=== PATIENT | male | born 1970 | race Caucasian/White ===

== ENCOUNTER 2017-05-08 14:00 | Outpatient (RCR) ==
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
== END 2017-05-09 ==
PROVIDERS: ATTEND Orthopaedic Surgery
DX: M79.622 Pain in left upper arm (principal); M79.642 Pain in left hand

== ENCOUNTER 2017-06-05 14:00 | Outpatient (RCR) ==
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
--- NOTE | 2017-06-03 16:37 | RS.OPPTDN ---
Subjective Date of Note: 06/03/17 Visit #: 2 Date of Evaluation: 06/01/17 Payer Source: Workman's Comp Treatment Diagnosis: Left knee pain, pelvic pain, back pain Current Subjective/complaints:: Patient reports pain at the right S-I that radiates into the right thigh. Reports feeling better following treatment. *Precautions: Wearing brace one more day Pain Assessment - Pain Description Pain Location: lowback, right S-I, and thigh Current Pain Intensity: mod - Treatment Modality: US with ES (Comb.) Parameters/Method Applied: [id number] at 1.5w/cm2 and 11p.v. to the right S-I region. Patient Position: Left Sidelying - Heat/Cryotherapy Treatment: Hot Pack ([id number] to the lowback and hips prior to USCOM and EX. Patient in supine. ) Interventions - Exercise/Activities/Manual Therapy Exercises/Activities: [id number] Gentle assisted stretchng of the bilateral hamstrings, SKTC, and piriformis. Isometric hip add. Quad sets left knee. Patient education on dx, body mechanics, and safety with daily activities. Patient givenb copies of new exercises. Total minutes of Exercise: 15mins Manual Therapy: NA HOME EXERCISE PROGRAM: Isometric hip add and quad sets - Charges Timed Code Treatment Minutes: 25mins Total Treatment Time: 45mins Procedures billed for this date of service:: HP, USCOM, EX Assessment: Patient able to tolerate basic exercise with assist. Will need to progress lumbar and pelvic strengthening before advancing left LE exercise. Patient Education: Education of diagnosis, Body/Joint mechanics, Home Exercise Program, Home Safety Patient demonstrates compliance with HEP?: Yes Short Term Goals Goal #1: Pt independent and compliant with HEP. Goal to be met by: 06/12/17 Progress towards Goal:: Progressing Goal #2: SLR bilaterally to 45-50 degrees in supine. Goal to be met by: 06/16/17 Goal #3: Trunk strength improved to 4/5. Goal to be met by: 06/16/17 Goal #4: Right low back/buttock pain decreased to minimal. Goal to be met by: 06/16/17 [facility] Goals Goal #1: Pt knows HEP and to continue ex's to maintain functional level at D/C. Goal to be met by: 07/12/17 Goal #2: Score on LE functional scale improved to 50/80. Goal to be met by: 07/12/17 Goal #3: Pt to tolerate prolonged sitting/riding in car without right LB or LE pain. Goal to be met by: 07/12/17 Goal #4: Lumbar AROM WFL's to perform all selfcare and ADL's w/o pain or difficulty. Goal to be met by: 07/12/17 Plan PLAN OF CARE EXPIRES ON:: 07/12/17 ORDER # VISITS AND/OR THROUGH DATE: 07/12/17 PLAN: Continue modalities and progress exercise to reduce pain and increase functional activity level.
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
--- NOTE | 2017-06-05 16:30 | RS.OPPTDN ---
Subjective Date of Note: 06/05/17 Visit #: 3 Date of Evaluation: 06/01/17 Payer Source: Workman's Comp Treatment Diagnosis: Left knee pain, pelvic pain, back pain Current Subjective/complaints:: Patient states he got a little bit of relief from the last treatment. States most of the pain is into the right buttock. States he aches more on days he has therapy. States stretching to the right HS feels like it is going to tear. *Precautions: . Pain Assessment - Pain Description Pain Location: right low back, right buttock, and right thigh Current Pain Intensity: not quaitified, moderate - Treatment Modality: US with ES (Comb.) Parameters/Method Applied: 10 mins @ 1.5 w/cm2 continuous at 12 peak volts. to right low back and superior gluteal musculature. Patient Position: Left Sidelying - Heat/Cryotherapy Treatment: Hot Pack (X 15 mins to low back in supine prior to US and EX) Interventions - Exercise/Activities/Manual Therapy Exercises/Activities: x14 mins Gentle assisted stretchng of the bilateral hamstrings, SKTC, and piriformis. Manual Therapy: NA HOME EXERCISE PROGRAM: Isometric hip add and quad sets - Charges Timed Code Treatment Minutes: 14 mins Total Treatment Time: 39 mins Procedures billed for this date of service:: HP, UScom, Ex Assessment: Patient reports some releif following treatment with US comb. States his pain continues to be mostly into right buttock and down to the knee. He is working on exercises at home. Patient demonstrates compliance with HEP?: Yes Short Term Goals Goal #1: Pt independent and compliant with HEP. Goal to be met by: 06/12/17 Progress towards Goal:: Progressing Goal #2: SLR bilaterally to 45-50 degrees in supine. Goal to be met by: 06/16/17 Goal #3: Trunk strength improved to 4/5. Goal to be met by: 06/16/17 Goal #4: Right low back/buttock pain decreased to minimal. Goal to be met by: 06/16/17 Squeezer Operator Goals Goal #1: Pt knows HEP and to continue ex's to maintain functional level at D/C. Goal to be met by: 07/12/17 Goal #2: Score on LE functional scale improved to 50/80. Goal to be met by: 07/12/17 Goal #3: Pt to tolerate prolonged sitting/riding in car without right LB or LE pain. Goal to be met by: 07/12/17 Goal #4: Lumbar AROM WFL's to perform all selfcare and ADL's w/o pain or difficulty. Goal to be met by: 07/12/17 Plan PLAN OF CARE EXPIRES ON:: 07/12/17 ORDER # VISITS AND/OR THROUGH DATE: 07/12/17 PLAN: Continue to progress stretching and strengthening as tolerated.
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
== END 2017-06-08 23:59 ==
PROVIDERS: ATTEND Orthopaedic Surgery
DX: M54.5 Low back pain (principal); M25.562 Pain in left knee; M79.622 Pain in left upper arm; R10.2 Pelvic and perineal pain

== ENCOUNTER 2017-07-08 13:00 | Outpatient (RCR) ==
--- NOTE | 2017-06-09 16:02 | RS.OPPTDN ---
Subjective Date of Note: 06/09/17 Visit #: 4 Date of Evaluation: 06/01/17 Payer Source: Workman's Comp Treatment Diagnosis: Left knee pain, pelvic pain, back pain Current Subjective/complaints:: Patient reports continued difficulty getting up from low chair or bed in the morning due to pain around the right S-I joint and across lowback. States that he has noticed this pain is better since starting treatment. He reports being able to ride short distances in vehicle without aggravating pain. *Precautions: Wearing brace one more day Pain Assessment - Pain Description Pain Location: lowback and across S-I joint area Current Pain Intensity: moderate with movement - Treatment Modality: US with ES (Comb.) Parameters/Method Applied: [id number] with US at 1.5w/cm2 and Estim 13-15p.v. to the right lower lumbar paraspinals and bilateral S-I joints with focus on the right side. Patient Position: Left Sidelying Interventions - Exercise/Activities/Manual Therapy Exercises/Activities: Gentle assisted stretchng of the bilateral hamstrings, SKTC, and piriformis. Began gentle figure 4 hip stretch on right. Isometric hip flexion, 4s/5reps each side. Began assisted bridging. Reviewed quad sets on left and discussed progression of strengthening when tolerable, as we are trying to avoid aggravating back pain. Total minutes of Exercise: 27mins Manual Therapy: NA HOME EXERCISE PROGRAM: Isometric hip add and quad sets, Isometric hip flexion, modified bridging - Charges Timed Code Treatment Minutes: 39mins Total Treatment Time: 40mins Procedures billed for this date of service:: USCOM, EX2 Assessment: Patient reporting progress with reduction in intensity of lumbar and pelvic pain. He will benefit from continued modalities and exercise as tolerated. Patient Education: Home Exercise Program Patient demonstrates compliance with HEP?: Yes Short Term Goals Goal #1: Pt independent and compliant with HEP. Goal to be met by: 06/12/17 Progress towards Goal:: Progressing Goal #2: SLR bilaterally to 45-50 degrees in supine. Goal to be met by: 06/16/17 Goal #3: Trunk strength improved to 4/5. Goal to be met by: 06/16/17 Goal #4: Right low back/buttock pain decreased to minimal. Goal to be met by: 06/16/17 Mission Commander Goals Goal #1: Pt knows HEP and to continue ex's to maintain functional level at D/C. Goal to be met by: 07/12/17 Goal #2: Score on LE functional scale improved to 50/80. Goal to be met by: 07/12/17 Goal #3: Pt to tolerate prolonged sitting/riding in car without right LB or LE pain. Goal to be met by: 07/12/17 Progress towards goal: Progressing Goal #4: Lumbar AROM WFL's to perform all selfcare and ADL's w/o pain or difficulty. Goal to be met by: 07/12/17 Plan PLAN OF CARE EXPIRES ON:: 07/12/17 ORDER # VISITS AND/OR THROUGH DATE: 07/12/17 PLAN: Continue modalities and progress exercise to increase patients functional activity level.
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
--- NOTE | 2017-06-11 11:48 | RS.OPPTDN ---
Subjective Date of Note: 06/10/17 Visit #: 5 Date of Evaluation: 06/01/17 Payer Source: Workman's Comp Treatment Diagnosis: Left knee pain, pelvic pain, back pain Current Subjective/complaints:: Patient reports he is having a bad day. States he feel good following therapy yesterday but is stiff today and having mod discomfort across S-I region, and having trouble getting up and down from bed/ chair. *Precautions: Wearing brace one more day Pain Assessment - Pain Description Pain Location: Right S-I joint, right thigh Current Pain Intensity: moderate+ Other Comments regarding Pain:: Patient also with pain in the left shoulder and mid back. - Treatment Modality: US with ES (Comb.) Parameters/Method Applied: [id number] US at 1.5w/cm2 and Estim 13-15p.v. to the right S-I joint and lower paraspinals. Patient Position: Left Sidelying Interventions - Exercise/Activities/Manual Therapy Exercises/Activities: Gentle assisted stretchng of the bilateral hamstrings, SKTC, and piriformis. Isometric hip flexion, 4s/5reps each side. Bridging. Sidelying clams. Quad sets on left and started SLR. Ended with additional stretching of hamstrings and piriformis, bilaterally. Total minutes of Exercise: 28mins Manual Therapy: NA HOME EXERCISE PROGRAM: Isometric hip add and quad sets, Isometric hip flexion, modified bridging - Charges Timed Code Treatment Minutes: 40mins Total Treatment Time: 40mins Procedures billed for this date of service:: USCOM, EX2 Assessment: Patient able to progress with exercise today. He is having more difficulty with pain which has limited his functional mobility. Patient Education: Body/Joint mechanics, Home Exercise Program, Home Safety, Activity Modification Patient demonstrates compliance with HEP?: Yes Short Term Goals Goal #1: Pt independent and compliant with HEP. Goal to be met by: 06/12/17 Progress towards Goal:: Progressing Goal #2: SLR bilaterally to 45-50 degrees in supine. Goal to be met by: 06/16/17 Goal #3: Trunk strength improved to 4/5. Goal to be met by: 06/16/17 Goal #4: Right low back/buttock pain decreased to minimal. Goal to be met by: 06/16/17 [employer] Goals Goal #1: Pt knows HEP and to continue ex's to maintain functional level at D/C. Goal to be met by: 07/12/17 Goal #2: Score on LE functional scale improved to 50/80. Goal to be met by: 07/12/17 Goal #3: Pt to tolerate prolonged sitting/riding in car without right LB or LE pain. Goal to be met by: 07/12/17 Progress towards goal: Progressing Goal #4: Lumbar AROM WFL's to perform all selfcare and ADL's w/o pain or difficulty. Goal to be met by: 07/12/17 Plan PLAN OF CARE EXPIRES ON:: 07/12/17 ORDER # VISITS AND/OR THROUGH DATE: 07/12/17 PLAN: Continue with modalities and gentle progression of exercise to reduce pain and increase patients functional activity level.
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
--- NOTE | 2017-06-12 16:21 | RS.OPPTDN ---
Subjective Date of Note: 06/12/17 Visit #: 6 Date of Evaluation: 06/01/17 Payer Source: Workman's Comp Treatment Diagnosis: Left knee pain, pelvic pain, back pain Current Subjective/complaints:: Patient reports treatment is helping reduce pain in the right S-I, but it returns within several hours. States his pain is not as intense. Patient asks to hold exercise as he was previously with Occupational therapy and is tired. *Precautions: Wearing brace one more day Pain Assessment - Pain Description Pain Location: Right S-I joint and lower lumbar paraspinals Current Pain Intensity: moderate+ - Treatment Modality: US with ES (Comb.) Parameters/Method Applied: [id number] US at 1.5w/cm2 and Estim to 9 p.v. to the right lower lumbar paraspinals and focus on right S-I joint Patient Position: Left Sidelying Interventions - Exercise/Activities/Manual Therapy Exercises/Activities: Discussed stretching. No new additions to HEP. Manual Therapy: NA HOME EXERCISE PROGRAM: Isometric hip add and quad sets, Isometric hip flexion, modified bridging - Charges Timed Code Treatment Minutes: 12mins Total Treatment Time: 15mins Procedures billed for this date of service:: USCOM Assessment: Patient reports some improvement in pain but continues to be limited with general mobility. Will resume exercise next week. Short Term Goals Goal #1: Pt independent and compliant with HEP. Goal to be met by: 06/12/17 Progress towards Goal:: Progressing Goal #2: SLR bilaterally to 45-50 degrees in supine. Goal to be met by: 06/16/17 Goal #3: Trunk strength improved to 4/5. Goal to be met by: 06/16/17 Goal #4: Right low back/buttock pain decreased to minimal. Goal to be met by: 06/16/17 Residential Goals Goal #1: Pt knows HEP and to continue ex's to maintain functional level at D/C. Goal to be met by: 07/12/17 Goal #2: Score on LE functional scale improved to 50/80. Goal to be met by: 07/12/17 Goal #3: Pt to tolerate prolonged sitting/riding in car without right LB or LE pain. Goal to be met by: 07/12/17 Progress towards goal: Progressing Goal #4: Lumbar AROM WFL's to perform all selfcare and ADL's w/o pain or difficulty. Goal to be met by: 07/12/17 Plan PLAN OF CARE EXPIRES ON:: 07/12/17 ORDER # VISITS AND/OR THROUGH DATE: 07/12/17 PLAN: Continue modalities and progress exercise as tolerated.
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
--- NOTE | 2017-06-15 15:25 | RS.OPPTDN ---
Subjective Date of Note: 06/15/17 Visit #: 7 Date of Evaluation: 06/01/17 Payer Source: Workman's Comp Treatment Diagnosis: Left knee pain, pelvic pain, back pain Current Subjective/complaints:: Patient reports back and right S-I joint pain is a little better. *Precautions: Wearing brace one more day Pain Assessment - Pain Description Pain Location: Right S-I joint and lowback Current Pain Intensity: moderate+ - Treatment Modality: US with ES (Comb.) Parameters/Method Applied: [id number] US at 1.5w/cm2 and Estim at 9-11p.v. to the right S-I joint and across the lowback. Patient Position: Left Sidelying Interventions - Exercise/Activities/Manual Therapy Exercises/Activities: Asssited stretching of the bilateral hamstrings, piriformis, SKTC, and trunk rotation. Isometric hip flexion, 4s/5reps each. Left SLR and SLR/VMO. Total minutes of Exercise: 20mins Manual Therapy: NA HOME EXERCISE PROGRAM: Isometric hip add and quad sets, Isometric hip flexion, modified bridging - Charges Timed Code Treatment Minutes: 32mins Total Treatment Time: 35mins Procedures billed for this date of service:: USCOM, EX Assessment: Patient reporting some improvement in back and S-I pain and able to progress with exercise today. Patient Education: Body/Joint mechanics, Home Exercise Program Patient demonstrates compliance with HEP?: Yes Short Term Goals Goal #1: Pt independent and compliant with HEP. Goal to be met by: 06/12/17 Progress towards Goal:: Partially Met Goal #2: SLR bilaterally to 45-50 degrees in supine. Goal to be met by: 06/16/17 Progress towards Goal:: Progressing Goal #3: Trunk strength improved to 4/5. Goal to be met by: 06/16/17 Goal #4: Right low back/buttock pain decreased to minimal. Goal to be met by: 06/16/17 Progress towards Goal:: Progressing Alf Goals Goal #1: Pt knows HEP and to continue ex's to maintain functional level at D/C. Goal to be met by: 07/12/17 Goal #2: Score on LE functional scale improved to 50/80. Goal to be met by: 07/12/17 Goal #3: Pt to tolerate prolonged sitting/riding in car without right LB or LE pain. Goal to be met by: 07/12/17 Progress towards goal: Progressing Goal #4: Lumbar AROM WFL's to perform all selfcare and ADL's w/o pain or difficulty. Goal to be met by: 07/12/17 Plan PLAN OF CARE EXPIRES ON:: 07/12/17 ORDER # VISITS AND/OR THROUGH DATE: 07/12/17 PLAN: Continue modalities and progress exercise to reduce back, sacral, and left knee pain with functional activities.
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
--- NOTE | 2017-06-17 15:48 | RS.OPPTDN ---
Subjective Date of Note: 06/17/17 Visit #: 8 Date of Evaluation: 06/01/17 Payer Source: Workman's Comp Treatment Diagnosis: Left knee pain, pelvic pain, back pain Current Subjective/complaints:: Patient reports treatment seems to help, but pain returns by the next day. States he has difficulty turning in bed due to sharp pain at the right S-I. *Precautions: Wearing brace one more day Pain Assessment - Pain Description Pain Location: Right S-I and bilateral lumbar paraspinals Current Pain Intensity: 6/10 - Treatment Modality: US with ES (Comb.) Parameters/Method Applied: [id number] US at 1.5w/cm2 and Estim to 12-14p.v. to the bilateral lower lumbar paraspinals and right S-I joint prior to EX. Patient Position: Left Sidelying Interventions - Exercise/Activities/Manual Therapy Exercises/Activities: In left side-lying clams and isometric right hip ER/ abduction. In supine, asssited stretching of the bilateral hamstrings, piriformis, SKTC, and trunk rotation. Progressed MET with isometric hip extension on the right, multiple sets of 5reps. Isometric hip flexion, 3s/5reps each. Combination isometric hip flexion on left and hip extension on right for MET. Isometric hip adduction with pillow. Ended with additional stretching and isometric hip ext on right. Total minutes of Exercise: 24mins Manual Therapy: NA HOME EXERCISE PROGRAM: Isometric hip add and quad sets, Isometric hip flexion, modified bridging. Isometric hip ext in right with assist from spouse. - Objective Findings Observations,measurements,etc.: Initially patient demos a leg length discrepancy with right longer than left by approx 1 inch. Following MET this is reduced to 1/4" or less. - Charges Timed Code Treatment Minutes: 38mins Total Treatment Time: 40mins Procedures billed for this date of service:: USCOM, EX2 Assessment: Patient with significant leg length discrepancy, but partially resolves with MET. Patient motivated to progress and actively questions patient education and how his can help with HEP. Patient Education: Education of diagnosis, Home Exercise Program, Activity Modification Patient demonstrates compliance with HEP?: Yes Short Term Goals Goal #1: Pt independent and compliant with HEP. Goal to be met by: 06/12/17 Progress towards Goal:: Partially Met Goal #2: SLR bilaterally to 45-50 degrees in supine. Goal to be met by: 06/16/17 Progress towards Goal:: Progressing Goal #3: Trunk strength improved to 4/5. Goal to be met by: 06/16/17 Goal #4: Right low back/buttock pain decreased to minimal. Goal to be met by: 06/16/17 Progress towards Goal:: Progressing Airport Representative Goals Goal #1: Pt knows HEP and to continue ex's to maintain functional level at D/C. Goal to be met by: 07/12/17 Goal #2: Score on LE functional scale improved to 50/80. Goal to be met by: 07/12/17 Goal #3: Pt to tolerate prolonged sitting/riding in car without right LB or LE pain. Goal to be met by: 07/12/17 Progress towards goal: Progressing Goal #4: Lumbar AROM WFL's to perform all selfcare and ADL's w/o pain or difficulty. Goal to be met by: 07/12/17 Plan PLAN OF CARE EXPIRES ON:: 07/12/17 ORDER # VISITS AND/OR THROUGH DATE: 07/12/17 PLAN: Continue modalities, progressive exercise, and MET to reduce pain and working to increase patients functional activitiy level.
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
--- NOTE | 2017-06-19 13:19 | RS.OTCXNS ---
OT Case Note Date of Scheduled Appointment: 06/19/17 Type: Cancel (Pt called to cx stating on way to hospital he was not feeling well. Re-scheduled for 3days next wk.)
--- NOTE | 2017-06-19 15:30 | RS.CXNS ---
Date of scheduled appointment: 06/19/17 Type: Cancel (Patient called to cancel appointment. States he was on his way to therapy but when back home due to feeling sick.)
--- NOTE | 2017-06-22 16:13 | RS.OPPTDN ---
Subjective Date of Note: 06/22/17 Visit #: 9 Date of Evaluation: 06/01/17 Payer Source: Workman's Comp Treatment Diagnosis: Left knee pain, pelvic pain, back pain Current Subjective/complaints:: Patient reports mild improvement with modalities and gentle exercise. He reports he continues to have significant discomfort at the lowback and down right thigh that limits his mobility. *Precautions: Wearing brace one more day Pain Assessment - Pain Description Pain Location: Lower lumbar paraspinals, right S-I, right posterior-lateral right upper leg. Pain Description: Radiating, Aching - Treatment Modality: US with ES (Comb.) Parameters/Method Applied: [id number] with US at 1.5w/cm2 and Estim at 10p.v. to the bilateral lower lumbar paraspinals and right S-I joint. Patient Position: Left Sidelying Interventions - Exercise/Activities/Manual Therapy Exercises/Activities: Assisted gentle stretching of the bilateral HS, piriformis , SKTC, and limited figure 4. Attempted trunk rotation, but stopped due to pain. Progressed MET with isometric hip extension on the right, multiple sets of 5reps. Isometric hip adduction with pillow. Ended with additional stretching. Total minutes of Exercise: 20mins Manual Therapy: NA HOME EXERCISE PROGRAM: Isometric hip add and quad sets, Isometric hip flexion, modified bridging. Isometric hip ext in right with assist from spouse. - Charges Timed Code Treatment Minutes: 32mins Total Treatment Time: 35mins Procedures billed for this date of service:: USCOM, EX Assessment: Patient does not appear to be making steady progress. He is reporting pain that limits his mobility with functional activity level. Patient demonstrates compliance with HEP?: Yes Short Term Goals Goal #1: Pt independent and compliant with HEP. Goal to be met by: 06/12/17 Progress towards Goal:: Met Goal #2: SLR bilaterally to 45-50 degrees in supine. Goal to be met by: 06/16/17 Progress towards Goal:: Partially Met Goal #3: Trunk strength improved to 4/5. Goal to be met by: 06/16/17 Progress towards Goal:: Not Met Comments:: Continues to be limited due to pain. Goal #4: Right low back/buttock pain decreased to minimal. Goal to be met by: 06/16/17 Progress towards Goal:: Progressing Performance Tester Goals Goal #1: Pt knows HEP and to continue ex's to maintain functional level at D/C. Goal to be met by: 07/12/17 Goal #2: Score on LE functional scale improved to 50/80. Goal to be met by: 07/12/17 Goal #3: Pt to tolerate prolonged sitting/riding in car without right LB or LE pain. Goal to be met by: 07/12/17 Progress towards goal: Progressing Goal #4: Lumbar AROM WFL's to perform all selfcare and ADL's w/o pain or difficulty. Goal to be met by: 07/12/17 Plan PLAN OF CARE EXPIRES ON:: 07/12/17 ORDER # VISITS AND/OR THROUGH DATE: 07/12/17 PLAN: Patient to see physician this week and anticipates having more diagnostic testing. Hold treatment for further physician assessment.
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
--- NOTE | 2017-06-24 16:22 | RS.OPPTDN ---
Subjective Date of Note: 06/24/17 Visit #: 10 Date of Evaluation: 06/01/17 Payer Source: Workman's Comp Treatment Diagnosis: Left knee pain, pelvic pain, back pain Current Subjective/complaints:: Patient reports seeing physician and has been advised to continue therapy at this time. Patient reports some decreased pain following treatment and exercise today. *Precautions: Wearing brace one more day Pain Assessment - Pain Description Pain Location: base of lumbar spine and right S-I joint region Current Pain Intensity: modwith movement - Treatment Modality: US with ES (Comb.) Parameters/Method Applied: [id number] US at 1.5w/cm2 and Estim 7-9 p.v. to the right lowback and S-I joint. Patient Position: Left Sidelying Interventions - Exercise/Activities/Manual Therapy Exercises/Activities: Assisted gentle stretching of the bilateral HS, piriformis , SKTC, and limited figure 4. Progressed MET with isometric hip extension on the right, multiple sets of 5reps. Isometric hip adduction with pillow. Isoemtric trunk rotation. Red theraband for resistive hip abd in hook-lying. Ended with additional stretching. Total minutes of Exercise: 14mins Manual Therapy: Trigger point release along the right lumbar paraspinals and right S-I and upper glut. Patient in left side-lying. Total minutes of Manual Therapy: 12mins HOME EXERCISE PROGRAM: Isometric hip add and quad sets, Isometric hip flexion, modified bridging. Isometric hip ext in right with assist from spouse. - Charges Timed Code Treatment Minutes: 38mins Total Treatment Time: 40mins Procedures billed for this date of service:: COM, MT, EX Assessment: Patient progressing with MET and trunk stability exercise today. Patient Education: Home Exercise Program Patient demonstrates compliance with HEP?: Yes Short Term Goals Goal #1: Pt independent and compliant with HEP. Goal to be met by: 06/12/17 Progress towards Goal:: Met Goal #2: SLR bilaterally to 45-50 degrees in supine. Goal to be met by: 06/16/17 Progress towards Goal:: Partially Met Goal #3: Trunk strength improved to 4/5. Goal to be met by: 06/16/17 Progress towards Goal:: Progressing Goal #4: Right low back/buttock pain decreased to minimal. Goal to be met by: 06/16/17 Progress towards Goal:: Progressing [facility] Goals Goal #1: Pt knows HEP and to continue ex's to maintain functional level at D/C. Goal to be met by: 07/12/17 Goal #2: Score on LE functional scale improved to 50/80. Goal to be met by: 07/12/17 Goal #3: Pt to tolerate prolonged sitting/riding in car without right LB or LE pain. Goal to be met by: 07/12/17 Progress towards goal: Progressing Goal #4: Lumbar AROM WFL's to perform all selfcare and ADL's w/o pain or difficulty. Goal to be met by: 07/12/17 Plan PLAN OF CARE EXPIRES ON:: 07/12/17 ORDER # VISITS AND/OR THROUGH DATE: 07/12/17 PLAN: Continue modalites, manual therapy, and progressive exercise to reduce pain and improve patients mobility with functional activities.
--- NOTE | 2017-06-26 16:12 | RS.OPPTDN ---
Subjective Date of Note: 06/26/17 Visit #: 11 Date of Evaluation: 06/01/17 Payer Source: Workman's Comp Treatment Diagnosis: Left knee pain, pelvic pain, back pain Current Subjective/complaints:: Patient reports he is walking better. States he is able to get in and out of car and up from chair better as well. States left knee pain mainly bothers him is we walks longer distances. *Precautions: Wearing brace one more day Pain Assessment - Pain Description Pain Location: Lowback and right S-I joint Current Pain Intensity: mod Worst Pain Intensity: 8/10 Other Comments regarding Pain:: Reports his pain is 8/10 with some movements, such as lifting hips in bed or trying to get up from a chair. - Treatment Modality: US with ES (Comb.) Parameters/Method Applied: [id number] US at 1.5w/cm2 with Estim 9-10 p.v. to the bilateral lower lumbar paraspinals and right S-I joint. Patient Position: Left Sidelying Interventions - Exercise/Activities/Manual Therapy Exercises/Activities: Assisted gentle stretching of the bilateral HS, piriformis , and SKTC. MET with isometric hip extension on the right, multiple sets of 5reps. Isometric hip adduction with pillow. Isometric trunk rotation. Green theraband for resistive hip abd in hook-lying. Resistive trunk rotation with green theraband. Green theraband for ham curl, 2s/10reps each. Left SAQ 2# 2s/ 10reps. Ended with additional stretching. Total minutes of Exercise: 17mins Manual Therapy: Trigger point release along the right lumbar paraspinals and right S-I and upper glut. Patient in left side-lying. HOME EXERCISE PROGRAM: Isometric hip add and quad sets, Isometric hip flexion, modified bridging. Isometric hip ext in right with assist from spouse. - Charges Timed Code Treatment Minutes: 29mins Total Treatment Time: 32mins Procedures billed for this date of service:: USCOM, EX Assessment: Patient has progressed with strengthening exercise today. His gait has improvement but continues to be limited with daily activities due to pain. Patient Education: Home Exercise Program Patient demonstrates compliance with HEP?: Yes Short Term Goals Goal #1: Pt independent and compliant with HEP. Goal to be met by: 06/12/17 Progress towards Goal:: Met Goal #2: SLR bilaterally to 45-50 degrees in supine. Goal to be met by: 06/16/17 Progress towards Goal:: Partially Met Goal #3: Trunk strength improved to 4/5. Goal to be met by: 06/16/17 Progress towards Goal:: Progressing Goal #4: Right low back/buttock pain decreased to minimal. 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 Goal to be met by: 07/12/17 Goal #2: Score on LE functional scale improved to 50/80. Goal to be met by: 07/12/17 Progress towards goal: Progressing Goal #3: Pt to tolerate prolonged sitting/riding in car without right LB or LE pain. Goal to be met by: 07/12/17 Progress towards goal: Progressing Goal #4: Lumbar AROM WFL's to perform all selfcare and ADL's w/o pain or difficulty. Goal to be met by: 07/12/17 Plan PLAN OF CARE EXPIRES ON:: 07/12/17 ORDER # VISITS AND/OR THROUGH DATE: 07/12/17 PLAN: Progress exercise to reduce pain and increase functional activity level.
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
--- NOTE | 2017-06-30 15:34 | RS.OPPTDN ---
Subjective Date of Note: 06/30/17 Visit #: 12 Date of Evaluation: 06/01/17 Payer Source: Workman's Comp Treatment Diagnosis: Left knee pain, pelvic pain, back pain Current Subjective/complaints:: Patient reports he is hurting more today. States he tried to play a game of pool last night, but the forward bending seems to have aggravated his pain level. Patient reports any increased activity seems to make him hurt all over. *Precautions: Wearing brace one more day Pain Assessment - Pain Description Pain Location: Lowback and right S-I/upper glut region. Current Pain Intensity: 09/18 - Treatment Modality: US with ES (Comb.) Parameters/Method Applied: [id number] US 1.5w/cm2 and Estim 14 p.v. to the bilateral lower lumbar paraspinals prior to EX. Patient Position: Left Sidelying Interventions - Exercise/Activities/Manual Therapy Exercises/Activities: Assisted gentle stretching of the bilateral HS, piriformis , and SKTC. Isometric hip adduction with pillow. Isometric trunk rotation. SLR. Isometric hip flexion. Witheld theraband exercises today. Ended with additional stretching. Total minutes of Exercise: 13mins Manual Therapy: NA HOME EXERCISE PROGRAM: Isometric hip add and quad sets, Isometric hip flexion, modified bridging. Isometric hip ext in right with assist from spouse. - Charges Timed Code Treatment Minutes: 25mins Total Treatment Time: 27mins Procedures billed for this date of service:: USCOM, EX Assessment: Patient having an exacerbation of pain today. Short Term Goals Goal #1: Pt independent and compliant with HEP. Goal to be met by: 06/12/17 Progress towards Goal:: Met Goal #2: SLR bilaterally to 45-50 degrees in supine. Goal to be met by: 06/16/17 Progress towards Goal:: Partially Met Goal #3: Trunk strength improved to 4/5. Goal to be met by: 06/16/17 Progress towards Goal:: Progressing Goal #4: Right low back/buttock pain decreased to minimal. Goal to be met by: 06/16/17 Progress towards Goal:: Progressing [facility] Goals Goal #1: Pt knows HEP and to continue ex's to maintain functional level at D/C. Goal to be met by: 07/12/17 Goal #2: Score on LE functional scale improved to 50/80. Goal to be met by: 07/12/17 Progress towards goal: Progressing Goal #3: Pt to tolerate prolonged sitting/riding in car without right LB or LE pain. Goal to be met by: 07/12/17 Progress towards goal: Progressing Goal #4: Lumbar AROM WFL's to perform all selfcare and ADL's w/o pain or difficulty. Goal to be met by: 07/12/17 Plan PLAN OF CARE EXPIRES ON:: 07/12/17 ORDER # VISITS AND/OR THROUGH DATE: 07/12/17 PLAN: Continue modalities and resume progression of exercises.
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
--- NOTE | 2017-07-02 15:46 | RS.OPPTDN ---
Subjective Date of Note: 07/02/17 Visit #: 13 Date of Evaluation: 06/01/17 Payer Source: Workman's Comp Treatment Diagnosis: Left knee pain, pelvic pain, back pain Current Subjective/complaints:: Patient says he is improving, but slower than he would like. He reports turning in bed is still one of the most difficult activities currently. He says he is using TENS at home and working on HEP, which seems to be a little easier to do. *Precautions: Wearing brace one more day Pain Assessment - Pain Description Pain Location: lumbar paraspinals and into the R pelvis - Treatment Modality: US with ES (Comb.) Parameters/Method Applied: continuous @ 1.5 w/cm2 and 13 pk volts x 10 mins to the R lumbar paraspinals and into the illiac crest region/sacrum Patient Position: Left Sidelying Interventions - Exercise/Activities/Manual Therapy Exercises/Activities: Assisted gentle stretching of the bilateral HS, piriformis , added figure 4, and SKTC. Isometric hip adduction with pillow 2x10. Isometric trunk rotation x 10. SLR, QS x 10. Isometric hip flexion x 10. Total minutes of Exercise: 21 Manual Therapy: NA HOME EXERCISE PROGRAM: Isometric hip add and quad sets, Isometric hip flexion, modified bridging. Isometric hip ext in right with assist from spouse. - Charges Timed Code Treatment Minutes: 31 Total Treatment Time: 31 Procedures billed for this date of service:: ex, u/s with estim combo Assessment: Patient is improving slowly with back pain reduction and flexibility. He has difficulty with bed mobility, but is able to do it slowly ( supine to sidelying), which does reduce his pain and is more tolerable now than recent weeks. Patient should benefit from further progression of modaltities and therex. Patient Education: Home Exercise Program, Education of Plan of Care Patient demonstrates compliance with HEP?: Yes Short Term Goals Goal #1: Pt independent and compliant with HEP. Goal to be met by: 06/12/17 Progress towards Goal:: Met Goal #2: SLR bilaterally to 45-50 degrees in supine. Goal to be met by: 06/16/17 Progress towards Goal:: Partially Met Goal #3: Trunk strength improved to 4/5. Goal to be met by: 06/16/17 Progress towards Goal:: Progressing Goal #4: Right low back/buttock pain decreased to minimal. Goal to be met by: 06/16/17 Progress towards Goal:: Progressing [employer]ary Goals Goal #1: Pt knows HEP and to continue ex's to maintain functional level at D/C. Goal to be met by: 07/12/17 Goal #2: Score on LE functional scale improved to 50/80. Goal to be met by: 07/12/17 Progress towards goal: Progressing Goal #3: Pt to tolerate prolonged sitting/riding in car without right LB or LE pain. Goal to be met by: 07/12/17 Progress towards goal: Progressing Goal #4: Lumbar AROM WFL's to perform all selfcare and ADL's w/o pain or difficulty. Goal to be met by: 07/12/17 Plan PLAN OF CARE EXPIRES ON:: 07/12/17 ORDER # VISITS AND/OR THROUGH DATE: 07/12/17 PLAN: Patient should continue x 6 more visit per pt's reports of MD request to lead up to his follow up appt.
--- NOTE | 2017-07-07 15:52 | RS.OPPTDN ---
Subjective Date of Note: 07/07/17 Visit #: 14 Date of Evaluation: 06/01/17 Payer Source: Workman's Comp Treatment Diagnosis: Left knee pain, pelvic pain, back pain Current Subjective/complaints:: Patient reports he and his are seeing slow , but steady improvement in his mobility. *Precautions: Wearing brace one more day Pain Assessment - Pain Description Pain Location: Lowback, right S-I - Treatment Modality: US with ES (Comb.) Parameters/Method Applied: [id number] US at 1.5w/cm2 and Estim at 9p.v. to the right lowback and right S-I joint region. Patient Position: Left Sidelying Interventions - Exercise/Activities/Manual Therapy Exercises/Activities: Assisted gentle stretching of the bilateral HS, piriformis , added figure 4, and SKTC. Isometric hip adduction with pillow. Left SLR, QS x 10reps each. Began left SLR/VMO 2s/5reps each. Isometric hip flexion 3s/5reps. Total minutes of Exercise: 17mins Manual Therapy: NA HOME EXERCISE PROGRAM: Isometric hip add and quad sets, Isometric hip flexion, modified bridging. Isometric hip ext in right with assist from spouse. - Charges Timed Code Treatment Minutes: 29mins Total Treatment Time: 29mins Procedures billed for this date of service:: USCOM, EX Assessment: Patient reporting progress in his mobility at home. Demos improved gait pattern. Patient Education: Body/Joint mechanics, Home Exercise Program Patient demonstrates compliance with HEP?: Yes Short Term Goals Goal #1: Pt independent and compliant with HEP. Goal to be met by: 06/12/17 Progress towards Goal:: Met Goal #2: SLR bilaterally to 45-50 degrees in supine. Goal to be met by: 06/16/17 Progress towards Goal:: Partially Met Goal #3: Trunk strength improved to 4/5. Goal to be met by: 06/16/17 Progress towards Goal:: Progressing Goal #4: Right low back/buttock pain decreased to minimal. Goal to be met by: 06/16/17 Progress towards Goal:: Progressing Fdc Goals Goal #1: Pt knows HEP and to continue ex's to maintain functional level at D/C. Goal to be met by: 07/12/17 Goal #2: Score on LE functional scale improved to 50/80. Goal to be met by: 07/12/17 Progress towards goal: Progressing Goal #3: Pt to tolerate prolonged sitting/riding in car without right LB or LE pain. Goal to be met by: 07/12/17 Progress towards goal: Progressing Goal #4: Lumbar AROM WFL's to perform all selfcare and ADL's w/o pain or difficulty. Goal to be met by: 07/12/17 Plan PLAN OF CARE EXPIRES ON:: 07/12/17 ORDER # VISITS AND/OR THROUGH DATE: 07/12/17 PLAN: Progress exercise to increase patients functional activity level.
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
--- NOTE | 2017-07-08 15:49 | RS.OPPTDN ---
Subjective Date of Note: 07/08/17 Visit #: 15 Date of Evaluation: 06/01/17 Payer Source: Workman's Comp Treatment Diagnosis: Left knee pain, pelvic pain, back pain Current Subjective/complaints:: Patient reports he is moving better today. States left knee pain is not bothering him if he walks short distances. Pain does increase with knee to chest stretch with full flexion. *Precautions: Wearing brace one more day - Treatment Modality: US with ES (Comb.) Parameters/Method Applied: [id number] US at 1.5w/cm2 and Estim to 7-9p.v. to the bilateral lower lumbar paraspinals and right S-I joint prirot o EX. Patient Position: Left Sidelying Interventions - Exercise/Activities/Manual Therapy Exercises/Activities: Assisted gentle stretching of the bilateral HS, piriformis , added figure 4, and SKTC. Isometric hip adduction with pillow. Left SLR, QS x 10reps each. Left SLR/VMO 2s/5reps. Isometric hip flexion 4s/5reps. Right hip isometric hip extension. Total minutes of Exercise: 15mins Manual Therapy: NA HOME EXERCISE PROGRAM: Isometric hip add and quad sets, Isometric hip flexion, modified bridging. Isometric hip ext in right with assist from spouse. - Objective Findings Observations,measurements,etc.: Patient demos independent with SLR and SLR/VMO on the left. - Charges Timed Code Treatment Minutes: 27mins Total Treatment Time: 32mins Procedures billed for this date of service:: USCOM, EX Assessment: Patient slowly making improvement with mobility and reduction in left knee pain. Orders received to continue therapy 3 times per week for 4 weeks. Patient Education: Education of Plan of Care Patient demonstrates compliance with HEP?: Yes Short Term Goals Goal #1: Pt independent and compliant with HEP. Goal to be met by: 06/12/17 Progress towards Goal:: Met Goal #2: SLR bilaterally to 45-50 degrees in supine. Goal to be met by: 06/16/17 Progress towards Goal:: Partially Met Goal #3: Trunk strength improved to 4/5. Goal to be met by: 06/16/17 Progress towards Goal:: Partially Met Goal #4: Right low back/buttock pain decreased to minimal. Goal to be met by: 06/16/17 Progress towards Goal:: Progressing Jail Goals Goal #1: Pt knows HEP and to continue ex's to maintain functional level at D/C. Goal to be met by: 08/05/17 Progress towards goal: Progressing Goal #2: Score on LE functional scale improved to 50/80. Goal to be met by: 08/05/17 Progress towards goal: Progressing Goal #3: Pt to tolerate prolonged sitting/riding in car without right LB or LE pain. Goal to be met by: 08/05/17 Progress towards goal: Progressing Goal #4: Lumbar AROM WFL's to perform all selfcare and ADL's w/o pain or difficulty. Goal to be met by: 08/05/17 Progress towards goal: Progressing Plan PLAN OF CARE EXPIRES ON:: 08/05/17 ORDER # VISITS AND/OR THROUGH DATE: 08/05/17 PLAN: Progress with exercise to reduce back and left knee pain, and increase functional activity level. LTG's dates extended to accommodate continuation orders.
--- NOTE | 2017-07-10 11:18 | RS.OTDNOTE ---
Subjective Date of Note: 07/08/17 Visit #: 27 Date of Evaluation: 05/04/17 Payer Source: Workman's Comp Treatment Diagnosis: Pain of left upper arm M79.622, M79.642 pain in Left hand digits *Precautions: Wearing brace one more day Current Complaints/Gains: States at rest 0 c/o pain. States he has reduced from 16 pain pills to 3 or less a day. Pain Assessment - Pain Description Pain Description: Tightness, Dull, Aching Pain Location: Ribs 5/10. Pain continues in left UE ulnar aspect of arm that runs to digits in the PIP to the DIP joints. Pt reports "tightness and pulling " in his left UE Pain Description: acute, aches, sharp Modalities - Treatment Modality: Ultrasound Parameters/Method Applied: .04wcm/2 x10 mins pecks/anterior shoulder Patient Position: Sitting Interventions - Exercise/Activities Exercise/Activities/Manual Therapy: MT/postural trng performed in sitting and supine postions including cervical/scaline stretches. Pt ed and performed PNF ex in supine positon 10/1 x D1D2 flexion/extension and add/abduction planes. Isometric ex/hold-release performed 10/2 x shoulder flexion/extension and IR/ ER. 1# renetta bar and yellow t-band ex's this date. HEP ed continues. Pt also in prone position for abduction/flexion and row ex's(2#) 10/2 of shoulder. HOME EXERCISE PROGRAM: AROM shoulder protraction/retraction in supine. Lying on right side trying to move the shoulder in the clock formation. scapular pinches holding shoulder blades together for 5 seconds. - Objective Findings Objective Findings:: Winging of left scapula, tender points in serratus, posterior inferior muscle, subscapularis, intercostal tender points. Pt edema has really decreased. Pt is anteriorly rotated in Left shoulder. Core Muscles of left side have atrophied due to surgery. Pt tolerating scapular pinches better today. Pt leans head to the left with LUE shoulder flexion AROM. Pt has pain in the ulnar nerve aspect of the left forearm and in the tricep of the LUE. - Charges Timed Code Treatment Minutes: 54 Total Treatment Time: 58 Procedures billed for this date of service:: US MT EX NMR Assessment Patient Education: Education of diagnosis, Body/Joint mechanics, Home Exercise Program, Home Safety, Activity Modification, Education of Plan of Care Patient demonstrates compliance with HEP?: Yes Short Term Goals Goal #1: Pt LUE pain to decrease to 2/10. Goal to be met by: 07/20/17 Progress towards goal: Progressing Goal #2: Pt to increase LUE mass senior etl developer to 80#. Goal to be met by: 07/20/17 Progress towards goal: Progressing Goal #3: Pt to increase AROM of shoulder abduction to 90 degrees. Goal to be met by: 07/20/17 Progress towards goal: Progressing Goal #4: Pt to be independent with Home exercise program. Goal to be met by: 06/01/17 Progress towards goal: [facility] Goals Goal #1: Pt to decrease pain to 0/10 Goal to be met by: 08/06/17 Progress towards goal: Progressing Goal #2: Pt to increase LUE mass senior etl developer to 100#. Goal to be met by: 08/06/17 Progress towards goal: Progressing Goal #3: Pt to increase AROM of LUE to be WFL. Goal to be met by: 08/06/17 Progress towards goal: Progressing Goal #4: Pt to increase strength of LUE to 4+/5. Goal to be met by: 07/01/17 Progress towards goal: Progressing Plan PLAN OF CARE EXPIRES ON:: 08/06/17 ORDER # VISITS AND/OR THROUGH DATE: 12 PLAN: Continue current POC to max fx use, strength, and AROM with decreased c/o pain.
== END 2017-07-09 23:59 ==
PROVIDERS: ATTEND Orthopaedic Surgery
DX: M25.512 Pain in left shoulder (principal); M25.562 Pain in left knee; M54.5 Low back pain; M79.602 Pain in left arm

== ENCOUNTER 2017-08-07 09:00 | Outpatient (RCR) ==
--- NOTE | 2017-07-10 16:11 | RS.OPPTDN ---
Subjective Date of Note: 07/10/17 Visit #: 16 Date of Evaluation: 06/01/17 Payer Source: Workman's Comp Treatment Diagnosis: Left knee pain, pelvic pain, back pain Current Subjective/complaints:: Patient reports he is hurting more today. States he tried to work on a home project today and reports he was unable to kneel due to bilateral knee pain with left worse than right. *Precautions: Wearing brace one more day - Treatment Modality: US with ES (Comb.) Parameters/Method Applied: [id number] US at 1.5w/cm2 and Estim 7-10p.v. to the bialteral lumbar paraspinals and right S-I joint into upper glut. Patient Position: Left Sidelying Interventions - Exercise/Activities/Manual Therapy Exercises/Activities: Assisted gentle stretching of the bilateral HS, piriformis , added figure 4, and SKTC. Isometric hip adduction with pillow. Left SLR, QS, and SLR/VMO 2s/10reps. Isometric hip flexion 4s/5reps. Green theraband for resisted hip abd and add in hook-lying 2s/10reps each. Ended with additional HS and SKTC stretching. Right hip isometric hip extension. Total minutes of Exercise: 25mins Manual Therapy: NA HOME EXERCISE PROGRAM: Isometric hip add and quad sets, Isometric hip flexion, modified bridging. Isometric hip ext in right with assist from spouse. - Charges Timed Code Treatment Minutes: 39mins Total Treatment Time: 42mins Procedures billed for this date of service:: USCOM, EX2 Assessment: Patient having a flair up. He consistently tries to perform daily activities around his home and continues to have difficulty due to back, pelvic , and left knee pain. THe patient is consistent with attendance and motivated to progress. Patient Education: Home Exercise Program Patient demonstrates compliance with HEP?: Yes Short Term Goals Goal #1: Pt independent and compliant with HEP. Goal to be met by: 06/12/17 Progress towards Goal:: Met Goal #2: SLR bilaterally to 45-50 degrees in supine. Goal to be met by: 06/16/17 Progress towards Goal:: Partially Met Goal #3: Trunk strength improved to 4/5. Goal to be met by: 06/16/17 Progress towards Goal:: Partially Met Goal #4: Right low back/buttock pain decreased to minimal. Goal to be met by: 06/16/17 Progress towards Goal:: Regressing Residential Goals Goal #1: Pt knows HEP and to continue ex's to maintain functional level at D/C. Goal to be met by: 08/05/17 Progress towards goal: Progressing Goal #2: Score on LE functional scale improved to 50/80. Goal to be met by: 08/05/17 Progress towards goal: Progressing Goal #3: Pt to tolerate prolonged sitting/riding in car without right LB or LE pain. Goal to be met by: 08/05/17 Goal #4: Lumbar AROM WFL's to perform all selfcare and ADL's w/o pain or difficulty. Goal to be met by: 08/05/17 Progress towards goal: Regressing (Flair-up of pain limiting his ability with ADL's.) Plan PLAN OF CARE EXPIRES ON:: 08/05/17 ORDER # VISITS AND/OR THROUGH DATE: 08/05/17 PLAN: Continue gentle strengthening and pelvic alignment to attempt to reduce pain and increase patients functional activity level.
--- NOTE | 2017-07-13 16:33 | RS.OTDNOTE ---
Subjective Date of Note: 07/13/17 Visit #: 29 Date of Evaluation: 05/04/17 Payer Source: Workman's Comp Treatment Diagnosis: Pain of left upper arm M79.622, M79.642 pain in Left hand digits *Precautions: Wearing brace one more day Current Complaints/Gains: Pain in his arm, pain in PIP joints, Pain in his back. Shoulder bother's him. Pain Assessment - Pain Description Pain Location: Ribs 5/10. Pain continues in left UE ulnar aspect of arm that runs to digits in the PIP to the DIP joints. Pt reports "tightness and pulling " in his left UE Pain Description: acute, aches, sharp Current Pain Intensity: 3 Worst Pain Intensity: 9 Modalities - Treatment Modality: Ultrasound Parameters/Method Applied: .4 w/cm2 to teres minor, teres major to decrease pain for 8 minutes while patient was sitting in a chair. Treatment Area: LUE Posterior shoulder Patient Position: Sitting Interventions - Exercise/Activities Exercise/Activities/Manual Therapy: MT to Pectoralis muscle while in supine and teres major and teres minor muscles while in sitting. US to teres minor and major to decrease pain. 1# renetta bar with 4# bar to strengthen shoulder flexion, and chest pushouts. HEP ed continues. HOME EXERCISE PROGRAM: AROM shoulder protraction/retraction in supine. Lying on right side trying to move the shoulder in the clock formation. scapular pinches holding shoulder blades together for 5 seconds. - Objective Findings Objective Findings:: Winging of left scapula, tender points in serratus, posterior inferior muscle, subscapularis, intercostal tender points. Pt edema has really decreased. Pt is anteriorly rotated in Left shoulder. Core Muscles of left side have atrophied due to surgery. Pt tolerating scapular pinches better today. Pt leans head to the left with LUE shoulder flexion AROM. Pt has pain in the ulnar nerve aspect of the left forearm and in the tricep of the LUE. - Charges Timed Code Treatment Minutes: 55 Total Treatment Time: 58 Procedures billed for this date of service:: US, MT x2, EX Assessment Assessment: Pt reports he is improving slowly. Problems/Comments: Pain with LUE shoulder flexion. Pt cannot raise his arm up into full flexion. Patient demonstrates compliance with HEP?: Yes Short Term Goals Goal #1: Pt LUE pain to decrease to 2/10. Goal to be met by: 07/20/17 Progress towards goal: Progressing Goal #2: Pt to increase LUE mass plug cutter to 80#. Goal to be met by: 07/20/17 Goal #3: Pt to increase AROM of shoulder abduction to 90 degrees. Goal to be met by: 07/20/17 Goal #4: Pt to be independent with Home exercise program. Goal to be met by: 06/01/17 Progress towards goal: Met Weatherization Specialist Goals Goal #1: Pt to decrease pain to 0/10 Goal to be met by: 08/06/17 Progress towards goal: Progressing Goal #2: Pt to increase LUE mass plug cutter to 100#. Goal to be met by: 08/06/17 Progress towards goal: Progressing Goal #3: Pt to increase AROM of LUE to be WFL. Goal to be met by: 08/06/17 Progress towards goal: Progressing Goal #4: Pt to increase strength of LUE to 4+/5. Goal to be met by: 07/01/17 Progress towards goal: Progressing Plan PLAN OF CARE EXPIRES ON:: 08/06/17 ORDER # VISITS AND/OR THROUGH DATE: 12 PLAN: Pt to decrease pain in LUE shoulder to 0/10. Increase strength to increase AROM of LUE for ADLS.
--- NOTE | 2017-07-14 08:35 | RS.OTDNOTE ---
Subjective Date of Note: 07/10/17 Visit #: 28 Date of Evaluation: 05/04/17 Payer Source: Workman's Comp Treatment Diagnosis: Pain of left upper arm M79.622, M79.642 pain in Left hand digits *Precautions: Wearing brace one more day Current Complaints/Gains: States MT/shoulder retraction "feels good" Pain Assessment - Pain Description Pain Location: Ribs 5/10. Pain continues in left UE ulnar aspect of arm that runs to digits in the PIP to the DIP joints. Pt reports "tightness and pulling " in his left UE Pain Description: acute, aches, sharp Modalities - Treatment Modality: Ultrasound Parameters/Method Applied: .04w/cm2 x 10 mins Treatment Area: shoulder Patient Position: Sitting - Hot Pack/Cryotherapy Treatment: Cryotherapy Interventions - Exercise/Activities Exercise/Activities/Manual Therapy: MT/postural trng performed in sitting and supine postions including cervical/scaline stretches. Pt ed and performed PNF ex in supine positon 10/1 x D1D2 flexion/extension and add/abduction planes. Isometric ex/hold-release performed 10/2 x shoulder flexion/extension and IR/ ER. 1# renetta bar and yellow t-band ex's this date. HEP ed continues. Pt also in prone position for abduction/flexion and row ex's(2#) 10/2 of shoulder. HOME EXERCISE PROGRAM: AROM shoulder protraction/retraction in supine. Lying on right side trying to move the shoulder in the clock formation. scapular pinches holding shoulder blades together for 5 seconds. - Objective Findings Objective Findings:: Winging of left scapula, tender points in serratus, posterior inferior muscle, subscapularis, intercostal tender points. Pt edema has really decreased. Pt is anteriorly rotated in Left shoulder. Core Muscles of left side have atrophied due to surgery. Pt tolerating scapular pinches better today. Pt leans head to the left with LUE shoulder flexion AROM. Pt has pain in the ulnar nerve aspect of the left forearm and in the tricep of the LUE. - Charges Timed Code Treatment Minutes: 58 Total Treatment Time: 62 Procedures billed for this date of service:: US MT EX2 Assessment Patient Education: Education of diagnosis, Body/Joint mechanics, Home Exercise Program, Home Safety, Activity Modification, Education of Plan of Care Patient demonstrates compliance with HEP?: Yes Short Term Goals Goal #1: Pt LUE pain to decrease to 2/10. 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 Goal to be met by: 07/20/17 Progress towards goal: Progressing Goal #3: Pt to increase AROM of shoulder abduction to 90 degrees. Goal to be met by: 07/20/17 Progress towards goal: Progressing Comments: Met in supine positon Goal #4: Pt to be independent with Home exercise program. 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 Goal to be met by: 08/06/17 Progress towards goal: Progressing Goal #3: Pt to increase AROM of LUE to be WFL. Goal to be met by: 08/06/17 Progress towards goal: Progressing Goal #4: Pt to increase strength of LUE to 4+/5. Goal to be met by: 07/01/17 Progress towards goal: Progressing Plan PLAN OF CARE EXPIRES ON:: 08/06/18 ORDER # VISITS AND/OR THROUGH DATE: 37 PLAN: Cont per POC to max fx strength and ROM with decreased c/o pain
--- NOTE | 2017-07-15 15:06 | RS.OPPTDN ---
Subjective Date of Note: 07/13/17 Visit #: 17 Date of Evaluation: 06/01/17 Payer Source: Workman's Comp Treatment Diagnosis: Left knee pain, pelvic pain, back pain Current Subjective/complaints:: Patient reports pain across LB and hip with right S-I continuing to be the worst. Reports he is seeing slow but steady progress with his mobility with light activities around his home. *Precautions: Wearing brace one more day - Treatment Modality: US with ES (Comb.) Parameters/Method Applied: [id number] US at 1.5w/cm2 and Estim 9p.v. to the bilateral lumbar paraspinals and right S-I joint prior to EX. Patient Position: Left Sidelying Interventions - Exercise/Activities/Manual Therapy Exercises/Activities: Assisted gentle stretching of the bilateral HS, piriformis , added figure 4, and SKTC. Isometric hip adduction with pillow. Left SLR, QS, and SLR/VMO 2s/10reps. Isometric hip flexion 4s/5reps. Green theraband for resisted hip abd and add in hook-lying 2s/10reps each. Ended with additional HS and SKTC stretching. Right hip isometric hip extension and isometric hip add for MET. Total minutes of Exercise: 24mins Manual Therapy: NA HOME EXERCISE PROGRAM: Isometric hip add and quad sets, Isometric hip flexion, modified bridging. Isometric hip ext in right with assist from spouse. - Charges Timed Code Treatment Minutes: 38mins Total Treatment Time: 42mins Procedures billed for this date of service:: USCOM, EX2 Assessment: Patient able to progress exercise. Patient Education: Home Exercise Program, Home Safety, Activity Modification Patient demonstrates compliance with HEP?: Yes Short Term Goals Goal #1: Pt independent and compliant with HEP. Goal to be met by: 06/12/17 Progress towards Goal:: Met Goal #2: SLR bilaterally to 45-50 degrees in supine. Goal to be met by: 06/16/17 Progress towards Goal:: Partially Met Goal #3: Trunk strength improved to 4/5. Goal to be met by: 06/16/17 Progress towards Goal:: Partially Met Goal #4: Right low back/buttock pain decreased to minimal. Goal to be met by: 06/16/17 Progress towards Goal:: Regressing Custodial Goals Goal #1: Pt knows HEP and to continue ex's to maintain functional level at D/C. Goal to be met by: 08/05/17 Progress towards goal: Progressing Goal #2: Score on LE functional scale improved to 50/80. Goal to be met by: 08/05/17 Progress towards goal: Progressing Goal #3: Pt to tolerate prolonged sitting/riding in car without right LB or LE pain. Goal to be met by: 08/05/17 Goal #4: Lumbar AROM WFL's to perform all selfcare and ADL's w/o pain or difficulty. Goal to be met by: 08/05/17 Progress towards goal: Regressing (Flair-up of pain limiting his ability with ADL's.) Plan PLAN OF CARE EXPIRES ON:: 08/05/17 ORDER # VISITS AND/OR THROUGH DATE: 08/05/17 PLAN: Progress exercise to increase patients ability to perform daily functional activities.
--- NOTE | 2017-07-15 16:21 | RS.OPPTDN ---
Subjective Date of Note: 07/15/17 Visit #: 18 Date of Evaluation: 06/01/17 Payer Source: Workman's Comp Treatment Diagnosis: Left knee pain, pelvic pain, back pain Current Subjective/complaints:: Patient reports he feels he is making slow progress. *Precautions: Wearing brace one more day Pain Assessment - Pain Description Pain Location: right S-I joint and lower lumbar paraspinals Pain Description: Sharp, Aching Current Pain Intensity: 5-6/10 - Treatment Modality: US with ES (Comb.) Parameters/Method Applied: [id number] US at 1.5w/cm2 and Estim 8-9p.v. to the bialteral lower lumbar paraspinals and focus on right S-I joint. Patient Position: Left Sidelying Interventions - Exercise/Activities/Manual Therapy Exercises/Activities: Assisted gentle stretching of the bilateral HS, piriformis , added figure 4, and SKTC. Isometric hip adduction with pillow. Left SLR, QS, and SLR/VMO 2s/10reps. Isometric hip flexion 4s/5reps. Isometric hip abduction with manual resistance, 5s/5reps each. Ended with additional HS and SKTC stretching. Total minutes of Exercise: 24mins Manual Therapy: NA HOME EXERCISE PROGRAM: Isometric hip add and quad sets, Isometric hip flexion, modified bridging. Isometric hip ext in right with assist from spouse. - Charges Timed Code Treatment Minutes: 38mins Total Treatment Time: 41mins Procedures billed for this date of service:: USCOM, EX2 Assessment: Patient continues to report improvement in pain and general mobility , but continues to be very limited in his functional activity level. Patient Education: Body/Joint mechanics, Home Exercise Program Patient demonstrates compliance with HEP?: Yes Short Term Goals Goal #1: Pt independent and compliant with HEP. Goal to be met by: 06/12/17 Progress towards Goal:: Met Goal #2: SLR bilaterally to 45-50 degrees in supine. Goal to be met by: 06/16/17 Progress towards Goal:: Partially Met Goal #3: Trunk strength improved to 4/5. Goal to be met by: 06/16/17 Progress towards Goal:: Partially Met Goal #4: Right low back/buttock pain decreased to minimal. 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 Goal to be met by: 08/05/17 Progress towards goal: Progressing Goal #2: Score on LE functional scale improved to 50/80. Goal to be met by: 08/05/17 Progress towards goal: Progressing Goal #3: Pt to tolerate prolonged sitting/riding in car without right LB or LE pain. Goal to be met by: 08/05/17 Progress towards goal: Progressing Goal #4: Lumbar AROM WFL's to perform all selfcare and ADL's w/o pain or difficulty. Goal to be met by: 08/05/17 Progress towards goal: Regressing (Flair-up of pain limiting his ability with ADL's.) Plan PLAN OF CARE EXPIRES ON:: 08/05/17 ORDER # VISITS AND/OR THROUGH DATE: 08/05/17 PLAN: Continue progression of exercise as tolerated to increase patients functional activity level.
--- NOTE | 2017-07-17 08:39 | RS.OTDNOTE ---
Subjective Date of Note: 07/15/17 Visit #: 30 Date of Evaluation: 05/04/17 Payer Source: Workman's Comp Treatment Diagnosis: Pain of left upper arm M79.622, M79.642 pain in Left hand digits *Precautions: Wearing brace one more day Pain Assessment - Pain Description Pain Location: Ribs 5/10. Pain continues in left UE ulnar aspect of arm that runs to digits in the PIP to the DIP joints. Pt reports "tightness and pulling " in his left UE Pain Description: acute, aches, sharp Modalities - Treatment Modality: Ultrasound Parameters/Method Applied: .04w/cm2 x10 mins Patient Position: Supine Comments:: UE in prolonged stretch while in supine positon - Hot Pack/Cryotherapy Treatment: Cryotherapy Comments:: CP x 10 mins following therapy Interventions - Exercise/Activities Exercise/Activities/Manual Therapy: MT/postural trng performed in sitting and supine postions including cervical/scaline stretches. Pt ed and performed PNF ex in supine positon 10/1 x D1D2 flexion/extension and add/abduction planes. Isometric ex/hold-release performed 10/2 x shoulder flexion/extension and IR/ ER. 1# renetta bar and yellow t-band ex's this date. HEP ed continues. Pt also in prone position for abduction/flexion and row ex's(2#) 10/2 of shoulder. HOME EXERCISE PROGRAM: AROM shoulder protraction/retraction in supine. Lying on right side trying to move the shoulder in the clock formation. scapular pinches holding shoulder blades together for 5 seconds. - Objective Findings Objective Findings:: Winging of left scapula, tender points in serratus, posterior inferior muscle, subscapularis, intercostal tender points. Pt edema has really decreased. Pt is anteriorly rotated in Left shoulder. Core Muscles of left side have atrophied due to surgery. Pt tolerating scapular pinches better today. Pt leans head to the left with LUE shoulder flexion AROM. Pt has pain in the ulnar nerve aspect of the left forearm and in the tricep of the LUE. - Charges Timed Code Treatment Minutes: 55 Total Treatment Time: 69 Procedures billed for this date of service:: CP US EX MT Assessment Patient Education: Education of diagnosis, Body/Joint mechanics, Home Exercise Program, Home Safety, Activity Modification, Education of Plan of Care Patient demonstrates compliance with HEP?: Yes Short Term Goals Goal #1: Pt LUE pain to decrease to 2/10. Goal to be met by: 07/20/17 Progress towards goal: Progressing Goal #2: Pt to increase LUE mass bread racker to 80#. Goal to be met by: 07/20/17 Progress towards goal: Progressing Goal #3: Pt to increase AROM of shoulder abduction to 90 degrees. Goal to be met by: 07/20/17 Progress towards goal: Progressing Goal #4: Pt to be independent with Home exercise program. Goal to be met by: 06/01/17 Progress towards goal: Met [facility] Goals Goal #1: Pt to decrease pain to 0/10 Goal to be met by: 08/06/17 Progress towards goal: Progressing Goal #2: Pt to increase LUE mass bread racker to 100#. Goal to be met by: 08/06/17 Progress towards goal: Progressing Goal #3: Pt to increase AROM of LUE to be WFL. Goal to be met by: 08/06/17 Progress towards goal: Progressing Goal #4: Pt to increase strength of LUE to 4+/5. Goal to be met by: 07/01/17 Progress towards goal: Progressing Plan PLAN OF CARE EXPIRES ON:: 08/06/17 ORDER # VISITS AND/OR THROUGH DATE: 37 PLAN: Cont current POC to max fx strength and ROM with decreased c/o pain
--- NOTE | 2017-07-17 16:21 | RS.OTDNOTE ---
Subjective Date of Note: 07/17/17 Visit #: 31 Date of Evaluation: 05/04/17 Payer Source: Workman's Comp Treatment Diagnosis: Pain of left upper arm M79.622, M79.642 pain in Left hand digits *Precautions: Wearing brace one more day Current Complaints/Gains: Increased c/o pain. States he played pool last night but did ice afterwards. Pain Assessment - Pain Description Pain Description: Burning, Tightness, Sharp, Dull, Throbbing, Aching Pain Location: Ribs 5/10. Pain continues in left UE ulnar aspect of arm that runs to digits in the PIP to the DIP joints. Pt reports "tightness and pulling " in his left UE Pain Description: acute, aches, sharp Current Pain Intensity: 3 Worst Pain Intensity: 10 Modalities - Treatment Parameters/Method Applied: .04w/cm2x 10 mins Patient Position: Supine - Hot Pack/Cryotherapy Treatment: Cryotherapy (CP x 10 mins) Interventions - Exercise/Activities Exercise/Activities/Manual Therapy: MT/postural trng performed in sitting and supine postions including cervical/scaline stretches. Pt ed and performed PNF ex in supine positon 10/1 x D1D2 flexion/extension and add/abduction planes. Isometric ex/hold-release performed 10/2 x shoulder flexion/extension and IR/ ER. 1# renetta bar and yellow/red t-band ex's this date. HEP ed continues. Pt also in prone position for abduction/flexion and row ex's(2#) 10/2 of shoulder. HOME EXERCISE PROGRAM: AROM shoulder protraction/retraction in supine. Lying on right side trying to move the shoulder in the clock formation. scapular pinches holding shoulder blades together for 5 seconds. - Objective Findings Objective Findings:: Winging of left scapula, tender points in serratus, posterior inferior muscle, subscapularis, intercostal tender points. Pt edema has really decreased. Pt is anteriorly rotated in Left shoulder. Core Muscles of left side have atrophied due to surgery. Pt tolerating scapular pinches better today. Pt leans head to the left with LUE shoulder flexion AROM. Pt has pain in the ulnar nerve aspect of the left forearm and in the tricep of the LUE. - Charges Timed Code Treatment Minutes: 64 Total Treatment Time: 74 Procedures billed for this date of service:: US EX2 MT CP Assessment Patient Education: Education of diagnosis, Body/Joint mechanics, Home Exercise Program, Home Safety, Activity Modification, Education of Plan of Care Patient demonstrates compliance with HEP?: Yes Short Term Goals Goal #1: Pt LUE pain to decrease to 2/10. Goal to be met by: 07/20/17 Progress towards goal: Progressing Goal #2: Pt to increase LUE mass lpn private duty to 80#. Goal to be met by: 07/20/17 Progress towards goal: Progressing Goal #3: Pt to increase AROM of shoulder abduction to 90 degrees. Goal to be met by: 07/20/17 Progress towards goal: Progressing Goal #4: Pt to be independent with Home exercise program. Goal to be met by: 06/01/17 Progress towards goal: Met Shelter Goals Goal #1: Pt to decrease pain to 0/10 Goal to be met by: 08/06/17 Progress towards goal: Progressing Goal #2: Pt to increase LUE mass lpn private duty to 100#. Goal to be met by: 08/06/17 Progress towards goal: Progressing Goal #3: Pt to increase AROM of LUE to be WFL. Goal to be met by: 08/06/17 Progress towards goal: Progressing Goal #4: Pt to increase strength of LUE to 4+/5. Goal to be met by: 07/01/17 Progress towards goal: Progressing Plan PLAN OF CARE EXPIRES ON:: 08/06/17 ORDER # VISITS AND/OR THROUGH DATE: 37 PLAN: Cont per POC to max fx I, strength, and ROM with decreased c/o pain.
--- NOTE | 2017-07-17 16:39 | RS.OPPTDN ---
Subjective Date of Note: 07/17/17 Visit #: 19 Date of Evaluation: 06/01/17 Payer Source: Workman's Comp Treatment Diagnosis: Left knee pain, pelvic pain, back pain Current Subjective/complaints:: Patient reports he feels he was doing better this week. States he tried to play a game of pool but leanind over the table aggravated his back and S-I pain. *Precautions: Wearing brace one more day Pain Assessment - Pain Description Pain Location: Right S-I joint and bilateral lower lumbar paraspinals. Pain Description: Tightness, Aching Current Pain Intensity: moderate Other Comments regarding Pain:: Pain varies with activity. - Treatment Modality: US with ES (Comb.) Parameters/Method Applied: [id number] US at 1.5w/cm2 and Estim at 14-16p.v. to the bilateral lower lumbar paraspinals, with focus at the right S-I joint and upper gult. Patient Position: Left Sidelying Interventions - Exercise/Activities/Manual Therapy Exercises/Activities: Focus today on gentle assisted stretching of the bilateral HS, piriformis, added figure 4, and SKTC. Patient with marked tightness and increased pain with initial HS stretch, but resolves with long stretches. Total minutes of Exercise: 14mins Manual Therapy: NA HOME EXERCISE PROGRAM: Isometric hip add and quad sets, Isometric hip flexion, modified bridging. Isometric hip ext in right with assist from spouse. - Objective Findings Observations,measurements,etc.: Patient with increased tightness prior to assisted stretching. He also demos a marked limp with ambulation in department. - Charges Timed Code Treatment Minutes: 28mins Total Treatment Time: 32mins Procedures billed for this date of service:: USCOM, EX Assessment: Patient making very slow progress and having setbacks when he attempts to increase light daily activities. Patient Education: Home Exercise Program, Home Safety, Activity Modification Patient demonstrates compliance with HEP?: Yes Short Term Goals Goal #1: Pt independent and compliant with HEP. Goal to be met by: 06/12/17 Progress towards Goal:: Met Goal #2: SLR bilaterally to 45-50 degrees in supine. Goal to be met by: 06/16/17 Progress towards Goal:: Partially Met Goal #3: Trunk strength improved to 4/5. Goal to be met by: 06/16/17 Progress towards Goal:: Partially Met Goal #4: Right low back/buttock pain decreased to minimal. Goal to be met by: 06/16/17 Progress towards Goal:: Regressing Custodial Goals Goal #1: Pt knows HEP and to continue ex's to maintain functional level at D/C. Goal to be met by: 08/05/17 Progress towards goal: Progressing Goal #2: Score on LE functional scale improved to 50/80. Goal to be met by: 08/05/17 Progress towards goal: Progressing Goal #3: Pt to tolerate prolonged sitting/riding in car without right LB or LE pain. Goal to be met by: 08/05/17 Progress towards goal: Progressing Goal #4: Lumbar AROM WFL's to perform all selfcare and ADL's w/o pain or difficulty. Goal to be met by: 08/05/17 Progress towards goal: Regressing (Flair-up of pain limiting his ability with ADL's.) Plan PLAN OF CARE EXPIRES ON:: 08/05/17 ORDER # VISITS AND/OR THROUGH DATE: 08/05/17 PLAN: Continue to try to progress flexibility and strengthening to increase patients functional activity level.
--- NOTE | 2017-07-22 16:27 | RS.OPPTDN ---
Subjective Date of Note: 07/22/17 Visit #: 20 Date of Evaluation: 06/01/17 Payer Source: Workman's Comp Treatment Diagnosis: Left knee pain, pelvic pain, back pain Current Subjective/complaints:: Patient reports he was able tolerate a long car ride, with stops for breaks, to go to his step-daughters graduation this weekend. States he did have a "pop" in his right S-I with sharp pain when rolling over in bed. Following a short rest period he was able to move without increased pain, and now feels like he is much better. *Precautions: Wearing brace one more day Pain Assessment - Pain Description Pain Location: Right S-I joint and bilateral lumbar paraspinals Current Pain Intensity: mild - Treatment Modality: US with ES (Comb.) Parameters/Method Applied: [id number] US at 1.5w/cm2 and Estim 13-15p.v. to the bilateral lumbar paraspinals and focus on right S-I joint. Patient Position: Left Sidelying Interventions - Exercise/Activities/Manual Therapy Exercises/Activities: Assisted stretching of the bilateral HS, piriformis, figure 4, and SKTC. Isometric hip flexion, isometric hip add, and isometric trunk rotation. Total minutes of Exercise: 19mins Manual Therapy: NA HOME EXERCISE PROGRAM: Isometric hip add and quad sets, Isometric hip flexion, modified bridging. Isometric hip ext in right with assist from spouse. - Objective Findings Observations,measurements,etc.: Patient with marked tightness and increased pain with initial HS stretch, but resolves with long stretches. - Charges Timed Code Treatment Minutes: 31mins Total Treatment Time: 33mins Procedures billed for this date of service:: USCOM, EX Assessment: Patient with continued HS tightness that limits his ability to progress exercise. He is reporting slow but consistent increase in his functional mobility. He has been able to ride in a car several hours to a family event which he was unable to do recently. Patient is making slow but steady progress. Patient Education: Body/Joint mechanics, Home Exercise Program Comments: Discussed patient education of pelvic mechanics again today. Patient demonstrates compliance with HEP?: Yes Short Term Goals Goal #1: Pt independent and compliant with HEP. Goal to be met by: 06/12/17 Progress towards Goal:: Met Goal #2: SLR bilaterally to 45-50 degrees in supine. Goal to be met by: 06/16/17 Progress towards Goal:: Partially Met Goal #3: Trunk strength improved to 4/5. Goal to be met by: 06/16/17 Progress towards Goal:: Partially Met Goal #4: Right low back/buttock pain decreased to minimal. Goal to be met by: 06/16/17 Progress towards Goal:: Regressing Snf Goals Goal #1: Pt knows HEP and to continue ex's to maintain functional level at D/C. Goal to be met by: 08/05/17 Progress towards goal: Progressing Goal #2: Score on LE functional scale improved to 50/80. Goal to be met by: 08/05/17 Progress towards goal: Progressing Goal #3: Pt to tolerate prolonged sitting/riding in car without right LB or LE pain. Goal to be met by: 08/05/17 Progress towards goal: Progressing Goal #4: Lumbar AROM WFL's to perform all selfcare and ADL's w/o pain or difficulty. Goal to be met by: 08/05/17 Progress towards goal: Regressing (Flair-up of pain limiting his ability with ADL's.) Plan PLAN OF CARE EXPIRES ON:: 08/05/17 ORDER # VISITS AND/OR THROUGH DATE: 08/05/17 PLAN: Continue modalities and gentle exercise, progressing with functional activity level.
--- NOTE | 2017-07-23 09:09 | RS.OTDNOTE ---
Subjective Date of Note: 07/22/17 Visit #: 32 Date of Evaluation: 05/04/17 Payer Source: Workman's Comp Treatment Diagnosis: Pain of left upper arm M79.622, M79.642 pain in Left hand digits *Precautions: Wearing brace one more day Current Complaints/Gains: Pt states he had a pop in his back with sudden pain but that his back has felt better since. States UE improvement with playing pool and feels the stretch helps with his therapy but he is unable to bend down to table height during. Pain Assessment - Pain Description Pain Description: Burning, Tightness, Sharp, Dull, Throbbing, Aching Pain Location: Ribs 5/10. Pain continues in left UE ulnar aspect of arm that runs to digits in the PIP to the DIP joints. Pt reports "tightness and pulling " in his left UE Pain Description: acute, aches, sharp Modalities - Treatment Modality: Ultrasound Parameters/Method Applied: .04w/cm2 x 7 mins to traps and 7 mins to AC joint/ deltoids Patient Position: Sitting - Hot Pack/Cryotherapy Treatment: Cryotherapy Comments:: CP x 20 mins following therapy Interventions - Exercise/Activities Exercise/Activities/Manual Therapy: MT/postural trng performed in sitting and supine postions including cervical/scaline stretches. Pt ed and performed PNF ex in supine positon 10/1 x D1D2 flexion/extension and add/abduction planes. Isometric ex/hold-release performed 10/2 x shoulder flexion/extension and IR/ ER. 5# renetta bar and green/red t-band ex's this date. HEP ed continues. Pt also in prone position for abduction/flexion and row ex's(2#) 10/2 of shoulder and sitting for retraction 10/2. Pt also performed prolonged gentle strech on pool height adjustable table-top with distraction performed x 3 HOME EXERCISE PROGRAM: AROM shoulder protraction/retraction in supine. Lying on right side trying to move the shoulder in the clock formation. scapular pinches holding shoulder blades together for 5 seconds. - Objective Findings Objective Findings:: Winging of left scapula, tender points in serratus, posterior inferior muscle, subscapularis, intercostal tender points. Pt edema has really decreased. Pt is anteriorly rotated in Left shoulder. Core Muscles of left side have atrophied due to surgery. Pt tolerating scapular pinches better today. Pt leans head to the left with LUE shoulder flexion AROM. Pt has pain in the ulnar nerve aspect of the left forearm and in the tricep of the LUE. - Charges Timed Code Treatment Minutes: 62 Total Treatment Time: 80 Procedures billed for this date of service:: CP US EX NMR Assessment Patient Education: Education of diagnosis, Body/Joint mechanics, Home Exercise Program, Home Safety, Activity Modification, Education of Plan of Care Patient demonstrates compliance with HEP?: Yes Short Term Goals Goal #1: Pt LUE pain to decrease to 2/10. 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 Goal to be met by: 07/20/17 Progress towards goal: Progressing Goal #3: Pt to increase AROM of shoulder abduction to 90 degrees. Goal to be met by: 07/20/17 Progress towards goal: Partially Met Comments: met in supine Goal #4: Pt to be independent with Home exercise program. Goal to be met by: 06/01/17 Progress towards goal: Met [facility] Goals Goal #1: Pt to decrease pain to 0/10 Goal to be met by: 08/06/17 Progress towards goal: Progressing Goal #2: Pt to increase LUE mass hourly shift manager to 100#. Goal to be met by: 08/06/17 Progress towards goal: Progressing Goal #3: Pt to increase AROM of LUE to be WFL. Goal to be met by: 08/06/17 Progress towards goal: Progressing Goal #4: Pt to increase strength of LUE to 4+/5. Goal to be met by: 07/01/17 Progress towards goal: Progressing Plan PLAN OF CARE EXPIRES ON:: 08/06/17 ORDER # VISITS AND/OR THROUGH DATE: 37 PLAN: Cont per POC to mas fx use, ROM/strength.
--- NOTE | 2017-07-24 15:08 | RS.OPPTDN ---
Subjective Date of Note: 07/24/17 Visit #: 21 Date of Evaluation: 06/01/17 Payer Source: Workman's Comp Treatment Diagnosis: Left knee pain, pelvic pain, back pain Current Subjective/complaints:: Patient reports back and S-I joint pain is present, but is much better since he experienced the pop at the right S-I. He has pain he describes as like a "burning", which is reduced with long gentle stretching. Reports his left knee pain is whats causing a slight limp upon walking following treatment. States he is working on HEP. *Precautions: Wearing brace one more day Pain Assessment - Pain Description Pain Location: bilateral lower lumbar spine, S-I joints, and right upper glut Pain Description: Aching Current Pain Intensity: 3-4/10 - Treatment Modality: US with ES (Comb.) Parameters/Method Applied: [id number] US at 1.5w/cm2 and Estim 17-19p.v. to the bilateral lower lumbar paraspinals and to the right S-I and upper gluts, following exercise today. Patient Position: Left Sidelying Interventions - Exercise/Activities/Manual Therapy Exercises/Activities: Assisted stretching of the bilateral HS, piriformis, figure 4, SKTC, and ITB. Isometric hip flexion, isometric hip add, and isometric trunk rotation. Blue theraband for resistive hip abd in hook-lying. Bridging. Alt hip flexion. Total minutes of Exercise: 22mins Manual Therapy: NA HOME EXERCISE PROGRAM: Isometric hip add and quad sets, Isometric hip flexion, modified bridging. Isometric hip ext in right with assist from spouse. - Objective Findings Observations,measurements,etc.: Right LE continues to be longer than left by approx 1/4 to 1/2", only slightly resolved with MET. - Charges Timed Code Treatment Minutes: 34mins Total Treatment Time: 37mins Procedures billed for this date of service:: USCOM, EX Assessment: Patient demos improved gait pattern and is able to progress trunk stability exericse. Patient Education: Home Exercise Program, Activity Modification Patient demonstrates compliance with HEP?: Yes Short Term Goals Goal #1: Pt independent and compliant with HEP. Goal to be met by: 06/12/17 Progress towards Goal:: Met Goal #2: SLR bilaterally to 45-50 degrees in supine. Goal to be met by: 06/16/17 Progress towards Goal:: Partially Met Goal #3: Trunk strength improved to 4/5. Goal to be met by: 06/16/17 Progress towards Goal:: Partially Met Goal #4: Right low back/buttock pain decreased to minimal. 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 Goal to be met by: 08/05/17 Progress towards goal: Progressing Goal #2: Score on LE functional scale improved to 50/80. Goal to be met by: 08/05/17 Progress towards goal: Progressing Goal #3: Pt to tolerate prolonged sitting/riding in car without right LB or LE pain. Goal to be met by: 08/05/17 Progress towards goal: Progressing Goal #4: Lumbar AROM WFL's to perform all selfcare and ADL's w/o pain or difficulty. Goal to be met by: 08/05/17 Progress towards goal: Regressing (Flair-up of pain limiting his ability with ADL's.) Plan PLAN OF CARE EXPIRES ON:: 08/05/17 ORDER # VISITS AND/OR THROUGH DATE: 08/05/17 PLAN: Continue to progress trunk and left knee strengthening to improve patients functional gait, mobility, and daily activity level.
--- NOTE | 2017-07-27 09:14 | RS.OTDNOTE ---
Subjective Date of Note: 07/24/17 Visit #: 33 Date of Evaluation: 05/04/17 Payer Source: Workman's Comp Treatment Diagnosis: Pain of left upper arm M79.622, M79.642 pain in Left hand digits *Precautions: Wearing brace one more day Current Complaints/Gains: Continues stating pain but feels he is getting slowly better. Pain Assessment - Pain Description Pain Description: Burning, Tightness, Sharp, Dull, Throbbing, Aching Pain Location: Ribs 5/10. Pain continues in left UE ulnar aspect of arm that runs to digits in the PIP to the DIP joints. Pt reports "tightness and pulling " in his left UE Pain Description: acute, aches, sharp Modalities - Treatment Modality: Electrical Stim Unattended Parameters/Method Applied: Hi-volt estim to pt tolerance Treatment Area: shoulder Patient Position: Sitting - Hot Pack/Cryotherapy Treatment: Cryotherapy Comments:: CP x 15 mins Interventions - Exercise/Activities Exercise/Activities/Manual Therapy: MT/postural trng performed in sitting and supine postions including cervical/scaline stretches. Pt ed and performed PNF ex in supine positon 10/1 x D1D2 flexion/extension and add/abduction planes. Isometric ex/hold-release performed 10/2 x shoulder flexion/extension and IR/ ER. 5# renetta bar and green/red t-band ex's this date. HEP ed continues. Pt also in prone position for abduction/flexion and row ex's(2#) 10/2 of shoulder and sitting for retraction 10/2. Pt also performed prolonged gentle strech on pool height adjustable table-top with distraction performed x 3 HOME EXERCISE PROGRAM: AROM shoulder protraction/retraction in supine. Lying on right side trying to move the shoulder in the clock formation. scapular pinches holding shoulder blades together for 5 seconds. - Objective Findings Objective Findings:: Winging of left scapula, tender points in serratus, posterior inferior muscle, subscapularis, intercostal tender points. Pt edema has really decreased. Pt is anteriorly rotated in Left shoulder. Core Muscles of left side have atrophied due to surgery. Pt tolerating scapular pinches better today. Pt leans head to the left with LUE shoulder flexion AROM. Pt has pain in the ulnar nerve aspect of the left forearm and in the tricep of the LUE. - Charges Timed Code Treatment Minutes: 58 Total Treatment Time: 73 Procedures billed for this date of service:: CP ESIM NMR2 EX Assessment Patient Education: Education of diagnosis, Body/Joint mechanics, Home Exercise Program, Home Safety, Activity Modification, Education of Plan of Care Patient demonstrates compliance with HEP?: Yes Short Term Goals Goal #1: Pt LUE pain to decrease to 2/10. Goal to be met by: 07/20/17 Progress towards goal: Progressing Goal #2: Pt to increase LUE mass chief design drafter to 80#. Goal to be met by: 07/20/17 Progress towards goal: Met Comments: Met 07/24/17 Goal #3: Pt to increase AROM of shoulder abduction to 90 degrees. Goal to be met by: 07/20/17 Progress towards goal: Partially Met Comments: In supine positon Goal #4: Pt to be independent with Home exercise program. Goal to be met by: 06/01/17 Progress towards goal: Met [facility] Goals Goal #1: Pt to decrease pain to 0/10 Goal to be met by: 08/06/17 Progress towards goal: Progressing Goal #2: Pt to increase LUE mass chief design drafter to 100#. Goal to be met by: 08/06/17 Progress towards goal: Progressing Goal #3: Pt to increase AROM of LUE to be WFL. Goal to be met by: 08/06/17 Progress towards goal: Progressing Goal #4: Pt to increase strength of LUE to 4+/5. Goal to be met by: 07/01/17 Progress towards goal: Progressing Plan PLAN OF CARE EXPIRES ON:: 08/06/17 ORDER # VISITS AND/OR THROUGH DATE: 37 PLAN: Cont per POC
--- NOTE | 2017-07-27 16:34 | RS.OPPTDN ---
Subjective Date of Note: 07/27/17 Visit #: 22 Date of Evaluation: 06/01/17 Payer Source: Workman's Comp Treatment Diagnosis: Left knee pain, pelvic pain, back pain Current Subjective/complaints:: Patient reports he is doing more light activities at home, but has difficulty due to discomfort. The patient expresses difficulty with loss of ability to work and inability to perform daily activities and maintenance around his home. *Precautions: Wearing brace one more day Pain Assessment - Pain Description Pain Location: low lumbar paraspinals and right S-I joint Current Pain Intensity: 4-5/10 - Treatment Modality: US with ES (Comb.) Parameters/Method Applied: [id number] US at 1.5w/cm2 and Estim 19-20p.v. to the bilateral lower lumbar paraspinals and right S-I and upper glut. Patient Position: Left Sidelying Interventions - Exercise/Activities/Manual Therapy Exercises/Activities: Assisted stretching of the bilateral HS, piriformis, figure 4, SKTC, and ITB. Isometric hip flexion, isometric hip add, and isometric trunk rotation. Green theraband for resistive hip abd in hook-lying. Bridging. Alt hip flexion with 4#. SAQ 4# each LE. All 2s/10reps. Additional stretching. Total minutes of Exercise: 24mins Manual Therapy: NA HOME EXERCISE PROGRAM: Isometric hip add and quad sets, Isometric hip flexion, modified bridging. Isometric hip ext in right with assist from spouse. - Charges Timed Code Treatment Minutes: 38mins Total Treatment Time: 40mins Procedures billed for this date of service:: EX2, USCOM Assessment: Patient with improved tolerance to stretching and PRE's today. He is actively increasing his functional activity level as tolerable. Patient Education: Home Exercise Program, Home Safety, Activity Modification Comments: Patient encouraged to continue to attempt light to mod ADL's with caution and only to tolerance. Patient demonstrates compliance with HEP?: Yes Short Term Goals Goal #1: Pt independent and compliant with HEP. Goal to be met by: 06/12/17 Progress towards Goal:: Met Goal #2: SLR bilaterally to 45-50 degrees in supine. Goal to be met by: 06/16/17 Progress towards Goal:: Partially Met Goal #3: Trunk strength improved to 4/5. Goal to be met by: 06/16/17 Progress towards Goal:: Partially Met Goal #4: Right low back/buttock pain decreased to minimal. 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 Goal to be met by: 08/05/17 Progress towards goal: Progressing Goal #2: Score on LE functional scale improved to 50/80. Goal to be met by: 08/05/17 Progress towards goal: Progressing Goal #3: Pt to tolerate prolonged sitting/riding in car without right LB or LE pain. Goal to be met by: 08/05/17 Progress towards goal: Partially Met Goal #4: Lumbar AROM WFL's to perform all selfcare and ADL's w/o pain or difficulty. Goal to be met by: 08/05/17 Progress towards goal: Regressing (Flair-up of pain limiting his ability with ADL's.) Plan PLAN OF CARE EXPIRES ON:: 08/05/17 ORDER # VISITS AND/OR THROUGH DATE: 08/05/17 PLAN: Continue progression of LE and trunk strengthening to increase patients functional activity level.
--- NOTE | 2017-07-28 08:32 | RS.OTDNOTE ---
Subjective Date of Note: 07/27/17 Visit #: 4 Date of Evaluation: 05/04/17 Payer Source: Workman's Comp Treatment Diagnosis: Pain of left upper arm M79.622, M79.642 pain in Left hand digits *Precautions: Wearing brace one more day Current Complaints/Gains: Pt returns to MD tomorrow, ed to ask about scapula brace 2* pronounced winging. Pain Assessment - Pain Description Pain Description: Burning, Tightness, Sharp, Dull, Throbbing, Aching Pain Location: Ribs 5/10. Pain continues in left UE ulnar aspect of arm that runs to digits in the PIP to the DIP joints. Pt reports "tightness and pulling " in his left UE Pain Description: acute, aches, sharp Current Pain Intensity: 3 Worst Pain Intensity: 6 Modalities - Treatment Modality: Electrical Stim Unattended Parameters/Method Applied: [place] to pt tolerance Patient Position: Sitting - Hot Pack/Cryotherapy Treatment: Cryotherapy (CP during estim and following tx.) Interventions - Exercise/Activities Exercise/Activities/Manual Therapy: MT/postural trng performed in sitting and supine postions including cervical/scaline stretches. Pt ed and performed PNF ex in supine positon 10/1 x D1D2 flexion/extension and add/abduction planes. Isometric ex/hold-release performed 10/2 x shoulder flexion/extension and IR/ ER. 5# renetta bar and green/red t-band ex's this date. HEP ed continues. Pt also in prone position for abduction/flexion and row ex's(2#) 10/2 of shoulder and sitting for retraction 10/2. Pt also performed prolonged gentle strech on pool height adjustable table-top with distraction performed x 3. Door frame stretches also performed. HOME EXERCISE PROGRAM: AROM shoulder protraction/retraction in supine. Lying on right side trying to move the shoulder in the clock formation. scapular pinches holding shoulder blades together for 5 seconds. - Objective Findings Objective Findings:: Winging of left scapula, tender points in serratus, posterior inferior muscle, subscapularis, intercostal tender points. Pt edema has really decreased. Pt is anteriorly rotated in Left shoulder. Core Muscles of left side have atrophied due to surgery. Pt tolerating scapular pinches better today. Pt leans head to the left with LUE shoulder flexion AROM. Pt has pain in the ulnar nerve aspect of the left forearm and in the tricep of the LUE. - Charges Timed Code Treatment Minutes: 62 Total Treatment Time: 73 Procedures billed for this date of service:: CP ESTIM NMR EX2 Assessment Patient Education: Education of diagnosis, Body/Joint mechanics, Home Exercise Program, Home Safety, Activity Modification, Education of Plan of Care Patient demonstrates compliance with HEP?: Yes Short Term Goals Goal #1: Pt LUE pain to decrease to 2/10. Goal to be met by: 07/20/17 Progress towards goal: Progressing Goal #2: Pt to increase LUE mass cement car dumper to 80#. Goal to be met by: 07/20/17 Progress towards goal: Met Goal #3: Pt to increase AROM of shoulder abduction to 90 degrees. Goal to be met by: 07/20/17 Progress towards goal: Partially Met Comments: Supine following stretching Goal #4: Pt to be independent with Home exercise program. Goal to be met by: 06/01/17 Progress towards goal: Met Headend Technician Goals Goal #1: Pt to decrease pain to 0/10 Goal to be met by: 08/06/17 Progress towards goal: Progressing Goal #2: Pt to increase LUE mass cement car dumper to 100#. Goal to be met by: 08/06/17 Progress towards goal: Progressing Goal #3: Pt to increase AROM of LUE to be WFL. Goal to be met by: 08/06/17 Progress towards goal: Progressing Goal #4: Pt to increase strength of LUE to 4+/5. Goal to be met by: 07/01/17 Progress towards goal: Progressing Plan PLAN OF CARE EXPIRES ON:: 08/06/17 ORDER # VISITS AND/OR THROUGH DATE: 37 PLAN: Cont per POC to max fx use, strength, and ROM with decreased c/o pain.
--- NOTE | 2017-07-29 12:59 | RS.OTCXNS ---
OT Case Note Date of Scheduled Appointment: 07/29/17 Type: Cancel (Pt phoned into therapy this am and rescheduled for tomorrow .)
--- NOTE | 2017-07-30 15:15 | RS.OTDNOTE ---
Subjective Date of Note: 07/30/17 Visit #: 35 Date of Evaluation: 05/04/17 Payer Source: Workman's Comp Treatment Diagnosis: Pain of left upper arm M79.622, M79.642 pain in Left hand digits *Precautions: Wearing brace one more day Current Complaints/Gains: Pt returned to MD x 2 days ago with new orders to continue with current POC. Pt states his MD is ordering him a scapula brace for shoulder retraction. States he continues to play pool and feels the stretch while UE is in positon. Pain Assessment - Pain Description Pain Description: Burning, Tightness, Sharp, Dull, Throbbing, Aching Pain Location: Ribs 5/10. Pain continues in left UE ulnar aspect of arm that runs to digits in the PIP to the DIP joints. Pt reports "tightness and pulling " in his left UE Pain Description: acute, aches, sharp Modalities - Treatment Modality: US with ES (Comb.) Parameters/Method Applied: Estim pad to shoulder with US performed in scapula. Treatment Area: shoulder Patient Position: Prone - Hot Pack/Cryotherapy Treatment: Cryotherapy Interventions - Exercise/Activities Exercise/Activities/Manual Therapy: MT/postural trng performed in sitting and supine postions including cervical/scaline stretches. Pt ed and performed PNF ex in supine positon 10/1 x D1D2 flexion/extension and add/abduction planes. Isometric ex/hold-release performed 10/2 x shoulder flexion/extension and IR/ ER. 5# renetta bar and green/red t-band ex's this date. HEP ed continues. Pt also in prone position for abduction/flexion and row ex's(2#) 10/2 of shoulder and sitting for retraction 10/2. Pt also performed prolonged gentle strech on pool height adjustable table-top with distraction performed x 3. Door frame stretches and reaching for water sprinkler in ceiling also performed x 10. HOME EXERCISE PROGRAM: AROM shoulder protraction/retraction in supine. Lying on right side trying to move the shoulder in the clock formation. scapular pinches holding shoulder blades together for 5 seconds. - Objective Findings Objective Findings:: Winging of left scapula, tender points in serratus, posterior inferior muscle, subscapularis, intercostal tender points. Pt edema has really decreased. Pt is anteriorly rotated in Left shoulder. Core Muscles of left side have atrophied due to surgery. Pt tolerating scapular pinches better today. Pt leans head to the left with LUE shoulder flexion AROM. Pt has pain in the ulnar nerve aspect of the left forearm and in the tricep of the LUE. - Charges Timed Code Treatment Minutes: 49 Total Treatment Time: 51 Procedures billed for this date of service:: US/combo EX NMR Assessment Patient Education: Education of diagnosis, Body/Joint mechanics, Home Exercise Program, Home Safety, Activity Modification, Education of Plan of Care Patient demonstrates compliance with HEP?: Yes Short Term Goals Goal #1: Pt LUE pain to decrease to 2/10. Goal to be met by: 07/20/17 Progress towards goal: Progressing Goal #2: Pt to increase LUE mass campground manager to 80#. Goal to be met by: 07/20/17 Progress towards goal: Met Goal #3: Pt to increase AROM of shoulder abduction to 90 degrees. Goal to be met by: 07/20/17 Progress towards goal: Partially Met Goal #4: Pt to be independent with Home exercise program. Goal to be met by: 06/01/17 Progress towards goal: Met [facility] Goals Goal #1: Pt to decrease pain to 0/10 Goal to be met by: 08/06/17 Progress towards goal: Progressing Goal #2: Pt to increase LUE mass campground manager to 100#. Goal to be met by: 08/06/17 Progress towards goal: Progressing Goal #3: Pt to increase AROM of LUE to be WFL. Goal to be met by: 08/06/17 Progress towards goal: Progressing Goal #4: Pt to increase strength of LUE to 4+/5. Goal to be met by: 07/01/17 Progress towards goal: Progressing Plan PLAN OF CARE EXPIRES ON:: 08/06/17 ORDER # VISITS AND/OR THROUGH DATE: 37 PLAN: Continue current POC.
--- NOTE | 2017-07-30 15:17 | RS.OPPTDN ---
Subjective Date of Note: 07/30/17 Visit #: 23 Date of Evaluation: 06/01/17 Payer Source: Workman's Comp Treatment Diagnosis: Left knee pain, pelvic pain, back pain Current Subjective/complaints:: Patient reports some improvement in back pain. Continues to have pain in his lowback and trunk with all movements but is trying to increase his daily activity. *Precautions: Wearing brace one more day Pain Assessment - Pain Description Pain Location: lowback, S-I joints, left knee Current Pain Intensity: 4/10 at rest Other Comments regarding Pain:: Reports he occasionally has sharp pain in the right lower lumbar paraspinals with some movements, such as rolling over in bed. - Treatment Modality: US with ES (Comb.) Parameters/Method Applied: [id number] US at 1.5w/cm2 and Estim to 17p.v. to the bilateral lower lumbar paraspinals and the right S-I joint area following EX today. Patient Position: Left Sidelying Interventions - Exercise/Activities/Manual Therapy Exercises/Activities: Assisted stretching of the bilateral HS, piriformis, figure 4, SKTC, and ITB. Isometric hip flexion, isometric hip add, and isometric trunk rotation. Increased to blue theraband for resistive hip abd in hook-lying and short trunk rotation, 2s/10reps each. Alt hip flexion with 4#. SAQ 4# each LE. All 2s/10reps. Add blue theraband for ham curl and ankle df, 2s/ 10reps each. Additional stretching. Total minutes of Exercise: 32mins Manual Therapy: NA HOME EXERCISE PROGRAM: Isometric hip add and quad sets, Isometric hip flexion, modified bridging. Isometric hip ext in right with assist from spouse. - Charges Timed Code Treatment Minutes: 42mins Total Treatment Time: 44mins Procedures billed for this date of service:: EXx2, USCOM Assessment: Patient able to increase resistive exercise for LE and trunk strengthening today. Patient Education: Home Exercise Program Patient demonstrates compliance with HEP?: Yes Short Term Goals Goal #1: Pt independent and compliant with HEP. Goal to be met by: 06/12/17 Progress towards Goal:: Met Goal #2: SLR bilaterally to 45-50 degrees in supine. Goal to be met by: 06/16/17 Progress towards Goal:: Partially Met Goal #3: Trunk strength improved to 4/5. Goal to be met by: 06/16/17 Progress towards Goal:: Partially Met Comments:: 4/5 MMT with rotation Goal #4: Right low back/buttock pain decreased to minimal. Goal to be met by: 06/16/17 Progress towards Goal:: Progressing Comments:: Rates at 4/10 Half-Way Goals Goal #1: Pt knows HEP and to continue ex's to maintain functional level at D/C. Goal to be met by: 08/05/17 Progress towards goal: Progressing Goal #2: Score on LE functional scale improved to 50/80. Goal to be met by: 08/05/17 Progress towards goal: Progressing Goal #3: Pt to tolerate prolonged sitting/riding in car without right LB or LE pain. Goal to be met by: 08/05/17 Progress towards goal: Partially Met Goal #4: Lumbar AROM WFL's to perform all selfcare and ADL's w/o pain or difficulty. Goal to be met by: 08/05/17 Progress towards goal: Progressing Plan PLAN OF CARE EXPIRES ON:: 08/05/17 ORDER # VISITS AND/OR THROUGH DATE: 08/05/17 PLAN: Continue progression of trunk and LE exercise to increase patients functional activity level.
--- NOTE | 2017-07-31 15:57 | RS.OPPTDN ---
Subjective Date of Note: 07/31/17 Visit #: 24 Date of Evaluation: 06/01/17 Payer Source: Workman's Comp Treatment Diagnosis: Left knee pain, pelvic pain, back pain Current Subjective/complaints:: Reports walking better today. No c/o pain with resistive exercise today, with exception of isometric hip flexion causing discomfort right low back. *Precautions: Wearing brace one more day Pain Assessment - Pain Description Pain Location: LB, S-I joints, left knee Current Pain Intensity: back and right S-I 4/10, mild at left knee - Treatment Modality: US with ES (Comb.) Parameters/Method Applied: [id number] US at 1.5w/cm2 and Estim at 17p.v. to the bilateral lower lumbar paraspinals and right S-I region. Patient Position: Left Sidelying Interventions - Exercise/Activities/Manual Therapy Exercises/Activities: Assisted stretching of the bilateral HS, piriformis, and SKTC. Isometric hip flexion, isometric hip add, and isometric trunk rotation. Blue theraband for resistive hip abd in hook-lying and short trunk rotation, 2s/ 10reps each. Alt hip flexion with 4#. SAQ 2# each LE. All 2s/10reps. Blue theraband for ham curl and ankle df, 2s/10reps each. Total minutes of Exercise: 27mins Manual Therapy: NA HOME EXERCISE PROGRAM: Isometric hip add and quad sets, Isometric hip flexion, modified bridging. Isometric hip ext in right with assist from spouse. - Charges Timed Code Treatment Minutes: 39mins Total Treatment Time: 42mins Procedures billed for this date of service:: EX2, USCOM Assessment: Patient progressed with strengthening of the trunk and LE's this week. Patient Education: Home Exercise Program Patient demonstrates compliance with HEP?: Yes Short Term Goals Goal #1: Pt independent and compliant with HEP. Goal to be met by: 06/12/17 Progress towards Goal:: Met Goal #2: SLR bilaterally to 45-50 degrees in supine. Goal to be met by: 06/16/17 Progress towards Goal:: Partially Met Goal #3: Trunk strength improved to 4/5. Goal to be met by: 06/16/17 Progress towards Goal:: Partially Met Goal #4: Right low back/buttock pain decreased to minimal. Goal to be met by: 06/16/17 Progress towards Goal:: Progressing Dining Room Host/Hostess Goals Goal #1: Pt knows HEP and to continue ex's to maintain functional level at D/C. Goal to be met by: 08/05/17 Progress towards goal: Progressing Goal #2: Score on LE functional scale improved to 50/80. Goal to be met by: 08/05/17 Progress towards goal: Progressing Goal #3: Pt to tolerate prolonged sitting/riding in car without right LB or LE pain. Goal to be met by: 08/05/17 Progress towards goal: Partially Met Goal #4: Lumbar AROM WFL's to perform all selfcare and ADL's w/o pain or difficulty. Goal to be met by: 08/05/17 Progress towards goal: Progressing Plan PLAN OF CARE EXPIRES ON:: 08/05/17 ORDER # VISITS AND/OR THROUGH DATE: 08/05/17 PLAN: Continue progressing trunk and LE strengthening to increase patients functional activity level.
--- NOTE | 2017-07-31 16:15 | RS.OTDNOTE ---
Subjective Date of Note: 07/31/17 Visit #: 36 Date of Evaluation: 05/04/17 Payer Source: Workman's Comp Treatment Diagnosis: Pain of left upper arm M79.622, M79.642 pain in Left hand digits *Precautions: Wearing brace one more day Current Complaints/Gains: Pt states he is not having a good day but after reminder of how he was x1 month ago, agrees he is doing better. Pain Assessment - Pain Description Pain Description: Burning, Tightness, Sharp, Dull, Throbbing, Aching Pain Location: Ribs 5/10. Pain continues in left UE ulnar aspect of arm that runs to digits in the PIP to the DIP joints. Pt reports "tightness and pulling " in his left UE Pain Description: acute, aches, sharp Current Pain Intensity: 2 Worst Pain Intensity: 6 Modalities - Treatment Modality: US with ES (Comb.) Parameters/Method Applied: USx 10 mins to anterior shoulder/pec's with 1 lg pad on posterior shoudler and estim at max 16pv Patient Position: Supine - Hot Pack/Cryotherapy Treatment: Cryotherapy Comments:: CP during estim/US and following TE Interventions - Exercise/Activities Exercise/Activities/Manual Therapy: MT/postural trng performed in sitting and supine postions including cervical/scaline stretches. Pt ed and performed PNF ex in supine positon 10/1 x D1D2 flexion/extension and add/abduction planes. Isometric ex/hold-release performed 10/2 x shoulder flexion/extension and IR/ ER. 5# renetta bar and green/red t-band ex's this date. HEP ed continues. Pt also in prone position for abduction/flexion and row ex's(2#) 10/2 of shoulder and sitting for retraction 10/2. Pt also performed prolonged gentle strech on pool height adjustable table-top with distraction performed x 3. Door frame stretches and reaching for water sprinkler in ceiling also performed x 10. Retraction x10 at multi-gym. Pt also performed and ed on increasing WB activities. HOME EXERCISE PROGRAM: AROM shoulder protraction/retraction in supine. Lying on right side trying to move the shoulder in the clock formation. scapular pinches holding shoulder blades together for 5 seconds. - Objective Findings Objective Findings:: Winging of left scapula, tender points in serratus, posterior inferior muscle, subscapularis, intercostal tender points. Pt edema has really decreased. Pt is anteriorly rotated in Left shoulder. Core Muscles of left side have atrophied due to surgery. Pt tolerating scapular pinches better today. Pt leans head to the left with LUE shoulder flexion AROM. Pt has pain in the ulnar nerve aspect of the left forearm and in the tricep of the LUE. - Charges Timed Code Treatment Minutes: 60 Total Treatment Time: 61 Procedures billed for this date of service:: [facility] EX Assessment Patient Education: Education of diagnosis, Body/Joint mechanics, Home Exercise Program, Home Safety, Activity Modification, Education of Plan of Care Patient demonstrates compliance with HEP?: Yes Short Term Goals Goal #1: Pt LUE pain to decrease to 2/10. Goal to be met by: 07/20/17 Progress towards goal: Progressing Goal #2: Pt to increase LUE mass edge roller to 80#. Goal to be met by: 07/20/17 Progress towards goal: Met Goal #3: Pt to increase AROM of shoulder abduction to 90 degrees. Goal to be met by: 07/20/17 Progress towards goal: Partially Met Goal #4: Pt to be independent with Home exercise program. Goal to be met by: 06/01/17 Progress towards goal: Met Registry Rn Goals Goal #1: Pt to decrease pain to 0/10 Goal to be met by: 08/06/17 Progress towards goal: Progressing Goal #2: Pt to increase LUE mass edge roller to 100#. Goal to be met by: 08/06/17 Progress towards goal: Progressing Goal #3: Pt to increase AROM of LUE to be WFL. Goal to be met by: 08/06/17 Progress towards goal: Progressing Goal #4: Pt to increase strength of LUE to 4+/5. Goal to be met by: 07/01/17 Progress towards goal: Progressing Plan PLAN OF CARE EXPIRES ON:: 08/06/17 ORDER # VISITS AND/OR THROUGH DATE: 37 PLAN: Cont per POC x 1 visit. Awaiting add'l approval from and work comp
--- NOTE | 2017-08-03 12:10 | RS.OPPTDN ---
Subjective Date of Note: 08/03/17 Visit #: 25 Date of Evaluation: 06/01/17 Payer Source: Workman's Comp Treatment Diagnosis: Left knee pain, pelvic pain, back pain Current Subjective/complaints:: Patient reports he is stronger and doing better , but continues to have stiffness in LB and hip when first getting up in morning or periods of sitting. States both knees hurt and left knee bothers him if he walks longer distances, but able to tolerate resistive exercises. States he tried to do more activities with family over the weekend. *Precautions: Wearing brace one more day Pain Assessment - Pain Description Pain Location: lowback and S-I joints, left knee Current Pain Intensity: 10 - Treatment Modality: US with ES (Comb.) Parameters/Method Applied: [id number] US at 1.5w/cm2 and Estim 16-17p.v. to the lower lumbar paraspinals and right S-I joint. Patient Position: Left Sidelying Interventions - Exercise/Activities/Manual Therapy Exercises/Activities: Stretching of bilateral HS, piriformis, and SKTC. Isometric hip flexion, isometric hip add, and isometric trunk rotation. Blue theraband for resistive hip abd in hook-lying and short trunk rotation, 2s/ 10reps each. SAQ 2# each LE. All 2s/10reps. Alt hip flexion with 4#, increased to 3s/10reps. Blue theraband for ham curl and ankle df, 2s/10reps each. SLR 2s/ 10reps each. Total minutes of Exercise: 27mins Manual Therapy: NA HOME EXERCISE PROGRAM: Isometric hip add and quad sets, Isometric hip flexion, modified bridging. Isometric hip ext in right with assist from spouse. - Objective Findings Observations,measurements,etc.: Trunk rotation 4/5 MMT, Flexion limited to 4-/5 MMT due to lower back pain. - Charges Timed Code Treatment Minutes: 39mins Total Treatment Time: 41mins Procedures billed for this date of service:: USCOM, EX2 Assessment: Patient continues to make slow but steady progress. He is doing more light activities at home and in community with family. Patient Education: Home Exercise Program, Activity Modification Patient demonstrates compliance with HEP?: Yes Short Term Goals Goal #1: Pt independent and compliant with HEP. Goal to be met by: 06/12/17 Progress towards Goal:: Met Goal #2: SLR bilaterally to 45-50 degrees in supine. Goal to be met by: 06/16/17 Progress towards Goal:: Partially Met Goal #3: Trunk strength improved to 4/5. Goal to be met by: 06/16/17 Progress towards Goal:: Partially Met Comments:: Trunk rotation 4/5, flexion limited due to pain Goal #4: Right low back/buttock pain decreased to minimal. Goal to be met by: 06/16/17 Progress towards Goal:: Progressing Fruit Trimmer Goals Goal #1: Pt knows HEP and to continue ex's to maintain functional level at D/C. Goal to be met by: 08/05/17 Progress towards goal: Partially Met Goal #2: Score on LE functional scale improved to 50/80. Goal to be met by: 08/05/17 Progress towards goal: Progressing Goal #3: Pt to tolerate prolonged sitting/riding in car without right LB or LE pain. Goal to be met by: 08/05/17 Progress towards goal: Partially Met Goal #4: Lumbar AROM WFL's to perform all selfcare and ADL's w/o pain or difficulty. Goal to be met by: 08/05/17 Progress towards goal: Partially Met Plan PLAN OF CARE EXPIRES ON:: 08/05/17 ORDER # VISITS AND/OR THROUGH DATE: 08/05/17 PLAN: Continue this week. Patient has new orders and request for PT/OT clarification has been made. Will need corrected order and approval to continue.
--- NOTE | 2017-08-03 13:17 | RS.OTDNOTE ---
Subjective Date of Note: 08/03/17 Visit #: 37 Date of Evaluation: 05/04/17 Payer Source: Workman's Comp Treatment Diagnosis: Pain of left upper arm M79.622, M79.642 pain in Left hand digits *Precautions: Wearing brace one more day Current Complaints/Gains: Pt states slow/steady progress. States he played pool over the wknd. States gripping is stronger but continues to have c/o pain while making a full fist. States pain in shoulder that runs down to his finger tips. Pain Assessment - Pain Description Pain Description: Burning, Tightness, Sharp, Dull, Throbbing, Aching Pain Location: Ribs 5/10. Pain continues in left UE ulnar aspect of arm that runs to digits in the PIP to the DIP joints. Pt reports "tightness and pulling " in his left UE Pain Description: acute, aches, sharp Current Pain Intensity: 2 Worst Pain Intensity: 5 Modalities - Treatment Modality: US with ES (Comb.) Parameters/Method Applied: US at 1.5w/cm2 with max estim at 12v Patient Position: Sitting - Hot Pack/Cryotherapy Treatment: Cryotherapy (CP X 10 mins following tx) Interventions - Exercise/Activities Exercise/Activities/Manual Therapy: MT/postural trng performed in sitting and supine postions including cervical/scaline stretches. Pt ed and performed PNF ex in supine positon 10/1 x D1D2 flexion/extension and add/abduction planes. Isometric ex/hold-release performed 10/2 x shoulder flexion/extension and IR/ ER. 5# renetta bar and blue t-band ex's this date. HEP ed continues. Pt also in prone position for abduction/flexion and row ex's(2#) 10/2 of shoulder and sitting for retraction 10/2. Pt also performed prolonged gentle strech on pool height adjustable table-top with distraction performed x 3. Door frame stretches and reaching for water sprinkler in ceiling also performed x 10. Retraction x10 at multi-gym. Pt also performed and ed on increasing WB activities. HOME EXERCISE PROGRAM: AROM shoulder protraction/retraction in supine. Lying on right side trying to move the shoulder in the clock formation. scapular pinches holding shoulder blades together for 5 seconds. - Objective Findings Objective Findings:: Winging of left scapula, tender points in serratus, posterior inferior muscle, subscapularis, intercostal tender points. Pt edema has really decreased. Pt is anteriorly rotated in Left shoulder. Core Muscles of left side have atrophied due to surgery. Pt tolerating scapular pinches better today. Pt leans head to the left with LUE shoulder flexion AROM. Pt has pain in the ulnar nerve aspect of the left forearm and in the tricep of the LUE. - Charges Timed Code Treatment Minutes: 48 Total Treatment Time: 61 Procedures billed for this date of service:: US COMBO CP NMR EX Assessment Patient Education: Education of diagnosis, Body/Joint mechanics, Home Exercise Program, Home Safety, Activity Modification, Education of Plan of Care Patient demonstrates compliance with HEP?: Yes Short Term Goals Goal #1: Pt LUE pain to decrease to 2/10. Goal to be met by: 07/20/17 Progress towards goal: Progressing Goal #2: Pt to increase LUE mass general activities therapist to 80#. Goal to be met by: 07/20/17 Progress towards goal: Met Goal #3: Pt to increase AROM of shoulder abduction to 90 degrees. Goal to be met by: 07/20/17 Progress towards goal: Met Comments: with target Goal #4: Pt to be independent with Home exercise program. Goal to be met by: 06/01/17 Progress towards goal: Met Correction Goals Goal #1: Pt to decrease pain to 0/10 Goal to be met by: 08/06/17 Progress towards goal: Progressing Goal #2: Pt to increase LUE mass general activities therapist to 100#. Goal to be met by: 08/06/17 Progress towards goal: Progressing Comments: 85* 86* Goal #3: Pt to increase AROM of LUE to be WFL. Goal to be met by: 08/06/17 Progress towards goal: Progressing Goal #4: Pt to increase strength of LUE to 4+/5. Goal to be met by: 07/01/17 Progress towards goal: Progressing Plan PLAN OF CARE EXPIRES ON:: 08/06/17 ORDER # VISITS AND/OR THROUGH DATE: 37 PLAN: Continue per POC
--- NOTE | 2017-08-05 10:10 | RS.OPPTDN ---
Subjective Date of Note: 08/05/17 Visit #: 26 Date of Evaluation: 06/01/17 Payer Source: Workman's Comp Treatment Diagnosis: Left knee pain, pelvic pain, back pain Current Subjective/complaints:: Patient reports an increase in lowback pain today. States he is trying to increase light activity level. States he has gone to the [place] swimming pool and has been doing short distance walking in shallow end. *Precautions: Wearing brace one more day Pain Assessment - Pain Description Pain Location: lower lumbar paraspinals and right S-I joint area Current Pain Intensity: Pain at base of lumbar spine to 7/10 today Other Comments regarding Pain:: Pain decrease to mild to mod following EX and USCOM - Treatment Modality: US with ES (Comb.) Parameters/Method Applied: [id number] US at 1.5w/cm2 and Estim to 16 p.v. following EX. Patient Position: Left Sidelying Interventions - Exercise/Activities/Manual Therapy Exercises/Activities: Began with addition of leg press at 30# for LE extension and ankle df/pf, 2s/10reps each. Stretching of bilateral HS, piriformis, and SKTC. Isometric hip flexion, isometric hip add, and isometric trunk rotation. Blue theraband for resistive hip abd in hook-lying and short trunk rotation, 2s/ 10reps each. SAQ increased to 4# each LE. All 2s/10reps. Alt hip flexion with 4# , 3s/10reps. Blue theraband for ham curl and ankle df, 2s/10reps each. SLR 10reps each. Total minutes of Exercise: 24mins Manual Therapy: NA HOME EXERCISE PROGRAM: Isometric hip add and quad sets, Isometric hip flexion, modified bridging. Isometric hip ext in right with assist from spouse. - Objective Findings Observations,measurements,etc.: Patients continuation order received and approval received from insurance company for 12 additional visits (starting from today). - Charges Timed Code Treatment Minutes: 46mins Total Treatment Time: 50mins Procedures billed for this date of service:: EX2, USCOM Assessment: Patient having a flair-up of pain but able to add LE strengthening on the leg press. Patient consistently tries to increase his daily activity level. Patient Education: Home Exercise Program Patient demonstrates compliance with HEP?: Yes Short Term Goals Goal #1: Pt independent and compliant with HEP. Goal to be met by: 06/12/17 Progress towards Goal:: Met Goal #2: SLR bilaterally to 45-50 degrees in supine. Goal to be met by: 06/16/17 Progress towards Goal:: Partially Met Goal #3: Trunk strength improved to 4/5. Goal to be met by: 06/16/17 Progress towards Goal:: Partially Met Goal #4: Right low back/buttock pain decreased to minimal. Goal to be met by: 06/16/17 Progress towards Goal:: Progressing Skilled Nursing Goals Goal #1: Pt knows HEP and to continue ex's to maintain functional level at D/C. Goal to be met by: 09/04/17 Progress towards goal: Partially Met Goal #2: Score on LE functional scale improved to 50/80. Goal to be met by: 09/04/17 Progress towards goal: Progressing Goal #3: Pt to tolerate prolonged sitting/riding in car without right LB or LE pain. Goal to be met by: 09/04/17 Progress towards goal: Partially Met Goal #4: Lumbar AROM WFL's to perform all selfcare and ADL's w/o pain or difficulty. Goal to be met by: 09/04/17 Progress towards goal: Partially Met Plan PLAN OF CARE EXPIRES ON:: 09/04/17 ORDER # VISITS AND/OR THROUGH DATE: 09/04/17 PLAN: Extended LTG dates to accommodate new orders and continue work toward meeting goals and increasing patients functional activity level.
--- NOTE | 2017-08-05 11:05 | RS.OTCNOTE ---
OT Case Note Date of Note: 08/05/17 Title: Request for Doctor Order for Figure 8 splint for shoulder. Note: Dr. Smith,. Patient, Anderson Day, mentioned that he has talked with you about a possible brace for his shoulder due to the Left shoulder moving into an anterior position. This brace would help retrain his muscles to keep his left shoulder in proper alignment as he is healing. Patient continues to progress with his occupational therapy. Thank you. NAT Moreno, OTR/L. [facility]
--- NOTE | 2017-08-05 11:13 | RS.OTDNOTE ---
Subjective Date of Note: 08/05/17 Visit #: 38 Date of Evaluation: 05/04/17 Payer Source: Workman's Comp Treatment Diagnosis: Pain of left upper arm M79.622, M79.642 pain in Left hand digits *Precautions: Wearing brace one more day Current Complaints/Gains: Pt states good compliance with all therapy ex's and education. States he did speak with MD concerning figure 8 brace for scapula retraction and is waiting for ins conformation. Pain Assessment - Pain Description Pain Description: Burning, Tightness, Sharp, Dull, Throbbing, Aching Pain Location: Ribs 5/10. Pain continues in left UE ulnar aspect of arm that runs to digits in the PIP to the DIP joints. Pt reports "tightness and pulling " in his left UE Pain Description: acute, aches, sharp Modalities - Treatment Modality: US with ES (Comb.) Parameters/Method Applied: Estim to pt tolerance(scapula) with US to anterior shoulder/pec's with UE in abd/ER position. - Hot Pack/Cryotherapy Treatment: Cryotherapy (ice massage performed anterior shoulder) Interventions - Exercise/Activities Exercise/Activities/Manual Therapy: MT/postural trng performed in sitting and supine postions x 2 including cervical/scaline stretches. Green tband shoulder retraction,10/3 performed in supine with MT applied for shoulder retraction. Wall stretches, AROM sh flexion/scaption, and wall stretches. Pt HEP ed continues. HOME EXERCISE PROGRAM: AROM shoulder protraction/retraction in supine. Lying on right side trying to move the shoulder in the clock formation. scapular pinches holding shoulder blades together for 5 seconds. - Other Treatment/Services Treatment Details: Pt has new orders and approval from for x12 visits. OTR examined pt and extended goal dates x 1 month. - Objective Findings Objective Findings:: Winging of left scapula, tender points in serratus, posterior inferior muscle, subscapularis, intercostal tender points. Pt edema has really decreased. Pt is anteriorly rotated in Left shoulder. Core Muscles of left side have atrophied due to surgery. Pt tolerating scapular pinches better today. Pt leans head to the left with LUE shoulder flexion AROM. Pt has pain in the ulnar nerve aspect of the left forearm and in the tricep of the LUE. - Charges Timed Code Treatment Minutes: 61 Total Treatment Time: 61 Procedures billed for this date of service:: MT2 EX MT Assessment Patient Education: Education of diagnosis, Body/Joint mechanics, Home Exercise Program, Home Safety, Activity Modification, Education of Plan of Care Patient demonstrates compliance with HEP?: Yes Short Term Goals Goal #1: Pt LUE pain to decrease to 2/10. Goal to be met by: 07/20/17 Progress towards goal: Progressing Goal #2: Pt to increase LUE mass full stack web developer to 80#. Goal to be met by: 07/20/17 Progress towards goal: Met Goal #3: Pt to increase AROM of shoulder abduction to 90 degrees. Goal to be met by: 07/20/17 Progress towards goal: Met Goal #4: Pt to be independent with Home exercise program. Goal to be met by: 06/01/17 Progress towards goal: Met Detention Goals Goal #1: Pt to decrease pain to 0/10 Goal to be met by: 09/05/17 Progress towards goal: Progressing Goal #2: Pt to increase LUE mass full stack web developer to 100#. Goal to be met by: 09/05/17 Progress towards goal: Progressing Goal #3: Pt to increase AROM of LUE to be WFL. Goal to be met by: 09/05/17 Progress towards goal: Progressing Goal #4: Pt to increase strength of LUE to 4+/5. Goal to be met by: 09/05/17 Progress towards goal: Progressing Plan PLAN OF CARE EXPIRES ON:: 09/05/17 ORDER # VISITS AND/OR THROUGH DATE: 49 PLAN: Cont per POC to max fx use/strength/AROM of (L) UE
--- NOTE | 2017-08-07 10:59 | RS.OTDNOTE ---
Subjective Date of Note: 08/07/17 Visit #: 39 Date of Evaluation: 05/04/17 Payer Source: Workman's Comp Treatment Diagnosis: Pain of left upper arm M79.622, M79.642 pain in Left hand digits *Precautions: Wearing brace one more day Current Complaints/Gains: Pt states his pain seems to be getting better with each day. States he works on "holding shoulder back" and voices concern over "looking crooked" in chest and shoulers. Pain Assessment - Pain Description Pain Description: Burning, Tightness, Sharp, Dull, Throbbing, Aching Pain Location: Ribs 5/10. Pain continues in left UE ulnar aspect of arm that runs to digits in the PIP to the DIP joints. Pt reports "tightness and pulling " in his left UE Pain Description: acute, aches, sharp Current Pain Intensity: 0 Worst Pain Intensity: 3 Modalities - Treatment Modality: US with ES (Comb.) Parameters/Method Applied: Estim to posterior shoulder with US performed anterior shoulder at 1.5w/m2 x 15 mins. Patient Position: Supine Interventions - Exercise/Activities Exercise/Activities/Manual Therapy: MT/postural trng performed in sitting and supine postions x 2 including cervical/scaline stretches. Green tband shoulder retraction,10/3 performed in supine with MT applied for shoulder retraction. Wall stretches, AROM sh flexion/scaption, and wall stretches along with ball circles both directions. Pt HEP ed continues. HOME EXERCISE PROGRAM: AROM shoulder protraction/retraction in supine. Lying on right side trying to move the shoulder in the clock formation. scapular pinches holding shoulder blades together for 5 seconds. - Objective Findings Objective Findings:: Winging of left scapula, tender points in serratus, posterior inferior muscle, subscapularis, intercostal tender points. Pt edema has really decreased. Pt is anteriorly rotated in Left shoulder. Core Muscles of left side have atrophied due to surgery. Pt tolerating scapular pinches better today. Pt leans head to the left with LUE shoulder flexion AROM. Pt has pain in the ulnar nerve aspect of the left forearm and in the tricep of the LUE. - Charges Timed Code Treatment Minutes: 54 Total Treatment Time: 56 Procedures billed for this date of service:: US combo NMR EX MT Assessment Patient Education: Education of diagnosis, Body/Joint mechanics, Home Exercise Program, Home Safety, Activity Modification, Education of Plan of Care Patient demonstrates compliance with HEP?: Yes Short Term Goals Goal #1: Pt LUE pain to decrease to 2/10. Goal to be met by: 07/20/17 Progress towards goal: Progressing Goal #2: Pt to increase LUE mass administrative receptionist to 80#. Goal to be met by: 07/20/17 Progress towards goal: Met Goal #3: Pt to increase AROM of shoulder abduction to 90 degrees. Goal to be met by: 07/20/17 Progress towards goal: Met Goal #4: Pt to be independent with Home exercise program. Goal to be met by: 06/01/17 Progress towards goal: Met Anchor Tack Puller Goals Goal #1: Pt to decrease pain to 0/10 Goal to be met by: 09/05/17 Progress towards goal: Progressing Goal #2: Pt to increase LUE mass administrative receptionist to 100#. Goal to be met by: 09/05/17 Progress towards goal: Progressing Goal #3: Pt to increase AROM of LUE to be WFL. Goal to be met by: 09/05/17 Progress towards goal: Progressing Goal #4: Pt to increase strength of LUE to 4+/5. Goal to be met by: 09/05/17 Progress towards goal: Progressing Plan PLAN OF CARE EXPIRES ON:: 09/05/17 ORDER # VISITS AND/OR THROUGH DATE: 49 PLAN: Cont per POC to max fx strength and AROM
--- NOTE | 2017-08-07 15:36 | RS.OPPTDN ---
Subjective Date of Note: 08/07/17 Visit #: 27 Date of Evaluation: 06/01/17 Payer Source: Workman's Comp Treatment Diagnosis: Left knee pain, pelvic pain, back pain Current Subjective/complaints:: Reports an increase in stiffness and back pain this morning when getting out of bed. States he has not increased his activity level, may be due to change in weather. Denies pain left knee with increased resistive work today. States left pain pain only aggravated with weight-bearing. *Precautions: Wearing brace one more day Pain Assessment - Pain Description Pain Location: Left knee, LB, right S-I joint Pain Description: Aching Pain Description: ache, soreness, stiffness Current Pain Intensity: mod - Treatment Modality: US with ES (Comb.) Parameters/Method Applied: [id number] US at 1.5w/cm2 and Estim 14p.v. to the bilateral lumbar paraspinals and right S-I joint Patient Position: Left Sidelying Interventions - Exercise/Activities/Manual Therapy Exercises/Activities: Began with leg press increased to 60# for LE extension and ankle df/pf, 25reps each. Stretching of bilateral HS, piriformis, and SKTC. Isometric hip flexion, isometric hip add, and isometric trunk rotation. Blue theraband for resistive hip abd in hook-lying and short trunk rotation, 2s/ 10reps each. SAQ and alt hip flexion, both with 4# each LE. All 2s/10reps. Blue theraband for ham curl and ankle df, 2s/10reps each. SLR 2s/10reps each. Total minutes of Exercise: 29mins Manual Therapy: NA HOME EXERCISE PROGRAM: Isometric hip add and quad sets, Isometric hip flexion, modified bridging. Isometric hip ext in right with assist from spouse. - Charges Timed Code Treatment Minutes: 41mins Total Treatment Time: 41mins Procedures billed for this date of service:: EX2, USCOM Assessment: Patient continues to progress with strengthening and with functional activity, although he continues to have pain. Patient Education: Home Exercise Program, Activity Modification Patient demonstrates compliance with HEP?: Yes Short Term Goals Goal #1: Pt independent and compliant with HEP. Goal to be met by: 06/12/17 Progress towards Goal:: Met Goal #2: SLR bilaterally to 45-50 degrees in supine. Goal to be met by: 06/16/17 Progress towards Goal:: Partially Met Goal #3: Trunk strength improved to 4/5. Goal to be met by: 06/16/17 Progress towards Goal:: Partially Met Goal #4: Right low back/buttock pain decreased to minimal. Goal to be met by: 06/16/17 Progress towards Goal:: Progressing Chcf Goals Goal #1: Pt knows HEP and to continue ex's to maintain functional level at D/C. Goal to be met by: 09/04/17 Progress towards goal: Partially Met Goal #2: Score on LE functional scale improved to 50/80. Goal to be met by: 09/04/17 Progress towards goal: Progressing Goal #3: Pt to tolerate prolonged sitting/riding in car without right LB or LE pain. Goal to be met by: 09/04/17 Progress towards goal: Partially Met Goal #4: Lumbar AROM WFL's to perform all selfcare and ADL's w/o pain or difficulty. Goal to be met by: 09/04/17 Progress towards goal: Partially Met Plan PLAN OF CARE EXPIRES ON:: 09/04/17 ORDER # VISITS AND/OR THROUGH DATE: 09/04/17 PLAN: Progress with LE and trunk strengthening to increase patients mobility and functional activity level.
== END 2017-08-08 23:59 ==
PROVIDERS: ATTEND Orthopaedic Surgery
DX: M54.5 Low back pain (principal); M25.512 Pain in left shoulder; M25.562 Pain in left knee

== ENCOUNTER 2017-09-02 09:00 | Outpatient (RCR) ==
--- NOTE | 2017-08-10 10:45 | RS.OPPTDN ---
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 States he is scheduled for his MRI. Reports discomfort during exercise, but no increased pain with strengthening activities today. *Precautions: Wearing brace one more day Pain Assessment - Pain Description Pain Location: lowback and right S-I joint Pain Description: Aching Current Pain Intensity: 5-6/10 - Treatment Modality: US with ES (Comb.) Parameters/Method Applied: [id number] US at 1.5w/cm2 and Estim at 14-16p.v. to the bilateral lumbar paraspinals and right S-I joint area following exercise. Patient Position: Left Sidelying Interventions - Exercise/Activities/Manual Therapy Exercises/Activities: Began with stationary bike 2mins forward and one mins retro revolutions. Leg press increased to 75# for LE extension and ankle df/pf , 25reps each. Stretching of bilateral HS, piriformis, and SKTC. Isometric hip flexion, isometric hip add, and isometric trunk rotation. Green theraband for resistive hip abd in hook-lying and short trunk rotation, 2s/10reps each. SAQ and alt hip flexion, both with 4# each LE. All 2s/10reps. Green theraband for ham curl and ankle df, 2s/10reps each. Total minutes of Exercise: 24mins/27mins Manual Therapy: NA HOME EXERCISE PROGRAM: Isometric hip add and quad sets, Isometric hip flexion, modified bridging. Isometric hip ext in right with assist from spouse. - Charges Timed Code Treatment Minutes: 39mins Total Treatment Time: 42mins Procedures billed for this date of service:: EX2, USCOM Assessment: Patient able to progress to stationary bike and increase LE strengthening. Patient Education: Home Exercise Program Short Term Goals Goal #1: Pt independent and compliant with HEP. Goal to be met by: 06/12/17 Progress towards Goal:: Met Goal #2: SLR bilaterally to 45-50 degrees in supine. Goal to be met by: 06/16/17 Progress towards Goal:: Partially Met Goal #3: Trunk strength improved to 4/5. Goal to be met by: 06/16/17 Progress towards Goal:: Partially Met Goal #4: Right low back/buttock pain decreased to minimal. Goal to be met by: 06/16/17 Progress towards Goal:: Progressing Care Home Goals Goal #1: Pt knows HEP and to continue ex's to maintain functional level at D/C. Goal to be met by: 09/04/17 Progress towards goal: Partially Met Goal #2: Score on LE functional scale improved to 50/80. Goal to be met by: 09/04/17 Progress towards goal: Progressing Goal #3: Pt to tolerate prolonged sitting/riding in car without right LB or LE pain. Goal to be met by: 09/04/17 Progress towards goal: Partially Met Goal #4: Lumbar AROM WFL's to perform all selfcare and ADL's w/o pain or difficulty. Goal to be met by: 09/04/17 Progress towards goal: Partially Met Plan PLAN OF CARE EXPIRES ON:: 09/04/17 ORDER # VISITS AND/OR THROUGH DATE: 09/04/17 PLAN: Continue with progression of flexibility and strengthening exercise to increase patients functional activity level.
--- NOTE | 2017-08-10 11:24 | RS.OTDNOTE ---
Subjective Date of Note: 08/10/17 Visit #: 40 Date of Evaluation: 05/04/17 Payer Source: Workman's Comp Treatment Diagnosis: Pain of left upper arm M79.622, M79.642 pain in Left hand digits *Precautions: Wearing brace one more day Current Complaints/Gains: Pt states he feels his pool game is getting better with his UE improving but feels he still can't reach and do things he is used to doing. Pain Assessment - Pain Description Pain Description: Burning (Burning into hands at times), Dull, Aching Pain Location: Ribs 5/10. Pain continues in left UE ulnar aspect of arm that runs to digits in the PIP to the DIP joints. Pt reports "tightness and pulling " in his left UE Pain Description: acute, aches, sharp Modalities - Treatment Modality: Ultrasound Parameters/Method Applied: 1.5w/cm2 x 10 mins to scapula/trapezius Treatment Area: scapula/trapezius - Hot Pack/Cryotherapy Treatment: Cryotherapy Comments:: CP x 10 mins following tx Interventions - Exercise/Activities Exercise/Activities/Manual Therapy: MT/postural trng performed in sitting and standing postions x 2 including cervical/scaline stretches. Green tband shoulder retraction, 15/3 performed in sitting with MT applied for shoulder retraction. Door stretches, AROM sh flexion/scaption, and wall stretches along with ball circles both directions and serratus streches/strengthening performed with wall push ups(1 and bilateral use of UE's). Pt HEP ed continues. HOME EXERCISE PROGRAM: AROM shoulder protraction/retraction in supine. Lying on right side trying to move the shoulder in the clock formation. scapular pinches holding shoulder blades together for 5 seconds. - Objective Findings Objective Findings:: Winging of left scapula, tender points in serratus, posterior inferior muscle, subscapularis, intercostal tender points. Pt edema has really decreased. Pt is anteriorly rotated in Left shoulder. Core Muscles of left side have atrophied due to surgery. Pt tolerating scapular pinches better today. Pt leans head to the left with LUE shoulder flexion AROM. Pt has pain in the ulnar nerve aspect of the left forearm and in the tricep of the LUE. - Charges Timed Code Treatment Minutes: 49 Total Treatment Time: 62 Procedures billed for this date of service:: EX [facility] US CP Assessment Patient Education: Education of diagnosis, Body/Joint mechanics, Home Exercise Program, Home Safety, Activity Modification, Education of Plan of Care Patient demonstrates compliance with HEP?: Yes Short Term Goals Goal #1: Pt LUE pain to decrease to 2/10. Goal to be met by: 07/20/17 Progress towards goal: Progressing Goal #2: Pt to increase LUE mass portuguese tutor to 80#. Goal to be met by: 07/20/17 Progress towards goal: Met Goal #3: Pt to increase AROM of shoulder abduction to 90 degrees. Goal to be met by: 07/20/17 Progress towards goal: Met Goal #4: Pt to be independent with Home exercise program. Goal to be met by: 06/01/17 Progress towards goal: Met Special Forces Engineer Sergeant Goals Goal #1: Pt to decrease pain to 0/10 Goal to be met by: 09/05/17 Progress towards goal: Progressing Goal #2: Pt to increase LUE mass portuguese tutor to 100#. Goal to be met by: 09/05/17 Progress towards goal: Progressing Goal #3: Pt to increase AROM of LUE to be WFL. Goal to be met by: 09/05/17 Progress towards goal: Progressing Goal #4: Pt to increase strength of LUE to 4+/5. Goal to be met by: 09/05/17 Progress towards goal: Progressing Plan PLAN OF CARE EXPIRES ON:: 09/05/17 ORDER # VISITS AND/OR THROUGH DATE: 49 PLAN: Cont per POC to max fx AROM/strength.
--- NOTE | 2017-08-13 14:22 | RS.OTDNOTE ---
Subjective Date of Note: 08/13/17 Visit #: 41 Date of Evaluation: 05/04/17 Payer Source: Workman's Comp Treatment Diagnosis: Pain of left upper arm M79.622, M79.642 pain in Left hand digits *Precautions: Wearing brace one more day Current Complaints/Gains: Pt continues stating his UE "just won;t move like I want it to". States pain and stiffness continues but that he can tell it''s getting better. Pain Assessment - Pain Description Pain Description: Burning (Burning into hands at times), Dull, Aching Pain Location: Ribs 5/10. Pain continues in left UE ulnar aspect of arm that runs to digits in the PIP to the DIP joints. Pt reports "tightness and pulling " in his left UE Pain Description: acute, aches, sharp Modalities - Treatment Modality: US with ES (Comb.) Parameters/Method Applied: To pt tolerance, 10 mins Treatment Area: shoulder Patient Position: Supine - Hot Pack/Cryotherapy Treatment: Cryotherapy Comments:: CP X15 mins following tx Interventions - Exercise/Activities Exercise/Activities/Manual Therapy: MT/postural trng performed in sitting and standing postions x 2 including cervical/scaline stretches. Green tband shoulder retraction, 15/3 performed in sitting with MT applied for shoulder retraction. Door stretches, AROM sh flexion/scaption, and wall stretches along with ball circles both directions and serratus streches/strengthening performed with wall push ups(1 and bilateral use of UE's). Pt HEP ed continues. HOME EXERCISE PROGRAM: AROM shoulder protraction/retraction in supine. Lying on right side trying to move the shoulder in the clock formation. scapular pinches holding shoulder blades together for 5 seconds. - Objective Findings Objective Findings:: Winging of left scapula, tender points in serratus, posterior inferior muscle, subscapularis, intercostal tender points. Pt edema has really decreased. Pt is anteriorly rotated in Left shoulder. Core Muscles of left side have atrophied due to surgery. Pt tolerating scapular pinches better today. Pt leans head to the left with LUE shoulder flexion AROM. Pt has pain in the ulnar nerve aspect of the left forearm and in the tricep of the LUE. - Charges Timed Code Treatment Minutes: 51 Total Treatment Time: 62 Procedures billed for this date of service:: CP US/Combo EX NMR Assessment Patient Education: Education of diagnosis, Body/Joint mechanics, Home Exercise Program, Home Safety, Activity Modification, Education of Plan of Care Patient demonstrates compliance with HEP?: Yes Short Term Goals Goal #1: Pt LUE pain to decrease to 2/10. Goal to be met by: 07/20/17 Progress towards goal: Progressing Goal #2: Pt to increase LUE mass needle maker to 80#. Goal to be met by: 07/20/17 Progress towards goal: Met Goal #3: Pt to increase AROM of shoulder abduction to 90 degrees. Goal to be met by: 07/20/17 Progress towards goal: Met Goal #4: Pt to be independent with Home exercise program. Goal to be met by: 06/01/17 Progress towards goal: Met Care Home Goals Goal #1: Pt to decrease pain to 0/10 Goal to be met by: 09/05/17 Progress towards goal: Progressing Goal #2: Pt to increase LUE mass needle maker to 100#. Goal to be met by: 09/05/17 Progress towards goal: Progressing Goal #3: Pt to increase AROM of LUE to be WFL. Goal to be met by: 09/05/17 Progress towards goal: Progressing Goal #4: Pt to increase strength of LUE to 4+/5. Goal to be met by: 09/05/17 Progress towards goal: Progressing Plan PLAN OF CARE EXPIRES ON:: 09/05/18 ORDER # VISITS AND/OR THROUGH DATE: 49 PLAN: Cont per POC
--- NOTE | 2017-08-13 15:38 | RS.OPPTDN ---
Subjective Date of Note: 08/13/17 Visit #: 29 Date of Evaluation: 06/01/17 Payer Source: Workman's Comp Treatment Diagnosis: Left knee pain, pelvic pain, back pain Current Subjective/complaints:: Patient reports continued back pain in the morning that makes getting out bed difficult. Reports left knee improving slowly but pain increases with longer distance walking. Reports some discomfort with SLR but does not prevent him from performing 2sets. Pain Assessment - Pain Description Pain Location: back, right S-I, left knee Current Pain Intensity: Back pain mild Worst Pain Intensity: Back 9-10/10 in inspector air carrier. Interventions - Exercise/Activities/Manual Therapy Exercises/Activities: Stretching of bilateral HS, piriformis, and SKTC. Isometric hip flexion, isometric hip add, and isometric trunk rotation. Green theraband for resistive hip abd in hook-lying and short trunk rotation, 2s/ 10reps each. SAQ and alt hip flexion, both with 4# each LE, 3s/10reps. Green theraband for ham curl and ankle df, 2s/10reps each. SLR 1 1/2# each ankle, 2s/ 10reps each. Ended with additional hamstring stretching. Total minutes of Exercise: 26mins Manual Therapy: NA HOME EXERCISE PROGRAM: Isometric hip add and quad sets, Isometric hip flexion, modified bridging. Isometric hip ext in right with assist from spouse. - Charges Timed Code Treatment Minutes: 26mins Total Treatment Time: 27mins Procedures billed for this date of service:: EX2 Assessment: Patient able to progress to [facility] [place] [facility] how patients [facility] pain is following session without it. Patient demonstrates compliance with HEP?: Yes Short Term Goals Goal #1: Pt independent and compliant with HEP. Goal to be met by: 06/12/17 Progress towards Goal:: Met Goal #2: SLR bilaterally to 45-50 degrees in supine. Goal to be met by: 06/16/17 Progress towards Goal:: Partially Met Goal #3: Trunk strength improved to 4/5. Goal to be met by: 06/16/17 Progress towards Goal:: Partially Met Goal #4: Right low back/buttock pain decreased to minimal. Goal to be met by: 06/16/17 Progress towards Goal:: Progressing Custodial Goals Goal #1: Pt knows HEP and to continue ex's to maintain functional level at D/C. Goal to be met by: 09/04/17 Progress towards goal: Partially Met Goal #2: Score on LE functional scale improved to 50/80. Goal to be met by: 09/04/17 Progress towards goal: Progressing Goal #3: Pt to tolerate prolonged sitting/riding in car without right LB or LE pain. Goal to be met by: 09/04/17 Progress towards goal: Partially Met Goal #4: Lumbar AROM WFL's to perform all selfcare and ADL's w/o pain or difficulty. Goal to be met by: 09/04/17 Progress towards goal: Partially Met Plan PLAN OF CARE EXPIRES ON:: 09/04/17 ORDER # VISITS AND/OR THROUGH DATE: 09/04/17 PLAN: Continue with strengthening exercise and resume modalities as needed.
--- NOTE | 2017-08-14 11:56 | RS.OTDNOTE ---
Subjective Date of Note: 08/14/17 Visit #: 42 Date of Evaluation: 05/04/17 Payer Source: Workman's Comp Treatment Diagnosis: Pain of left upper arm M79.622, M79.642 pain in Left hand digits *Precautions: Wearing brace one more day Current Complaints/Gains: Pt continues with c/o digit pain but states he is able to make a full fist and pain is decreased following underwater US to hand. States he continues to perform HEP and agrees that his muscle bulk is returning in his UE. Pain Assessment - Pain Description Pain Description: Burning (Burning into hands at times, better following US tx) , Dull, Aching Pain Location: Ribs 5/10. Pain continues in left UE ulnar aspect of arm that runs to digits in the PIP to the DIP joints. Pt reports "tightness and pulling " in his left UE Pain Description: acute, aches, sharp Current Pain Intensity: 1 Worst Pain Intensity: 3 Modalities - Treatment Modality: Ultrasound Parameters/Method Applied: Underwater US at 1.5w/cm2 x 10 mins Patient Position: Sitting Interventions - Exercise/Activities Exercise/Activities/Manual Therapy: MT/postural trng performed in sitting, supine and standing postions x 2 including cervical/scaline stretches. Green tband shoulder retraction, 15/3 performed in sitting with MT applied for shoulder retraction. Door stretches, AROM sh flexion/scaption, and wall stretches along with ball circles both directions and serratus streches/ strengthening performed with wall push ups(1 and bilateral use of UE's). Pt HEP ed continues. HOME EXERCISE PROGRAM: AROM shoulder protraction/retraction in supine. Lying on right side trying to move the shoulder in the clock formation. scapular pinches holding shoulder blades together for 5 seconds. - Objective Findings Objective Findings:: Winging of left scapula, tender points in serratus, posterior inferior muscle, subscapularis, intercostal tender points. Pt edema has really decreased. Pt is anteriorly rotated in Left shoulder. Core Muscles of left side have atrophied due to surgery. Pt tolerating scapular pinches better today. Pt leans head to the left with LUE shoulder flexion AROM. Pt has pain in the ulnar nerve aspect of the left forearm and in the tricep of the LUE. - Charges Timed Code Treatment Minutes: 59 Total Treatment Time: 62 Procedures billed for this date of service:: US EX NMR2 Assessment Patient Education: Education of diagnosis, Body/Joint mechanics, Home Exercise Program, Home Safety, Activity Modification, Education of Plan of Care Patient demonstrates compliance with HEP?: Yes Short Term Goals Goal #1: Pt LUE pain to decrease to 2/10. Goal to be met by: 07/20/17 Progress towards goal: Progressing Comments: 3/10 Goal #2: Pt to increase LUE mass learning support assistant to 80#. Goal to be met by: 07/20/17 Progress towards goal: Met Goal #3: Pt to increase AROM of shoulder abduction to 90 degrees. Goal to be met by: 07/20/17 Progress towards goal: Met Goal #4: Pt to be independent with Home exercise program. Goal to be met by: 06/01/17 Progress towards goal: Met Second Officer Goals Goal #1: Pt to decrease pain to 0/10 Goal to be met by: 09/05/17 Progress towards goal: Progressing Goal #2: Pt to increase LUE mass learning support assistant to 100#. Goal to be met by: 09/05/17 Progress towards goal: Progressing Comments: 90# Goal #3: Pt to increase AROM of LUE to be WFL. Goal to be met by: 09/05/17 Progress towards goal: Progressing Goal #4: Pt to increase strength of LUE to 4+/5. Goal to be met by: 09/05/17 Progress towards goal: Progressing Plan PLAN OF CARE EXPIRES ON:: 09/05/17 ORDER # VISITS AND/OR THROUGH DATE: 49 PLAN: Cont per POC to max fx I strength and AROM
--- NOTE | 2017-08-14 12:13 | RS.OPPTDN ---
Subjective Date of Note: 08/14/17 Visit #: 30 Date of Evaluation: 06/01/17 Payer Source: Workman's Comp Treatment Diagnosis: Left knee pain, pelvic pain, back pain Current Subjective/complaints:: Reports he is moving better. States lowback pain continues to limit his mobility in the morning, but he is increasing light activities. He reports he was able to place a few games of pool last night without aggravating pain. Pain Assessment - Pain Description Pain Location: lowback, right S-I, and left knee Current Pain Intensity: mod - Treatment Modality: US with ES (Comb.) Parameters/Method Applied: [id number] US at 1.5w/cm2 and Estim to 16p.v. to the bilateral lower lumbar paraspinals and right S-I joint following exercise today. Patient Position: Left Sidelying Interventions - Exercise/Activities/Manual Therapy Exercises/Activities: Began with 5mins on stationary bike. Started wall slides/ mini-squats with large ball, 10reps. Leg press increased to 90# 30reps and ankle pf/df 90# 25reps. In supine, stretching of bilateral HS, piriformis, and SKTC. Isometric hip flexion, isometric hip add, and isometric trunk rotation. Green theraband for resistive hip abd in hook-lying 2s/10reps each. SAQ and alt hip flex. Abdominal crunches, 2s/5reps. Ended with additional hamstring stretching. Total minutes of Exercise: 26mins/31mins Manual Therapy: NA HOME EXERCISE PROGRAM: Isometric hip add and quad sets, Isometric hip flexion, modified bridging. Isometric hip ext in right with assist from spouse. - Charges Timed Code Treatment Minutes: 38mins Total Treatment Time: 43mins Procedures billed for this date of service:: EX2, USCOM Assessment: Patient consistently increasing trunk and LE strengthening exercise in the department and reporting improvement in light functional and recreational activities. Patient Education: Home Safety, Activity Modification Short Term Goals Goal #1: Pt independent and compliant with HEP. Goal to be met by: 06/12/17 Progress towards Goal:: Met Goal #2: SLR bilaterally to 45-50 degrees in supine. Goal to be met by: 06/16/17 Progress towards Goal:: Met Goal #3: Trunk strength improved to 4/5. Goal to be met by: 06/16/17 Progress towards Goal:: Partially Met Goal #4: Right low back/buttock pain decreased to minimal. Goal to be met by: 06/16/17 Progress towards Goal:: Progressing Manager Reporting Goals Goal #1: Pt knows HEP and to continue ex's to maintain functional level at D/C. Goal to be met by: 09/04/17 Progress towards goal: Partially Met Goal #2: Score on LE functional scale improved to 50/80. Goal to be met by: 09/04/17 Progress towards goal: Progressing Goal #3: Pt to tolerate prolonged sitting/riding in car without right LB or LE pain. Goal to be met by: 09/04/17 Progress towards goal: Partially Met Goal #4: Lumbar AROM WFL's to perform all selfcare and ADL's w/o pain or difficulty. Goal to be met by: 09/04/17 Progress towards goal: Partially Met Plan PLAN OF CARE EXPIRES ON:: 09/04/17 ORDER # VISITS AND/OR THROUGH DATE: 09/04/17 PLAN: Progress with strengthening to increase patients functional activity level.
--- NOTE | 2017-08-17 13:23 | RS.OTDNOTE ---
Subjective Date of Note: 08/17/17 Visit #: 43 Date of Evaluation: 05/04/17 Payer Source: Workman's Comp Treatment Diagnosis: Pain of left upper arm M79.622, M79.642 pain in Left hand digits *Precautions: Wearing brace one more day Current Complaints/Gains: Pt states pain is getting better and demo AROM WFL with flexion and abduction in sitting and standing with object to reach for. Pain Assessment - Pain Description Pain Description: Burning (Burning into hands at times, better following US tx) , Dull, Aching Pain Location: Ribs 5/10. Pain continues in left UE ulnar aspect of arm that runs to digits in the PIP to the DIP joints. Pt reports "tightness and pulling " in his left UE Pain Description: acute, aches, sharp Modalities - Treatment Modality: US with ES (Comb.) Parameters/Method Applied: 10 mins, 1.5w/cm2-large pad to max of 9PV - Hot Pack/Cryotherapy Treatment: Cryotherapy Comments:: x15 mins following therapy Interventions - Exercise/Activities Exercise/Activities/Manual Therapy: MT/postural trng performed in sitting, supine and standing postions x 2 including cervical/scaline stretches. Green tband shoulder retraction, 15/3 performed in sitting with MT applied for shoulder retraction. Door stretches, AROM sh flexion/scaption, and wall stretches along with ball circles both directions and serratus streches/ strengthening performed with wall push ups(1 and bilateral use of UE's). Pt HEP ed continues. HOME EXERCISE PROGRAM: AROM shoulder protraction/retraction in supine. Lying on right side trying to move the shoulder in the clock formation. scapular pinches holding shoulder blades together for 5 seconds. - Objective Findings Objective Findings:: Winging of left scapula, tender points in serratus, posterior inferior muscle, subscapularis, intercostal tender points. Pt edema has really decreased. Pt is anteriorly rotated in Left shoulder. Core Muscles of left side have atrophied due to surgery. Pt tolerating scapular pinches better today. Pt leans head to the left with LUE shoulder flexion AROM. Pt has pain in the ulnar nerve aspect of the left forearm and in the tricep of the LUE. - Charges Timed Code Treatment Minutes: 51 Total Treatment Time: 61 Procedures billed for this date of service:: CP US/combo EX2 Assessment Patient Education: Education of diagnosis, Body/Joint mechanics, Home Exercise Program, Home Safety, Activity Modification, Education of Plan of Care Patient demonstrates compliance with HEP?: Yes Short Term Goals Goal #1: Pt LUE pain to decrease to 2/10. Goal to be met by: 07/20/17 Progress towards goal: Progressing Goal #2: Pt to increase LUE mass institute director to 80#. Goal to be met by: 07/20/17 Progress towards goal: Met Goal #3: Pt to increase AROM of shoulder abduction to 90 degrees. Goal to be met by: 07/20/17 Progress towards goal: Met Goal #4: Pt to be independent with Home exercise program. Goal to be met by: 06/01/17 Progress towards goal: Met Manager Purchasing Goals Goal #1: Pt to decrease pain to 0/10 Goal to be met by: 09/05/17 Progress towards goal: Progressing Goal #2: Pt to increase LUE mass institute director to 100#. Goal to be met by: 09/05/17 Progress towards goal: Progressing Goal #3: Pt to increase AROM of LUE to be WFL. Goal to be met by: 09/05/17 Progress towards goal: Progressing Goal #4: Pt to increase strength of LUE to 4+/5. Goal to be met by: 09/05/17 Progress towards goal: Progressing Plan PLAN OF CARE EXPIRES ON:: 09/05/17 ORDER # VISITS AND/OR THROUGH DATE: 49 PLAN: Cont per POC to max fx strength with decreased c/o pain
--- NOTE | 2017-08-17 15:08 | RS.OPPTDN ---
Subjective Date of Note: 08/17/17 Visit #: 31 Date of Evaluation: 06/01/17 Payer Source: Workman's Comp Treatment Diagnosis: Left knee pain, pelvic pain, back pain Current Subjective/complaints:: Patient reports continued LE tightness. Denies difficulty with light strengthening exercises today, including wall slides. *Precautions: Wearing brace one more day Pain Assessment - Pain Description Pain Location: lowback, right S-I, left knee Current Pain Intensity: moderate - Treatment Modality: US with ES (Comb.) Parameters/Method Applied: [id number] US at 1.5w/cm2 and Estim at 16p.v. to the bilateral lumbar paraspinals and right S-I following exercise. Patient Position: Left Sidelying Interventions - Exercise/Activities/Manual Therapy Exercises/Activities: Began with 5mins on stationary bike. Started wall slides/ mini-squats with large ball, 2s/15reps. Leg press 90# 30reps and ankle pf/df 90 # 30reps. In sitting, blue theraband for ham curl, 2s/10reps each. In supine, stretching of bilateral HS, piriformis, SKTC, and LTR. Isometric hip flexion, isometric hip add, and isometric trunk rotation. Increased to blue theraband for resistive hip abd in hook-lying 2s/10reps each. 4# for SAQ and alt hip flex , 2s/10reps each. SLR, 2s/10reps each. MET with isometric right hip extension. Ended with additional hamstring stretching. Total minutes of Exercise: 41mins Manual Therapy: NA HOME EXERCISE PROGRAM: Isometric hip add and quad sets, Isometric hip flexion, modified bridging. Isometric hip ext in right with assist from spouse. - Objective Findings Observations,measurements,etc.: Patient able to demo mini-squats with wall slides with equal WB on LE's and not distress. - Charges Timed Code Treatment Minutes: 41mins Total Treatment Time: 41mins Procedures billed for this date of service:: EX3, USCOM Assessment: Patient progressing with strengthening activities in department. Will need to progress to increase patients functional level with normal daily activities. Patient Education: Home Exercise Program, Home Safety, Activity Modification Patient demonstrates compliance with HEP?: Yes Short Term Goals Goal #1: Pt independent and compliant with HEP. Goal to be met by: 06/12/17 Progress towards Goal:: Met Goal #2: SLR bilaterally to 45-50 degrees in supine. Goal to be met by: 06/16/17 Progress towards Goal:: Met Goal #3: Trunk strength improved to 4/5. Goal to be met by: 06/16/17 Progress towards Goal:: Partially Met Goal #4: Right low back/buttock pain decreased to minimal. Goal to be met by: 06/16/17 Progress towards Goal:: Progressing Long-Term Goals Goal #1: Pt knows HEP and to continue ex's to maintain functional level at D/C. Goal to be met by: 09/04/17 Progress towards goal: Partially Met Goal #2: Score on LE functional scale improved to 50/80. Goal to be met by: 09/04/17 Progress towards goal: Progressing Goal #3: Pt to tolerate prolonged sitting/riding in car without right LB or LE pain. Goal to be met by: 09/04/17 Progress towards goal: Partially Met Goal #4: Lumbar AROM WFL's to perform all selfcare and ADL's w/o pain or difficulty. Goal to be met by: 09/04/17 Progress towards goal: Partially Met Plan PLAN OF CARE EXPIRES ON:: 09/04/17 ORDER # VISITS AND/OR THROUGH DATE: 09/04/17 PLAN: Progress strengthening to increase patients ability to perform normal functional activities.
--- NOTE | 2017-08-19 09:01 | RS.OTCXNS ---
OT Case Note Date of Scheduled Appointment: 08/19/17 Type: Cancel (Pt has MD appointment this date.)
--- NOTE | 2017-08-19 15:02 | RS.CXNS ---
Date of scheduled appointment: 08/19/17 Type: Cancel (Patient calls to cancel, has appointment with physician today.)
--- NOTE | 2017-08-21 12:00 | RS.OTDNOTE ---
Subjective Date of Note: 08/21/17 Visit #: 44 Date of Evaluation: 05/04/17 Payer Source: Workman's Comp Treatment Diagnosis: Pain of left upper arm M79.622, M79.642 pain in Left hand digits *Precautions: Pt's dizziness is decreasing Current Complaints/Gains: Pt complains more of back pain today. Pt is improving in coordination of LUE and strengthening. Pain Assessment - Pain Description Pain Description: Burning (Burning into hands at times, better following US tx) , Dull, Aching Pain Location: Ribs 5/10. Pain continues in left UE ulnar aspect of arm that runs to digits in the PIP to the DIP joints. Pt reports "tightness and pulling " in his left UE Pain Description: acute, aches, sharp Current Pain Intensity: 2 Modalities - Treatment Modality: US with ES (Comb.) Parameters/Method Applied: 1.5 w/cm2 for 8 minutes. Treatment Area: LUE pectoralis muscle while patient is placed in External rotation. Patient Position: Supine - Hot Pack/Cryotherapy Treatment: Cryotherapy Comments:: Cold pack following therapy. Interventions - Exercise/Activities Exercise/Activities/Manual Therapy: MT/postural trng performed in sitting, supine and standing postions x 2 including cervical/scaline stretches. Green tband shoulder retraction, 20/3 performed in sitting with MT applied for shoulder retraction. Green theraband AROM sh flexion/scaption x 20 reps x 2 sets , and wall stretches along with ball circles both directions and serratus streches/strengthening performed with wall push ups(1 and bilateral use of UE's) . Serratus shoulder protraction/retraction with 6# x 20 reps x 2 sets. Hand on light ball with 1# on wrist for coordination exercises of small circles both directions x 20 reps, East to west small movement x 20 reps, North to south small movement x 20 reps on the ball. CP. Pt HEP ed continues. HOME EXERCISE PROGRAM: AROM shoulder protraction/retraction in supine. Lying on right side trying to move the shoulder in the clock formation. scapular pinches holding shoulder blades together for 5 seconds. - Objective Findings Objective Findings:: Winging of left scapula, tender points in serratus, posterior inferior muscle, subscapularis, intercostal tender points. Pt edema has really decreased. Pt is anteriorly rotated in Left shoulder. Core Muscles of left side have atrophied due to surgery. Pt tolerating scapular pinches better today. Pt leans head to the left with LUE shoulder flexion AROM. Pt has pain in the ulnar nerve aspect of the left forearm and in the tricep of the LUE. - Charges Timed Code Treatment Minutes: 60 Total Treatment Time: 70 Procedures billed for this date of service:: US combo with Estim, EX x2,NMR, CP Assessment Assessment: Pt is improving in his posture of holding the Left shoulder in correct position. Pt is encouraged to continue the scapular pinches at home, serratus protraction/retraction exercises. Pt is able to complete exercises that were very difficult in the beginning of his therapy more easily today. Patient Education: Education of diagnosis, Home Exercise Program, Education of Plan of Care Problems/Comments: Left scapul wings. This is improving. Patient demonstrates compliance with HEP?: Yes Short Term Goals Goal #1: Pt LUE pain to decrease to 2/10. Goal to be met by: 07/20/17 Progress towards goal: Progressing Goal #2: Pt to increase LUE mass fagoting machine operator to 80#. Goal to be met by: 07/20/17 Progress towards goal: Met Goal #3: Pt to increase AROM of shoulder abduction to 90 degrees. Goal to be met by: 07/20/17 Progress towards goal: Met Goal #4: Pt to be independent with Home exercise program. Goal to be met by: 06/01/17 Progress towards goal: Met M[employer] Goals Goal #1: Pt to decrease pain to 0/10 Goal to be met by: 09/05/17 Progress towards goal: Progressing Goal #2: Pt to increase LUE mass fagoting machine operator to 100#. Goal to be met by: 09/05/17 Progress towards goal: Progressing Goal #3: Pt to increase AROM of LUE to be WFL. Goal to be met by: 09/05/17 Progress towards goal: Progressing Goal #4: Pt to increase strength of LUE to 4+/5. Goal to be met by: 09/05/17 Progress towards goal: Progressing Plan PLAN OF CARE EXPIRES ON:: 09/05/17 ORDER # VISITS AND/OR THROUGH DATE: 49 PLAN: Pt to continue to improve his posture, decrease the winging of the left scapula, increase proprioception of the left UE, decrease pain in LUE.
--- NOTE | 2017-08-21 16:08 | RS.OPPTDN ---
Subjective Date of Note: 08/21/17 Visit #: 32 Date of Evaluation: 06/01/17 Payer Source: Workman's Comp Treatment Diagnosis: Left knee pain, pelvic pain, back pain Current Subjective/complaints:: Patient reports he is having a pretty good day, but his back is bothering him a lot today. States he will be having an MRI next week. *Precautions: Wearing brace one more day Pain Assessment - Pain Description Pain Location: lowback and right S-I region, Current Pain Intensity: no pain immediately following treatment Worst Pain Intensity: 5/10 Other Comments regarding Pain:: Left knee pain mild with ambulation today. - Treatment Modality: US with ES (Comb.) Parameters/Method Applied: [id number] US at 1.5w.cm2 and Estim at 16p.v. to the bilateral lower lumbar paraspinals and right S-I joint. Patient Position: Left Sidelying Interventions - Exercise/Activities/Manual Therapy Exercises/Activities: Leg press 90# 30reps and ankle pf/df 90# 30reps. In sitting, blue theraband for ham curl, 2s/10reps each. In supine, stretching of bilateral HS, piriformis, SKTC, and LTR. Isometric hip flexion, isometric hip add, and isometric trunk. Blue theraband for resistive hip abd in hook-lying 2s /10reps each. Increased to 5# for SAQ and alt hip flex, and 3s/10reps each. Added 2# to SLR, 2s/10reps each, mild discomfort at LB with 2nd set left SLR. Ended with additional hamstring stretching. Total minutes of Exercise: 26mins Manual Therapy: NA HOME EXERCISE PROGRAM: Isometric hip add and quad sets, Isometric hip flexion, modified bridging. Isometric hip ext in right with assist from spouse. - Charges Timed Code Treatment Minutes: 38mins Total Treatment Time: 42mins Procedures billed for this date of service:: EX2, USCOM Assessment: Patient progressing with strengthening and treatment helping to reduce pain level. Progression of exercise will depend on results of MRI. Patient Education: Home Exercise Program, Home Safety, Activity Modification Patient demonstrates compliance with HEP?: Yes Short Term Goals Goal #1: Pt independent and compliant with HEP. Goal to be met by: 06/12/17 Progress towards Goal:: Met Goal #2: SLR bilaterally to 45-50 degrees in supine. Goal to be met by: 06/16/17 Progress towards Goal:: Met Goal #3: Trunk strength improved to 4/5. Goal to be met by: 06/16/17 Progress towards Goal:: Partially Met Goal #4: Right low back/buttock pain decreased to minimal. Goal to be met by: 06/16/17 Progress towards Goal:: Progressing Senior Living Goals Goal #1: Pt knows HEP and to continue ex's to maintain functional level at D/C. Goal to be met by: 09/04/17 Progress towards goal: Partially Met Goal #2: Score on LE functional scale improved to 50/80. Goal to be met by: 09/04/17 Progress towards goal: Progressing Goal #3: Pt to tolerate prolonged sitting/riding in car without right LB or LE pain. Goal to be met by: 09/04/17 Progress towards goal: Partially Met Goal #4: Lumbar AROM WFL's to perform all selfcare and ADL's w/o pain or difficulty. Goal to be met by: 09/04/17 Progress towards goal: Partially Met Plan PLAN OF CARE EXPIRES ON:: 09/04/17 ORDER # VISITS AND/OR THROUGH DATE: 09/04/17 PLAN: Progress patient with LE and trunk strengthening exercise to increase his mobility and functional activity level.
--- NOTE | 2017-08-24 11:32 | RS.OTDNOTE ---
Subjective Date of Note: 08/24/17 Visit #: 45 Date of Evaluation: 05/04/17 Payer Source: Workman's Comp Treatment Diagnosis: Pain of left upper arm M79.622, M79.642 pain in Left hand digits *Precautions: Wearing brace one more day Current Complaints/Gains: Pt attended therapy today with back brace donned. States that he has been wearing x 1-2 hrs at a time. States that donning the brace increases his hand tingling. States he has a MD appointment this Thurs. Pain Assessment - Pain Description Pain Description: Burning (Pain "mostly in scapula and running up my neck"), Dull, Aching Pain Location: Ribs 5/10. Pain continues in left UE ulnar aspect of arm that runs to digits in the PIP to the DIP joints. Pt reports "tightness and pulling " in his left UE Pain Description: acute, aches, sharp Modalities - Treatment Parameters/Method Applied: 1.5wcm/2 x 10 mins Patient Position: Sitting - Hot Pack/Cryotherapy Treatment: Cryotherapy Comments:: CP x 10 mins Interventions - Exercise/Activities Exercise/Activities/Manual Therapy: MT/postural trng performed in sitting, supine and standing postions x 2 including cervical/scaline stretches. Green tband shoulder retraction, 20/3 performed in sitting with MT applied for shoulder retraction. Green theraband AROM sh flexion/scaption x 20 reps x 2 sets , and wall stretches along with ball circles both directions and serratus streches/strengthening performed with wall push ups(1 and bilateral use of UE's) . Serratus shoulder protraction/retraction with 6# x 20 reps x 2 sets. Hand on light ball with 1# on wrist for coordination exercises of small circles both directions x 20 reps, East to west small movement x 20 reps, North to south small movement x 20 reps on the ball. CP. 3#RTC series ex performed in FF standing. Pt HEP ed continues. HOME EXERCISE PROGRAM: AROM shoulder protraction/retraction in supine. Lying on right side trying to move the shoulder in the clock formation. scapular pinches holding shoulder blades together for 5 seconds. - Objective Findings Objective Findings:: Winging of left scapula, tender points in serratus, posterior inferior muscle, subscapularis, intercostal tender points. Pt edema has really decreased. Pt is anteriorly rotated in Left shoulder. Core Muscles of left side have atrophied due to surgery. Pt tolerating scapular pinches better today. Pt leans head to the left with LUE shoulder flexion AROM. Pt has pain in the ulnar nerve aspect of the left forearm and in the tricep of the LUE. - Charges Timed Code Treatment Minutes: 43 Total Treatment Time: 55 Procedures billed for this date of service:: CP USEX2 Assessment Patient Education: Education of diagnosis, Body/Joint mechanics, Home Exercise Program, Home Safety, Activity Modification, Education of Plan of Care Patient demonstrates compliance with HEP?: Yes Short Term Goals Goal #1: Pt LUE pain to decrease to 2/10. Goal to be met by: 07/20/17 Progress towards goal: Progressing Goal #2: Pt to increase LUE mass scientist/engineer to 80#. Goal to be met by: 07/20/17 Progress towards goal: Met Goal #3: Pt to increase AROM of shoulder abduction to 90 degrees. Goal to be met by: 07/20/17 Progress towards goal: Met Goal #4: Pt to be independent with Home exercise program. Goal to be met by: 06/01/17 Progress towards goal: Met Welding Machine Operator Helper Gas Goals Goal #1: Pt to decrease pain to 0/10 Goal to be met by: 09/05/17 Progress towards goal: Progressing Goal #2: Pt to increase LUE mass scientist/engineer to 100#. Goal to be met by: 09/05/17 Progress towards goal: Progressing Goal #3: Pt to increase AROM of LUE to be WFL. Goal to be met by: 09/05/17 Progress towards goal: Progressing Goal #4: Pt to increase strength of LUE to 4+/5. Goal to be met by: 09/05/17 Progress towards goal: Progressing Plan PLAN OF CARE EXPIRES ON:: 09/05/17 ORDER # VISITS AND/OR THROUGH DATE: 49 PLAN: Cont per POC to max fx strength and use with decreased c/o pain
--- NOTE | 2017-08-24 11:33 | RS.OPPTDN ---
Subjective Date of Note: 08/24/17 Visit #: 33 Date of Evaluation: 06/01/17 Payer Source: Workman's Comp Treatment Diagnosis: Left knee pain, pelvic pain, back pain Current Subjective/complaints:: Patient reports he tried to do more light activities this weekend but it has caused an increase in his lowback pain. Reports feeling better following modalities. *Precautions: Wearing brace one more day Pain Assessment - Pain Description Pain Location: bilateral lower lumbar paraspinals, right S-I joint area Current Pain Intensity: mod to high - Treatment Modality: US with ES (Comb.) Parameters/Method Applied: [id number] US at 1.5w/cm2 and Estim to 16p.v. focus along the lower bilateral lumbar paraspinals. Patient Position: Left Sidelying Interventions - Exercise/Activities/Manual Therapy Exercises/Activities: In supine, stretching of bilateral HS, piriformis, SKTC, and LTR. Isometric hip flexion, isometric hip add, and isometric trunk. Blue theraband for resistive hip abd in hook-lying 2s/10reps each. 5# for SAQ and alt hip flex, and 3s/10reps each. 2# to SLR, 2s/10reps each. Green theraband for resistive ankle df and ham curls, 2s/10reps each. Ended with additional gentle stretching. Total minutes of Exercise: 27mins Manual Therapy: NA HOME EXERCISE PROGRAM: Isometric hip add and quad sets, Isometric hip flexion, modified bridging. Isometric hip ext in right with assist from spouse. - Charges Timed Code Treatment Minutes: 39mins Total Treatment Time: 40mins Procedures billed for this date of service:: EX2, USCOM Assessment: Patient has progressed with strengthening, but continues to have flair-ups of back pain with any increased functional acitivities. Patient Education: Home Exercise Program Patient demonstrates compliance with HEP?: Yes Short Term Goals Goal #1: Pt independent and compliant with HEP. Goal to be met by: 06/12/17 Progress towards Goal:: Met Goal #2: SLR bilaterally to 45-50 degrees in supine. Goal to be met by: 06/16/17 Progress towards Goal:: Met Goal #3: Trunk strength improved to 4/5. Goal to be met by: 06/16/17 Progress towards Goal:: Partially Met Goal #4: Right low back/buttock pain decreased to minimal. Goal to be met by: 06/16/17 Progress towards Goal:: Progressing Usp Goals Goal #1: Pt knows HEP and to continue ex's to maintain functional level at D/C. Goal to be met by: 09/04/17 Progress towards goal: Partially Met Goal #2: Score on LE functional scale improved to 50/80. Goal to be met by: 09/04/17 Progress towards goal: Progressing Goal #3: Pt to tolerate prolonged sitting/riding in car without right LB or LE pain. Goal to be met by: 09/04/17 Progress towards goal: Partially Met Goal #4: Lumbar AROM WFL's to perform all selfcare and ADL's w/o pain or difficulty. Goal to be met by: 09/04/17 Progress towards goal: Partially Met Plan PLAN OF CARE EXPIRES ON:: 09/04/17 ORDER # VISITS AND/OR THROUGH DATE: 09/04/17 PLAN: Progress with strengthening to increase patients functional activity level.
--- NOTE | 2017-08-26 13:43 | RS.OTDNOTE ---
Subjective Date of Note: 08/26/17 Visit #: 45 Date of Evaluation: 05/04/17 Payer Source: Workman's Comp Treatment Diagnosis: Pain of left upper arm M79.622, M79.642 pain in Left hand digits *Precautions: Wearing brace one more day Current Complaints/Gains: Pt cont with c/o pain. States improvement with reaching. States he has been donning his posture brace and demo improvement. Pain Assessment - Pain Description Pain Description: Burning (Pain "mostly in scapula and running up my neck"), Dull, Aching Pain Location: Ribs 5/10. Pain continues in left UE ulnar aspect of arm that runs to digits in the PIP to the DIP joints. Pt reports "tightness and pulling " in his left UE Pain Description: acute, aches, sharp Modalities - Treatment Modality: US with ES (Comb.) - Hot Pack/Cryotherapy Treatment: Cryotherapy Comments:: CP x 10 mins Interventions - Exercise/Activities Exercise/Activities/Manual Therapy: MT/postural trng performed in sitting, supine, prone, and standing postions including cervical/scaline stretches, AROM , [place] scapular stability ex's and PROM/gentle stretching. Green tband shoulder retraction, 20/3 performed in sitting with MT applied for shoulder retraction. Green theraband AROM sh flexion/scaption x 20 reps x 2 sets, and wall stretches along with ball circles both directions and serratus streches/ strengthening performed with wall push ups(1 and bilateral use of UE's). Serratus shoulder protraction/retraction with 6# x 20 reps x 2 sets. Hand on light ball with 1# on wrist for coordination exercises of small circles both directions x 20 reps, East to west small movement x 20 reps, North to south small movement x 20 reps on the ball. CP. 5#RTC series ex performed in FF standing. Pt HEP ed continues. HOME EXERCISE PROGRAM: AROM shoulder protraction/retraction in supine. Lying on right side trying to move the shoulder in the clock formation. scapular pinches holding shoulder blades together for 5 seconds. - Objective Findings Objective Findings:: Winging of left scapula, tender points in serratus, posterior inferior muscle, subscapularis, intercostal tender points. Pt edema has really decreased. Pt is anteriorly rotated in Left shoulder. Core Muscles of left side have atrophied due to surgery. Pt tolerating scapular pinches better today. Pt leans head to the left with LUE shoulder flexion AROM. Pt has pain in the ulnar nerve aspect of the left forearm and in the tricep of the LUE. - Charges Timed Code Treatment Minutes: 58 Total Treatment Time: 72 Procedures billed for this date of service:: CP US/COMBO EX2 NMR Assessment Patient Education: Education of diagnosis, Body/Joint mechanics, Home Exercise Program, Home Safety, Activity Modification, Education of Plan of Care Patient demonstrates compliance with HEP?: Yes Short Term Goals Goal #1: Pt LUE pain to decrease to 2/10. Goal to be met by: 07/20/17 Progress towards goal: Progressing Goal #2: Pt to increase LUE mass learning support aide to 80#. Goal to be met by: 07/20/17 Progress towards goal: Met Goal #3: Pt to increase AROM of shoulder abduction to 90 degrees. Goal to be met by: 07/20/17 Progress towards goal: Met Goal #4: Pt to be independent with Home exercise program. 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 Goal to be met by: 09/05/17 Progress towards goal: Progressing Comments: 96# 92# Goal #3: Pt to increase AROM of LUE to be WFL. Goal to be met by: 09/05/17 Progress towards goal: Progressing Goal #4: Pt to increase strength of LUE to 4+/5. Goal to be met by: 09/05/17 Progress towards goal: Progressing Plan PLAN OF CARE EXPIRES ON:: 09/05/17 ORDER # VISITS AND/OR THROUGH DATE: 49 PLAN: cont per POC to max fx I, strength, and AROM.
--- NOTE | 2017-08-26 14:16 | RS.OPPTDN ---
Subjective Date of Note: 08/26/17 Visit #: 34 Date of Evaluation: 06/01/17 Payer Source: Workman's Comp Treatment Diagnosis: Left knee pain, pelvic pain, back pain Current Subjective/complaints:: Patient reports little change in back pain this week. States he will try to progress strengthening as tolerated. Reports he is going for what he describes as a nerve conduction study. *Precautions: Wearing brace one more day Pain Assessment - Pain Description Pain Location: lowback and right S-I joint area Pain Description: Aching Current Pain Intensity: mod at lowback - Treatment Modality: US with ES (Comb.) Parameters/Method Applied: [id number] US at 1.5w/cm2 and ES at 16p.v. to the bilateral lower lumbar paraspinals and right S-I joint region. Patient Position: Left Sidelying Interventions - Exercise/Activities/Manual Therapy Exercises/Activities: Leg press 60#, 30reps slowly and ankle df/pf 20reps. Wall slides with large ball, 2s/10reps. In standing, resistive trunk rotation with green theraband, 2s/15reps each side. In supine, stretching of bilateral HS, piriformis, SKTC, and LTR. Isometric hip flexion, isometric hip add, and isometric trunk. Green theraband for resistive hip abd and hip add in hook- lying 2s/10reps each. 5# for SAQ and alt hip flex, and 3s/10reps each. 2# for SLR, 2s/10reps each. Green theraband for resistive ankle df and ham curls, 2s/ 10reps each. Total minutes of Exercise: 28mins Manual Therapy: NA HOME EXERCISE PROGRAM: Isometric hip add and quad sets, Isometric hip flexion, modified bridging. Isometric hip ext in right with assist from spouse. - Charges Timed Code Treatment Minutes: 40mins Total Treatment Time: 42mins Procedures billed for this date of service:: EX2, USCOM Assessment: Patient continues to have back pain that limits his activity level. He continues to try to increase strengthening exercise and is motivated to progress. Patient Education: Home Exercise Program Patient demonstrates compliance with HEP?: Yes Short Term Goals Goal #1: Pt independent and compliant with HEP. Goal to be met by: 06/12/17 Progress towards Goal:: Met Goal #2: SLR bilaterally to 45-50 degrees in supine. Goal to be met by: 06/16/17 Progress towards Goal:: Met Goal #3: Trunk strength improved to 4/5. Goal to be met by: 06/16/17 Progress towards Goal:: Partially Met Goal #4: Right low back/buttock pain decreased to minimal. Goal to be met by: 06/16/17 Progress towards Goal:: Progressing Senior Living Goals Goal #1: Pt knows HEP and to continue ex's to maintain functional level at D/C. Goal to be met by: 09/04/17 Progress towards goal: Partially Met Goal #2: Score on LE functional scale improved to 50/80. Goal to be met by: 09/04/17 Progress towards goal: Progressing Goal #3: Pt to tolerate prolonged sitting/riding in car without right LB or LE pain. Goal to be met by: 09/04/17 Progress towards goal: Partially Met Goal #4: Lumbar AROM WFL's to perform all selfcare and ADL's w/o pain or difficulty. Goal to be met by: 09/04/17 Progress towards goal: Partially Met Plan PLAN OF CARE EXPIRES ON:: 09/04/17 ORDER # VISITS AND/OR THROUGH DATE: 09/04/17 PLAN: Will progress strengthening to increase patients functional activity level.
--- NOTE | 2017-08-28 13:14 | RS.OTDNOTE ---
Subjective Date of Note: 08/28/17 Visit #: 47 Date of Evaluation: 05/04/17 Payer Source: Workman's Comp Treatment Diagnosis: Pain of left upper arm M79.622, M79.642 pain in Left hand digits *Precautions: Wearing brace one more day Current Complaints/Gains: Pt states he had his nerve conduction test yesterday and goes to MD next wk for results. States pain at 4/10 at worst today. States pain and stiffness continues and states good use/compliance with donning back brace several times daily. Pain Assessment - Pain Description Pain Description: Burning (Pain "mostly in scapula and running up my neck"), Dull, Aching Pain Location: Ribs 5/10. Pain continues in left UE ulnar aspect of arm that runs to digits in the PIP to the DIP joints. Pt reports "tightness and pulling " in his left UE Pain Description: acute, aches, sharp Current Pain Intensity: 2 Worst Pain Intensity: 4 Modalities - Hot Pack/Cryotherapy Treatment: Cryotherapy Comments:: x15 mins following tx Interventions - Exercise/Activities Exercise/Activities/Manual Therapy: MT/postural trng performed in sitting, supine, prone, and standing postions including cervical/scaline stretches, AROM , [place] scapular stability ex's, 11/11 and PROM/gentle stretching. Green tband shoulder retraction, pull downs, IR/ER /3 performed in supine with MT applied for shoulder retraction. Green theraband AROM sh flexion/scaption x 20 reps x 2 sets, and wall stretches along with ball circles both directions and serratus streches (pro/retraction, 8#. Strengthening performed with wall push ups(1 and bilateral use of UE's). Hand on light ball with 3# on wrist for coordination exercises of small circles both directions x 20 reps, East to west small movement x 20 reps, North to south small movement x 20 reps on the ball. CP. 8#RTC series ex performed in FF standing. Retraction/multi gym ex 23/04. Pt HEP ed continues. HOME EXERCISE PROGRAM: AROM shoulder protraction/retraction in supine. Lying on right side trying to move the shoulder in the clock formation. scapular pinches holding shoulder blades together for 5 seconds. - Objective Findings Objective Findings:: Winging of left scapula, tender points in serratus, posterior inferior muscle, subscapularis, intercostal tender points. Pt edema has really decreased. Pt is anteriorly rotated in Left shoulder. Core Muscles of left side have atrophied due to surgery. Pt tolerating scapular pinches better today. Pt leans head to the left with LUE shoulder flexion AROM. Pt has pain in the ulnar nerve aspect of the left forearm and in the tricep of the LUE. - Charges Timed Code Treatment Minutes: 58 Total Treatment Time: 69 Procedures billed for this date of service:: CP EX3 NMR Assessment Patient Education: Education of diagnosis, Body/Joint mechanics, Home Exercise Program, Home Safety, Activity Modification, Education of Plan of Care Patient demonstrates compliance with HEP?: Yes Short Term Goals Goal #1: Pt LUE pain to decrease to 2/10. Goal to be met by: 07/20/17 Progress towards goal: Progressing Goal #2: Pt to increase LUE mass lead burner apprentice to 80#. Goal to be met by: 07/20/17 Progress towards goal: Met Goal #3: Pt to increase AROM of shoulder abduction to 90 degrees. Goal to be met by: 07/20/17 Progress towards goal: Met Goal #4: Pt to be independent with Home exercise program. Goal to be met by: 06/01/17 Progress towards goal: Met Coach Tour Driver Goals Goal #1: Pt to decrease pain to 0/10 Goal to be met by: 09/05/17 Progress towards goal: Progressing Goal #2: Pt to increase LUE mass lead burner apprentice to 100#. Goal to be met by: 09/05/17 Progress towards goal: Progressing Comments: 96# Goal #3: Pt to increase AROM of LUE to be WFL. Goal to be met by: 09/05/17 Progress towards goal: Progressing Goal #4: Pt to increase strength of LUE to 4+/5. Goal to be met by: 09/05/17 Progress towards goal: Progressing Plan PLAN OF CARE EXPIRES ON:: 09/05/17 ORDER # VISITS AND/OR THROUGH DATE: 49 PLAN: Cont per POC to max fx I and strength with decreased c/o pain.
--- NOTE | 2017-08-28 15:24 | RS.OPPTDN ---
Subjective Date of Note: 08/28/17 Visit #: 35 Date of Evaluation: 06/01/17 Payer Source: Workman's Comp Treatment Diagnosis: Left knee pain, pelvic pain, back pain Current Subjective/complaints:: Patient reports LE are stronger and mobility continues to improve, but his back pain continues to limit all activity. Reports pain relief during lumbar traction today. Also, patient fitted with back brace for focus on lateral pressure and pain reduction. Patient reports significant pain relief with back brace. *Precautions: Wearing brace one more day Pain Assessment - Pain Description Pain Location: lowback Current Pain Intensity: 4-5/10 Worst Pain Intensity: 9-10/10 Other Comments regarding Pain:: Reports pain completely relieved with pull of mechanical traction. Also, pain reduced to 4/10 with brace. - Traction Treatment Method: Mechanical, Intermittent, Lumbar Patient Position: Supine Amount of Force Applied: 40# progressed to 60# Hold Time: 35sec Rest Time: 5sec Duration of treatment: 15mins Traction Treatment Comment: Discussed mechanical lumbar traction with Evaluating PT and she agreed to start patient today. Patient pleased with pain relief with pull of lumbar traction. Interventions - Exercise/Activities/Manual Therapy Exercises/Activities: In supine, stretching of bilateral HS, piriformis, SKTC, and LTR. Isometric hip flexion, isometric hip add, and isometric trunk. Green theraband for resistive hip abd and hip add in hook-lying 2s/10reps each. Patient assisted with lateral support back/trunk brace. Patient reports pain relief and agrees to wear off and on over the weekend. Total minutes of Exercise: 17mins Manual Therapy: NA HOME EXERCISE PROGRAM: Isometric hip add and quad sets, Isometric hip flexion, modified bridging. Isometric hip ext in right with assist from spouse. - Charges Timed Code Treatment Minutes: 17mins Total Treatment Time: 40mins Procedures billed for this date of service:: EX, Traction mechanical Assessment: Continue with mechanical traction for pain reduction. Patient Education: Body/Joint mechanics, Activity Modification Comments: Instruction in application of back support brace. Short Term Goals Goal #1: Pt independent and compliant with HEP. Goal to be met by: 06/12/17 Progress towards Goal:: Met Goal #2: SLR bilaterally to 45-50 degrees in supine. Goal to be met by: 06/16/17 Progress towards Goal:: Met Goal #3: Trunk strength improved to 4/5. Goal to be met by: 06/16/17 Progress towards Goal:: Partially Met Goal #4: Right low back/buttock pain decreased to minimal. Goal to be met by: 06/16/17 Progress towards Goal:: Progressing Chrome Cleaner Goals Goal #1: Pt knows HEP and to continue ex's to maintain functional level at D/C. Goal to be met by: 09/04/17 Progress towards goal: Partially Met Goal #2: Score on LE functional scale improved to 50/80. Goal to be met by: 09/04/17 Progress towards goal: Progressing Goal #3: Pt to tolerate prolonged sitting/riding in car without right LB or LE pain. Goal to be met by: 09/04/17 Progress towards goal: Partially Met Goal #4: Lumbar AROM WFL's to perform all selfcare and ADL's w/o pain or difficulty. Goal to be met by: 09/04/17 Progress towards goal: Partially Met Plan PLAN OF CARE EXPIRES ON:: 09/04/17 ORDER # VISITS AND/OR THROUGH DATE: 09/04/17 PLAN: Progress mechanical lumbar traction as tolerated to reduce pain.
--- NOTE | 2017-08-31 11:30 | RS.OTDNOTE ---
Subjective Date of Note: 08/31/17 Visit #: 48 Date of Evaluation: 05/04/17 Payer Source: Workman's Comp Treatment Diagnosis: Pain of left upper arm M79.622, M79.642 pain in Left hand digits *Precautions: Wearing brace one more day Current Complaints/Gains: Pt states he is returning to [email or web address] for MRI and nerve conduction test results. States "my arm is still broken" and has c/o back pain continuing. States he has been wearing his scapula brace and he sees a difference in his posture and is more aware of his posture. Pain Assessment - Pain Description Pain Description: Burning (Pain "mostly in scapula and running up my neck"), Dull, Aching Pain Location: Ribs 5/10. Pain continues in left UE ulnar aspect of arm that runs to digits in the PIP to the DIP joints. Pt reports "tightness and pulling " in his left UE Pain Description: acute, aches, sharp Modalities - Treatment Modality: Ultrasound Parameters/Method Applied: 1.5w/cm2 anterior shoulder and deltoids - Hot Pack/Cryotherapy Treatment: Cryotherapy (x10 mins following therapy) Interventions - Exercise/Activities Exercise/Activities/Manual Therapy: MT/postural trng performed in sitting, supine, prone, and standing postions including cervical/scaline stretches, AROM , [place] scapular stability ex's, 103 and PROM/gentle stretching. Green tband shoulder retraction, pull downs, IR/ER 10/3 performed in supine with MT applied for shoulder retraction. Green theraband AROM sh flexion/scaption x 20 reps x 2 sets, and wall stretches along with ball circles both directions and serratus streches (pro/retraction, 8#. Strengthening performed with wall push ups(1 and bilateral use of UE's). Hand on light ball with 3# on wrist for coordination exercises of small circles both directions x 20 reps, East to west small movement x 20 reps, North to south small movement x 20 reps on the ball. CP. 8#RTC series ex performed in FF standing. Retraction/multi gym ex /3. Pt HEP ed continues. HOME EXERCISE PROGRAM: AROM shoulder protraction/retraction in supine. Lying on right side trying to move the shoulder in the clock formation. scapular pinches holding shoulder blades together for 5 seconds. - Objective Findings Objective Findings:: Winging of left scapula, tender points in serratus, posterior inferior muscle, subscapularis, intercostal tender points. Pt edema has really decreased. Pt is anteriorly rotated in Left shoulder. Core Muscles of left side have atrophied due to surgery. Pt tolerating scapular pinches better today. Pt leans head to the left with LUE shoulder flexion AROM. Pt has pain in the ulnar nerve aspect of the left forearm and in the tricep of the LUE. - Charges Timed Code Treatment Minutes: 54 Total Treatment Time: 65 Procedures billed for this date of service:: CP USEX3 Assessment Patient Education: Education of diagnosis, Body/Joint mechanics, Home Exercise Program, Home Safety, Activity Modification, Education of Plan of Care Patient demonstrates compliance with HEP?: Yes Short Term Goals Goal #1: Pt LUE pain to decrease to 2/10. 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 Goal to be met by: 07/20/17 Progress towards goal: Met Goal #3: Pt to increase AROM of shoulder abduction to 90 degrees. Goal to be met by: 07/20/17 Progress towards goal: Met Goal #4: Pt to be independent with Home exercise program. 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 Goal to be met by: 09/05/17 Progress towards goal: Progressing Goal #3: Pt to increase AROM of LUE to be WFL. Goal to be met by: 09/05/17 Progress towards goal: Progressing Goal #4: Pt to increase strength of LUE to 4+/5. Goal to be met by: 09/05/17 Progress towards goal: Progressing Plan PLAN OF CARE EXPIRES ON:: 09/05/17 ORDER # VISITS AND/OR THROUGH DATE: 49 PLAN: Cont per POC x 1 visit. Pt will require MD order and new work comp authorization.
--- NOTE | 2017-08-31 11:46 | RS.OPPTDN ---
Subjective Date of Note: 08/31/17 Visit #: 36 Date of Evaluation: 06/01/17 Payer Source: Workman's Comp Treatment Diagnosis: Left knee pain, pelvic pain, back pain Current Subjective/complaints:: Patient reports his back pain has been bad today. Reports pain at 10/10 when getting out of bed today. States he did have some pain relief during the pull of lumbar traction last session, but no lasting relief. States he tried to play pool again over the weekend, which may have caused some back pain due to forward flexion. States he has not felt well today and decides not to wait for traction following initial treatment. States he is scheduled for an MRI on the lumbar spine and should get results tomorrow. Reports he is stronger but back pain is not progressing. *Precautions: Wearing brace one more day Pain Assessment - Pain Description Pain Location: lowback and right S-I joint Current Pain Intensity: mod to high Worst Pain Intensity: 10/10 this am Other Comments regarding Pain:: Reports left knee much better but lumbar pain continues to be a problem. Some pain reduction with stretching and modalities. - Treatment Modality: US with ES (Comb.) Parameters/Method Applied: [id number] US at 1.5w/cm2 and Estim to 15p.v. to bilateral lower lumbar paraspinals and right S-I joint. Patient Position: Left Sidelying Interventions - Exercise/Activities/Manual Therapy Exercises/Activities: In supine, stretching of bilateral HS, piriformis, SKTC, and LTR. Isometric hip flexion, isometric hip add, and isometric trunk. Witheld PRE's due to patient increased back pain and reports of not feeling well today. Total minutes of Exercise: 15mins Manual Therapy: NA HOME EXERCISE PROGRAM: Isometric hip add and quad sets, Isometric hip flexion, modified bridging. Isometric hip ext in right with assist from spouse. - Charges Timed Code Treatment Minutes: 27mins Total Treatment Time: 29mins Procedures billed for this date of service:: EX, USCOM Assessment: Patient has progressed with strength and mobility, but continues to have flair-ups of pain with activities. Patient Education: Body/Joint mechanics, Home Exercise Program, Activity Modification Short Term Goals Goal #1: Pt independent and compliant with HEP. Goal to be met by: 06/12/17 Progress towards Goal:: Met Goal #2: SLR bilaterally to 45-50 degrees in supine. Goal to be met by: 06/16/17 Progress towards Goal:: Met Goal #3: Trunk strength improved to 4/5. Goal to be met by: 06/16/17 Progress towards Goal:: Partially Met Goal #4: Right low back/buttock pain decreased to minimal. Goal to be met by: 06/16/17 Progress towards Goal:: Progressing [employer] Goals Goal #1: Pt knows HEP and to continue ex's to maintain functional level at D/C. Goal to be met by: 09/04/17 Progress towards goal: Partially Met Goal #2: Score on LE functional scale improved to 50/80. Goal to be met by: 09/04/17 Progress towards goal: Progressing Goal #3: Pt to tolerate prolonged sitting/riding in car without right LB or LE pain. Goal to be met by: 09/04/17 Progress towards goal: Partially Met Goal #4: Lumbar AROM WFL's to perform all selfcare and ADL's w/o pain or difficulty. Goal to be met by: 09/04/17 Progress towards goal: Partially Met Plan PLAN OF CARE EXPIRES ON:: 09/04/17 ORDER # VISITS AND/OR THROUGH DATE: 09/04/17 PLAN: Patient to have additonal tests and see physician tomorrow. Will wait for further instruction as patient continues to have back pain that limits his daily activities.
--- NOTE | 2017-09-02 11:39 | RS.OPPTDN ---
Subjective Date of Note: 09/02/17 Visit #: 37 Date of Evaluation: 06/01/17 Payer Source: Workman's Comp Treatment Diagnosis: Left knee pain, pelvic pain, back pain Current Subjective/complaints:: Patient reports back pain continues to limit his mobility, especially in the morning. Reports he has continuation orders. Agrees to try to progress a Work Reconditioning program if approved. (Orders written for Work Hardening) Patient reports mod discomfort following exercise session today, but no increase in pain that limits his functional mobility. *Precautions: Wearing brace one more day Pain Assessment - Pain Description Pain Location: lowback Pain Description: Aching Current Pain Intensity: mod 4-5/10 Worst Pain Intensity: 8-9/10 Other Comments regarding Pain:: Reports some increase lumbar discomfort with HS stretching, but pain relief with SKTC or DKTC. Denies left knee pain with exercise today. Interventions - Exercise/Activities/Manual Therapy Exercises/Activities: In supine, stretching of bilateral HS, piriformis, SKTC, and LTR. Isometric hip flexion, isometric hip add, and isometric trunk rotation. Increased to black theraband for hip abduction in hook-lying, and resistive lower trunk rotation in hook-lying. SAQ with 5# and alt hip flexion with 5# in hook-lying, 3s/10reps each. SLR 2s/10reps each. In standing, resistive trunk rotation with blue theraband, 2s/20reps each side. Leg press 105 #, 30reps and ankle df/pf with 105# 30reps, slow pace. Wall slides with large ball 20reps slow pace. Bike x7mins with breaks. Standing alt hip extension, marching, and alt hip abduction. Total minutes of Exercise: 39mins/46mins Manual Therapy: NA HOME EXERCISE PROGRAM: Isometric hip add and quad sets, Isometric hip flexion, modified bridging. Isometric hip ext in right with assist from spouse. - Charges Timed Code Treatment Minutes: 39mins Total Treatment Time: 46mins Procedures billed for this date of service:: EX3 Assessment: Patient able to perform progressive stretching exercise and activity. Will wait for further clarification orders and approval to proceed with Work Reconditioning that has been requested by PT. Comments: PT has contacted physicians office to advised this department cannot do Work Hardening and requested order for Work Reconditioning. Patient demonstrates compliance with HEP?: Yes Short Term Goals Goal #1: Pt independent and compliant with HEP. Goal to be met by: 06/12/17 Progress towards Goal:: Met Goal #2: SLR bilaterally to 45-50 degrees in supine. Goal to be met by: 06/16/17 Progress towards Goal:: Met Goal #3: Trunk strength improved to 4/5. Goal to be met by: 06/16/17 Progress towards Goal:: Partially Met Goal #4: Right low back/buttock pain decreased to minimal. Goal to be met by: 06/16/17 Progress towards Goal:: Progressing Comments:: Buttock pain improved but loback pain continues at mod to high. Halfway Goals Goal #1: Pt knows HEP and to continue ex's to maintain functional level at D/C. Goal to be met by: 09/04/17 Progress towards goal: Partially Met Goal #2: Score on LE functional scale improved to 50/80. Goal to be met by: 09/04/17 Progress towards goal: Progressing Goal #3: Pt to tolerate prolonged sitting/riding in car without right LB or LE pain. Goal to be met by: 09/04/17 Progress towards goal: Partially Met Goal #4: Lumbar AROM WFL's to perform all selfcare and ADL's w/o pain or difficulty. Goal to be met by: 09/04/17 Progress towards goal: Partially Met Plan PLAN OF CARE EXPIRES ON:: 09/04/17 ORDER # VISITS AND/OR THROUGH DATE: 09/04/17 PLAN: Completed all approved visits on current POC. Will wait for clarification orders for Work Reconditioning and approval for additional visits.
--- NOTE | 2017-09-02 13:39 | RS.OTDNOTE ---
Subjective Date of Note: 09/02/17 Visit #: 49 Date of Evaluation: 05/04/17 Payer Source: Workman's Comp Treatment Diagnosis: Pain of left upper arm M79.622, M79.642 pain in Left hand digits *Precautions: Wearing brace one more day Current Complaints/Gains: Pt states MD ed him on a pinched nerve. States he is to continue with current plan of therapy and become more aggressive with strengthening. States c/o headaches daily and good compliance with donning figure 8 back brace x up to 2hrs daily. Pain Assessment - Pain Description Pain Description: Burning (Pain "mostly in scapula and running up my neck"), Dull, Aching Pain Location: Ribs 5/10. Pain continues in left UE ulnar aspect of arm that runs to digits in the PIP to the DIP joints. Pt reports "tightness and pulling " in his left UE Pain Description: acute, aches, sharp Modalities - Hot Pack/Cryotherapy Treatment: Cryotherapy (x15 mins following tx) Interventions - Exercise/Activities Exercise/Activities/Manual Therapy: MT/postural trng performed in sitting, supine, prone, and standing postions including cervical/scaline stretches, AROM , [place] scapular stability ex's, 11/11 and PROM/gentle stretching. Green tband shoulder retraction, pull downs, IR/ER 3 performed in supine with MT applied for shoulder retraction. Green theraband AROM sh flexion/scaption x 20 reps x 2 sets, and wall stretches along with ball circles both directions and serratus streches (pro/retraction, 8#. Strengthening performed with wall push ups(1 and bilateral use of UE's). Hand on light ball with 3# on wrist for coordination exercises of small circles both directions x 20 reps, East to west small movement x 20 reps, North to south small movement x 20 reps on the ball. CP. 8#RTC series ex performed in FF standing. Retraction/multi gym ex 23/04. Pt HEP ed continues. HOME EXERCISE PROGRAM: AROM shoulder protraction/retraction in supine. Lying on right side trying to move the shoulder in the clock formation. scapular pinches holding shoulder blades together for 5 seconds. - Objective Findings Objective Findings:: Winging of left scapula, tender points in serratus, posterior inferior muscle, subscapularis, intercostal tender points. Pt edema has really decreased. Pt is anteriorly rotated in Left shoulder. Core Muscles of left side have atrophied due to surgery. Pt tolerating scapular pinches better today. Pt leans head to the left with LUE shoulder flexion AROM. Pt has pain in the ulnar nerve aspect of the left forearm and in the tricep of the LUE. - Charges Timed Code Treatment Minutes: 46 Total Treatment Time: 62 Procedures billed for this date of service:: CP EX3 Assessment Patient Education: Education of diagnosis, Body/Joint mechanics, Home Exercise Program, Home Safety, Activity Modification, Education of Plan of Care Patient demonstrates compliance with HEP?: Yes Short Term Goals Goal #1: Pt LUE pain to decrease to 2/10. 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 Goal to be met by: 07/20/17 Progress towards goal: Met Goal #3: Pt to increase AROM of shoulder abduction to 90 degrees. Goal to be met by: 07/20/17 Progress towards goal: Met Goal #4: Pt to be independent with Home exercise program. 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 Goal to be met by: 09/05/17 Progress towards goal: Progressing Goal #3: Pt to increase AROM of LUE to be WFL. Goal to be met by: 09/05/17 Progress towards goal: Progressing Goal #4: Pt to increase strength of LUE to 4+/5. Goal to be met by: 09/05/17 Progress towards goal: Progressing Plan PLAN OF CARE EXPIRES ON:: 09/05/18 ORDER # VISITS AND/OR THROUGH DATE: 49 PLAN: Awaiting MD orders and work comp approval
--- NOTE | 2017-09-07 15:29 | RS.QUICKDC ---
Discharge from PT Date of Discharge: 09/07/17 Number of Visits: 37 Reason for Discharge: Patient has made slow but steady progress with therapy. He has met 2 of 8 goals and progressed with the others. The patient continued to be limited due to back patient which was rated at a high level at times. The patient returned his physician and has been ordered to go to Work Hardening. Discharge at this time.
--- NOTE | 2017-09-07 15:30 | RS.OTQKDC ---
OT Discharge Date of Discharge: 09/07/17 Number of Visits: 49 Reason for Discharge: Pt returned to [facility] last wk with continuation orders for work hardening. Pt DC'd from [facility] to begin work hardening program in [facility] per MD.
== END 2017-09-08 23:59 ==
PROVIDERS: ATTEND Orthopaedic Surgery
DX: M54.5 Low back pain (principal); M25.562 Pain in left knee; M79.622 Pain in left upper arm; M79.642 Pain in left hand

== ENCOUNTER 2017-12-08 13:00 | Outpatient (RCR) ==
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
--- NOTE | 2017-12-04 16:19 | RS.OPPTDN ---
Subjective Date of Note: 12/04/17 Visit #: 2 Number of visits approved by Insurance: 12 Date of Evaluation: 12/02/17 Payer Source: Workman's Comp Treatment Diagnosis: Low back pain Current Subjective/complaints:: Patient reports lowback pain continues to limit his activity level. Patient states "It just doesn't seem to be getting any better". Reports pain does not seem to had increased with exercise today, but active lumbar extension in standing increases pain to 8/10. *Precautions: Pt is depressed Pain Assessment - Pain Description Pain Location: lowback Pain Description: Sharp, Aching Current Pain Intensity: 2-3/10 with amb in department Other Comments regarding Pain:: 8/10 with standing lumbar extension. Reports discomfort with LTR and piriformis stretching. - Heat/Cryotherapy Treatment: Hot Pack ([id number] to lowback prior to and at beginning of assisted stretching. ) Interventions - Exercise/Activities/Manual Therapy Exercises/Activities: [id number] Assisted stretching of bilateral hamstrings, SKTC , piriformis, and limited LTR. Isometric hip add and isometric hip flexion. 5# to each LE for alt hip flexion. 10# to abdomin for bridging. 2# for SLR. Green theraband for resistive LTR. All 2s/10reps. Ended mat ex with additional hamstring and SKTC stretch. Leg press 90# 25reps, ankle pf/df 90# 25reps. Ended wtih 10mins on stationary bike (not in direct time). Total minutes of Exercise: 40mins/50mins Manual Therapy: NA HOME EXERCISE PROGRAM: HS, SKTC, and piriformis stretch. SLR and bridging - Charges Timed Code Treatment Minutes: 40mins Total Treatment Time: 60mins Procedures billed for this date of service:: HP, EX3 Assessment: Patient tolerates resuming flexibility and trunk stretching exercise today. He continues to have difficulty with bed mob and balance with initial standing. Patient Education: Body/Joint mechanics, Home Exercise Program, Home Safety, Activity Modification Short Term Goals Goal #1: Pt independent and compliant with HEP. Goal to be met by: 12/16/17 Progress towards Goal:: Progressing Goal #2: SLR bilaterally to 45 degrees in supine. Goal to be met by: 12/16/17 Progress towards Goal:: Progressing Goal #3: Trunk strength improved to 4+/5. Goal to be met by: 12/16/17 Goal #4: Pt to demonstrate understanding of postural awareness & body mechanics. Goal to be met by: 12/16/17 Be[facility]offer Goals Goal #1: Pt knows HEP and to continue ex's to maintain functional level at D/C. Goal to be met by: 01/11/18 Goal #2: Score on Oswestry LBP scale improved to 22. Goal to be met by: 01/11/18 Goal #3: Pt to tolerate prolonged sitting & standing to perform ADL's w/o back pain. Goal to be met by: 01/11/18 Goal #4: Lumbar AROM WFL's to perform all selfcare and ADL's w/o pain or difficulty. Goal to be met by: 01/11/18 Plan Dates of Nursing Home Goals: 01/11/18 Expiration date of current Insurance Approval:: 01/11/18 PLAN: Progress flexibility and strengtheing exercise to reduce pain and increase patients functional activity level.
--- NOTE | 2017-12-04 16:24 | RS.OTDNOTE ---
Subjective Date of Note: 12/04/17 Visit #: 2 Number of visits approved by Insurance: 12 Date of Evaluation: 05/04/17 Payer Source: Workman's Comp Treatment Diagnosis: Pain of left upper arm M79.622, M79.642 pain in Left hand digits *Precautions: Pt is depressed Current Complaints/Gains: Pt pleased to get back into [facility] therapy. States he now owns a back brace and agrees to 1 hr/3x day wearing schedule at this time. States pain is decreased but "I still can't raise my arm." Pain Assessment - Pain Description Pain Description: Radiating, Sharp, Aching Pain Location: Posterior ribs are tender to palpate. Pain continues in left UE ulnar aspect of arm that runs to digits in the PIP to the DIP joints. Pt reports pain in the left posterior Serratus posterior superior muscle. Pt has tenderness to palpation. Pt has his arm feels like it is going to sleep with full elbow flexion. Pt has pain in his head behind the left eye all of the time. Pt reports "tightness and pulling" in his left UE Pain Description: acute, aches, sharp Current Pain Intensity: 2+ Worst Pain Intensity: 4-5 Modalities - Treatment Modality: Ultrasound Parameters/Method Applied: 1.5w/cm2 x 10 mins Treatment Area: anterior/posterior shoulder Patient Position: Sitting - Hot Pack/Cryotherapy Treatment: Hot Pack, Cryotherapy Interventions - Exercise/Activities Exercise/Activities/Manual Therapy: Manual therapy/trigger point therapy to the (L) UE anterior/posterior shoulder and along AC joint towards bicep head. Pt in sitting, supine, prone, and standing postions for TE/PROM. Pt utilized blue t-band for pull downs, bicep curls, and IR/ER. 3# hand weight for [facility] prone ex 11/09 along with corner stretches and pro/supination L UE's with 10# resist. HOME EXERCISE PROGRAM: AROM shoulder protraction/retraction in supine. Lying on right side trying to move the shoulder in the clock formation. scapular pinches holding shoulder blades together for 5 seconds. Continue with these. - Objective Findings Objective Findings:: Winging of left scapula, tender points in serratus, posterior inferior muscle, subscapularis, intercostal tender points. Pt is anteriorly rotated in Left shoulder. Muscles of left scapula have atrophied specifically bottom tip of scapula area. Pt reports the nerve pain is improving in the digits of the left UE. Pt has numbness with full LUE elbow flexion. 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 - Charges Timed Code Treatment Minutes: 61 Total Treatment Time: 69 Procedures billed for this date of service:: CP US MT EX Assessment Patient Education: Education of diagnosis, Body/Joint mechanics, Home Exercise Program, Home Safety, Activity Modification, Education of Plan of Care Patient demonstrates compliance with HEP?: Yes Short Term Goals Goal #1: Pt LUE pain to decrease to 2/10. Goal to be met by: 12/16/17 Progress towards goal: Progressing Goal #2: Pt to increase External Rotation to 55 deg. Goal to be met by: 12/16/17 Progress towards goal: Progressing Goal #3: Pt to have Full AROM of Left scapul Goal to be met by: 12/16/17 Progress towards goal: Progressing Goal #4: Pt to be independent with Home exercise program. Goal to be met by: 12/16/17 Progress towards goal: Progressing Rural Electrification Engineer Goals Goal #1: Pt to decrease pain to 0/10 Goal to be met by: 12/30/17 Progress towards goal: Progressing Goal #2: Pt to increase strength of LUE to 4+/5. Goal to be met by: 12/30/17 Progress towards goal: Progressing Goal #3: Pt to increase AROM of LUE to be WFL. Goal to be met by: 12/30/17 Progress towards goal: Progressing Goal #4: Pt has symmetrical posture alignment of scapula's. Goal to be met by: 12/30/17 Progress towards goal: Progressing Plan Dates of Snf Goals: 12/30/17 Expiration date of current Insurance Approval:: approval for 12 visits PLAN: Cont per POC to max fx UE strength and fx use of (L) UE.
--- NOTE | 2017-12-07 12:02 | RS.OPPTDN ---
Subjective Date of Note: 12/07/17 Visit #: 3 Number of visits approved by Insurance: 12 Date of Evaluation: 12/02/17 Payer Source: Workman's Comp Treatment Diagnosis: Low back pain Current Subjective/complaints:: Patient reports his calves are sore. States it may be from exercise last week and increased walking over the weekend. *Precautions: Pt is depressed Pain Assessment - Pain Description Pain Location: lowback Current Pain Intensity: 2-3 at rest, moderate+ with some movement. Other Comments regarding Pain:: Reports increased pain with lower trunk rotation with rotation of LE to the right more painful than left. - Heat/Cryotherapy Treatment: Hot Pack ([id number] prior to and during mat exercises. Patient in supine. ) Interventions - Exercise/Activities/Manual Therapy Exercises/Activities: [id number] Assisted stretching of bilateral hamstrings, SKTC , piriformis, and limited LTR. Isometric hip add and isometric hip flexion. 5# to each LE for alt hip flexion. SLR. Green theraband for resistive LTR. All 2s/ 10reps. Ended mat ex with additional hamstring and SKTC stretch. Leg press 90# 25reps, ankle pf/df 90# 25reps. Began cable zak resisted walking with 40# back walking 15reps and 30# to each side with lateral walking 10reps each. Ended wtih 10mins on stationary bike (not in direct time). Total minutes of Exercise: 39mins/49mins Manual Therapy: NA HOME EXERCISE PROGRAM: HS, SKTC, and piriformis stretch. SLR and bridging - Charges Timed Code Treatment Minutes: 39mins Total Treatment Time: 59mins Procedures billed for this date of service:: HP, EX3 Assessment: Patient progressing LE and trunk strengthening exercises. Patient Education: Body/Joint mechanics, Home Exercise Program, Activity Modification Patient demonstrates compliance with HEP?: Yes Short Term Goals Goal #1: Pt independent and compliant with HEP. Goal to be met by: 12/16/17 Progress towards Goal:: Progressing Goal #2: SLR bilaterally to 45 degrees in supine. Goal to be met by: 12/16/17 Progress towards Goal:: Progressing Goal #3: Trunk strength improved to 4+/5. Goal to be met by: 12/16/17 Goal #4: Pt to demonstrate understanding of postural awareness & body mechanics. Goal to be met by: 12/16/17 Baling Press Operator Goals Goal #1: Pt knows HEP and to continue ex's to maintain functional level at D/C. Goal to be met by: 01/11/18 Goal #2: Score on Oswestry LBP scale improved to 22. Goal to be met by: 01/11/18 Goal #3: Pt to tolerate prolonged sitting & standing to perform ADL's w/o back pain. Goal to be met by: 01/11/18 Goal #4: Lumbar AROM WFL's to perform all selfcare and ADL's w/o pain or difficulty. Goal to be met by: 01/11/18 Plan Dates of Skilled Nursing Goals: 01/11/18 Expiration date of current Insurance Approval:: 01/11/18 PLAN: Progress with exercise to reduce pain and increase functional activity level.
--- NOTE | 2017-12-08 14:07 | RS.OTDNOTE ---
Subjective Date of Note: 12/07/17 Visit #: 3 Number of visits approved by Insurance: 12 Date of Evaluation: 05/04/17 Payer Source: Workman's Comp Treatment Diagnosis: Pain of left upper arm M79.622, M79.642 pain in Left hand digits *Precautions: Pt is depressed Current Complaints/Gains: Pt states he could tell his arm had been worked on. States some increase c/o pain. Pain Assessment - Pain Description Pain Description: Radiating, Sharp, Aching Pain Location: Posterior ribs are tender to palpate. Pain continues in left UE ulnar aspect of arm that runs to digits in the PIP to the DIP joints. Pt reports pain in the left posterior Serratus posterior superior muscle. Pt has tenderness to palpation. Pt has his arm feels like it is going to sleep with full elbow flexion. Pt has pain in his head behind the left eye all of the time. Pt reports "tightness and pulling" in his left UE Pain Description: acute, aches, sharp Modalities - Treatment Modality: Ultrasound Parameters/Method Applied: 1.5w/cm2 x 10 mins - Hot Pack/Cryotherapy Treatment: Cryotherapy (x10 mins ) Interventions - Exercise/Activities Exercise/Activities/Manual Therapy: Manual therapy/trigger point therapy to the (L) UE anterior/posterior shoulder and along AC joint towards bicep head. Pt in sitting, supine, prone, and standing postions for TE/PROM. Pt utilized blue t-band for pull downs, bicep curls, and IR/ER. 3# hand weight for [place] prone ex 11/09 along with corner stretches and pro/supination L UE's with 10# resist. HOME EXERCISE PROGRAM: AROM shoulder protraction/retraction in supine. Lying on right side trying to move the shoulder in the clock formation. scapular pinches holding shoulder blades together for 5 seconds. Continue with these. - Objective Findings Objective Findings:: Winging of left scapula, tender points in serratus, posterior inferior muscle, subscapularis, intercostal tender points. Pt is anteriorly rotated in Left shoulder. Muscles of left scapula have atrophied specifically bottom tip of scapula area. Pt reports the nerve pain is improving in the digits of the left UE. Pt has numbness with full LUE elbow flexion. 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 - Charges Timed Code Treatment Minutes: 51 Total Treatment Time: 60 Procedures billed for this date of service:: CP US EX MT Assessment Patient Education: Education of diagnosis, Body/Joint mechanics, Home Exercise Program, Home Safety, Activity Modification, Education of Plan of Care Problems/Comments: Pt has not been wearing back brace Patient demonstrates compliance with HEP?: Yes Short Term Goals Goal #1: Pt LUE pain to decrease to 2/10. Goal to be met by: 12/16/17 Progress towards goal: Progressing Goal #2: Pt to increase External Rotation to 55 deg. Goal to be met by: 12/16/17 Progress towards goal: Partially Met Comments: PROM Goal #3: Pt to have Full AROM of Left scapul Goal to be met by: 12/16/17 Progress towards goal: Progressing Comments: PROM Goal #4: Pt to be independent with Home exercise program. Goal to be met by: 12/16/17 Progress towards goal: Progressing [facility] Goals Goal #1: Pt to decrease pain to 0/10 Goal to be met by: 12/30/17 Progress towards goal: Progressing Goal #2: Pt to increase strength of LUE to 4+/5. Goal to be met by: 12/30/17 Progress towards goal: Progressing Goal #3: Pt to increase AROM of LUE to be WFL. Goal to be met by: 12/30/17 Progress towards goal: Progressing Goal #4: Pt has symmetrical posture alignment of scapula's. Goal to be met by: 12/30/17 Progress towards goal: Progressing Plan Dates of [facility] Goals: 12/30/17 Expiration date of current Insurance Approval:: 12 PLAN: Cont per POC to max fx strength and AROM
--- NOTE | 2017-12-08 14:14 | RS.OTDNOTE ---
Subjective Date of Note: 12/08/17 Visit #: 4 Number of visits approved by Insurance: 12 Date of Evaluation: 05/04/17 Payer Source: Workman's Comp Treatment Diagnosis: Pain of left upper arm M79.622, M79.642 pain in Left hand digits *Precautions: Pt is depressed Current Complaints/Gains: Pt states increased c/o back pain today. All OT tx performed in sitting or standing positons. Pain Assessment - Pain Description Pain Description: Radiating, Sharp, Aching Pain Location: Posterior ribs are tender to palpate. Pain continues in left UE ulnar aspect of arm that runs to digits in the PIP to the DIP joints. Pt reports pain in the left posterior Serratus posterior superior muscle. Pt has tenderness to palpation. Pt has his arm feels like it is going to sleep with full elbow flexion. Pt has pain in his head behind the left eye all of the time. Pt reports "tightness and pulling" in his left UE Pain Description: acute, aches, sharp Current Pain Intensity: 0 Worst Pain Intensity: 10 Modalities - Treatment Modality: Electrical Stim Unattended Parameters/Method Applied: ESTIM x 20 mins Treatment Area: shoulder Patient Position: Sitting - Hot Pack/Cryotherapy Treatment: Cryotherapy Interventions - Exercise/Activities Exercise/Activities/Manual Therapy: Manual therapy/trigger point therapy to the (L) UE anterior/posterior shoulder and along AC joint towards bicep head. Pt in sitting, supine, prone, and standing postions for TE/PROM. Pt utilized blue t-band for pull downs, bicep curls, and IR/ER. 3# hand weight for [facility] prone ex 11/09 along with corner stretches and pro/supination L UE's with 10# resist. HOME EXERCISE PROGRAM: AROM shoulder protraction/retraction in supine. Lying on right side trying to move the shoulder in the clock formation. scapular pinches holding shoulder blades together for 5 seconds. Continue with these. - Objective Findings Objective Findings:: Winging of left scapula, tender points in serratus, posterior inferior muscle, subscapularis, intercostal tender points. Pt is anteriorly rotated in Left shoulder. Muscles of left scapula have atrophied specifically bottom tip of scapula area. Pt reports the nerve pain is improving in the digits of the left UE. Pt has numbness with full LUE elbow flexion. 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 - Charges Timed Code Treatment Minutes: 50 Total Treatment Time: 64 Procedures billed for this date of service:: CP ESTIM EX MT Assessment Patient Education: Education of diagnosis, Body/Joint mechanics, Home Exercise Program, Home Safety, Activity Modification, Education of Plan of Care Patient demonstrates compliance with HEP?: Yes Short Term Goals Goal #1: Pt LUE pain to decrease to 2/10. Goal to be met by: 12/16/17 Progress towards goal: Progressing Goal #2: Pt to increase External Rotation to 55 deg. Goal to be met by: 12/16/17 Progress towards goal: Partially Met Comments: PROM Goal #3: Pt to have Full AROM of Left scapul Goal to be met by: 12/16/17 Progress towards goal: Progressing Comments: PROM met Goal #4: Pt to be independent with Home exercise program. Goal to be met by: 12/16/17 Progress towards goal: Progressing Demo Event Specialist Goals Goal #1: Pt to decrease pain to 0/10 Goal to be met by: 12/30/17 Progress towards goal: Progressing Goal #2: Pt to increase strength of LUE to 4+/5. Goal to be met by: 12/30/17 Progress towards goal: Progressing Goal #3: Pt to increase AROM of LUE to be WFL. Goal to be met by: 12/30/17 Progress towards goal: Progressing Goal #4: Pt has symmetrical posture alignment of scapula's. Goal to be met by: 12/30/17 Progress towards goal: Progressing Plan Dates of Demo Event Specialist Goals: 12/30/17 Expiration date of current Insurance Approval:: 12 PLAN: Cont per POC to max fx strength and AROM
--- NOTE | 2017-12-08 15:43 | RS.OPPTDN ---
Subjective Date of Note: 12/08/17 Visit #: 4 Number of visits approved by Insurance: 12 Date of Evaluation: 12/02/17 Payer Source: Workman's Comp Treatment Diagnosis: Low back pain Current Subjective/complaints:: Patient reports an increase in back pain today. States his pain is present at rest in supine today. Reports feeling a sharp pain in his back when getting out of bed today. *Precautions: Pt is depressed Pain Assessment - Pain Description Pain Location: lowback Pain Description: Sharp, Aching Current Pain Intensity: 7-8/10 with amb, 4/10 at rest - Heat/Cryotherapy Treatment: Hot Pack ([id number] to lowback prior to and then during stretch. ) Interventions - Exercise/Activities/Manual Therapy Exercises/Activities: [id number] Assisted stretching of bilateral hamstrings, SKTC , piriformis, and limited LTR. Isometric hip add and isometric hip flexion reduced to 4# to each LE for alt hip flexion. SLR and hip abd, no weights. Green theraband for resistive hip abd in hook-lying, and for resisted ankle df. All 2s/10reps. Ended mat ex with additional hamstring and SKTC stretch. Leg press 90# 25reps, ankle pf/df 90# 25reps. Cable zak resisted back walking increased to 50# 15reps, and 30# to each side with lateral walking 10reps each. Wall slides with large ball 20reps slow pace. Ended wtih 8mins on stationary bike (not in direct time). Total minutes of Exercise: 39mins/47mins Manual Therapy: NA HOME EXERCISE PROGRAM: HS, SKTC, and piriformis stretch. SLR and bridging - Objective Findings Observations,measurements,etc.: Patient demos bilateral hamstring tightness with left tighter than right. - Charges Timed Code Treatment Minutes: 39mins Total Treatment Time: 59mins Procedures billed for this date of service:: HP, EX3 Assessment: Patient needs to lengthen hamstrings and build strength to increase his functional mobility and activity level. Patient Education: Body/Joint mechanics, Home Exercise Program, Activity Modification Patient demonstrates compliance with HEP?: Yes Short Term Goals Goal #1: Pt independent and compliant with HEP. Goal to be met by: 12/16/17 Progress towards Goal:: Progressing Goal #2: SLR bilaterally to 45 degrees in supine. Goal to be met by: 12/16/17 Progress towards Goal:: Progressing Goal #3: Trunk strength improved to 4+/5. Goal to be met by: 12/16/17 Goal #4: Pt to demonstrate understanding of postural awareness & body mechanics. Goal to be met by: 12/16/17 Daub Color Mixer Goals Goal #1: Pt knows HEP and to continue ex's to maintain functional level at D/C. Goal to be met by: 01/11/18 Goal #2: Score on Oswestry LBP scale improved to 22. Goal to be met by: 01/11/18 Goal #3: Pt to tolerate prolonged sitting & standing to perform ADL's w/o back pain. Goal to be met by: 01/11/18 Goal #4: Lumbar AROM WFL's to perform all selfcare and ADL's w/o pain or difficulty. Goal to be met by: 01/11/18 Plan Dates of Senior Living Goals: 01/11/18 Expiration date of current Insurance Approval:: 01/11/18 PLAN: Progress with flexibility and strengthening exercise and activity to increase patients functional level.
== END 2017-12-09 23:59 ==
PROVIDERS: ATTEND Orthopaedic Surgery
DX: M54.5 Low back pain (principal); G89.29 Other chronic pain

== ENCOUNTER 2018-02-08 09:00 | Outpatient (RCR) | END 2018-02-08 23:59 | PROVIDERS: ATTEND Orthopaedic Surgery | DX: M25.512 Pain in left shoulder (principal); M54.5 Low back pain ==

== ENCOUNTER 2018-03-10 10:00 | Outpatient (RCR) ==
--- NOTE | 2018-02-11 10:19 | RS.OTDNOTE ---
Subjective Date of Note: 02/11/18 Visit #: 18 Number of visits approved by Insurance: 24 Date of Evaluation: 05/04/17 Payer Source: Workman's Comp Treatment Diagnosis: Pain of left upper arm M79.622, M79.642 pain in Left hand digits *Precautions: Pt is depressed Current Complaints/Gains: Pt states he "just wants to get better and back to work" States improvement with numbness and tingling in hand. Pain Assessment - Pain Description Pain Description: Tightness, Sharp, Dull, Aching Pain Location: Posterior ribs are tender to palpate. Pain continues in left UE ulnar aspect of arm that runs to digits in the PIP to the DIP joints. Pt reports pain in the left posterior Serratus posterior superior muscle. Pt has tenderness to palpation. Pt has his arm feels like it is going to sleep with full elbow flexion. Pt has pain in his head behind the left eye all of the time. Pt reports "tightness and pulling" in his left UE Pain Description: acute, aches, sharp Current Pain Intensity: 4 Worst Pain Intensity: 9 Modalities - Hot Pack/Cryotherapy Treatment: Cryotherapy Interventions - Exercise/Activities Exercise/Activities/Manual Therapy: Sitting-scapular pinches holding 5 seconds each rep x 20 reps/20# (B) shoulder retraction at multi-gym. Supine PROM/gentle stretching progressed to black thera-band shoulder flexion/scaption, IR/ER and extension along with [place] prone ex's with 3-4# hand weight, Min A, 10/3 each. Manual therapy/trigger point release to subscapularis tender points to the Left shoulder. Continued HEP instruction. HOME EXERCISE PROGRAM: AROM all shoulder planes with added resist as tolerated - Objective Findings Objective Findings:: Winging of left scapula, tender points in serratus, posterior inferior muscle, subscapularis, intercostal tender points. Pt is anteriorly rotated in Left shoulder. Muscles of left scapula have atrophied specifically bottom tip of scapula area. Pt reports the nerve pain is improving in the digits of the left UE. Pt has numbness with full LUE elbow flexion. 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 - Charges Timed Code Treatment Minutes: 49 Total Treatment Time: 61 Procedures billed for this date of service:: Ex3 CP Assessment Patient Education: Education of diagnosis, Body/Joint mechanics, Home Exercise Program, Home Safety, Activity Modification, Education of Plan of Care Patient demonstrates compliance with HEP?: Yes Short Term Goals Goal #1: Pt LUE pain to decrease to 2/10. Goal to be met by: 02/11/18 Progress towards goal: Progressing Goal #2: Pt to increase LUE strength to 4+/5 Goal to be met by: 02/11/18 Progress towards goal: Partially Met Goal #3: Pt to have Full AROM of Left scapula Goal to be met by: 02/11/18 Progress towards goal: Partially Met Comments: In supine position Goal #4: Pt to be independent with Home exercise program. Goal to be met by: 02/11/18 Progress towards goal: Met Clinical Data Management Manager Goals Goal #1: Pt to decrease pain to 0/10 Goal to be met by: 02/26/18 Progress towards goal: Progressing Goal #2: Pt to increase strength of LUE to 5/5. Goal to be met by: 02/26/18 Progress towards goal: Progressing Goal #3: Pt to increase AROM of LUE to be WFL. Goal to be met by: 02/26/18 Progress towards goal: Progressing Goal #4: Pt has symmetrical posture alignment of scapula's. Goal to be met by: 02/26/18 Progress towards goal: Progressing Plan Dates of Clinical Data Management Manager Goals: 02/26/18 Expiration date of current Insurance Approval:: 02/26/18 PLAN: Continue per POC to max strength with decreased c/o pain
--- NOTE | 2018-02-11 11:07 | RS.OPPTDN ---
Subjective Date of Note: 02/11/18 Visit #: 19 Number of visits approved by Insurance: 25 at present Date of Evaluation: 12/02/17 Payer Source: Workman's Comp Treatment Diagnosis: Low back pain Current Subjective/complaints:: Patient reports back pain is not as intense today. Continues to rate at 5-6/10, but does not limit activities in therapy today. *Precautions: Pt is depressed Pain Assessment - Pain Description Pain Location: back, left knee Current Pain Intensity: 5-6/10 at lowback, mild-mod left knee Interventions - Exercise/Activities/Manual Therapy Exercises/Activities: [id number] Assisted stretching of bilateral hamstrings, SKTC , piriformis, and limited LTR. Isometric hip flexion. 5# for alt hip flexion and SAQ, 3s/10reps each. 2# SLR. Hip abd no weight. Red theraband hip abd in hook-lying. Cable pulleys for scap retaction 30#, lateral side-stepping 50#, and back walking 50#. Wall slides with large therapy ball 20reps. Elliptical machine 2s/2mins with short break. Leg press 105# multiple reps. Toe-offs 105# . Stationary bike 5mins. Total minutes of Exercise: 44mins Manual Therapy: NA HOME EXERCISE PROGRAM: HS, SKTC, and piriformis stretch. SLR and bridging - Objective Findings Observations,measurements,etc.: Patient continues to have a guraded posture with all activities. - Charges Timed Code Treatment Minutes: 39mins Total Treatment Time: 44mins Procedures billed for this date of service:: EX3 Assessment: Patient resumes strengthening today. He is able to perform all activities with caution. Short Term Goals Goal #1: Pt independent and compliant with HEP. Goal to be met by: 12/16/17 Progress towards Goal:: Met Goal #2: SLR bilaterally to 45 degrees in supine. Goal to be met by: 12/16/17 Progress towards Goal:: Met Goal #3: Trunk strength improved to 4+/5. Goal to be met by: 12/16/17 Progress towards Goal:: Partially Met Goal #4: Pt to demonstrate understanding of postural awareness & body mechanics. Goal to be met by: 12/16/17 Progress towards Goal:: Partially Met Mail Weigher Goals Goal #1: Pt knows HEP and to continue ex's to maintain functional level at D/C. Goal to be met by: 02/26/18 Progress towards goal: Partially Met Goal #2: Score on Oswestry LBP scale improved to 22. Goal to be met by: 02/26/18 Progress towards goal: Progressing Goal #3: Pt to tolerate prolonged sitting & standing to perform ADL's w/o back pain. Goal to be met by: 02/26/18 Progress towards goal: Partially Met Goal #4: Lumbar AROM WFL's to perform all selfcare and ADL's w/o pain or difficulty. Goal to be met by: 02/26/18 Progress towards goal: Progressing Plan Dates of Mail Weigher Goals: 02/26/18 Expiration date of current Insurance Approval:: 02/26/18 PLAN: Progress with strengthening and lifting with goal of returning patient to PLOF.
--- NOTE | 2018-02-12 11:03 | RS.OPPTDN ---
Subjective Date of Note: 02/12/18 Visit #: 20 Number of visits approved by Insurance: 25 to date Date of Evaluation: 12/02/17 Payer Source: Workman's Comp Treatment Diagnosis: Low back pain Current Subjective/complaints:: Patient reports back pain is not as bad this morning. *Precautions: Pt is depressed Pain Assessment - Pain Description Pain Location: lowback, left knee Current Pain Intensity: 5/10 lowback, mild left knee Interventions - Exercise/Activities/Manual Therapy Exercises/Activities: Assisted stretching of bilateral hamstrings, SKTC, piriformis, and limited LTR. Isometric hip flexion. 5# for alt hip flexion and 3# SAQ, 3s/10reps each. Increased to 2 1/2# SLR. Hip abd no weight. Red theraband hip abd in hook-lying. Wall slides with large therapy ball 20reps. Stationary bike 5mins. 20# box lift from mid sosa height to waist level, 3s/ 10reps each. Leg press 105# and toe-offs 105#, multiple reps each. Total minutes of Exercise: 41mins Manual Therapy: NA HOME EXERCISE PROGRAM: HS, SKTC, and piriformis stretch. SLR and bridging - Charges Timed Code Treatment Minutes: 41mins Total Treatment Time: 41mins Procedures billed for this date of service:: EX3 Assessment: Patient able to resume lifting today with guarded posture but good mechanics. Patient attentive to all education and performs all activities as requested, but pain limits his progression. Patient Education: Home Safety, Activity Modification Comments: Patient education for good body mechanics and safe lifting. Patient demonstrates compliance with HEP?: Yes Short Term Goals Goal #1: Pt independent and compliant with HEP. Goal to be met by: 12/16/17 Progress towards Goal:: Met Goal #2: SLR bilaterally to 45 degrees in supine. Goal to be met by: 12/16/17 Progress towards Goal:: Met Goal #3: Trunk strength improved to 4+/5. Goal to be met by: 12/16/17 Progress towards Goal:: Partially Met Goal #4: Pt to demonstrate understanding of postural awareness & body mechanics. Goal to be met by: 12/16/17 Progress towards Goal:: Partially Met Senior Living Goals Goal #1: Pt knows HEP and to continue ex's to maintain functional level at D/C. Goal to be met by: 02/26/18 Progress towards goal: Partially Met Goal #2: Score on Oswestry LBP scale improved to 22. Goal to be met by: 02/26/18 Progress towards goal: Progressing Goal #3: Pt to tolerate prolonged sitting & standing to perform ADL's w/o back pain. Goal to be met by: 02/26/18 Progress towards goal: Partially Met Goal #4: Lumbar AROM WFL's to perform all selfcare and ADL's w/o pain or difficulty. Goal to be met by: 02/26/18 Progress towards goal: Progressing Plan Dates of Senior Living Goals: 02/26/18 Expiration date of current Insurance Approval:: 02/26/18 PLAN: Progress strengthening and lifting activity, working patient back toward PLOF.
--- NOTE | 2018-02-12 11:04 | RS.OTDNOTE ---
Subjective Date of Note: 02/12/18 Visit #: 19 Number of visits approved by Insurance: 24 Date of Evaluation: 05/04/17 Payer Source: Workman's Comp Treatment Diagnosis: Pain of left upper arm M79.622, M79.642 pain in Left hand digits *Precautions: Pt is depressed Current Complaints/Gains: Pt states increased c/o pain/stiffness this am. States the rain increases pain. Pain Assessment - Pain Description Pain Description: Tightness, Sharp, Dull, Aching Pain Location: Posterior ribs are tender to palpate. Pain continues in left UE ulnar aspect of arm that runs to digits in the PIP to the DIP joints. Pt reports pain in the left posterior Serratus posterior superior muscle. Pt has tenderness to palpation. Pt has his arm feels like it is going to sleep with full elbow flexion. Pt has pain in his head behind the left eye all of the time. Pt reports "tightness and pulling" in his left UE Pain Description: acute, aches, sharp Current Pain Intensity: 2 Worst Pain Intensity: 10 Modalities - Treatment Modality: Ultrasound Parameters/Method Applied: 1.5w/cm2 x 12 mins Patient Position: Sitting - Hot Pack/Cryotherapy Treatment: Cryotherapy (CP x 15 mins) Interventions - Exercise/Activities Exercise/Activities/Manual Therapy: Sitting-scapular pinches holding 5 seconds each rep x 20 reps/20# (B) shoulder retraction at multi-gym. Supine PROM/gentle stretching progressed to black thera-band shoulder flexion/scaption, IR/ER and extension along with hughston prone ex's with 3-4# hand weight, Min A, 15/2 each. Manual therapy/trigger point release to subscapularis tender points to the Left shoulder. Continued HEP instruction. HOME EXERCISE PROGRAM: AROM all shoulder planes with added resist as tolerated - Objective Findings Objective Findings:: Winging of left scapula, tender points in serratus, posterior inferior muscle, subscapularis, intercostal tender points. Pt is anteriorly rotated in Left shoulder. Muscles of left scapula have atrophied specifically bottom tip of scapula area. Pt reports the nerve pain is improving in the digits of the left UE. Pt has numbness with full LUE elbow flexion. 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 - Charges Timed Code Treatment Minutes: 51 Total Treatment Time: 62 Procedures billed for this date of service:: CP US EX2 Assessment Patient Education: Education of diagnosis, Body/Joint mechanics, Home Exercise Program, Home Safety, Activity Modification, Education of Plan of Care Patient demonstrates compliance with HEP?: Yes Short Term Goals Goal #1: Pt LUE pain to decrease to 2/10. Goal to be met by: 02/11/18 Progress towards goal: Progressing Goal #2: Pt to increase LUE strength to 4+/5 Goal to be met by: 02/11/18 Progress towards goal: Partially Met Goal #3: Pt to have Full AROM of Left scapula Goal to be met by: 02/11/18 Progress towards goal: Partially Met Goal #4: Pt to be independent with Home exercise program. Goal to be met by: 02/11/18 Progress towards goal: Met Usp Goals Goal #1: Pt to decrease pain to 0/10 Goal to be met by: 02/26/18 Progress towards goal: Progressing Goal #2: Pt to increase strength of LUE to 5/5. Goal to be met by: 02/26/18 Progress towards goal: Progressing Goal #3: Pt to increase AROM of LUE to be WFL. Goal to be met by: 02/26/18 Progress towards goal: Progressing Goal #4: Pt has symmetrical posture alignment of scapula's. Goal to be met by: 02/26/18 Progress towards goal: Progressing Plan Dates of Usp Goals: 02/26/18 Expiration date of current Insurance Approval:: 02/26/18 PLAN: Continue per POC to max functional strength and AROM
--- NOTE | 2018-02-15 11:29 | RS.OTDNOTE ---
Subjective Date of Note: 02/15/18 Visit #: 20 Number of visits approved by Insurance: 24 Date of Evaluation: 05/04/17 Payer Source: Workman's Comp Treatment Diagnosis: Pain of left upper arm M79.622, M79.642 pain in Left hand digits *Precautions: Pt is depressed Current Complaints/Gains: Pt with increased c/o pain in scapula and posterior deltoid. Pain Assessment - Pain Description Pain Description: Tightness, Sharp, Dull, Aching Pain Location: Posterior ribs are tender to palpate. Pain continues in left UE ulnar aspect of arm that runs to digits in the PIP to the DIP joints. Pt reports pain in the left posterior Serratus posterior superior muscle. Pt has tenderness to palpation. Pt has his arm feels like it is going to sleep with full elbow flexion. Pt has pain in his head behind the left eye all of the time. Pt reports "tightness and pulling" in his left UE Pain Description: acute, aches, sharp Modalities - Treatment Modality: Ultrasound Parameters/Method Applied: 1.5w/cm2 x 10 mins Patient Position: Sitting - Hot Pack/Cryotherapy Treatment: Cryotherapy Comments:: CP x 10 mins following Interventions - Exercise/Activities Exercise/Activities/Manual Therapy: Sitting-scapular pinches holding 5 seconds each rep x 20 reps/20# (B) shoulder retraction at multi-gym. Supine PROM/gentle stretching progressed to black thera-band shoulder flexion/scaption, IR/ER and extension along with hughston prone ex's with 3-4# hand weight, Min A, 15/1 each. Manual therapy/trigger point release to subscapularis tender points to the Left shoulder. Continued HEP instruction. HOME EXERCISE PROGRAM: AROM all shoulder planes with added resist as tolerated - Objective Findings Objective Findings:: Winging of left scapula, tender points in serratus, posterior inferior muscle, subscapularis, intercostal tender points. Pt is anteriorly rotated in Left shoulder. Muscles of left scapula have atrophied specifically bottom tip of scapula area. Pt reports the nerve pain is improving in the digits of the left UE. Pt has numbness with full LUE elbow flexion. 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 - Charges Timed Code Treatment Minutes: 49 Total Treatment Time: 61 Procedures billed for this date of service:: CP US EX MT Assessment Patient Education: Education of diagnosis, Body/Joint mechanics, Home Exercise Program, Home Safety, Activity Modification, Education of Plan of Care Problems/Comments: Pt not donning scapula brace Patient demonstrates compliance with HEP?: Yes Short Term Goals Goal #1: Pt LUE pain to decrease to 2/10. Goal to be met by: 02/11/18 Progress towards goal: Progressing Goal #2: Pt to increase LUE strength to 4+/5 Goal to be met by: 02/11/18 Progress towards goal: Partially Met Goal #3: Pt to have Full AROM of Left scapula Goal to be met by: 02/11/18 Progress towards goal: Partially Met Goal #4: Pt to be independent with Home exercise program. Goal to be met by: 02/11/18 Progress towards goal: Met Longterm Goals Goal #1: Pt to decrease pain to 0/10 Goal to be met by: 02/26/18 Progress towards goal: Progressing Goal #2: Pt to increase strength of LUE to 5/5. Goal to be met by: 02/26/18 Progress towards goal: Progressing Goal #3: Pt to increase AROM of LUE to be WFL. Goal to be met by: 02/26/18 Progress towards goal: Progressing Goal #4: Pt has symmetrical posture alignment of scapula's. Goal to be met by: 02/26/18 Progress towards goal: Progressing Plan Dates of Curtain Roller Assembler Goals: 02/26/18 Expiration date of current Insurance Approval:: 02/26/18 PLAN: Continue per POC. Pt has x4 visits left with current insurance approval. Pt returns for MD appointments/follow up to MRI's.
--- NOTE | 2018-02-17 11:39 | RS.OPPTDN ---
Subjective Date of Note: 02/17/18 Visit #: 21 Number of visits approved by Insurance: 25 total to date Date of Evaluation: 12/02/17 Payer Source: Workman's Comp Treatment Diagnosis: Low back pain Current Subjective/complaints:: Patient reports feeling better today, but back pain continues to limit his activity level. Patient reports performing light ADL 's with caution. *Precautions: Pt is depressed Pain Assessment - Pain Description Pain Location: Lowback, left knee Current Pain Intensity: mod at lowback, mild to mod at left knee Interventions - Exercise/Activities/Manual Therapy Exercises/Activities: Assisted stretching of bilateral hamstrings, SKTC, piriformis, and limited LTR. Isometric hip flexion. 2 1/2# SLR. Hip abd no weight. Green theraband for resisted LTR. Elliptical maching 2s/2mins slow pace. Cable pulleys for scap retraction 30#, 3s/10reps. Then, back stepping 50# , and lateral side-stepping 50#, 15 reps each. Wall slides with large therapy ball 20reps. Total minutes of Exercise: 47mins Manual Therapy: NA HOME EXERCISE PROGRAM: HS, SKTC, and piriformis stretch. SLR and bridging - Charges Timed Code Treatment Minutes: 47mins Total Treatment Time: 47mins Procedures billed for this date of service:: EX3 Assessment: Patient continues to work on strengthening, working toward increasing his functional activity level. Patient Education: Body/Joint mechanics, Home Exercise Program, Home Safety Patient demonstrates compliance with HEP?: Yes Short Term Goals Goal #1: Pt independent and compliant with HEP. Goal to be met by: 12/16/17 Progress towards Goal:: Met Goal #2: SLR bilaterally to 45 degrees in supine. Goal to be met by: 12/16/17 Progress towards Goal:: Met Goal #3: Trunk strength improved to 4+/5. Goal to be met by: 12/16/17 Progress towards Goal:: Partially Met Goal #4: Pt to demonstrate understanding of postural awareness & body mechanics. Goal to be met by: 12/16/17 Progress towards Goal:: Partially Met Alf Goals Goal #1: Pt knows HEP and to continue ex's to maintain functional level at D/C. Goal to be met by: 02/26/18 Progress towards goal: Partially Met Goal #2: Score on Oswestry LBP scale improved to 22. Goal to be met by: 02/26/18 Progress towards goal: Progressing Goal #3: Pt to tolerate prolonged sitting & standing to perform ADL's w/o back pain. Goal to be met by: 02/26/18 Progress towards goal: Partially Met Goal #4: Lumbar AROM WFL's to perform all selfcare and ADL's w/o pain or difficulty. Goal to be met by: 02/26/18 Progress towards goal: Progressing Plan Dates of Medical Receptionist Assistant Goals: 02/26/18 Expiration date of current Insurance Approval:: 02/26/18 PLAN: Progress with strengthening and lifting to increase patients functional activity level.
--- NOTE | 2018-02-17 13:08 | RS.OTDNOTE ---
Subjective Date of Note: 02/17/18 Visit #: 21 Number of visits approved by Insurance: 24 Date of Evaluation: 05/04/17 Payer Source: Workman's Comp Treatment Diagnosis: Pain of left upper arm M79.622, M79.642 pain in Left hand digits *Precautions: Pt is depressed Current Complaints/Gains: Pt pleased with his AROM and strngth increasing. States he is afaid of going backwards if more therapy isn't approved. states he returns to MD next wk to go over his newest MRI. Pain Assessment - Pain Description Pain Description: Tightness, Sharp, Dull, Aching Pain Location: Posterior ribs are tender to palpate. Pain continues in left UE ulnar aspect of arm that runs to digits in the PIP to the DIP joints. Pt reports pain in the left posterior Serratus posterior superior muscle. Pt has tenderness to palpation. Pt has his arm feels like it is going to sleep with full elbow flexion. Pt has pain in his head behind the left eye all of the time. Pt reports "tightness and pulling" in his left UE Pain Description: acute, aches, sharp Current Pain Intensity: 4 Worst Pain Intensity: 8 Modalities - Treatment Modality: Electrical Stim Unattended Parameters/Method Applied: Hi-volt x4 pads to pt tolerance with CP applied Treatment Area: shoulder Patient Position: Sitting - Hot Pack/Cryotherapy Treatment: Cryotherapy Comments:: CP during estim and following tx Interventions - Exercise/Activities Exercise/Activities/Manual Therapy: Sitting-scapular pinches holding 5 seconds each rep x 20 reps/20# (B) shoulder retraction at multi-gym. Supine PROM/gentle stretching progressed to black thera-band shoulder flexion/scaption, IR/ER and extension along with standing RTC series ex, 23/02 each. Manual therapy/trigger point release to subscapularis tender points to the Left shoulder. Continued HEP instruction. HOME EXERCISE PROGRAM: AROM all shoulder planes with added resist as tolerated - Objective Findings Objective Findings:: Winging of left scapula, tender points in serratus, posterior inferior muscle, subscapularis, intercostal tender points. Pt is anteriorly rotated in Left shoulder. Muscles of left scapula have atrophied specifically bottom tip of scapula area. Pt reports the nerve pain is improving in the digits of the left UE. Pt has numbness with full LUE elbow flexion. Mass solderer electronic has improved. - Charges Timed Code Treatment Minutes: 39 Total Treatment Time: 61 Procedures billed for this date of service:: ESTIM CP EX2 Assessment Patient Education: Education of diagnosis, Body/Joint mechanics, Home Exercise Program, Home Safety, Activity Modification, Education of Plan of Care Patient demonstrates compliance with HEP?: Yes Short Term Goals Goal #1: Pt LUE pain to decrease to 2/10. Goal to be met by: 02/11/18 Progress towards goal: Progressing Goal #2: Pt to increase LUE strength to 4+/5 Goal to be met by: 02/11/18 Progress towards goal: Partially Met Goal #3: Pt to have Full AROM of Left scapula Goal to be met by: 02/11/18 Progress towards goal: Partially Met Goal #4: Pt to be independent with Home exercise program. Goal to be met by: 02/11/18 Progress towards goal: Met Broke Man Goals Goal #1: Pt to decrease pain to 0/10 Goal to be met by: 02/26/18 Progress towards goal: Progressing Goal #2: Pt to increase strength of LUE to 5/5. Goal to be met by: 02/26/18 Progress towards goal: Progressing Goal #3: Pt to increase AROM of LUE to be WFL. Goal to be met by: 02/26/18 Progress towards goal: Progressing Goal #4: Pt has symmetrical posture alignment of scapula's. Goal to be met by: 02/26/18 Progress towards goal: Progressing Plan Dates of Broke Man Goals: 02/26/18 Expiration date of current Insurance Approval:: 02/26/18 PLAN: Continue per POC to max functional strength and AROM. Requesting add'l visits from work comp.
--- NOTE | 2018-02-19 11:43 | RS.OTDNOTE ---
Subjective Date of Note: 02/19/18 Visit #: 22 Number of visits approved by Insurance: 24 Date of Evaluation: 05/04/17 Payer Source: Workman's Comp Treatment Diagnosis: Pain of left upper arm M79.622, M79.642 pain in Left hand digits *Precautions: Pt is depressed Current Complaints/Gains: Pt voices concern over running out of visits. States and demo full AROM at end of therapy but was unable to raise UE past 145-150* upon entering therapy gym this am. Pt also states he is interested in joining a gym and plans to speak with his Dr about next wk. Pain Assessment - Pain Description Pain Description: Tightness, Sharp, Dull, Aching Pain Location: Posterior ribs are tender to palpate. Pain continues in left UE ulnar aspect of arm that runs to digits in the PIP to the DIP joints. Pt reports pain in the left posterior Serratus posterior superior muscle. Pt has tenderness to palpation. Pt has his arm feels like it is going to sleep with full elbow flexion. Pt has pain in his head behind the left eye all of the time. Pt reports "tightness and pulling" in his left UE Pain Description: acute, aches, sharp Current Pain Intensity: 2 Worst Pain Intensity: 6 Modalities - Treatment Modality: Electrical Stim Unattended Parameters/Method Applied: Hi-volt to pt tolerance, x4 pads cross-current. Treatment Area: shoulder/scapula Patient Position: Sitting - Hot Pack/Cryotherapy Comments:: CP during estim application and following tx Interventions - Exercise/Activities Exercise/Activities/Manual Therapy: Sitting-scapular pinches holding 5 seconds each rep x 20 reps/20# (B) shoulder retraction at multi-gym. Supine PROM/gentle stretching progressed to black thera-band shoulder flexion/scaption, IR/ER and extension along with standing RTC series ex, 15/1 each with 5# hand weight. Manual therapy/trigger point release to subscapularis tender points to the Left shoulder. Continued HEP instruction including Isai PRABHAKAR's HOME EXERCISE PROGRAM: AROM all shoulder planes with added resist as tolerated - Objective Findings Objective Findings:: Winging of left scapula, tender points in serratus, posterior inferior muscle, subscapularis, intercostal tender points. Pt is anteriorly rotated in Left shoulder. Muscles of left scapula have atrophied specifically bottom tip of scapula area. Pt reports the nerve pain is improving in the digits of the left UE. Pt has numbness with full LUE elbow flexion. 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 - Charges Timed Code Treatment Minutes: 41 Total Treatment Time: 62 Procedures billed for this date of service:: EX2 CP ESTIM Assessment Patient Education: Education of diagnosis, Body/Joint mechanics, Home Exercise Program, Home Safety, Activity Modification, Education of Plan of Care Problems/Comments: Pt demo shoulder protraction in resting. Pt not donning shoulder scapula retraction brace 2* c/o pain. pt advised on building up tolerance. Short Term Goals Goal #1: Pt LUE pain to decrease to 2/10. Goal to be met by: 02/11/18 Progress towards goal: Progressing Goal #2: Pt to increase LUE strength to 4+/5 Goal to be met by: 02/11/18 Progress towards goal: Partially Met Goal #3: Pt to have Full AROM of Left scapula Goal to be met by: 02/11/18 Progress towards goal: Partially Met Goal #4: Pt to be independent with Home exercise program. Goal to be met by: 02/11/18 Progress towards goal: Met [facility] Goals Goal #1: Pt to decrease pain to 0/10 Goal to be met by: 02/26/18 Progress towards goal: Progressing Goal #2: Pt to increase strength of LUE to 5/5. Goal to be met by: 02/26/18 Progress towards goal: Progressing Goal #3: Pt to increase AROM of LUE to be WFL. Goal to be met by: 02/26/18 Progress towards goal: Progressing Goal #4: Pt has symmetrical posture alignment of scapula's. Goal to be met by: 02/26/18 Progress towards goal: Progressing Plan Dates of Batch Attendant Goals: 02/26/18 Expiration date of current Insurance Approval:: 02/26/18 PLAN: Pt has x2 visits approved with work elissa/. Continued HEP ed for continuation of TE.
--- NOTE | 2018-02-19 12:06 | RS.OPPTDN ---
Subjective Date of Note: 02/19/18 Visit #: 22 Number of visits approved by Insurance: 25 approved to date Date of Evaluation: 12/02/17 Payer Source: Workman's Comp Treatment Diagnosis: Low back pain Current Subjective/complaints:: Patient reports some increased discomfort at lowback with weighted box carry today, but states he is able to perform task. States left knee pain has not bothered him today, but usually increases with increased walking. *Precautions: Pt is depressed Pain Assessment - Pain Description Pain Location: lowback, left knee Pain Description: Aching Current Pain Intensity: lowback 6/10, but increased with box carry Interventions - Exercise/Activities/Manual Therapy Exercises/Activities: Assisted stretching of bilateral hamstrings, SKTC, piriformis, and limited LTR. Isometric hip flexion. SLR and Hip abd, both no weight today. Green theraband for resisted LTR. Increased to black theraband for resistied single hip abd in hook-lying. Cable pulleys for scap retraction 30#, 3s/10reps. Then, back stepping 50#, and lateral side-stepping 50#, 15 reps each. Advanced to 25# box lift and carry 15', 2s/6reps. Wall slides with large therapy ball 20reps. Leg press 90#, multiple reps at slow pace x4mins. Total minutes of Exercise: 50mins Manual Therapy: NA HOME EXERCISE PROGRAM: HS, SKTC, and piriformis stretch. SLR and bridging - Charges Timed Code Treatment Minutes: 50mins Total Treatment Time: 50mins Procedures billed for this date of service:: EX3 Assessment: Patient slowly increasing strengthening and lifting activitiy. Back pain continues to limit patients ability to increase the weight the patient can lift. Patient Education: Body/Joint mechanics, Home Exercise Program, Home Safety Comments: Continued patient edcuation of safe body mechanics. Patient demonstrates compliance with HEP?: Yes Short Term Goals Goal #1: Pt independent and compliant with HEP. Goal to be met by: 12/16/17 Progress towards Goal:: Met Goal #2: SLR bilaterally to 45 degrees in supine. Goal to be met by: 12/16/17 Progress towards Goal:: Met Goal #3: Trunk strength improved to 4+/5. Goal to be met by: 12/16/17 Progress towards Goal:: Partially Met Goal #4: Pt to demonstrate understanding of postural awareness & body mechanics. Goal to be met by: 12/16/17 Progress towards Goal:: Partially Met [facility] Goals Goal #1: Pt knows HEP and to continue ex's to maintain functional level at D/C. Goal to be met by: 02/26/18 Progress towards goal: Partially Met Goal #2: Score on Oswestry LBP scale improved to 22. Goal to be met by: 02/26/18 Progress towards goal: Progressing Goal #3: Pt to tolerate prolonged sitting & standing to perform ADL's w/o back pain. Goal to be met by: 02/26/18 Progress towards goal: Partially Met Goal #4: Lumbar AROM WFL's to perform all selfcare and ADL's w/o pain or difficulty. Goal to be met by: 02/26/18 Progress towards goal: Progressing Comments: Continues to progress, but back pain limits patients functional ADL's. Plan Dates of Usp Goals: 02/26/18 Expiration date of current Insurance Approval:: 02/26/18 PLAN: Progress strengthening and lifting activities as tolerated.
--- NOTE | 2018-02-22 11:43 | RS.OPPTDN ---
Subjective Date of Note: 02/22/18 Visit #: 23 Number of visits approved by Insurance: 25 to date Date of Evaluation: 12/02/17 Payer Source: Workman's Comp Treatment Diagnosis: Low back pain Current Subjective/complaints:: Patient reports continued good and bad days. States he has had more left knee pain the last few days. *Precautions: Pt is depressed Pain Assessment - Pain Description Pain Location: lowback, left knee Pain Description: Sharp, Aching Current Pain Intensity: 6/10 lowback, 4/10 left knee Interventions - Exercise/Activities/Manual Therapy Exercises/Activities: Assisted stretching of bilateral hamstrings, SKTC, piriformis. Isometric hip flexion. SLR and Hip abd, no weight. Green theraband for resisted LTR. Increased to black theraband for resistied single hip abd in hook-lying. Cable pulleys for scap retraction 30#, 3s/10reps. Wall slides with large therapy ball 2s/15reps. Stationary bike [id number]. Total minutes of Exercise: 41mins Manual Therapy: NA HOME EXERCISE PROGRAM: HS, SKTC, and piriformis stretch. SLR and bridging - Charges Timed Code Treatment Minutes: 41mins Total Treatment Time: 41mins Procedures billed for this date of service:: EX3 Assessment: Patients functional activity level continues to be limited due to lowback and left knee pain. Short Term Goals Goal #1: Pt independent and compliant with HEP. Goal to be met by: 12/16/17 Progress towards Goal:: Met Goal #2: SLR bilaterally to 45 degrees in supine. Goal to be met by: 12/16/17 Progress towards Goal:: Met Goal #3: Trunk strength improved to 4+/5. Goal to be met by: 12/16/17 Progress towards Goal:: Partially Met Goal #4: Pt to demonstrate understanding of postural awareness & body mechanics. Goal to be met by: 12/16/17 Progress towards Goal:: Partially Met Chcf Goals Goal #1: Pt knows HEP and to continue ex's to maintain functional level at D/C. Goal to be met by: 02/26/18 Progress towards goal: Partially Met Goal #2: Score on Oswestry LBP scale improved to 22. Goal to be met by: 02/26/18 Progress towards goal: Progressing Goal #3: Pt to tolerate prolonged sitting & standing to perform ADL's w/o back pain. Goal to be met by: 02/26/18 Progress towards goal: Partially Met Goal #4: Lumbar AROM WFL's to perform all selfcare and ADL's w/o pain or difficulty. Goal to be met by: 02/26/18 Progress towards goal: Progressing Plan Dates of Chcf Goals: 02/26/18 Expiration date of current Insurance Approval:: 02/26/18 PLAN: Continue stretching to increase patient ability to perform functional activities.
--- NOTE | 2018-02-25 10:25 | RS.OPPTDN ---
Subjective Date of Note: 02/25/18 Visit #: 24 Number of visits approved by Insurance: 25 Date of Evaluation: 12/02/17 Payer Source: Workman's Comp Treatment Diagnosis: Low back pain Current Subjective/complaints:: Patient reports continued back and left knee pain. Reports a "burning" in his legs following weighted push-pull cart, but denies increased back pain with this activity. *Precautions: Pt is depressed Pain Assessment - Pain Description Pain Location: Back, left knee Current Pain Intensity: back 5-6/10, left knee 5/10 Interventions - Exercise/Activities/Manual Therapy Exercises/Activities: Assisted stretching of bilateral hamstrings, SKTC, piriformis. Isometric hip flexion. SLR and Hip abd, no weight. Isometric hip flexion. Elliptical 3mins. Cable pulleys back walk and side-stepping both directions, 50#, 15reps each. 25# box lifts 2s/5reps. Then 25# box carry 15' x8reps. Additional 2mins on elliptical. Began push-pull cart with 100#, 20' x8reps(4 push and 4 pull). Total minutes of Exercise: 49mins Manual Therapy: NA HOME EXERCISE PROGRAM: HS, SKTC, and piriformis stretch. SLR and bridging - Charges Timed Code Treatment Minutes: 49mins Total Treatment Time: 50mins Procedures billed for this date of service:: EX3 Assessment: Patient able to progress with functional strengthening activities today, but reports an increase in LE discomfort. Patient Education: Body/Joint mechanics, Home Exercise Program, Home Safety, Activity Modification Comments: Patient edcuation of safety with lifting and resistive strengthening activities. Short Term Goals Goal #1: Pt independent and compliant with HEP. Goal to be met by: 12/16/17 Progress towards Goal:: Met Goal #2: SLR bilaterally to 45 degrees in supine. Goal to be met by: 12/16/17 Progress towards Goal:: Met Goal #3: Trunk strength improved to 4+/5. Goal to be met by: 12/16/17 Progress towards Goal:: Partially Met Goal #4: Pt to demonstrate understanding of postural awareness & body mechanics. Goal to be met by: 12/16/17 Progress towards Goal:: Partially Met Time Motion Analyst Goals Goal #1: Pt knows HEP and to continue ex's to maintain functional level at D/C. Goal to be met by: 02/26/18 Progress towards goal: Partially Met Goal #2: Score on Oswestry LBP scale improved to 22. Goal to be met by: 02/26/18 Progress towards goal: Progressing Goal #3: Pt to tolerate prolonged sitting & standing to perform ADL's w/o back pain. Goal to be met by: 02/26/18 Progress towards goal: Partially Met (Performing more ADL's at home, but continues to have back pain that limits ability.) Goal #4: Lumbar AROM WFL's to perform all selfcare and ADL's w/o pain or difficulty. Goal to be met by: 02/26/18 Progress towards goal: Progressing Plan Dates of Chcf Goals: 02/26/18 Expiration date of current Insurance Approval:: 02/26/18 PLAN: Progress functional strengthening activities. Continuation orders received and approval pending.
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
--- NOTE | 2018-03-01 16:15 | RS.OPPTDN ---
Subjective Date of Note: 03/01/18 Visit #: 25 Number of visits approved by Insurance: 37 approved to date Date of Evaluation: 12/02/17 Payer Source: [employer] Treatment Diagnosis: Low back pain Current Subjective/complaints:: Patient reports feeling beter today. Back pain persists but he feels more mobile today. *Approval received from [employer] for 12 sessions with new order. *Precautions: Pt is depressed Pain Assessment - Pain Description Pain Location: back, left knee Pain Description: Aching Current Pain Intensity: mod at LB Interventions - Exercise/Activities/Manual Therapy Exercises/Activities: Assisted stretching of bilateral hamstrings, SKTC, piriformis. Isometric hip flexion. SLR and Hip abd, no weight. Isometric hip flexion. 4# to each ankle for alt hip flexion. Blue theraband for hip abd in hook-lying and resisted LTR. Elliptical 4mins, with one break. Cable pulleys scap retraction 40#, 2s/15reps each. Leg press 105#. Bike x5mins. Total minutes of Exercise: 41mins Manual Therapy: NA HOME EXERCISE PROGRAM: HS, SKTC, and piriformis stretch. SLR and bridging - Charges Timed Code Treatment Minutes: 41mins Total Treatment Time: 41mins Procedures billed for this date of service:: EX3 Assessment: Patient continues strengthening and will has a follow-up with physician tomorrow. Patient demonstrates compliance with HEP?: Yes Short Term Goals Goal #1: Pt independent and compliant with HEP. Goal to be met by: 12/16/17 Progress towards Goal:: Met Goal #2: SLR bilaterally to 45 degrees in supine. Goal to be met by: 12/16/17 Progress towards Goal:: Met Goal #3: Trunk strength improved to 4+/5. Goal to be met by: 12/16/17 Progress towards Goal:: Partially Met Goal #4: Pt to demonstrate understanding of postural awareness & body mechanics. Goal to be met by: 12/16/17 Progress towards Goal:: Partially Met Auto Clutch Rebuilder Goals Goal #1: Pt knows HEP and to continue ex's to maintain functional level at D/C. Goal to be met by: 04/02/18 Progress towards goal: Partially Met Goal #2: Score on Oswestry LBP scale improved to 22. Goal to be met by: 04/02/18 Progress towards goal: Progressing Goal #3: Pt to tolerate prolonged sitting & standing to perform ADL's w/o back pain. Goal to be met by: 04/02/18 Progress towards goal: Partially Met (Performing more ADL's at home, but continues to have back pain that limits ability.) Goal #4: Lumbar AROM WFL's to perform all selfcare and ADL's w/o pain or difficulty. Goal to be met by: 04/02/18 Progress towards goal: Progressing Plan Dates of Half-Way Goals: 04/02/18 Expiration date of current Insurance Approval:: 04/02/18 LTG dates extended due to new orders and insurance approval. PLAN: Progress with strengthening activities to work toward PLOF.
--- NOTE | 2018-03-08 11:46 | RS.OPPTDN ---
Subjective Date of Note: 03/08/18 Visit #: 26 Number of visits approved by Insurance: 37 to date Date of Evaluation: 12/02/17 Payer Source: Workman's Comp Treatment Diagnosis: Low back pain Current Subjective/complaints:: Patient reports he went out of town this weekend and has increased back pain and stiffness today. *Precautions: Pt is depressed Pain Assessment - Pain Description Pain Location: back, left knee Pain Description: Aching Current Pain Intensity: back 6/10 Interventions - Exercise/Activities/Manual Therapy Exercises/Activities: Assisted stretching of bilateral hamstrings, SKTC, piriformis. Isometric hip flexion. Elliptical x2mins. 25# box carry 20' x8reps. Leg press 105# 4s/10reps. Bike x5mins. Back to elliptical x3mins. Push /pull cart with 50#, 20' x8reps. Back to leg press 105# 3s/10reps. Total minutes of Exercise: 46mins Manual Therapy: NA HOME EXERCISE PROGRAM: HS, SKTC, and piriformis stretch. SLR and bridging - Charges Timed Code Treatment Minutes: 46mins Total Treatment Time: 46mins Procedures billed for this date of service:: EX3 Assessment: Progressing toward work reconditioning activity. Patient Education: Education of diagnosis Comments: Patient education of joint mechanics of patients dx of torn meniscus of the right knee. Patient demonstrates compliance with HEP?: Yes Short Term Goals Goal #1: Pt independent and compliant with HEP. Goal to be met by: 12/16/17 Progress towards Goal:: Met Goal #2: SLR bilaterally to 45 degrees in supine. Goal to be met by: 12/16/17 Progress towards Goal:: Met Goal #3: Trunk strength improved to 4+/5. Goal to be met by: 12/16/17 Progress towards Goal:: Partially Met Goal #4: Pt to demonstrate understanding of postural awareness & body mechanics. Goal to be met by: 12/16/17 Progress towards Goal:: Partially Met Longterm Goals Goal #1: Pt knows HEP and to continue ex's to maintain functional level at D/C. Goal to be met by: 04/02/18 Progress towards goal: Partially Met Goal #2: Score on Oswestry LBP scale improved to 22. Goal to be met by: 04/02/18 Progress towards goal: Progressing Goal #3: Pt to tolerate prolonged sitting & standing to perform ADL's w/o back pain. Goal to be met by: 04/02/18 Progress towards goal: Partially Met (Performing more ADL's at home, but continues to have back pain that limits ability.) Goal #4: Lumbar AROM WFL's to perform all selfcare and ADL's w/o pain or difficulty. Goal to be met by: 04/02/18 Progress towards goal: Progressing Plan Dates of Vfx Artist Goals: 04/02/18 Expiration date of current Insurance Approval:: 04/02/18 PLAN: Progress with strengthening activities with PT to assess left knee for treatment per new orders.
--- NOTE | 2018-03-09 08:34 | RS.OTDNOTE ---
Subjective Date of Note: 03/08/18 Visit #: 26 Number of visits approved by Insurance: [phone] Date of Evaluation: 05/04/17 Payer Source: Workman's Comp Treatment Diagnosis: Pain of left upper arm M79.622, M79.642 pain in Left hand digits *Precautions: Pt is depressed Current Complaints/Gains: Pt states back and knee pain. States he played numerous games of pool over the wknd and was on his feet alot. Pain Assessment - Pain Description Pain Description: Tightness, Sharp, Dull, Aching Pain Location: Posterior ribs are tender to palpate. Pain continues in left UE ulnar aspect of arm that runs to digits in the PIP to the DIP joints. Pt reports pain in the left posterior Serratus posterior superior muscle. Pt has tenderness to palpation. Pt has his arm feels like it is going to sleep with full elbow flexion. Pt has pain in his head behind the left eye all of the time. Pt has neck, shoulder, and back pain today. Pt has shoulder pain of 5/10 , Neck pain 7/10, back pain 7/10, and knee pain. Pt reports "tightness and pulling" in his left UE Pain Description: acute, aches, sharp Current Pain Intensity: 2 Modalities - Hot Pack/Cryotherapy Treatment: Hot Pack Comments:: x10+ mins Interventions - Exercise/Activities Exercise/Activities/Manual Therapy: Sitting-scapular pinches holding 5 seconds each rep x 20 reps/20# (B) shoulder retraction, pull-downs, pull downs, and chess press at multi-g[employer]. Supine PROM/gentle stretching progressed to black thera-band shoulder flexion/scaption, IR/ER and extension along with standing RTC series ex, 15/2 each with 5# hand weight. Continued HEP instruction including B UE's/ shoulder HOME EXERCISE PROGRAM: AROM all shoulder planes with added resist as tolerated - Objective Findings Objective Findings:: Winging of left scapula, tender points in serratus, posterior inferior muscle, subscapularis, intercostal tender points. Pt is anteriorly rotated in Left shoulder. Muscles of left scapula have atrophied specifically bottom tip of scapula area. Pt reports the nerve pain is improving in the digits of the left UE. 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 - Charges Timed Code Treatment Minutes: 50 Total Treatment Time: 59 Procedures billed for this date of service:: EX2 Assessment Patient Education: Education of diagnosis, Body/Joint mechanics, Home Exercise Program, Home Safety, Activity Modification, Education of Plan of Care Patient demonstrates compliance with HEP?: Yes Short Term Goals Goal #1: Pt LUE pain to decrease to 2/10. Goal to be met by: 03/12/18 Progress towards goal: Progressing Goal #2: Pt to increase LUE strength to 4+/5 Goal to be met by: 03/12/18 Progress towards goal: Partially Met Goal #3: Pt to have Full AROM of Left scapula Goal to be met by: 03/12/18 Progress towards goal: Partially Met Goal #4: Pt to be independent with Home exercise program. Goal to be met by: 03/12/18 Progress towards goal: Progressing Personnel Officer Goals Goal #1: Pt to decrease pain to 0/10 Goal to be met by: 03/29/18 Progress towards goal: Progressing Goal #2: Pt to increase strength of LUE to 5/5. Goal to be met by: 03/29/18 Progress towards goal: Progressing Goal #3: Pt to increase AROM of LUE to be WFL. Goal to be met by: 03/29/18 Progress towards goal: Progressing Goal #4: Pt has symmetrical posture alignment of scapula's. Goal to be met by: 03/29/18 Progress towards goal: Progressing Plan Dates of [facility] Goals: 03/29/18 Expiration date of current Insurance Approval:: 03/29/18 PLAN: Continue per POC to max functional UE strength and AROM.
--- NOTE | 2018-03-10 14:34 | RS.OTDNOTE ---
Subjective Date of Note: 03/10/18 Visit #: 26 Number of visits approved by Insurance: [phone] Date of Evaluation: 05/04/17 Payer Source: Workman's Comp Treatment Diagnosis: Pain of left upper arm M79.622, M79.642 pain in Left hand digits *Precautions: Pt is depressed Current Complaints/Gains: Pt has c/o B shoulder pain. States he is going to take it easy on playing pool for a few days. Pain Assessment - Pain Description Pain Description: Tightness, Sharp, Dull, Aching Pain Location: Posterior ribs are tender to palpate. Pain continues in left UE ulnar aspect of arm that runs to digits in the PIP to the DIP joints. Pt reports pain in the left posterior Serratus posterior superior muscle. Pt has tenderness to palpation. Pt has his arm feels like it is going to sleep with full elbow flexion. Pt has pain in his head behind the left eye all of the time. Pt has neck, shoulder, and back pain today. Pt has shoulder pain of 5/10 , Neck pain 7/10, back pain 7/10, and knee pain. Pt reports "tightness and pulling" in his left UE Pain Description: acute, aches, sharp Modalities - Hot Pack/Cryotherapy Treatment: Hot Pack, Cryotherapy Interventions - Exercise/Activities Exercise/Activities/Manual Therapy: Sitting-scapular pinches holding 5 seconds each rep x 20 reps/20# (B) shoulder retraction, pull-downs, and chess press at [employer]-g[employer]. Supine PROM/gentle stretching progressed to black thera-band shoulder flexion/scaption, IR/ER and extension along with standing RTC series ex , 15/2 each with 12# renetta bar weight. Continued HEP instruction including B UE's/ shoulder HOME EXERCISE PROGRAM: AROM all shoulder planes with added resist as tolerated - Objective Findings Objective Findings:: Winging of left scapula, tender points in serratus, posterior inferior muscle, subscapularis, intercostal tender points. Pt is anteriorly rotated in Left shoulder. Muscles of left scapula have atrophied specifically bottom tip of scapula area. Pt reports the nerve pain is improving in the digits of the left UE. 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 - Charges Timed Code Treatment Minutes: 48 Total Treatment Time: 61 Procedures billed for this date of service:: EX3 Assessment Patient Education: Education of diagnosis, Body/Joint mechanics, Home Exercise Program, Home Safety, Activity Modification, Education of Plan of Care Patient demonstrates compliance with HEP?: Yes Short Term Goals Goal #1: Pt LUE pain to decrease to 2/10. Goal to be met by: 03/12/18 Progress towards goal: Progressing Goal #2: Pt to increase LUE strength to 4+/5 Goal to be met by: 03/12/18 Progress towards goal: Partially Met Goal #3: Pt to have Full AROM of Left scapula Goal to be met by: 03/12/18 Progress towards goal: Partially Met Goal #4: Pt to be independent with Home exercise program. Goal to be met by: 03/12/18 Progress towards goal: Progressing Senior Living Goals Goal #1: Pt to decrease pain to 0/10 Goal to be met by: 03/29/18 Progress towards goal: Progressing Goal #2: Pt to increase strength of LUE to 5/5. Goal to be met by: 03/29/18 Progress towards goal: Progressing Goal #3: Pt to increase AROM of LUE to be WFL. Goal to be met by: 03/29/18 Progress towards goal: Progressing Goal #4: Pt has symmetrical posture alignment of scapula's. Goal to be met by: 03/29/18 Progress towards goal: Progressing Plan Dates of [employer] Goals: 03/29/18 Expiration date of current Insurance Approval:: 03/29/18 PLAN: Continue per POC to max functional UE AROM/strength with decreased c/o pain.
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
--- NOTE | 2018-03-10 16:36 | RS.OPPTDN ---
Subjective Date of Note: 03/10/18 Visit #: 27 Number of visits approved by Insurance: 37 to date Date of Evaluation: 12/02/17 Payer Source: Workman's Comp Treatment Diagnosis: Low back pain Current Subjective/complaints:: Patient reports back pain with strengthening activities. Pain with full flexion of the left knee. *Precautions: Pt is depressed Pain Assessment - Pain Description Pain Location: back, left knee Current Pain Intensity: back 6-7/10 Other Comments regarding Pain:: Pain in left knee with prolonged walking or standing, or with end range flexion. - Treatment Parameters/Method Applied: [id number] at 1.5w/cm2 to the left knee with focus on the medial and lateral joint lines. Patient Position: Supine Interventions - Exercise/Activities/Manual Therapy Exercises/Activities: Assisted stretching of bilateral hamstrings, SKTC, piriformis. Isometric hip flexion. Elliptical x3mins. Cable pulleys for back walking, 50# [id number]. Leg press 105# 4s/10reps. Bike [id number]. Total minutes of Exercise: 29mins Manual Therapy: NA HOME EXERCISE PROGRAM: HS, SKTC, and piriformis stretch. SLR and bridging - Objective Findings Observations,measurements,etc.: Patient reassessed by PT and progress note completed with updated goals and treatment plan. - Charges Timed Code Treatment Minutes: 39mins Total Treatment Time: 60mins Procedures billed for this date of service:: US, EX2 Assessment: Patient has orders to resume treatment to left knee. PT has updated treatment goals and we will add modalities to strengthening program in attempt to reduce left knee pain and increase functional activity level. Patient demonstrates compliance with HEP?: Yes Short Term Goals Goal #1: Pt to tolerate 45 mins of consistent conditioning activities in the depart. Goal to be met by: 03/31/18 Progress towards Goal:: Progressing Goal #2: Left knee pain less than 4/10 with standing and walking activities. Goal to be met by: 03/31/18 Goal #3: Trunk strength improved to 4+/5. Goal to be met by: 03/31/18 Progress towards Goal:: Partially Met Goal #4: Pt to demonstrate understanding of postural awareness & body mechanics. Goal to be met by: 03/31/18 Progress towards Goal:: Partially Met Ticket Speculator Goals Goal #1: Pt knows HEP and to continue ex's to maintain functional level at D/C. Goal to be met by: 04/19/18 Progress towards goal: Partially Met Goal #2: Score on Oswestry LBP scale improved to 22. Goal to be met by: 04/19/18 Progress towards goal: Progressing Goal #3: Tolerate prolonged sit, stand,& amb. to perform ADL's w/ min knee/back pain Goal to be met by: 04/19/18 (updated goal) Progress towards goal: Partially Met (Performing more ADL's at home, but continues to have back pain that limits ability.) Goal #4: Lumbar AROM WFL's to perform all selfcare and ADL's w/o pain or difficulty. Goal to be met by: 04/19/18 (updated goal) Progress towards goal: Progressing Plan Dates of Ticket Speculator Goals: 04/19/18 Expiration date of current Insurance Approval:: 04/19/18 PLAN: Continue modalities to the left knee and progress strength and conditioning activities, working toward PLOF.
== END 2018-03-11 23:59 ==
PROVIDERS: ATTEND Orthopaedic Surgery
DX: M54.5 Low back pain (principal); M25.512 Pain in left shoulder; M25.562 Pain in left knee; M79.602 Pain in left arm

== ENCOUNTER 2018-04-05 10:00 | Outpatient (RCR) ==
--- NOTE | 2018-03-12 13:34 | RS.OTDNOTE ---
Subjective Date of Note: 03/12/18 Visit #: 27 Number of visits approved by Insurance: [phone] Date of Evaluation: 05/04/17 Payer Source: Workman's Comp Treatment Diagnosis: Pain of left upper arm M79.622, M79.642 pain in Left hand digits *Precautions: 20# weight limit (R) UE Current Complaints/Gains: Pt states "it feels pretty good" Pain Assessment - Pain Description Pain Location: Posterior ribs are tender to palpate. Pain continues in left UE ulnar aspect of arm that runs to digits in the PIP to the DIP joints. Pt reports pain in the left posterior Serratus posterior superior muscle. Pt has tenderness to palpation. Pt has his arm feels like it is going to sleep with full elbow flexion. Pt has pain in his head behind the left eye all of the time. Pt has neck, shoulder, and back pain today. Pt has shoulder pain of 5/10 , Neck pain 7/10, back pain 7/10, and knee pain. Pt reports "tightness and pulling" in his left UE Pain Description: acute, aches, sharp Modalities - Hot Pack/Cryotherapy Treatment: Hot Pack, Cryotherapy Interventions - Exercise/Activities Exercise/Activities/Manual Therapy: Sitting-scapular pinches holding 5 seconds each rep x 20 reps/20# (B) shoulder retraction, pull-downs, and chess press at [employer]-g[employer]. Sitting PROM/gentle stretching progressed to black thera-band shoulder flexion/scaption, IR/ER and extension along with standing RTC series ex , 20/2 each with 15# renetta bar weight. Continued HEP instruction including B UE's/ shoulder. HOME EXERCISE PROGRAM: AROM all shoulder planes with added resist as tolerated - Objective Findings Objective Findings:: Winging of left scapula, tender points in serratus, posterior inferior muscle, subscapularis, intercostal tender points. Pt is anteriorly rotated in Left shoulder. Muscles of left scapula have atrophied specifically bottom tip of scapula area. Pt reports the nerve pain is improving in the digits of the left UE. 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 - Charges Timed Code Treatment Minutes: 51 Total Treatment Time: 65 Procedures billed for this date of service:: EX3 CP Assessment Patient Education: Education of diagnosis, Body/Joint mechanics, Home Exercise Program, Home Safety, Activity Modification, Education of Plan of Care Patient demonstrates compliance with HEP?: Yes Short Term Goals Goal #1: Pt LUE pain to decrease to 2/10. Goal to be met by: 03/12/18 Progress towards goal: Progressing Goal #2: Pt to increase LUE strength to 4+/5 Goal to be met by: 03/12/18 Progress towards goal: Partially Met Goal #3: Pt to have Full AROM of Left scapula Goal to be met by: 03/12/18 Progress towards goal: Partially Met Goal #4: Pt to be independent with Home exercise program. Goal to be met by: 03/12/18 Progress towards goal: Progressing [facility] Goals Goal #1: Pt to decrease pain to 0/10 Goal to be met by: 03/29/18 Progress towards goal: Progressing Goal #2: Pt to increase strength of LUE to 5/5. Goal to be met by: 03/29/18 Progress towards goal: Progressing Goal #3: Pt to increase AROM of LUE to be WFL. Goal to be met by: 03/29/18 Progress towards goal: Progressing Goal #4: Pt has symmetrical posture alignment of scapula's. Goal to be met by: 03/29/18 Progress towards goal: Progressing Plan Dates of [facility] Goals: 03/29/18 Expiration date of current Insurance Approval:: 03/29/18 PLAN: Continue per POC to max functional UE AROM/strength with decreased c/o pain.
--- NOTE | 2018-03-12 14:32 | RS.OPPTDN ---
Subjective Date of Note: 03/12/18 Visit #: 28 Number of visits approved by Insurance: 37 to date Date of Evaluation: 12/02/17 Payer Source: Workman's Comp Treatment Diagnosis: Low back pain Current Subjective/complaints:: Patient reports doing better today. Reports a click in the left knee with stationary bike. *Precautions: 20# weight limit (R) UE Pain Assessment - Pain Description Pain Location: back, left knee Pain Description: Aching Current Pain Intensity: back 6/10, knee mild today - Treatment Modality: Ultrasound Parameters/Method Applied: [id number] at 1.5w/cm2 to the left knee medial and lateral joint lines. Patient Position: Supine Interventions - Exercise/Activities/Manual Therapy Exercises/Activities: Stationary bike 8mins. Assisted stretching of bilateral hamstrings, SKTC, piriformis. 2# for SLR and 2# for SLR/VMO, 3s/10reps each. Red theraband for hip abd and hip add, 2s/10reps each. Green theraband for resisted ankle df, 2s/10reps. Isometric hip flexion. Elliptical x3mins. Leg press 105# 4s/10reps. Total minutes of Exercise: 35mins EX Manual Therapy: NA HOME EXERCISE PROGRAM: HS, SKTC, and piriformis stretch. SLR and bridging - Charges Timed Code Treatment Minutes: 45mins Total Treatment Time: 45mins Procedures billed for this date of service:: EX2, US Assessment: Patient with continued back and left knee pain, but working on increasing functional activity level. Patient Education: Body/Joint mechanics, Home Exercise Program Patient demonstrates compliance with HEP?: Yes Short Term Goals Goal #1: Pt to tolerate 45 mins of consistent conditioning activities in the depart. Goal to be met by: 03/31/18 Progress towards Goal:: Progressing Goal #2: Left knee pain less than 4/10 with standing and walking activities. Goal to be met by: 03/31/18 Goal #3: Trunk strength improved to 4+/5. Goal to be met by: 03/31/18 Progress towards Goal:: Partially Met Goal #4: Pt to demonstrate understanding of postural awareness & body mechanics. Goal to be met by: 03/31/18 Progress towards Goal:: Partially Met Senior Staff Consultant Goals Goal #1: Pt knows HEP and to continue ex's to maintain functional level at D/C. Goal to be met by: 04/19/18 Progress towards goal: Partially Met Goal #2: Score on Oswestry LBP scale improved to 22. Goal to be met by: 04/19/18 Progress towards goal: Progressing Goal #3: Tolerate prolonged sit, stand,& amb. to perform ADL's w/ min knee/back pain Goal to be met by: 04/19/18 (updated goal) Progress towards goal: Partially Met (Performing more ADL's at home, but continues to have back pain that limits ability.) Goal #4: Lumbar AROM WFL's to perform all selfcare and ADL's w/o pain or difficulty. Goal to be met by: 04/19/18 (updated goal) Progress towards goal: Progressing Plan Dates of Group Home Goals: 04/19/18 Expiration date of current Insurance Approval:: 04/19/18 PLAN: Progress with functional strength and lifting, working toward PLOF.
--- NOTE | 2018-03-15 13:27 | RS.OTDNOTE ---
Subjective Date of Note: 03/15/18 Visit #: 28 Number of visits approved by Insurance: [phone] Date of Evaluation: 05/04/17 Payer Source: Workman's Comp Treatment Diagnosis: Pain of left upper arm M79.622, M79.642 pain in Left hand digits *Precautions: 20# weight limit (R) UE Current Complaints/Gains: Pain/increased popping noted. Pain Assessment - Pain Description Pain Location: Posterior ribs are tender to palpate. Pain continues in left UE ulnar aspect of arm that runs to digits in the PIP to the DIP joints. Pt reports pain in the left posterior Serratus posterior superior muscle. Pt has tenderness to palpation. Pt has his arm feels like it is going to sleep with full elbow flexion. Pt has pain in his head behind the left eye all of the time. Pt has neck, shoulder, and back pain today. Pt has shoulder pain of 5/10 , Neck pain 7/10, back pain 7/10, and knee pain. 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 Sitting PROM/gentle stretching progressed to black thera-band shoulder flexion/scaption, IR/ER and extension along with standing RTC series ex , 20/2 each with 15# renetta bar weight. Continued HEP instruction including B UE's/ shoulder. HOME EXERCISE PROGRAM: AROM all shoulder planes with added resist as tolerated - Objective Findings Objective Findings:: Winging of left scapula, tender points in serratus, posterior inferior muscle, subscapularis, intercostal tender points. Pt is anteriorly rotated in Left shoulder. Muscles of left scapula have atrophied specifically bottom tip of scapula area. Pt reports the nerve pain is improving in the digits of the left UE. 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 - Charges Timed Code Treatment Minutes: 48 Total Treatment Time: 62 Procedures billed for this date of service:: EX2 US CP Assessment Patient Education: Education of diagnosis, Body/Joint mechanics, Home Exercise Program, Home Safety, Activity Modification, Education of Plan of Care Patient demonstrates compliance with HEP?: Yes Short Term Goals Goal #1: Pt LUE pain to decrease to 2/10. Goal to be met by: 03/12/18 Progress towards goal: Progressing Goal #2: Pt to increase LUE strength to 4+/5 Goal to be met by: 03/12/18 Progress towards goal: Met Goal #3: Pt to have Full AROM of Left scapula Goal to be met by: 03/12/18 Progress towards goal: Partially Met Goal #4: Pt to be independent with Home exercise program. Goal to be met by: 03/12/18 Progress towards goal: Progressing Jail Goals Goal #1: Pt to decrease pain to 0/10 Goal to be met by: 03/29/18 Progress towards goal: Progressing Goal #2: Pt to increase strength of LUE to 5/5. Goal to be met by: 03/29/18 Progress towards goal: Progressing Goal #3: Pt to increase AROM of LUE to be WFL. Goal to be met by: 03/29/18 Progress towards goal: Progressing Goal #4: Pt has symmetrical posture alignment of scapula's. Goal to be met by: 03/29/18 Progress towards goal: Progressing Plan Dates of Jail Goals: 03/29/18 Expiration date of current Insurance Approval:: 03/29/18 PLAN: Continue per POC to max functional strength and MMT with decreased c/o pain.
--- NOTE | 2018-03-15 16:29 | RS.OPPTDN ---
Subjective Date of Note: 03/15/18 Visit #: 29 Number of visits approved by Insurance: 37 to date Date of Evaluation: 12/02/17 Payer Source: Workman's Comp Treatment Diagnosis: Low back pain Current Subjective/complaints:: Patient reports a clicking in the left knee while on stationary bike. *Precautions: 20# weight limit (R) UE Pain Assessment - Pain Description Pain Location: back, left knee Current Pain Intensity: mod back pain, mild left knee - Treatment Modality: Ultrasound Parameters/Method Applied: [id number] at 1.5w/cm2 to the left knee joint prior to EX. Patient in supine. Patient Position: Supine Interventions - Exercise/Activities/Manual Therapy Exercises/Activities: Stationary bike 9mins. Assisted stretching of bilateral hamstrings, SKTC, piriformis. Elliptical x3mins. Cable pulleys: scap retraction 30# 3s/10reps, back walking 50# 15reps, lateral side-stepping 50# 15reps each side. Push/pull cart 50# on cart, 20', 10reps total. Leg press 105 # 4s/10reps. Total minutes of Exercise: 42mins Manual Therapy: NA HOME EXERCISE PROGRAM: HS, SKTC, and piriformis stretch. SLR and bridging - Charges Timed Code Treatment Minutes: 54mins Total Treatment Time: 54mins Procedures billed for this date of service:: US, EX3 Assessment: Progressing with conditioning activities. Patient demonstrates compliance with HEP?: Yes Short Term Goals Goal #1: Pt to tolerate 45 mins of consistent conditioning activities in the depart. Goal to be met by: 03/31/18 Progress towards Goal:: Progressing Goal #2: Left knee pain less than 4/10 with standing and walking activities. Goal to be met by: 03/31/18 Goal #3: Trunk strength improved to 4+/5. Goal to be met by: 03/31/18 Progress towards Goal:: Partially Met Goal #4: Pt to demonstrate understanding of postural awareness & body mechanics. Goal to be met by: 03/31/18 Progress towards Goal:: Partially Met Custodial Goals Goal #1: Pt knows HEP and to continue ex's to maintain functional level at D/C. Goal to be met by: 04/19/18 Progress towards goal: Partially Met Goal #2: Score on Oswestry LBP scale improved to 22. Goal to be met by: 04/19/18 Progress towards goal: Progressing Goal #3: Tolerate prolonged sit, stand,& amb. to perform ADL's w/ min knee/back pain Goal to be met by: 04/19/18 (updated goal) Progress towards goal: Partially Met (Performing more ADL's at home, but continues to have back pain that limits ability.) Goal #4: Lumbar AROM WFL's to perform all selfcare and ADL's w/o pain or difficulty. Goal to be met by: 04/19/18 (updated goal) Progress towards goal: Progressing Plan Dates of Custodial Goals: 04/19/18 Expiration date of current Insurance Approval:: 04/19/18 PLAN: Progress conditioning activities to increase patients functional activity level.
--- NOTE | 2018-03-17 11:25 | RS.OTDNOTE ---
Subjective Date of Note: 03/17/18 Visit #: 29 Number of visits approved by Insurance: [phone] Date of Evaluation: 05/04/17 Payer Source: Workman's Comp Treatment Diagnosis: Pain of left upper arm M79.622, M79.642 pain in Left hand digits *Precautions: 20# weight limit (R) UE Current Complaints/Gains: Pt continues stating he feels his strength getting better. states he and his have noticied decreased winging in his scapula. States pain continues along scapula blade. Pain Assessment - Pain Description Pain Location: Posterior ribs are tender to palpate. Pain continues in left UE ulnar aspect of arm that runs to digits in the PIP to the DIP joints. Pt reports pain in the left posterior Serratus posterior superior muscle. Pt has tenderness to palpation. Pt has his arm feels like it is going to sleep with full elbow flexion. Pt has pain in his head behind the left eye all of the time. Pt has neck, shoulder, and back pain today. Pt has shoulder pain of 5/10 , Neck pain 7/10, back pain 7/10, and knee pain. Pt reports "tightness and pulling" in his left UE Pain Description: acute, aches, sharp Modalities - Hot Pack/Cryotherapy Treatment: Hot Pack Comments:: HP prior to TE Interventions - Exercise/Activities Exercise/Activities/Manual Therapy: Sitting-scapular pinches holding 5 seconds each rep x 20 reps/20# (B) shoulder retraction, pull-downs, and chess press, IR/ ER and shoulder adduction at multi-gym. Sitting PROM/gentle stretching progressed to black thera-band shoulder flexion/scaption, IR/ER and extension along with standing RTC series ex, 20/2 each with 15# renetta bar weight. Continued HEP instruction including B UE's/ shoulder. HOME EXERCISE PROGRAM: AROM all shoulder planes with added resist as tolerated - Objective Findings Objective Findings:: Winging of left scapula, tender points in serratus, posterior inferior muscle, subscapularis, intercostal tender points. Pt is anteriorly rotated in Left shoulder. Muscles of left scapula have atrophied specifically bottom tip of scapula area. Pt reports the nerve pain is improving in the digits of the left UE. Mass hoop expander has improved. - Charges Timed Code Treatment Minutes: 49 Total Treatment Time: 61 Procedures billed for this date of service:: EX3 HP Assessment Patient Education: Education of diagnosis, Body/Joint mechanics, Home Exercise Program, Home Safety, Activity Modification, Education of Plan of Care Patient demonstrates compliance with HEP?: Yes Short Term Goals Goal #1: Pt LUE pain to decrease to 2/10. Goal to be met by: 03/12/18 Progress towards goal: Progressing Goal #2: Pt to increase LUE strength to 4+/5 Goal to be met by: 03/12/18 Progress towards goal: Met Goal #3: Pt to have Full AROM of Left scapula Goal to be met by: 03/12/18 Progress towards goal: Partially Met Comments: WNL Goal #4: Pt to be independent with Home exercise program. Goal to be met by: 03/12/18 Progress towards goal: Met Manufacturing Maintenance Mechanic Goals Goal #1: Pt to decrease pain to 0/10 Goal to be met by: 03/29/18 Progress towards goal: Progressing Goal #2: Pt to increase strength of LUE to 5/5. Goal to be met by: 03/29/18 Progress towards goal: Progressing Goal #3: Pt to increase AROM of LUE to be WFL. Goal to be met by: 03/29/18 Progress towards goal: Progressing Goal #4: Pt has symmetrical posture alignment of scapula's. Goal to be met by: 03/29/18 Progress towards goal: Progressing Plan Dates of Senior Care Goals: 03/29/18 Expiration date of current Insurance Approval:: 03/29/18 PLAN: Continue per POC to max functional UE AROM/strength.
--- NOTE | 2018-03-17 13:50 | RS.OPPTDN ---
Subjective Date of Note: 03/17/18 Visit #: 30 Number of visits approved by Insurance: 37 to date Date of Evaluation: 12/02/17 Payer Source: Workman's Comp Treatment Diagnosis: Low back pain Current Subjective/complaints:: Patient reports continued back pain. States he continues to try to perform as many daily activities as possible. Reports left knee pain is low today but has not done much walking (8:00am appointment). *Precautions: 20# weight limit (R) UE Pain Assessment - Pain Description Pain Location: Back, left knee Current Pain Intensity: back 6/10, left knee mild - Treatment Modality: Ultrasound Parameters/Method Applied: [id number] at 1.5w/cm2 to the left knee with focus on medial and lateral joint lines. Patient Position: Supine Interventions - Exercise/Activities/Manual Therapy Exercises/Activities: Assisted stretching of bilateral hamstrings, SKTC, piriformis, and LTR. Left SLR 3# and SLR/VMO 2#, 2s/10reps each. Red theraband for resisted hip add and abd with knee fully extended, 2s/10reps each side. Elliptical x3mins. Cable pulleys: scap retraction 30# 3s/10reps, back walking 50 # 15reps, lateral side-stepping 50# 15reps each side. 25# box lift, 15reps. Leg press 105# 4s/10reps. Total minutes of Exercise: 43mins Manual Therapy: NA HOME EXERCISE PROGRAM: HS, SKTC, and piriformis stretch. SLR and bridging - Charges Timed Code Treatment Minutes: 53mins Total Treatment Time: 53mins Procedures billed for this date of service:: US, EX3 Assessment: Patient progressing with strengthening activity but continues to have pain that limits him. He also continues to try to increase his functional activity level. Short Term Goals Goal #1: Pt to tolerate 45 mins of consistent conditioning activities in the depart. Goal to be met by: 03/31/18 Progress towards Goal:: Progressing Goal #2: Left knee pain less than 4/10 with standing and walking activities. Goal to be met by: 03/31/18 Goal #3: Trunk strength improved to 4+/5. Goal to be met by: 03/31/18 Progress towards Goal:: Partially Met Goal #4: Pt to demonstrate understanding of postural awareness & body mechanics. Goal to be met by: 03/31/18 Progress towards Goal:: Partially Met Platform Builder Goals Goal #1: Pt knows HEP and to continue ex's to maintain functional level at D/C. Goal to be met by: 04/19/18 Progress towards goal: Partially Met Goal #2: Score on Oswestry LBP scale improved to 22. Goal to be met by: 04/19/18 Progress towards goal: Progressing Goal #3: Tolerate prolonged sit, stand,& amb. to perform ADL's w/ min knee/back pain Goal to be met by: 04/19/18 (updated goal) Progress towards goal: Partially Met (Performing more ADL's at home, but continues to have back pain that limits ability.) Goal #4: Lumbar AROM WFL's to perform all selfcare and ADL's w/o pain or difficulty. Goal to be met by: 04/19/18 (updated goal) Progress towards goal: Progressing Plan Dates of Shelter Goals: 04/19/18 Expiration date of current Insurance Approval:: 04/19/18 PLAN: Progress with strengthening to work toward PLOF.
--- NOTE | 2018-03-18 09:28 | RS.OTCNOTE ---
OT Case Note Date of Note: 03/18/18 Title: Tx withheld Note: Pt with increased c/o pain stating he took his loritab medicine yesterday and utilized muscle rub on his neck and back. Pt agreed to have a day of rest today and resume with HEP and therapy next week. Number of visits approved by Insurance: [phone] Expiration date of current Insurance Approval:: ..
--- NOTE | 2018-03-18 14:33 | RS.OPPTDN ---
Subjective Date of Note: 03/18/18 Visit #: 31 Number of visits approved by Insurance: 37 to date Date of Evaluation: 12/02/17 Payer Source: Workman's Comp Treatment Diagnosis: Low back pain Current Subjective/complaints:: Patient reports increased back and shoulder pain today. States it may be due to weather and increase in upper body strengthening in Occupational therapy yesterday. *Precautions: 20# weight limit (R) UE Pain Assessment - Pain Description Pain Location: Back, left knee Pain Description: Aching Current Pain Intensity: back 6-7/10, left knee 3-4/10 following PT Other Comments regarding Pain:: States back, left knee both ache. State left shoulder/scapular region is bothering him as well. - Treatment Modality: Ultrasound Parameters/Method Applied: [id number] at 1.5w/cm2 to the left knee joint prior to EX. pateint in supine. Patient Position: Supine Interventions - Exercise/Activities/Manual Therapy Exercises/Activities: Assisted stretching of bilateral hamstrings, SKTC, piriformis, and LTR. Left SLR 3# and SLR/VMO 2#, 2s/10reps each. Red theraband for resisted hip add and abd with knee fully extended, 2s/10reps each side. Elliptical x3mins. 25# box carry, 25' x8reps. Push/pull cart with 50#, 20' x8reps. Leg press 105# 4s/10reps. Total minutes of Exercise: 44mins Manual Therapy: NA HOME EXERCISE PROGRAM: HS, SKTC, and piriformis stretch. SLR and bridging - Charges Timed Code Treatment Minutes: 54mins Total Treatment Time: 54mins Procedures billed for this date of service:: US, EX3 Assessment: Patient continues work on conditioning, but is limited due to back and left knee pain. Short Term Goals Goal #1: Pt to tolerate 45 mins of consistent conditioning activities in the depart. Goal to be met by: 03/31/18 Progress towards Goal:: Partially Met (Consistently performs 35 to 40mins) Goal #2: Left knee pain less than 4/10 with standing and walking activities. Goal to be met by: 03/31/18 Progress towards Goal:: Not Met Goal #3: Trunk strength improved to 4+/5. Goal to be met by: 03/31/18 Progress towards Goal:: Partially Met Goal #4: Pt to demonstrate understanding of postural awareness & body mechanics. Goal to be met by: 03/31/18 Progress towards Goal:: Partially Met Occupational Therapist Assistant Goals Goal #1: Pt knows HEP and to continue ex's to maintain functional level at D/C. Goal to be met by: 04/19/18 Progress towards goal: Partially Met Goal #2: Score on Oswestry LBP scale improved to 22. Goal to be met by: 04/19/18 Progress towards goal: Progressing Goal #3: Tolerate prolonged sit, stand,& amb. to perform ADL's w/ min knee/back pain Goal to be met by: 04/19/18 (updated goal) Progress towards goal: Partially Met (Performing more ADL's at home, but continues to have back pain that limits ability.) Goal #4: Lumbar AROM WFL's to perform all selfcare and ADL's w/o pain or difficulty. Goal to be met by: 04/19/18 (updated goal) Progress towards goal: Progressing Plan Dates of Occupational Therapist Assistant Goals: 04/19/18 Expiration date of current Insurance Approval:: 04/19/18 PLAN: Continue modalities to the left knee and progressive strengthening and conditioning in attempt to return patient to PLOF.
--- NOTE | 2018-03-22 12:08 | RS.OPPTDN ---
Subjective Date of Note: 03/22/18 Visit #: 32 Number of visits approved by Insurance: 37 to date Date of Evaluation: 12/02/17 Payer Source: Workman's Comp Treatment Diagnosis: Low back pain Current Subjective/complaints:: Patient reports increased back pain today. States he bent forward to put on his socks and shoes and felt a pull in his left LB. States he is having difficulty getting up and down from sitting, and difficulty positioning in bed. *Precautions: 20# weight limit (R) UE Pain Assessment - Pain Description Pain Location: Lowback, left knee Pain Description: Sharp, Aching Current Pain Intensity: LB, mod with rest Worst Pain Intensity: LB, 10/10 with movement Other Comments regarding Pain:: Reports pain in LB left > right. Mild discomfort left knee. - Treatment Modality: Ultrasound Parameters/Method Applied: [id number] at 1.5w/cm2 to the left knee prior to EX. Patient Position: Supine - Treatment Modality: US with ES (Comb.) Parameters/Method Applied: [id number] total. 8mins to each lower lumbar paraspinals and upper S-I joints with US at 1.5w/cm2 and Estim to 8p.v. prior to EX. Patient Position: Right Sidelying Interventions - Exercise/Activities/Manual Therapy Exercises/Activities: Assisted stretching of bilateral hamstrings, SKTC, piriformis, and LTR. Also heel cord stretching. Discussion of safe body mechanics with ADL's at home. Patient advised to rest over the next 2 days and we will attempt to resume strengthening exercise. Total minutes of Exercise: 13mins Manual Therapy: NA HOME EXERCISE PROGRAM: HS, SKTC, and piriformis stretch. SLR and bridging - Objective Findings Observations,measurements,etc.: Patient demos an increase in forward flexed posture upon starting therapy this morning. Demos improved posture following modalities and assisted stretching. - Charges Timed Code Treatment Minutes: 39mins Total Treatment Time: 41mins Procedures billed for this date of service:: US, USCOM, EX Assessment: Used modalities today in attempt to reduce back pain. Will resume strengthening next session as tolerated. Patient Education: Activity Modification Comments: Patient education of safe body mechanics, rest, and gentle stretching only over the next few days. Short Term Goals Goal #1: Pt to tolerate 45 mins of consistent conditioning activities in the depart. Goal to be met by: 03/31/18 Progress towards Goal:: Partially Met (Consistently performs 35 to 40mins) Goal #2: Left knee pain less than 4/10 with standing and walking activities. Goal to be met by: 03/31/18 Progress towards Goal:: Not Met Goal #3: Trunk strength improved to 4+/5. Goal to be met by: 03/31/18 Progress towards Goal:: Partially Met Goal #4: Pt to demonstrate understanding of postural awareness & body mechanics. Goal to be met by: 03/31/18 Progress towards Goal:: Partially Met Portfolio Consultant Goals Goal #1: Pt knows HEP and to continue ex's to maintain functional level at D/C. Goal to be met by: 04/19/18 Progress towards goal: Partially Met Goal #2: Score on Oswestry LBP scale improved to 22. Goal to be met by: 04/19/18 Progress towards goal: Progressing Goal #3: Tolerate prolonged sit, stand,& amb. to perform ADL's w/ min knee/back pain Goal to be met by: 04/19/18 (updated goal) Progress towards goal: Partially Met (Performing more ADL's at home, but continues to have back pain that limits ability.) Goal #4: Lumbar AROM WFL's to perform all selfcare and ADL's w/o pain or difficulty. Goal to be met by: 04/19/18 (updated goal) Progress towards goal: Progressing Plan Dates of Mcfp Goals: 04/19/18 Expiration date of current Insurance Approval:: 04/19/18 PLAN: Resume strengthening and conditioning activities next visit as tolerated.
--- NOTE | 2018-03-22 13:10 | RS.OTDNOTE ---
Subjective Date of Note: 03/22/18 Visit #: 30 Number of visits approved by Insurance: 35 Date of Evaluation: 05/04/17 Payer Source: Workman's Comp Treatment Diagnosis: Pain of left upper arm M79.622, M79.642 pain in Left hand digits *Precautions: 20# weight limit (R) UE Current Complaints/Gains: Pt with increased c/o pain in side, scapula, and back. States he felt a "shift" in his back while donning socks over the wknd. Pain Assessment - Pain Description Pain Description: Tightness Pain Location: Posterior ribs are tender to palpate. Pain continues in left UE ulnar aspect of arm that runs to digits in the PIP to the DIP joints. Pt reports pain in the left posterior Serratus posterior superior muscle. Pt has tenderness to palpation. Pt has his arm feels like it is going to sleep with full elbow flexion. Pt has pain in his head behind the left eye all of the time. Pt has neck, shoulder, and back pain today. Pt has shoulder pain of 5/10 , Neck pain 7/10, back pain 7/10, and knee pain. Pt reports "tightness and pulling" in his left UE Pain Description: acute, aches, sharp Modalities - Treatment Modality: Ultrasound Parameters/Method Applied: 1.5w/cm2 x 12 mins Treatment Area: scapula Patient Position: Sitting - Hot Pack/Cryotherapy Treatment: Hot Pack Comments:: HP x 15+ mins Interventions - Exercise/Activities Exercise/Activities/Manual Therapy: Manual therapy to shoulder/scapula with prolonged stretching also performed. Continued education for donning scapula retraction brace(0 compliance). Unity bar and red t-band TE only 2* increased c/o pain. HOME EXERCISE PROGRAM: AROM all shoulder planes with added resist as tolerated - Objective Findings Objective Findings:: Winging of left scapula, tender points in serratus, posterior inferior muscle, subscapularis, intercostal tender points. Pt is anteriorly rotated in Left shoulder. Muscles of left scapula have atrophied specifically bottom tip of scapula area. Pt reports the nerve pain is improving in the digits of the left UE. Mass flight tower dispatcher has improved. - Charges Timed Code Treatment Minutes: 48 Total Treatment Time: 62 Procedures billed for this date of service:: HP US MT EX Assessment Patient Education: Education of diagnosis, Body/Joint mechanics, Home Exercise Program, Home Safety, Activity Modification, Education of Plan of Care Patient demonstrates compliance with HEP?: Yes Short Term Goals Goal #1: Pt LUE pain to decrease to 2/10. Goal to be met by: 03/12/18 Progress towards goal: Progressing Goal #2: Pt to increase LUE strength to 4+/5 Goal to be met by: 03/12/18 Progress towards goal: Met Goal #3: Pt to have Full AROM of Left scapula Goal to be met by: 03/12/18 Progress towards goal: Partially Met Goal #4: Pt to be independent with Home exercise program. Goal to be met by: 03/12/18 Progress towards goal: Met Body Service Team Member Goals Goal #1: Pt to decrease pain to 0/10 Goal to be met by: 03/29/18 Progress towards goal: Progressing Goal #2: Pt to increase strength of LUE to 5/5. Goal to be met by: 03/29/18 Progress towards goal: Progressing Goal #3: Pt to increase AROM of LUE to be WFL. Goal to be met by: 03/29/18 Progress towards goal: Progressing Goal #4: Pt has symmetrical posture alignment of scapula's. Goal to be met by: 03/29/18 Progress towards goal: Progressing Plan Dates of Jail Goals: 03/29/18 Expiration date of current Insurance Approval:: 03/29/18 PLAN: Continue per POC to max functional UE AROM/decreased c/o pain.
--- NOTE | 2018-03-26 10:46 | RS.OTDNOTE ---
Subjective Date of Note: 03/26/18 Visit #: 30 Number of visits approved by Insurance: 35 Date of Evaluation: 05/04/17 Payer Source: Workman's Comp Treatment Diagnosis: Pain of left upper arm M79.622, M79.642 pain in Left hand digits *Precautions: 20# weight limit (R) UE Current Complaints/Gains: Pt with increased scapula pain this date. States he feels it is harder to take a deep breath in. States some pain relief following tx. States he feels "more crooked" today also. Pain Assessment - Pain Description Pain Description: Tightness Pain Location: Posterior ribs are tender to palpate. Pain continues in left UE ulnar aspect of arm that runs to digits in the PIP to the DIP joints. Pt reports pain in the left posterior Serratus posterior superior muscle. Pt has tenderness to palpation. Pt has his arm feels like it is going to sleep with full elbow flexion. Pt has pain in his head behind the left eye all of the time. Pt has neck, shoulder, and back pain today. Pt has shoulder pain of 5/10 , Neck pain 7/10, back pain 7/10, and knee pain. Pt reports "tightness and pulling" in his left UE Pain Description: acute, aches, sharp Current Pain Intensity: 5 Worst Pain Intensity: 9 Modalities - Treatment Modality: Ultrasound Parameters/Method Applied: 1.5w/cm2 x 12 mins along scapula and trapezius Patient Position: Sitting - Hot Pack/Cryotherapy Treatment: Hot Pack, Cryotherapy Interventions - Exercise/Activities Exercise/Activities/Manual Therapy: Manual therapy to shoulder/scapula/ trapezius with prolonged stretching also performed. Prone ball laying during shoulder abduction, 5/2. Continued education for donning scapula retraction brace(0 compliance) and use of CP. HOME EXERCISE PROGRAM: AROM all shoulder planes with added resist as tolerated - Objective Findings Objective Findings:: Winging of left scapula, tender points in serratus, posterior inferior muscle, subscapularis, intercostal tender points. Pt is anteriorly rotated in Left shoulder. Muscles of left scapula have atrophied specifically bottom tip of scapula area. Pt reports the nerve pain is improving in the digits of the left UE. Mass audiologist has improved. - Charges Timed Code Treatment Minutes: 51 Total Treatment Time: 62 Procedures billed for this date of service:: CP MT2 Assessment Patient Education: Education of diagnosis, Body/Joint mechanics, Home Exercise Program, Home Safety, Activity Modification, Education of Plan of Care Patient demonstrates compliance with HEP?: Yes Short Term Goals Goal #1: Pt LUE pain to decrease to 2/10. Goal to be met by: 03/12/18 Progress towards goal: Regressing Goal #2: Pt to increase LUE strength to 4+/5 Goal to be met by: 03/12/18 Progress towards goal: Met Goal #3: Pt to have Full AROM of Left scapula Goal to be met by: 03/12/18 Progress towards goal: Partially Met Goal #4: Pt to be independent with Home exercise program. Goal to be met by: 03/12/18 Progress towards goal: Met Topology Teacher Goals Goal #1: Pt to decrease pain to 0/10 Goal to be met by: 03/29/18 Progress towards goal: Progressing Goal #2: Pt to increase strength of LUE to 5/5. Goal to be met by: 03/29/18 Progress towards goal: Progressing Goal #3: Pt to increase AROM of LUE to be WFL. Goal to be met by: 03/29/18 Progress towards goal: Progressing Goal #4: Pt has symmetrical posture alignment of scapula's. Goal to be met by: 03/29/18 Progress towards goal: Progressing Plan Dates of Long-Term Goals: 03/29/18 Expiration date of current Insurance Approval:: 03/29/18 PLAN: Continue per POC to max fx UE AROM and strength
--- NOTE | 2018-03-26 13:20 | RS.OPPTDN ---
Subjective Date of Note: 03/26/18 Visit #: 33 Number of visits approved by Insurance: 37 to date Date of Evaluation: 12/02/17 Payer Source: Workman's Comp Treatment Diagnosis: Low back pain Current Subjective/complaints:: Patient reports continued elevated back pain. States the only thing he has done differently in the last week was riding to [place], [place] to go with his son for a surgical procedure. He reports approx a [address]. *Precautions: 20# weight limit (R) UE Pain Assessment - Pain Description Pain Location: Back, left knee Current Pain Intensity: 2-3/10 at rest, 8/10 with movement Other Comments regarding Pain:: Reports left knee pain continues to be mild, but he has not been on his feet much today. - Treatment Modality: US with ES (Comb.) Parameters/Method Applied: [id number] to the bilateral lumbar paraspinals with US at 1.5w/cm2 and Estim 11-12 p.v. Patient Position: Right Sidelying Interventions - Exercise/Activities/Manual Therapy Exercises/Activities: Assisted stretching of bilateral hamstrings, SKTC, piriformis, and LTR. Also heel cord stretching. Isometric hip add. Isometric hip flexion. SLR increased lumbar discomfort. Total minutes of Exercise: 15mins Manual Therapy: NA HOME EXERCISE PROGRAM: HS, SKTC, and piriformis stretch. SLR and bridging - Charges Timed Code Treatment Minutes: 29mins Total Treatment Time: 32mins Procedures billed for this date of service:: USCOM, EX Assessment: Reduced treatment again today to modalities and gentle exercise in attempt to decrease pain. Patient reports improvment at end of session. The patient continue to try to to resume all daily activities, but has increased pain. Patient demonstrates compliance with HEP?: Yes Short Term Goals Goal #1: Pt to tolerate 45 mins of consistent conditioning activities in the depart. Goal to be met by: 03/31/18 Progress towards Goal:: Not Met Comments:: On hold today Goal #2: Left knee pain less than 4/10 with standing and walking activities. Goal to be met by: 03/31/18 Progress towards Goal:: Not Met Goal #3: Trunk strength improved to 4+/5. Goal to be met by: 03/31/18 Progress towards Goal:: Partially Met Goal #4: Pt to demonstrate understanding of postural awareness & body mechanics. Goal to be met by: 03/31/18 Progress towards Goal:: Partially Met Chcf Goals Goal #1: Pt knows HEP and to continue ex's to maintain functional level at D/C. Goal to be met by: 04/19/18 Progress towards goal: Partially Met Goal #2: Score on Oswestry LBP scale improved to 22. Goal to be met by: 04/19/18 Progress towards goal: Progressing Goal #3: Tolerate prolonged sit, stand,& amb. to perform ADL's w/ min knee/back pain Goal to be met by: 04/19/18 (updated goal) Progress towards goal: Partially Met (Performing more ADL's at home, but continues to have back pain that limits ability.) Goal #4: Lumbar AROM WFL's to perform all selfcare and ADL's w/o pain or difficulty. Goal to be met by: 04/19/18 (updated goal) Progress towards goal: Progressing Plan Dates of Hand Hardener Goals: 04/19/18 Expiration date of current Insurance Approval:: 04/19/18 PLAN: Resume strengthening and conditioning activities next session as tolerated.
--- NOTE | 2018-03-29 10:23 | RS.OTCXNS ---
OT Case Note Date of Scheduled Appointment: 03/29/18 Type: Cancel Reason for Cancel/NS: Cancelled by therapist 2* c/o pain/shift in back. Pt attended PT for estim and HP tx only. Pt encourged to go to ER or Orthopedic MD.
--- NOTE | 2018-03-29 11:00 | RS.OPPTDN ---
Subjective Date of Note: 03/29/18 Visit #: 34 Number of visits approved by Insurance: 37 to date Date of Evaluation: 12/02/17 Payer Source: Workman's Comp Treatment Diagnosis: Low back pain Current Subjective/complaints:: Mr. Day presents today with reports of signifiant increased back pain. States yesterday he got up out of his recliner and felt a "shift" in his back. Since then, he has had increased pain. He has used ice to his low back since yesterday. This morning, he thought it might be better, but as soon as he got up, the pain was back. States he has taken his pain medication and it is not helping. *Precautions: 20# weight limit (R) UE - Treatment Modality: Electrical Stim Unattended Parameters/Method Applied: 2 pads across low back at the level of pain, X 20 mins HVGS at 300 peak volts in left sidelying. - Heat/Cryotherapy Treatment: Hot Pack (with Estim) Interventions - Exercise/Activities/Manual Therapy Exercises/Activities: No exercises/stretching today due to patients increased pain and difficulty moving in department. Manual Therapy: NA HOME EXERCISE PROGRAM: HS, SKTC, and piriformis stretch. SLR and bridging - Objective Findings Observations,measurements,etc.: Pt ambulates with flexed forward posture, with slow, cautious gait. Demonstrates minimal clearance of the right foot. In standing, he demonstrates left trunk shift, along with flexed posture. Patient appeared to nearly fall due to the right LE giving way as he was walking back to a treatment room. He grabbed a table close by to stop his fall. He demonstrated difficulty laying down and treatment table. Head of bed brought up to him and assisted him to his left side. - Charges Timed Code Treatment Minutes: 0 Total Treatment Time: 20 mins Procedures billed for this date of service:: Hp, Estim(Un) Assessment: Mr. Day presents today with reports of significant increased pain. He demonstrates a guarded, slow gait today and flexed forward posture. We did only treatment of modalities to help reduce his pain. Recommended to patient if his pain was bad enough to go to the ER or possibly the Walk-in clinic at the [facility]. Short Term Goals Goal #1: Pt to tolerate 45 mins of consistent conditioning activities in the depart. Goal to be met by: 03/31/18 Progress towards Goal:: Not Met Goal #2: Left knee pain less than 4/10 with standing and walking activities. Goal to be met by: 03/31/18 Progress towards Goal:: Not Met Goal #3: Trunk strength improved to 4+/5. Goal to be met by: 03/31/18 Progress towards Goal:: Partially Met Goal #4: Pt to demonstrate understanding of postural awareness & body mechanics. Goal to be met by: 03/31/18 Progress towards Goal:: Partially Met Fpc Goals Goal #1: Pt knows HEP and to continue ex's to maintain functional level at D/C. Goal to be met by: 04/19/18 Progress towards goal: Partially Met Goal #2: Score on Oswestry LBP scale improved to 22. Goal to be met by: 04/19/18 Progress towards goal: Progressing Goal #3: Tolerate prolonged sit, stand,& amb. to perform ADL's w/ min knee/back pain Goal to be met by: 04/19/18 (updated goal) Progress towards goal: Partially Met (Performing more ADL's at home, but continues to have back pain that limits ability.) Goal #4: Lumbar AROM WFL's to perform all selfcare and ADL's w/o pain or difficulty. Goal to be met by: 04/19/18 (updated goal) Progress towards goal: Progressing Plan Dates of High School Music Instructor Goals: 04/19/18 Expiration date of current Insurance Approval:: 04/19/18 PLAN: Resume exercises and activities if low back pain is better on next visit.
--- NOTE | 2018-04-05 11:54 | RS.OTDNOTE ---
Subjective Date of Note: 04/05/18 Visit #: 32 Number of visits approved by Insurance: [phone] Date of Evaluation: 05/04/17 Payer Source: Workman's Comp Treatment Diagnosis: Pain of left upper arm M79.622, M79.642 pain in Left hand digits *Precautions: 20# weight limit (R) UE Current Complaints/Gains: Lawrence states he has been going to a Chiropractor and does feel 95% better in his back. States and demo some difficulty with sit to stands. States "knots" in his back. Pain Assessment - Pain Description Pain Description: Tightness Pain Location: Posterior ribs are tender to palpate. Pain continues in left UE ulnar aspect of arm that runs to digits in the PIP to the DIP joints. Pt reports pain in the left posterior Serratus posterior superior muscle. Pt has tenderness to palpation. Pt has his arm feels like it is going to sleep with full elbow flexion. Pt has pain in his head behind the left eye all of the time. Pt has neck, shoulder, and back pain today. Pt has shoulder pain of 5/10 , Neck pain 7/10, back pain 7/10, and knee pain. Pt reports "tightness and pulling" in his left UE Pain Description: acute, aches, sharp Modalities - Treatment Modality: Ultrasound Parameters/Method Applied: 1.5w/cm2 x 12 mins to scapula/trapezius muscles. Patient Position: Sitting - Hot Pack/Cryotherapy Treatment: Hot Pack, Cryotherapy Interventions - Exercise/Activities Exercise/Activities/Manual Therapy: Manual therapy to shoulder/scapula/ trapezius with prolonged stretching also performed. Isometric ex's completed 10/ 2 of shoulder flexion, extension, and IR/ER at the wall with continued education for HEP and donning scapula retraction brace(0 compliance) and use of CP. HOME EXERCISE PROGRAM: AROM all shoulder planes with added resist as tolerated - Objective Findings Objective Findings:: Winging of left scapula, tender points in serratus, posterior inferior muscle, subscapularis, intercostal tender points. Pt is anteriorly rotated in Left shoulder. Muscles of left scapula have atrophied specifically bottom tip of scapula area. Pt reports the nerve pain is improving in the digits of the left UE. Mass cold strip roller has improved. - Charges Timed Code Treatment Minutes: 48 Total Treatment Time: 68 Procedures billed for this date of service:: [facility] MT2 Assessment Patient Education: Education of diagnosis, Body/Joint mechanics, Home Exercise Program, Home Safety, Activity Modification, Education of Plan of Care Patient demonstrates compliance with HEP?: Yes Short Term Goals Goal #1: Pt LUE pain to decrease to 2/10. Goal to be met by: 03/12/18 Progress towards goal: Progressing Goal #2: Pt to increase LUE strength to 4+/5 Goal to be met by: 03/12/18 Progress towards goal: Met Goal #3: Pt to have Full AROM of Left scapula Goal to be met by: 03/12/18 (met following tx) Progress towards goal: Partially Met Goal #4: Pt to be independent with Home exercise program. Goal to be met by: 03/12/18 Progress towards goal: Met Carton Repairer Goals Goal #1: Pt to decrease pain to 0/10 Goal to be met by: 04/09/18 Progress towards goal: Progressing Goal #2: Pt to increase strength of LUE to 5/5. Goal to be met by: 04/09/18 Progress towards goal: Progressing Goal #3: Pt to increase AROM of LUE to be WFL. Goal to be met by: 04/09/18 Progress towards goal: Progressing Goal #4: Pt has symmetrical posture alignment of scapula's. Goal to be met by: 04/09/18 Progress towards goal: Progressing Plan Dates of Carton Repairer Goals: 04/09/18 Expiration date of current Insurance Approval:: 04/09/18 PLAN: Cont per POC to max functional UE AROM/strength. Pt's goal dates moved out by OTR to April 09. Comments: 3 visits remain on current order.
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
--- NOTE | 2018-04-05 16:18 | RS.OPPTDN ---
Subjective Date of Note: 04/05/18 Visit #: 35 Number of visits approved by Insurance: 37 to date Date of Evaluation: 12/02/17 Payer Source: Workman's Comp Treatment Diagnosis: Low back pain Current Subjective/complaints:: Patient reports he continues to be in a high amount of back pain since flair-up last week. Reports feeling better following modalities and exercise, including MET. *Precautions: 20# weight limit (R) UE Pain Assessment - Pain Description Pain Location: lowback, left knee Current Pain Intensity: 8-10/10 lowback Other Comments regarding Pain:: Reports back pain has been much worse at time. - Treatment Modality: US with ES (Comb.) Parameters/Method Applied: [id number] to the bilateral lumbar parspinals with US at 1.5w/cm2 and Estim to 10-11 p.v. prior to EX. Patient Position: Left Sidelying - Heat/Cryotherapy Treatment: Hot Pack ([id number] to lowback prior to USCOM. Patient in sitting. ) Interventions - Exercise/Activities/Manual Therapy Exercises/Activities: Resumed stretching of bilateral hamstrings, SKTC, piriformis, and LTR. Isometric hip flexion on left and isometric hip ext on right for MET. Pelvic tilts. Modified bridging. Total minutes of Exercise: 14mins Manual Therapy: NA HOME EXERCISE PROGRAM: HS, SKTC, and piriformis stretch. SLR and bridging - Objective Findings Observations,measurements,etc.: Patient with right S-I discomfort and left LE longer in length by approx 1/4". This is resolved with MET. - Charges Timed Code Treatment Minutes: 26mins Total Treatment Time: 46mins Procedures billed for this date of service:: HP, USCOM, EX Assessment: Patient able to work on MET and pelvic stability exercises. Short Term Goals Goal #1: Pt to tolerate 45 mins of consistent conditioning activities in the depart. Goal to be met by: 03/31/18 Progress towards Goal:: Not Met Goal #2: Left knee pain less than 4/10 with standing and walking activities. Goal to be met by: 03/31/18 Progress towards Goal:: Not Met Goal #3: Trunk strength improved to 4+/5. Goal to be met by: 03/31/18 Progress towards Goal:: Partially Met Goal #4: Pt to demonstrate understanding of postural awareness & body mechanics. 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 Goal to be met by: 04/19/18 Progress towards goal: Partially Met Goal #2: Score on Oswestry LBP scale improved to 22. Goal to be met by: 04/19/18 Progress towards goal: Progressing Goal #3: Tolerate prolonged sit, stand,& amb. to perform ADL's w/ min knee/back pain Goal to be met by: 04/19/18 (updated goal) Progress towards goal: Partially Met (Performing more ADL's at home, but continues to have back pain that limits ability.) Goal #4: Lumbar AROM WFL's to perform all selfcare and ADL's w/o pain or difficulty. Goal to be met by: 04/19/18 (updated goal) Progress towards goal: Progressing Plan Dates of Reinforcing Steel Worker Goals: 04/19/18 Expiration date of current Insurance Approval:: 04/19/18 PLAN: Continue modalities and pelvic stability and alignment as tolerated.
== END 2018-04-08 23:59 ==
PROVIDERS: ATTEND Orthopaedic Surgery
DX: M79.602 Pain in left arm (principal); M25.562 Pain in left knee

== ENCOUNTER 2018-05-07 08:00 | Outpatient (RCR) ==
--- NOTE | 2018-04-09 10:41 | RS.OTDNOTE ---
Subjective Date of Note: 04/09/18 Visit #: 33 Number of visits approved by Insurance: [phone] Date of Evaluation: 05/04/17 Payer Source: Workman's Comp Treatment Diagnosis: Pain of left upper arm M79.622, M79.642 pain in Left hand digits *Precautions: 20# weight limit (R) UE Current Complaints/Gains: Pt states that he is continuing his chirpractor visits. States time off from therapy, he feels he looses strength. States he returns to MD's next wk. States good compliance with door frame stretches and B UE PROM while in reclined position. Pain Assessment - Pain Description Pain Location: Posterior ribs are tender to palpate. Pain continues in left UE ulnar aspect of arm that runs to digits in the PIP to the DIP joints. Pt reports pain in the left posterior Serratus posterior superior muscle. Pt has tenderness to palpation. Pt has his arm feels like it is going to sleep with full elbow flexion. Pt has pain in his head behind the left eye all of the time. Pt has neck, shoulder, and back pain today. Pt has shoulder pain of 5/10 , Neck pain 7/10, back pain 7/10, and knee pain. Pt reports "tightness and pulling" in his left UE Pain Description: acute, aches, sharp Current Pain Intensity: 4 Worst Pain Intensity: 8 Modalities - Treatment Modality: Ultrasound Parameters/Method Applied: 1.5w/cm2 x 12 mins, scapula - Hot Pack/Cryotherapy Treatment: Hot Pack, Cryotherapy Interventions - Exercise/Activities Exercise/Activities/Manual Therapy: Manual therapy to shoulder/scapula/ trapezius with prolonged stretching also performed. Isometric ex's completed 10/ 2 of shoulder flexion, extension, IR/ER. Door frame stretches performed x3 with continued ed for HEP. 2# FF in standing RTC series of flexion, scaption, retraction, and extension performed 11/09. HOME EXERCISE PROGRAM: AROM all shoulder planes with added resist as tolerated - Other Treatment/Services Treatment Details: Pt continues with Chiropractor visits 2* increased back pain. - Objective Findings Objective Findings:: Winging of left scapula, tender points in serratus, posterior inferior muscle, subscapularis, intercostal tender points. Pt is anteriorly rotated in Left shoulder. Muscles of left scapula have atrophied specifically bottom tip of scapula area. Pt reports the nerve pain is improving in the digits of the left UE. 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 - Charges Timed Code Treatment Minutes: 48 Total Treatment Time: 61 Procedures billed for this date of service:: HP US MT EX Assessment Patient Education: Education of diagnosis, Body/Joint mechanics, Home Exercise Program, Home Safety, Activity Modification, Education of Plan of Care Patient demonstrates compliance with HEP?: Yes Short Term Goals Goal #1: Pt LUE pain to decrease to 2/10. Goal to be met by: 04/06/18 Progress towards goal: Progressing Goal #2: Pt to increase LUE strength to 4+/5 Goal to be met by: 03/12/18 Progress towards goal: Met Goal #3: Pt to have Full AROM of Left scapula Goal to be met by: 04/06/18 (met following tx) Progress towards goal: Partially Met Goal #4: Pt to be independent with Home exercise program. Goal to be met by: 03/12/18 Progress towards goal: Met Halfway Goals Goal #1: Pt to decrease pain to 0/10 Goal to be met by: 04/09/18 Progress towards goal: Progressing Goal #2: Pt to increase strength of LUE to 5/5. Goal to be met by: 04/09/18 Progress towards goal: Progressing Goal #3: Pt to increase AROM of LUE to be WFL. Goal to be met by: 04/09/18 Progress towards goal: Progressing Goal #4: Pt has symmetrical posture alignment of scapula's. Goal to be met by: 04/09/18 Progress towards goal: Progressing Plan Dates of Reliner Goals: 04/09/18 Expiration date of current Insurance Approval:: 04/09/18 PLAN: OTR to reassess pt on next visit.
--- NOTE | 2018-04-09 16:40 | RS.OPPTDN ---
Subjective Date of Note: 04/09/18 Visit #: 36 Number of visits approved by Insurance: [phone] Date of Evaluation: 12/02/17 Payer Source: Workman's Comp Treatment Diagnosis: Low back pain Current Subjective/complaints:: Patient continues to report LBP. States he is trying to return to many of his ADL's but is unable to perform some and others are increasing his back pain. *Precautions: 20# weight limit (R) UE Pain Assessment - Pain Description Pain Location: lowback, S-I joints Current Pain Intensity: 8-9/10 with movement Other Comments regarding Pain:: Reports a decrease in pain with modalities and exercise. - Treatment Modality: US with ES (Comb.) Parameters/Method Applied: [id number] US at 1.5w/cm2 and Estim at 10p.v. to the lumbar paraspinals. Patient Position: Left Sidelying Interventions - Exercise/Activities/Manual Therapy Exercises/Activities: Resumed stretching of bilateral hamstrings, SKTC, piriformis, and LTR. Isometric hip flexion on left and isometric hip ext on right for MET. Pelvic tilts. Modified bridging. Isometric hip abd. Green theraband for resisted hip add and hip abd in hook-lying. Patient attempts SLR but is given assist due to back pain. Total minutes of Exercise: 25mins Manual Therapy: NA HOME EXERCISE PROGRAM: HS, SKTC, and piriformis stretch. SLR and bridging - Charges Timed Code Treatment Minutes: 39mins Total Treatment Time: 42mins Procedures billed for this date of service:: USCOM, EX2 Assessment: Patient continues to have back pain that is limiting his ability to perform daily ADL's as well as progress with reconditioning activities in the department. Short Term Goals Goal #1: Pt to tolerate 45 mins of consistent conditioning activities in the depart. Goal to be met by: 03/31/18 Progress towards Goal:: Not Met Goal #2: Left knee pain less than 4/10 with standing and walking activities. Goal to be met by: 03/31/18 Progress towards Goal:: Not Met Goal #3: Trunk strength improved to 4+/5. Goal to be met by: 03/31/18 Progress towards Goal:: Partially Met Goal #4: Pt to demonstrate understanding of postural awareness & body mechanics. Goal to be met by: 03/31/18 Progress towards Goal:: Partially Met Quill Collector Goals Goal #1: Pt knows HEP and to continue ex's to maintain functional level at D/C. Goal to be met by: 04/19/18 Progress towards goal: Partially Met Goal #2: Score on Oswestry LBP scale improved to 22. Goal to be met by: 04/19/18 Progress towards goal: Progressing Goal #3: Tolerate prolonged sit, stand,& amb. to perform ADL's w/ min knee/back pain Goal to be met by: 04/19/18 (updated goal) Progress towards goal: Partially Met (Performing more ADL's at home, but continues to have back pain that limits ability.) Goal #4: Lumbar AROM WFL's to perform all selfcare and ADL's w/o pain or difficulty. Goal to be met by: 04/19/18 (updated goal) Progress towards goal: Progressing Plan Dates of Quill Collector Goals: 04/19/18 Expiration date of current Insurance Approval:: 04/19/18 PLAN: Will see patient once next week in preparation for return to physician for follow-up.
--- NOTE | 2018-04-12 13:39 | RS.OPPTDN ---
Subjective Date of Note: 04/12/18 Visit #: 37 Number of visits approved by Insurance: [phone] Date of Evaluation: 12/02/17 Payer Source: Workman's Comp Treatment Diagnosis: Low back pain Current Subjective/complaints:: Patient reports he continues to have back and S- I region pain that is limiting his daily activities. States intensity of his pain has improved slightly since last week. *Precautions: 20# weight limit (R) UE Pain Assessment - Pain Description Pain Location: back, S-I joints Current Pain Intensity: 7-8/10 Other Comments regarding Pain:: Reports feeling better following modalities and exercise - Treatment Modality: US with ES (Comb.) Parameters/Method Applied: [id number] US at 1.5w/cm2 and Estim to 10-11p.v. to the bilateral lumbar paraspinals and S-I joints prior to EX. Patient Position: Left Sidelying Interventions - Exercise/Activities/Manual Therapy Exercises/Activities: Assisted stretching of bilateral hamstrings, SKTC, piriformis, and LTR. Isometric hip flexion on left and isometric hip ext on right for MET. Pelvic tilts and modified bridging. Isometric hip abd. SLR. MET of right hip extension, multiple reps, followed by left hip isometric flexion. Long axis distraction of the right LE. Resumed cable pulleys for lat side- stepping, and back walking, all directions 50# slow pace, 15reps. Scap retraction 30# 2s/10reps. Ended with elliptical machine 2 1/2 mins. Total minutes of Exercise: 32mins Manual Therapy: NA HOME EXERCISE PROGRAM: HS, SKTC, and piriformis stretch. SLR and bridging - Objective Findings Observations,measurements,etc.: Patient demos left LE longer than right by approx 1/4 to 1/2", resloved with MET and long axis distraction of the right LE. - Charges Timed Code Treatment Minutes: 46mins Total Treatment Time: 46mins Procedures billed for this date of service:: USCOM, EX2 Assessment: Patient slowly rebounding from painful flair-up he had week before last. He is resuming some strengthening activities, but his recurrent pain in the LB and S-I region is limiting his progress with returning to prior level of function. Patient Education: Home Exercise Program, Activity Modification Patient demonstrates compliance with HEP?: Yes Short Term Goals Goal #1: Pt to tolerate 45 mins of consistent conditioning activities in the depart. Goal to be met by: 03/31/18 Progress towards Goal:: Not Met Comments:: Had initially made progress but flair-ups of pain limit patient. Goal #2: Left knee pain less than 4/10 with standing and walking activities. Goal to be met by: 03/31/18 Progress towards Goal:: Not Met Goal #3: Trunk strength improved to 4+/5. Goal to be met by: 03/31/18 Progress towards Goal:: Partially Met Comments:: 4 to 4+/5 but not consistent due to pain Goal #4: Pt to demonstrate understanding of postural awareness & body mechanics. Goal to be met by: 03/31/18 Progress towards Goal:: Partially Met Comments:: Understands but unable to demo good posture due to pain. Mcfp Goals Goal #1: Pt knows HEP and to continue ex's to maintain functional level at D/C. Goal to be met by: 04/19/18 Progress towards goal: Partially Met Goal #2: Score on Oswestry LBP scale improved to 22. Goal to be met by: 04/19/18 Progress towards goal: No Change Comments: No change due to pain Goal #3: Tolerate prolonged sit, stand,& amb. to perform ADL's w/ min knee/back pain Goal to be met by: 04/19/18 (updated goal) Progress towards goal: Partially Met (Performing more ADL's at home, but continues to have back pain that limits ability.) Goal #4: Lumbar AROM WFL's to perform all selfcare and ADL's w/o pain or difficulty. Goal to be met by: 04/19/18 (updated goal) Progress towards goal: Progressing Plan Dates of Junior Account Executive Goals: 04/19/18 Expiration date of current Insurance Approval:: 04/19/18 PLAN: Patient has completed all orders and will return to physician for follow- up. Continued therapy may not be indicated at this time due to patient limitations because of pain. Hold at this time pending direction of physician.
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
--- NOTE | 2018-04-13 13:00 | RS.OTQKDC ---
OT Discharge Date of Discharge: 04/13/18 Number of Visits: 35 Reason for Discharge: Pt has made limited progress toward his goals. Occupational therapy progress note was completed on 04/12/18 and faxed to physician letting Dr. Smith that patient has not had much progress in the last few weeks. Pt continues to have increased LUE shoulder pain of 7-8/10, and 10/10 back pain.
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
--- NOTE | 2018-05-05 08:40 | RS.OTCNOTE ---
OT Case Note Date of Note: 05/05/18 Title: Doctors order to continue with OT Note: Doctor has written orders for continued therapy for UE. Physician feels patient would benefit from continued occupational therapy to work on strengthening, AROM and fine motor coordination to return patient to PLOF. Number of visits approved by Insurance: 12 Expiration date of current Insurance Approval:: 06/04/18
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
--- NOTE | 2018-05-05 14:30 | RS.OPPTDN ---
Subjective Date of Note: 05/05/18 Visit #: 39 Number of visits approved by Insurance: 49 to date Date of Evaluation: 12/02/17 Payer Source: Workman's Comp Treatment Diagnosis: Low back pain Current Subjective/complaints:: Patient reports back pain continues today. Agrees to continue strengthening and progress as tolerated. *Precautions: No over head lifting due to Long Thoracic Nerve Ingury Pain Assessment - Pain Description Pain Location: back, left knee Pain Description: Dull, Aching Current Pain Intensity: 6-7/10 back pain Interventions - Exercise/Activities/Manual Therapy Exercises/Activities: Assisted stretching of bilateral hamstrings, SKTC, piriformis, ITB, and LTR. Alt hip flexion with 3#. Then 3# wand for overhead flexion and alt hip flexion with 3#. Green theraband for hip abd and ham curls. Isometric hip add with ball, isometric hip flexion, and isometric LTR. Leg press increased to 150#, 3s/15reps. Elliptical 2s/3mins. Wall slides with large therapy ball, multiple reps. Discussion of home safety and HEP. Total minutes of Exercise: 53min Manual Therapy: NA HOME EXERCISE PROGRAM: HS, SKTC, and piriformis stretch. SLR and bridging - Charges Timed Code Treatment Minutes: 53mins Total Treatment Time: 53mins Procedures billed for this date of service:: EX4 Assessment: Patient continues to have back pain but is motivated to progress with strengthening. Patient Education: Body/Joint mechanics, Home Exercise Program Patient demonstrates compliance with HEP?: Yes Short Term Goals Goal #1: Pt to tolerate 45 mins of consistent conditioning activities in the depart. Goal to be met by: 05/24/18 (Revised date) Goal #2: Left knee pain less than 4/10 with standing and walking activities. Goal to be met by: 05/24/18 (Revised date) Goal #3: Trunk strength improved to 4+/5. Goal to be met by: 05/24/18 (Revised date) Goal #4: Left SLR in supine to 40 degrees. 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 Goal to be met by: 06/17/18 (Revised date) Goal #2: Score on Oswestry LBP scale improved to 32. Goal to be met by: 06/17/18 (Revised goal and date) Goal #3: Tolerate prolonged sit, stand,& amb. to perform ADL's w/ min knee/back pain Goal to be met by: 06/17/18 (Revised date) Goal #4: Lumbar AROM WFL's to perform all selfcare and ADL's w/ min. difficulty. Goal to be met by: 06/17/18 (Revised date and goal) Plan Dates of Nursing Home Goals: 06/17/18 Expiration date of current Insurance Approval:: 06/17/18 PLAN: Progress with strengthening and conditioning to increase patients functional activity level, working towards PLOF.
--- NOTE | 2018-05-07 13:08 | RS.OPPTDN ---
Subjective Date of Note: 05/07/18 Visit #: 40 Number of visits approved by Insurance: 49 approved to date Date of Evaluation: 12/02/17 Payer Source: Workman's Comp Treatment Diagnosis: Low back pain Current Subjective/complaints:: Patient reports he has had more back pain today and took pain medication prior to therapy. He states he feels slightly nauseated. Patient states he will do all activities with therapy, and reports no increase in back pain. *Precautions: No over head lifting due to Long Thoracic Nerve Ingury Pain Assessment - Pain Description Pain Location: lowback Current Pain Intensity: mod to high Interventions - Exercise/Activities/Manual Therapy Exercises/Activities: Assisted stretching of bilateral hamstrings, SKTC, piriformis, ITB, and LTR. Alt hip flexion with 3#. Green theraband for hip abd and ham curls. Isometric hip add with ball, isometric hip flexion, and isometric LTR. Leg press 150#, 3s/15reps. Elliptical 4mins. Cable pulleys for resisted backward walking 50# 15reps. Wall slides with large therapy ball, multiple reps. Total minutes of Exercise: 50mins Manual Therapy: NA HOME EXERCISE PROGRAM: HS, SKTC, and piriformis stretch. SLR and bridging - Charges Timed Code Treatment Minutes: 50mins Total Treatment Time: 50mins Procedures billed for this date of service:: EX3 Assessment: Patient with reports of increased pain but continues to participate with strengthening. Patient Education: Body/Joint mechanics, Home Exercise Program, Home Safety Patient demonstrates compliance with HEP?: Yes Short Term Goals Goal #1: Pt to tolerate 45 mins of consistent conditioning activities in the depart. Goal to be met by: 05/24/18 (Revised date) Goal #2: Left knee pain less than 4/10 with standing and walking activities. Goal to be met by: 05/24/18 (Revised date) Goal #3: Trunk strength improved to 4+/5. Goal to be met by: 05/24/18 (Revised date) Goal #4: Left SLR in supine to 40 degrees. Goal to be met by: 05/24/18 (New goal) [facility] Goals Goal #1: Pt knows HEP and to continue ex's to maintain functional level at D/C. Goal to be met by: 06/17/18 (Revised date) Goal #2: Score on Oswestry LBP scale improved to 32. Goal to be met by: 06/17/18 (Revised goal and date) Goal #3: Tolerate prolonged sit, stand,& amb. to perform ADL's w/ min knee/back pain Goal to be met by: 06/17/18 (Revised date) Goal #4: Lumbar AROM WFL's to perform all selfcare and ADL's w/ min. difficulty. Goal to be met by: 06/17/18 (Revised date and goal) Plan Dates of [facility] Goals: 06/17/18 Expiration date of current Insurance Approval:: 06/17/18 PLAN: Progress with strengthening.
--- NOTE | 2018-05-07 13:17 | RS.OTDNOTE ---
Subjective Date of Note: 05/07/18 Visit #: 37 Number of visits approved by Insurance: [phone] Date of Evaluation: 05/04/17 Payer Source: Workman's Comp Treatment Diagnosis: Adhesive capsulitis M75.02, Left RC tendinitis M75.102 *Precautions: No over head lifting due to Long Thoracic Nerve Ingury Current Complaints/Gains: Pt continues with c/o pain/tightness and numbness in digits 4-5. States he returns to ortho MD today and request shorter tx 2* MD appointment in [place]. Pain Assessment - Pain Description Pain Description: Sharp, Aching Pain Location: Posterior ribs are tender to palpate. Pt reports pain in the left posterior Serratus posterior superior muscle. Pt has tenderness to palpation. Pt has his arm feels like it is going to sleep with full elbow flexion and his hand goes numb after a few seconds. Pt has pain in his head behind the left eye all of the time. Pt has neck, shoulder, and back pain today. Pt reports "tightness and pulling" in his left UE Pain Description: acute, aches, sharp Current Pain Intensity: 3-4 Worst Pain Intensity: 8 Modalities - Treatment Modality: Ultrasound Parameters/Method Applied: 1.5w/cm2 x 12 mins to posterior/anterior shoulder and deltoids. Patient Position: Sitting - Hot Pack/Cryotherapy Treatment: Hot Pack Comments:: x15 mins prior to therapy Interventions - Exercise/Activities Exercise/Activities/Manual Therapy: Focus of tx on serratus muscle strengthening with no overhead PROM/AROM. Pt issued red t-band and worksheet with x 6 ex's. Pt instructed and performed in supine or seated positon of clock ex's(12, 3, 6, 9), scapular protraction/retraction, depression with holding x 10secs, wall push-ups's and horizontal adduction with red T-band. Pt performed x 15 reps/1. Manual therapy to posterior scapula also performed. HOME EXERCISE PROGRAM: Serratus strengthening ex's/handout - Objective Findings Objective Findings:: Winging of left scapula, tender points in serratus, posterior inferior muscle, subscapularis, intercostal tender points tender around the medial border of the left posterior scapula, pain in the tender point medial and posterior to the inferior angle of the left scapula. Pt is anteriorly rotated in Left shoulder. Muscles of left scapula have atrophied specifically bottom tip of scapula area and in the rhomboid area. Mass chief warden has improved. - Charges Timed Code Treatment Minutes: 41 Total Treatment Time: 50 Procedures billed for this date of service:: HP US EX Assessment Patient Education: Education of diagnosis, Body/Joint mechanics, Home Exercise Program, Home Safety, Activity Modification, Education of Plan of Care Patient demonstrates compliance with HEP?: Yes Short Term Goals Goal #1: Pt to increase strength of serratus to 4/5. Goal to be met by: 05/19/18 Progress towards goal: Progressing Goal #2: To increase Ext. Rot. AROM to 75. Goal to be met by: 05/19/18 Progress towards goal: Progressing Goal #3: Pt to have Full AROM of Left scapula Goal to be met by: 05/19/18 (met following tx) Progress towards goal: Progressing Goal #4: Pt to be independent with Home exercise program. Goal to be met by: 05/19/18 Progress towards goal: Progressing Emergency Department Nurse Goals Goal #1: Pt to increase strength of serratus to 4+/5. Goal to be met by: 06/04/18 Progress towards goal: Progressing Goal #2: Pt's LUE shoulder pain to decreast to 0-2. Goal to be met by: 06/04/18 Progress towards goal: Progressing Goal #3: Pt to increase AROM of LUE to be WFL. Goal to be met by: 06/04/18 Progress towards goal: Progressing Goal #4: Pt to increase functional use of LUE to increase occupational performance. Goal to be met by: 06/04/18 Progress towards goal: Progressing Plan Dates of Emergency Department Nurse Goals: 06/04/18 Expiration date of current Insurance Approval:: 06/04/18 PLAN: Continue per POC to max functional UE AROM with decreased c/o pain.
== END 2018-05-09 23:59 ==
PROVIDERS: ATTEND Orthopaedic Surgery
DX: M25.512 Pain in left shoulder (principal); M25.562 Pain in left knee; M54.5 Low back pain

== ENCOUNTER 2018-06-07 09:00 | Outpatient (RCR) ==
--- NOTE | 2018-05-10 14:58 | RS.OPPTDN ---
Subjective Date of Note: 05/10/18 Visit #: 41 Number of visits approved by Insurance: 49 to date Date of Evaluation: 12/02/17 Payer Source: Workman's Comp Treatment Diagnosis: Low back pain Current Subjective/complaints:: Patient reports having a good weekend. Reports lowback pain was not as bad. *Precautions: No over head lifting due to Long Thoracic Nerve Ingury Pain Assessment - Pain Description Pain Location: lowback, left knee Current Pain Intensity: 5-6/10 Interventions - Exercise/Activities/Manual Therapy Exercises/Activities: Assisted stretching of bilateral hamstrings, SKTC, piriformis, ITB, and LTR. Alt hip flexion with 3#. Green theraband for hip abd and ham curls. Red theraband for resistive LTR. Isometric hip add with ball, isometric hip flexion, and isometric LTR. Leg press 150#, increased 4s/15reps. Stationary bike 8mins Total minutes of Exercise: 38mins Manual Therapy: NA HOME EXERCISE PROGRAM: HS, SKTC, and piriformis stretch. SLR and bridging - Charges Timed Code Treatment Minutes: 38mins Total Treatment Time: 38mins Procedures billed for this date of service:: EX3 Assessment: Continues to progress strengthening activities. Short Term Goals Goal #1: Pt to tolerate 45 mins of consistent conditioning activities in the depart. Goal to be met by: 05/24/18 (Revised date) Progress towards Goal:: Progressing Goal #2: Left knee pain less than 4/10 with standing and walking activities. Goal to be met by: 05/24/18 (Revised date) Progress towards Goal:: Progressing Goal #3: Trunk strength improved to 4+/5. Goal to be met by: 05/24/18 (Revised date) Progress towards Goal:: Progressing Goal #4: Left SLR in supine to 40 degrees. Goal to be met by: 05/24/18 (New goal) Shelter Goals Goal #1: Pt knows HEP and to continue ex's to maintain functional level at D/C. Goal to be met by: 06/17/18 (Revised date) Goal #2: Score on Oswestry LBP scale improved to 32. Goal to be met by: 06/17/18 (Revised goal and date) Goal #3: Tolerate prolonged sit, stand,& amb. to perform ADL's w/ min knee/back pain Goal to be met by: 06/17/18 (Revised date) Goal #4: Lumbar AROM WFL's to perform all selfcare and ADL's w/ min. difficulty. Goal to be met by: 06/17/18 (Revised date and goal) Plan Dates of Biology Faculty Member Goals: 06/17/18 Expiration date of current Insurance Approval:: 06/17/18 PLAN: progress strengthening and conditioning activities.
--- NOTE | 2018-05-11 08:45 | RS.OTDNOTE ---
Subjective Date of Note: 05/10/18 Visit #: 37 Number of visits approved by Insurance: [id number] Date of Evaluation: 05/04/17 Payer Source: Workman's Comp Treatment Diagnosis: Adhesive capsulitis M75.02, Left RC tendinitis M75.102 *Precautions: No over head lifting due to Long Thoracic Nerve Ingury Current Complaints/Gains: Pt states pain remains and ariadne around his scapula with numerous tender points with palpation. Pain Assessment - Pain Description Pain Location: Posterior ribs are tender to palpate. Pt reports pain in the left posterior Serratus posterior superior muscle. Pt has tenderness to palpation. Pt has his arm feels like it is going to sleep with full elbow flexion and his hand goes numb after a few seconds. Pt has pain in his head behind the left eye all of the time. Pt has neck, shoulder, and back pain today. Pt reports "tightness and pulling" in his left UE Pain Description: acute, aches, sharp Worst Pain Intensity: 7 Modalities - Treatment Modality: Ultrasound Parameters/Method Applied: 1.5w/cm2 x 12 mins Patient Position: Sitting - Hot Pack/Cryotherapy Treatment: Hot Pack Comments:: HP prior to TE Interventions - Exercise/Activities Exercise/Activities/Manual Therapy: Focus of tx on serratus muscle strengthening with no overhead PROM/AROM. Pt issued red t-band and worksheet with x 6 ex's. Pt instructed and performed in supine or seated positon of clock ex's(12, 3, 6, 9), scapular protraction/retraction, depression with holding x 10secs, wall push-ups's and horizontal adduction with red T-band. Pt performed x 15 reps/1. Manual therapy to posterior scapula also performed along with pectoralis stretching to increase ER. HOME EXERCISE PROGRAM: Serratus strengthening ex's/handout - Objective Findings Objective Findings:: Winging of left scapula, tender points in serratus, posterior inferior muscle, subscapularis, intercostal tender points tender around the medial border of the left posterior scapula, pain in the tender point medial and posterior to the inferior angle of the left scapula. Pt is anteriorly rotated in Left shoulder. Muscles of left scapula have atrophied specifically bottom tip of scapula area and in the rhomboid area. Mass vulnerability assessment analyst has improved. - Charges Timed Code Treatment Minutes: 47 Total Treatment Time: 61 Procedures billed for this date of service:: HP US EX MT Assessment Patient Education: Education of diagnosis, Body/Joint mechanics, Home Exercise Program, Home Safety, Activity Modification, Education of Plan of Care Patient demonstrates compliance with HEP?: Yes Short Term Goals Goal #1: Pt to increase strength of serratus to 4/5. Goal to be met by: 05/19/18 Progress towards goal: Progressing Goal #2: To increase Ext. Rot. AROM to 75. Goal to be met by: 05/19/18 Progress towards goal: Progressing Goal #3: Pt to have Full AROM of Left scapula Goal to be met by: 05/19/18 (met following tx) Progress towards goal: Progressing Goal #4: Pt to be independent with Home exercise program. Goal to be met by: 05/19/18 Progress towards goal: Progressing Mechanical Manager Goals Goal #1: Pt to increase strength of serratus to 4+/5. Goal to be met by: 06/04/18 Progress towards goal: Progressing Goal #2: Pt's LUE shoulder pain to decreast to 0-2. Goal to be met by: 06/04/18 Progress towards goal: Progressing Goal #3: Pt to increase AROM of LUE to be WFL. Goal to be met by: 06/04/18 Progress towards goal: Progressing Goal #4: Pt to increase functional use of LUE to increase occupational performance. Goal to be met by: 06/04/18 Progress towards goal: Progressing Plan Dates of Correction Goals: 06/04/18 Expiration date of current Insurance Approval:: 06/04/18 PLAN: Continue per POC to max functional UE AROM/strength with decreased c/o pain.
--- NOTE | 2018-05-12 11:23 | RS.OTCXNS ---
OT Case Note Date of Scheduled Appointment: 05/12/18 Type: Cancel Reason for Cancel/NS: MD appointment
--- NOTE | 2018-05-12 16:12 | RS.CXNS ---
Date of scheduled appointment: 05/12/18 Type: Cancel (MD appointment)
--- NOTE | 2018-05-13 13:57 | RS.OTDNOTE ---
Subjective Date of Note: 05/13/18 Visit #: 38 Number of visits approved by Insurance: [id number] Date of Evaluation: 05/04/17 Payer Source: Workman's Comp Treatment Diagnosis: Adhesive capsulitis M75.02, Left RC tendinitis M75.102 *Precautions: No over head lifting due to Long Thoracic Nerve Ingury Current Complaints/Gains: Pt states pain remains at 7/10 most of the time and tenderness remains along posterior aspect of scapula during palpation. Pain Assessment - Pain Description Pain Location: Posterior ribs are tender to palpate. Pt reports pain in the left posterior Serratus posterior superior muscle. Pt has tenderness to palpation. Pt has his arm feels like it is going to sleep with full elbow flexion and his hand goes numb after a few seconds. Pt has pain in his head behind the left eye all of the time. Pt has neck, shoulder, and back pain today. Pt reports "tightness and pulling" in his left UE Pain Description: acute, aches, sharp Current Pain Intensity: 2-3 Worst Pain Intensity: 7 Modalities - Treatment Modality: Ultrasound Parameters/Method Applied: 1.5w/cm2 x 10 mins Patient Position: Sitting - Hot Pack/Cryotherapy Treatment: Hot Pack, Cryotherapy Interventions - Exercise/Activities Exercise/Activities/Manual Therapy: Focus of tx on serratus muscle strengthening with no overhead PROM/AROM. Pt ed continued for PRE's red t-band and worksheet with x 6 ex's. Pt instructed and performed in supine or seated positon of clock ex's(12, 3, 6, 9), scapular protraction/retraction, depression with holding x 10secs, wall push-ups's and horizontal adduction with red T- band. Pt performed x 15 reps/2. Manual therapy to posterior scapula also performed along with pectoralis stretching to increase ER. HOME EXERCISE PROGRAM: Serratus strengthening ex's/handout - Objective Findings Objective Findings:: Winging of left scapula, tender points in serratus, posterior inferior muscle, subscapularis, intercostal tender points tender around the medial border of the left posterior scapula, pain in the tender point medial and posterior to the inferior angle of the left scapula. Pt is anteriorly rotated in Left shoulder. Muscles of left scapula have atrophied specifically bottom tip of scapula area and in the rhomboid area. Mass button sewing machine operator has improved. - Charges Timed Code Treatment Minutes: 51 Total Treatment Time: 67 Procedures billed for this date of service:: HP US EX MT Assessment Patient Education: Education of diagnosis, Body/Joint mechanics, Home Exercise Program, Home Safety, Activity Modification, Education of Plan of Care Patient demonstrates compliance with HEP?: Yes Short Term Goals Goal #1: Pt to increase strength of serratus to 4/5. Goal to be met by: 05/19/18 Progress towards goal: Progressing Goal #2: To increase Ext. Rot. AROM to 75. Goal to be met by: 05/19/18 Progress towards goal: Progressing Goal #3: Pt to have Full AROM of Left scapula Goal to be met by: 05/19/18 (met following tx) Progress towards goal: Progressing Goal #4: Pt to be independent with Home exercise program. Goal to be met by: 05/19/18 Progress towards goal: Progressing Jigsaw Operator Goals Goal #1: Pt to increase strength of serratus to 4+/5. Goal to be met by: 06/04/18 Progress towards goal: Progressing Goal #2: Pt's LUE shoulder pain to decreast to 0-2. Goal to be met by: 06/04/18 Progress towards goal: Progressing Goal #3: Pt to increase AROM of LUE to be WFL. Goal to be met by: 06/04/18 Progress towards goal: Progressing Goal #4: Pt to increase functional use of LUE to increase occupational performance. Goal to be met by: 06/04/18 Progress towards goal: Progressing Plan Dates of Jigsaw Operator Goals: 06/04/18 Expiration date of current Insurance Approval:: 06/04/18 PLAN: Continue with current POC/strengthening of serratus muscles
--- NOTE | 2018-05-13 14:41 | RS.OPPTDN ---
Subjective Date of Note: 05/13/18 Visit #: 42 Number of visits approved by Insurance: 49 to date Date of Evaluation: 12/02/17 Payer Source: Workman's Comp Treatment Diagnosis: Low back pain Current Subjective/complaints:: Anderson reports pain in his tailbone with activity. While on the elliptical certified personal trainer, he reports burning in the back of the legs. States he can tell his endurance is still very low. *Precautions: No over head lifting due to Long Thoracic Nerve Ingury Interventions - Exercise/Activities/Manual Therapy Exercises/Activities: Assisted stretching of bilateral hamstrings, SKTC, piriformis, ITB, and LTR. Alt hip flexion with 3#. Green theraband for hip abd and ham curls. Red theraband for resistive LTR. Isometric hip add with ball, isometric hip flexion, and isometric LTR. Leg press 150#, increased 4s/15reps. Elliptical certified personal trainer for 5 mins. Total minutes of Exercise: X 48 mins Manual Therapy: NA HOME EXERCISE PROGRAM: HS, SKTC, and piriformis stretch. SLR and bridging - Charges Timed Code Treatment Minutes: 48 mins Total Treatment Time: 55 mins Procedures billed for this date of service:: EX3 Assessment: Anderson performs all activities. He fatigues quickly. Reports pain at his tailbone and burning in the back of the legs, in the muscles. Patient demonstrates compliance with HEP?: Yes Short Term Goals Goal #1: Pt to tolerate 45 mins of consistent conditioning activities in the depart. Goal to be met by: 05/24/18 (Revised date) Progress towards Goal:: Progressing Goal #2: Left knee pain less than 4/10 with standing and walking activities. Goal to be met by: 05/24/18 (Revised date) Progress towards Goal:: Progressing Goal #3: Trunk strength improved to 4+/5. Goal to be met by: 05/24/18 (Revised date) Progress towards Goal:: Progressing Goal #4: Left SLR in supine to 40 degrees. Goal to be met by: 05/24/18 (New goal) Water Meter Reader Goals Goal #1: Pt knows HEP and to continue ex's to maintain functional level at D/C. Goal to be met by: 06/17/18 (Revised date) Goal #2: Score on Oswestry LBP scale improved to 32. Goal to be met by: 06/17/18 (Revised goal and date) Goal #3: Tolerate prolonged sit, stand,& amb. to perform ADL's w/ min knee/back pain Goal to be met by: 06/17/18 (Revised date) Goal #4: Lumbar AROM WFL's to perform all selfcare and ADL's w/ min. difficulty. Goal to be met by: 06/17/18 (Revised date and goal) Plan Dates of Water Meter Reader Goals: 06/17/18 Expiration date of current Insurance Approval:: 06/17/18 PLAN: Continue to progress conditioning and trunk/LE strengthening.
--- NOTE | 2018-05-14 13:23 | RS.OTDNOTE ---
Subjective Date of Note: 05/14/18 Visit #: 39 Number of visits approved by Insurance: [phone] Date of Evaluation: 05/04/17 Payer Source: Workman's Comp Treatment Diagnosis: Adhesive capsulitis M75.02, Left RC tendinitis M75.102 *Precautions: No over head lifting due to Long Thoracic Nerve Ingury Current Complaints/Gains: Pt continues with high degree of pain, 7/10 most of the time. States MD office wanted to do cortisone shots in his shoulder and knee but he refused. States he would rather live with the pain vs needles. Also states he has been performing over-head activites while mounting a tv and surround sound speakers. Pain Assessment - Pain Description Pain Description: Burning, Crushing, Tightness, Radiating, Dull, Chronic Pain Location: Posterior ribs are tender to palpate. Pt reports pain in the left posterior Serratus posterior superior muscle. Pt has tenderness to palpation. Pt has his arm feels like it is going to sleep with full elbow flexion and his hand goes numb after a few seconds. Pt has pain in his head behind the left eye all of the time. Pt has neck, shoulder, and back pain today. Pt reports "tightness and pulling" in his left UE Pain Description: acute, aches, sharp Current Pain Intensity: 3 Worst Pain Intensity: 7 Modalities - Treatment Modality: Ultrasound Parameters/Method Applied: 1.5w/cm2 x 12 mins to posterior shoulder and trapezius muscles Patient Position: Sitting - Hot Pack/Cryotherapy Treatment: Hot Pack, Cryotherapy Comments:: HP prior to TE/MT Interventions - Exercise/Activities Exercise/Activities/Manual Therapy: Focus of tx on serratus muscle strengthening with no overhead PROM/AROM. Pt ed continued for PRE's red t-band and worksheet with x 6 ex's. Pt instructed and performed in supine or seated positon of clock ex's(12, 3, 6, 9), scapular protraction/retraction, depression with holding x 10secs, wall push-ups's and horizontal adduction with red T- band. Pt performed x 15 reps/2. Manual therapy to trapezius muscles and posterior scapula also performed along with pectoralis/cervical stretching to increase ER. HOME EXERCISE PROGRAM: Serratus strengthening ex's/handout - Objective Findings Objective Findings:: Winging of left scapula, tender points in serratus, posterior inferior muscle, subscapularis, intercostal tender points tender around the medial border of the left posterior scapula, pain in the tender point medial and posterior to the inferior angle of the left scapula. Pt is anteriorly rotated in Left shoulder. Muscles of left scapula have atrophied specifically bottom tip of scapula area and in the rhomboid area. Mass oil field tester has improved. - Charges Timed Code Treatment Minutes: 52 Total Treatment Time: 61 Procedures billed for this date of service:: HP US MT EX Assessment Patient Education: Education of diagnosis, Body/Joint mechanics, Home Exercise Program, Home Safety, Activity Modification, Education of Plan of Care Patient demonstrates compliance with HEP?: Yes Short Term Goals Goal #1: Pt to increase strength of serratus to 4/5. Goal to be met by: 05/19/18 Progress towards goal: Progressing Goal #2: To increase Ext. Rot. AROM to 75. Goal to be met by: 05/19/18 Progress towards goal: Progressing Goal #3: Pt to have Full AROM of Left scapula Goal to be met by: 05/19/18 (met following tx) Progress towards goal: Progressing Goal #4: Pt to be independent with Home exercise program. Goal to be met by: 05/19/18 Progress towards goal: Progressing Care Home Goals Goal #1: Pt to increase strength of serratus to 4+/5. Goal to be met by: 06/04/18 Progress towards goal: Progressing Goal #2: Pt's LUE shoulder pain to decreast to 0-2. Goal to be met by: 06/04/18 Progress towards goal: Progressing Goal #3: Pt to increase AROM of LUE to be WFL. Goal to be met by: 06/04/18 Progress towards goal: Progressing Goal #4: Pt to increase functional use of LUE to increase occupational performance. Goal to be met by: 06/04/18 Progress towards goal: Progressing Plan Dates of Clay Transporter Goals: 06/04/18 Expiration date of current Insurance Approval:: 06/04/18 PLAN: Continue per POC to max functional UE AROM/strength
--- NOTE | 2018-05-14 14:05 | RS.OPPTDN ---
Subjective Date of Note: 05/14/18 Visit #: 43 Number of visits approved by Insurance: 49 to date Date of Evaluation: 12/02/17 Payer Source: Workman's Comp Treatment Diagnosis: Low back pain Current Subjective/complaints:: Patient reports back pain and burning with left leg hamstring stretching. *Precautions: No over head lifting due to Long Thoracic Nerve Ingury Pain Assessment - Pain Description Pain Location: lowback Current Pain Intensity: 7/10 Interventions - Exercise/Activities/Manual Therapy Exercises/Activities: Assisted stretching of bilateral hamstrings, SKTC, piriformis, ITB, and LTR. Alt hip flexion with 3#. Isometric hip add with ball , isometric hip flexion, and isometric LTR. Cable pulleys for scap retraction 20 # 3s/10reps, backward walking 50# 15reps, lateral side-stepping 50# 10reps each side. Elliptical green jobs trainer for 5 mins. Leg press 150# 2s/20reps slow pace. Large ball on wall overhead using both UE's. Large therapy ball for wall slides, 2s/ 10reps. Patient performs all activities at a slow but steady pace. Total minutes of Exercise: 42mins Manual Therapy: NA HOME EXERCISE PROGRAM: HS, SKTC, and piriformis stretch. SLR and bridging - Charges Timed Code Treatment Minutes: 42mins Total Treatment Time: 44mins Procedures billed for this date of service:: EX3 Assessment: Patient continues to slowly increase strengthening activitiy in this department. Back pain continues to limit patients ability to perform more than moderate weight and short increment activities. Patient demonstrates compliance with HEP?: Yes Short Term Goals Goal #1: Pt to tolerate 45 mins of consistent conditioning activities in the depart. Goal to be met by: 05/24/18 (Revised date) Progress towards Goal:: Progressing Goal #2: Left knee pain less than 4/10 with standing and walking activities. Goal to be met by: 05/24/18 (Revised date) Progress towards Goal:: Progressing Goal #3: Trunk strength improved to 4+/5. Goal to be met by: 05/24/18 (Revised date) Progress towards Goal:: Progressing Goal #4: Left SLR in supine to 40 degrees. Goal to be met by: 05/24/18 (New goal) Welding Machine Operator Helper Gas Goals Goal #1: Pt knows HEP and to continue ex's to maintain functional level at D/C. Goal to be met by: 06/17/18 (Revised date) Goal #2: Score on Oswestry LBP scale improved to 32. Goal to be met by: 06/17/18 (Revised goal and date) Goal #3: Tolerate prolonged sit, stand,& amb. to perform ADL's w/ min knee/back pain Goal to be met by: 06/17/18 (Revised date) Goal #4: Lumbar AROM WFL's to perform all selfcare and ADL's w/ min. difficulty. Goal to be met by: 06/17/18 (Revised date and goal) Plan Dates of Welding Machine Operator Helper Gas Goals: 06/17/18 Expiration date of current Insurance Approval:: 06/17/18 PLAN: Continue conditioning activities as tolerated by patient, working on increasing functional activity level and towrd PLOF.
--- NOTE | 2018-05-17 11:55 | RS.OPPTDN ---
Subjective Date of Note: 05/17/18 Visit #: 4 Number of visits approved by Insurance: 49 to date Date of Evaluation: 12/02/17 Payer Source: Workman's Comp Treatment Diagnosis: Low back pain Current Subjective/complaints:: Patient reports doing some better today. 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 Isometric hip add with ball, isometric hip flexion, and isometric LTR. Green theraband for resisted hip abd in hook-lying, and green for resisted LTR. Cable pulleys for scap retraction 20# 3s/10reps, backward walking 50# 10reps, lateral side-stepping 50# 10reps each side. Elliptical head athletic trainer for 5 mins. Leg press 150# 2s/20reps slow pace. Large therapy ball for wall slides, 2s/10reps. Patient performs all activities at a slow but steady pace. Total minutes of Exercise: 53mins Manual Therapy: NA HOME EXERCISE PROGRAM: HS, SKTC, and piriformis stretch. SLR and bridging - Charges Timed Code Treatment Minutes: 53mins Total Treatment Time: 55mins Procedures billed for this date of service:: EX4 Assessment: Patient increased strengthening/conditioning today. Patient Education: Home Exercise Program, Home Safety Patient demonstrates compliance with HEP?: Yes Short Term Goals Goal #1: Pt to tolerate 45 mins of consistent conditioning activities in the depart. Goal to be met by: 05/24/18 (Revised date) Progress towards Goal:: Partially Met Comments:: Able to tolerate increased time today. Goal #2: Left knee pain less than 4/10 with standing and walking activities. Goal to be met by: 05/24/18 (Revised date) Progress towards Goal:: Progressing Goal #3: Trunk strength improved to 4+/5. Goal to be met by: 05/24/18 (Revised date) Progress towards Goal:: Progressing Goal #4: Left SLR in supine to 40 degrees. Goal to be met by: 05/24/18 (New goal) Correction Goals Goal #1: Pt knows HEP and to continue ex's to maintain functional level at D/C. Goal to be met by: 06/17/18 (Revised date) Goal #2: Score on Oswestry LBP scale improved to 32. Goal to be met by: 06/17/18 (Revised goal and date) Goal #3: Tolerate prolonged sit, stand,& amb. to perform ADL's w/ min knee/back pain Goal to be met by: 06/17/18 (Revised date) Progress towards goal: Progressing Goal #4: Lumbar AROM WFL's to perform all selfcare and ADL's w/ min. difficulty. Goal to be met by: 06/17/18 (Revised date and goal) Progress towards goal: Progressing Plan Dates of Research Recruiter Goals: 06/17/18 Expiration date of current Insurance Approval:: 06/17/18 PLAN: Progress strengthening and conditioning activities to progress toward PLOF.
--- NOTE | 2018-05-18 11:37 | RS.OTDNOTE ---
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 At rest, he has 0/10. Just moving LUE shoulder for shoulder shrug increases pain to 7/10. Pain Assessment - Pain Description Pain Description: Burning, Crushing, Tightness, Radiating, Dull, Chronic Pain Location: Posterior ribs are tender to palpate. Pt reports pain in the left posterior Serratus posterior superior muscle. Pt has tenderness to palpation. Pt has his arm feels like it is going to sleep with full elbow flexion and his hand goes numb after a few seconds. Pt has pain in his head behind the left eye all of the time. Pt has neck, shoulder, and back pain today. Pt reports "tightness and pulling" in his left UE Pain Description: acute, aches, sharp Current Pain Intensity: 0 Worst Pain Intensity: 9 Modalities - Treatment Modality: Ultrasound Parameters/Method Applied: .4 w/cm2 for 12 minutes to the LUE supraspinatus muscle, the posterior medial border to the scapula. Treatment Area: Left shoulder Patient Position: Sitting - Hot Pack/Cryotherapy Treatment: Hot Pack Interventions - Exercise/Activities Exercise/Activities/Manual Therapy: Focus of tx on serratus muscle strengthening with no overhead PROM/AROM in supine with 2#. Pt instructed on isometric exercises for LUE against the wall with towel. Pt to hold each motion for 5 seconds x 15 reps and remain in a pain free range.Scapular protraction/ retraction, depression with holding x 10secs, pushing shoulders to the wall and horizontal adduction with red T-band. Pt performed x 15 reps/2. Manual therapy to trapezius muscles and posterior scapula also performed along with pectoralis/cervical stretching to increase ER. HOME EXERCISE PROGRAM: Serratus strengthening ex's/handout - Objective Findings Objective Findings:: Winging of left scapula, tender points in serratus, posterior inferior muscle, subscapularis, intercostal tender points tender around the medial border of the left posterior scapula, pain in the tender point medial and posterior to the inferior angle of the left scapula. Pt is anteriorly rotated in Left shoulder. Muscles of left scapula have atrophied specifically bottom tip of scapula area and in the rhomboid area. [employer] health lead has improved. - Charges Timed Code Treatment Minutes: 49 Total Treatment Time: 67 Procedures billed for this date of service:: HP, MT, EX, US Assessment Assessment: Pt looked like the Left scapula is improving by not winging as much. Pt has pain at 7/10 with most motions. Weakness of LUE shoulder. Patient Education: Education of diagnosis, Home Exercise Program, Home Safety, Education of Plan of Care Problems/Comments: Pain of 7/10. Difficulty using the LUE and limited functional movement. Patient demonstrates compliance with HEP?: Yes Short Term Goals Goal #1: Pt to increase strength of serratus to 4/5. Goal to be met by: 05/19/18 Progress towards goal: Progressing Goal #2: To increase Ext. Rot. AROM to 75. Goal to be met by: 05/19/18 Progress towards goal: Progressing Goal #3: Pt to have Full AROM of Left scapula Goal to be met by: 05/19/18 (met following tx) Progress towards goal: Progressing Goal #4: Pt to be independent with Home exercise program. Goal to be met by: 05/19/18 Progress towards goal: Progressing Warehouse Inventory Clerk Goals Goal #1: Pt to increase strength of serratus to 4+/5. Goal to be met by: 06/04/18 Progress towards goal: Progressing Goal #2: Pt's LUE shoulder pain to decreast to 0-2. Goal to be met by: 06/04/18 Progress towards goal: Progressing Goal #3: Pt to increase AROM of LUE to be WFL. Goal to be met by: 06/04/18 Progress towards goal: Progressing Goal #4: Pt to increase functional use of LUE to increase occupational performance. Goal to be met by: 06/04/18 Progress towards goal: Progressing Plan Dates of Shelter Goals: 06/04/18 Expiration date of current Insurance Approval:: 06/04/18 PLAN: Continue to progress patient in a pain free AROM with isometric exercises. Pt to increase strengthening with stabilization exercises and PRE's of the LUE. Pt not to lift weight above his head with LUE due the Long thoracic Nerve injury.
--- NOTE | 2018-05-18 13:48 | RS.OPPTDN ---
Subjective Date of Note: 05/18/18 Visit #: 45 Number of visits approved by Insurance: 49 to date Date of Evaluation: 12/02/17 Payer Source: Workman's Comp Treatment Diagnosis: Low back pain Current Subjective/complaints:: Patient reports feeling a little better today. Reports less discomfort with hamstring stretch today. *Precautions: No over head lifting due to Long Thoracic Nerve Ingury Pain Assessment - Pain Description Pain Location: lowback, left knee Current Pain Intensity: moderate Interventions - Exercise/Activities/Manual Therapy Exercises/Activities: Assisted stretching of bilateral hamstrings, SKTC, piriformis, ITB, and LTR. Isometric hip add with ball, isometric hip flexion, and isometric LTR. 4# for SAQ and alt hip flexion, 2s/10reps each. Green theraband for resisted hip abd in hook-lying, and green for resisted LTR. Cable pulleys for scap retraction 20# 3s/10reps, backward walking 50# 10reps, lateral side-stepping 50# 10reps each side. Large ball on the wall overhead. Elliptical hydraulic strainer operator for 5 mins. Leg press 150# 2s/20reps slow pace. Total minutes of Exercise: 51mins Manual Therapy: NA HOME EXERCISE PROGRAM: HS, SKTC, and piriformis stretch. SLR and bridging - Charges Timed Code Treatment Minutes: 51mins Total Treatment Time: 51mins Procedures billed for this date of service:: EX3 Assessment: Patient able to increase his strengthening/conditioning activity today. He continues to have back pain that limits his functional activity level. Patient Education: Home Exercise Program Patient demonstrates compliance with HEP?: Yes Short Term Goals Goal #1: Pt to tolerate 45 mins of consistent conditioning activities in the depart. Goal to be met by: 05/24/18 (Revised date) Progress towards Goal:: Met Comments:: Has tolerated more than 45 mins the last 2 sessions. Goal #2: Left knee pain less than 4/10 with standing and walking activities. Goal to be met by: 05/24/18 (Revised date) Progress towards Goal:: Progressing Goal #3: Trunk strength improved to 4+/5. Goal to be met by: 05/24/18 (Revised date) Progress towards Goal:: Progressing Goal #4: Left SLR in supine to 40 degrees. Goal to be met by: 05/24/18 (New goal) Progress towards Goal:: Progressing Correction Goals Goal #1: Pt knows HEP and to continue ex's to maintain functional level at D/C. Goal to be met by: 06/17/18 (Revised date) Goal #2: Score on Oswestry LBP scale improved to 32. Goal to be met by: 06/17/18 (Revised goal and date) Goal #3: Tolerate prolonged sit, stand,& amb. to perform ADL's w/ min knee/back pain Goal to be met by: 06/17/18 (Revised date) Progress towards goal: Progressing Goal #4: Lumbar AROM WFL's to perform all selfcare and ADL's w/ min. difficulty. Goal to be met by: 06/17/18 (Revised date and goal) Progress towards goal: Progressing Plan Dates of Correction Goals: 06/17/18 Expiration date of current Insurance Approval:: 06/17/18 PLAN: Progress strengthening/conditioning exercise working toward PLOF.
--- NOTE | 2018-05-20 10:22 | RS.OTDNOTE ---
Subjective Date of Note: 05/20/18 Visit #: 41 Number of visits approved by Insurance: 46 Date of Evaluation: 05/04/17 Payer Source: Workman's Comp Treatment Diagnosis: Adhesive capsulitis M75.02, Left RC tendinitis M75.102 *Precautions: No over head lifting due to Long Thoracic Nerve Ingury Current Complaints/Gains: Pt complains of pain and heaviness of the LUE. Pt has no pain at rest, however when he goes to complete shoulder flexion, abduction, or external rotation his pain level shoots up to 8/10. Pt will complete exercise at 90 shoulder flexion and when he goes to stop the exercise the Left arm feels heavy and drops. Pain Assessment - Pain Description Pain Description: Burning, Crushing, Tightness, Radiating, Dull, Chronic Pain Location: Posterior ribs are tender to palpate. Pt reports pain in the left posterior Serratus posterior superior muscle. Pt has tenderness to palpation. Pt has his arm feels like it is going to sleep with full elbow flexion and his hand goes numb after a few seconds. Pt has pain in his head behind the left eye all of the time. Pt has neck, shoulder, and back pain today. Pt reports "tightness and pulling" in his left UE Pain Description: acute, aches, sharp Current Pain Intensity: 0 at rest Worst Pain Intensity: 8 when he exercises Modalities - Treatment Modality: Ultrasound Parameters/Method Applied: .4 w/cm2 to decrease pain and heal tissue. Treatment Area: LUE posterior scapula Patient Position: Sitting Interventions - Exercise/Activities Exercise/Activities/Manual Therapy: Focus of tx on serratus muscle strengthening with no overhead PROM/AROM in supine with 2#. Pt instructed on isometric exercises for LUE against the wall with towel. Pt to hold each motion for 5 seconds x 10 reps x 2 sets and remain in a pain free range.Scapular protraction/retraction, depression with holding x 10secs. Pt performed x 15 reps/2. Manual therapy to trapezius muscles and posterior scapula also performed along with pectoralis/cervical stretching to increase ER. HOME EXERCISE PROGRAM: Serratus strengthening ex's/handout - Objective Findings Objective Findings:: Winging of left scapula, tender points in serratus, posterior inferior muscle, subscapularis, intercostal tender points tender around the medial border of the left posterior scapula, pain in the tender point medial and posterior to the inferior angle of the left scapula. Pt is anteriorly rotated in Left shoulder. Muscles of left scapula have atrophied specifically bottom tip of scapula area and in the rhomboid area. 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 - Charges Timed Code Treatment Minutes: 49 Total Treatment Time: 68 Procedures billed for this date of service:: HP, EX x 2, US Assessment Assessment: Pt is having pain when ever he moves the shoulder in the clock motion. Pt has pain whenever he uses the LUE. Patient Education: Education of diagnosis, Home Exercise Program, Education of Plan of Care Problems/Comments: Pt has pain when he completes exercises. Patient demonstrates compliance with HEP?: Yes Short Term Goals Goal #1: Pt to increase strength of serratus to 4/5. Goal to be met by: 05/19/18 Progress towards goal: Progressing Goal #2: To increase Ext. Rot. AROM to 75. Goal to be met by: 05/19/18 Progress towards goal: Progressing Goal #3: Pt to have Full AROM of Left scapula Goal to be met by: 05/19/18 (met following tx) Progress towards goal: Progressing Goal #4: Pt to be independent with Home exercise program. Goal to be met by: 05/19/18 Progress towards goal: Progressing Microbiology Lab Manager Goals Goal #1: Pt to increase strength of serratus to 4+/5. Goal to be met by: 06/04/18 Progress towards goal: Progressing Goal #2: Pt's LUE shoulder pain to decreast to 0-2. Goal to be met by: 06/04/18 Progress towards goal: Progressing Goal #3: Pt to increase AROM of LUE to be WFL. Goal to be met by: 06/04/18 Progress towards goal: Progressing Goal #4: Pt to increase functional use of LUE to increase occupational performance. Goal to be met by: 06/04/18 Progress towards goal: Progressing Plan Dates of Senior Care Goals: 06/04/18 Expiration date of current Insurance Approval:: 06/04/18 PLAN: Pt to continue with exercises to eliminate winging of scapula. STrengthen the LUE and increase function.
--- NOTE | 2018-05-20 13:31 | RS.OPPTDN ---
Subjective Date of Note: 05/20/18 Visit #: 46 Number of visits approved by Insurance: 49 to date Date of Evaluation: 12/02/17 Payer Source: Workman's Comp Treatment Diagnosis: Low back pain Current Subjective/complaints:: Patient reports pain in back seems better today. *Precautions: No over head lifting due to Long Thoracic Nerve Ingury Pain Assessment - Pain Description Pain Location: lowback, left knee Pain Description: Tightness, Aching Current Pain Intensity: mod Interventions - Exercise/Activities/Manual Therapy Exercises/Activities: Assisted stretching of bilateral hamstrings, SKTC, piriformis, ITB, and LTR. Isometric hip add with ball, isometric hip flexion, and isometric LTR. 4# for SAQ and alt hip flexion, 3s/10reps each. Green theraband for resisted hip abd in hook-lying, and green for resisted LTR. Cable pulleys for scap retraction 20# 3s/10reps, backward walking 50# 10reps, lateral side-stepping 50# 10reps each side. Large ball on the wall overhead. Elliptical sales trainer for 5 mins. Total minutes of Exercise: 39mins Manual Therapy: NA HOME EXERCISE PROGRAM: HS, SKTC, and piriformis stretch. SLR and bridging - Charges Timed Code Treatment Minutes: 39mins Total Treatment Time: 42mins Procedures billed for this date of service:: EX3 Assessment: Patient pema improved mobility with ambulation and bed mobility today. Patient continues to work on all strengthening activities as requested by therapist. Short Term Goals Goal #1: Pt to tolerate 45 mins of consistent conditioning activities in the depart. Goal to be met by: 05/24/18 (Revised date) Progress towards Goal:: Met Goal #2: Left knee pain less than 4/10 with standing and walking activities. Goal to be met by: 05/24/18 (Revised date) Progress towards Goal:: Progressing Goal #3: Trunk strength improved to 4+/5. Goal to be met by: 05/24/18 (Revised date) Progress towards Goal:: Progressing Comments:: Patient pema improved strength but has limited ROM which reduces MMT. Goal #4: Left SLR in supine to 40 degrees. Goal to be met by: 05/24/18 (New goal) Progress towards Goal:: Progressing Chcf Goals Goal #1: Pt knows HEP and to continue ex's to maintain functional level at D/C. Goal to be met by: 06/17/18 (Revised date) Goal #2: Score on Oswestry LBP scale improved to 32. Goal to be met by: 06/17/18 (Revised goal and date) Goal #3: Tolerate prolonged sit, stand,& amb. to perform ADL's w/ min knee/back pain Goal to be met by: 06/17/18 (Revised date) Progress towards goal: Progressing Goal #4: Lumbar AROM WFL's to perform all selfcare and ADL's w/ min. difficulty. Goal to be met by: 06/17/18 (Revised date and goal) Progress towards goal: Partially Met (Performing most light ADL's.) Plan Dates of [facility]cf Goals: 06/17/18 Expiration date of current Insurance Approval:: 06/17/18 PLAN: Continue progression of strengthening working to return patient to PLOF.
--- NOTE | 2018-05-24 09:59 | RS.OTDNOTE ---
Subjective Date of Note: 05/24/18 Visit #: 8 Number of visits approved by Insurance: 12 Date of Evaluation: 05/04/17 Payer Source: Workman's Comp Treatment Diagnosis: Adhesive capsulitis M75.02, Left RC tendinitis M75.102 *Precautions: No over head lifting due to Long Thoracic Nerve Ingury Current Complaints/Gains: Pt complains of Left shoulder pain at 8/10. Pt drove to a wedding and now his shoulder pain has increased. Pt reports Left shoulder pain at 8/10 before treatment started. Pain Assessment - Pain Description Pain Description: Burning, Crushing, Tightness, Radiating, Dull, Chronic Pain Location: Pt reports pain in the left posterior Serratus posterior superior muscle. Pt has tenderness to palpation. Pt has his arm feels like it is heavy. Pt has pain in his head behind the left eye all of the time. Pt has neck, shoulder, and back pain today. Pt reports "tightness and pulling" in his left UE Pain Description: acute, aches, sharp Current Pain Intensity: 8/10 Worst Pain Intensity: 9/10 Modalities - Treatment Modality: Ultrasound Parameters/Method Applied: .4 w/cm2 for 12 minutes to posterior LUE scapula. Patient Position: Sitting - Hot Pack/Cryotherapy Treatment: Hot Pack, Cryotherapy Interventions - Exercise/Activities Exercise/Activities/Manual Therapy: Focus of tx on serratus muscle strengthening with no overhead PROM/AROM in supine with 2#. Pt instructed on isometric exercises for LUE against the wall with towel. Pt to hold each motion for 5 seconds x 10 reps x 2 sets and remain in a pain free range.Scapular protraction/retraction, depression with holding x 10secs. Pt performed x 15 reps/2. Manual therapy to trapezius muscles and posterior scapula also performed along with pectoralis/cervical stretching to increase ER. HOME EXERCISE PROGRAM: Serratus strengthening ex's/handout - Objective Findings Objective Findings:: Winging of left scapula, tender points in serratus, posterior inferior muscle, subscapularis, intercostal tender points tender around the medial border of the left posterior scapula, pain in the tender point medial and posterior to the inferior angle of the left scapula. Pt appears mildly inflammed in the posterior scapula. Pt has increased tenderness to the Left scapula. - Charges Timed Code Treatment Minutes: 18 Total Treatment Time: 45 Procedures billed for this date of service:: Hp, US, CP Assessment Assessment: Pt needs his pain to come down. Pt has pain at 8/10 at rest in the posterior scapula. Pt has mild inflammation to left posterior scapula between medial border to the posterior scapula. Patient Education: Education of diagnosis, Home Exercise Program, Activity Modification, Education of Plan of Care Problems/Comments: Pt has increased pain when he uses the LUE. Patient demonstrates compliance with HEP?: Yes Short Term Goals Goal #1: Pt to increase strength of serratus to 4/5. Goal to be met by: 05/19/18 Progress towards goal: Progressing Goal #2: To increase Ext. Rot. AROM to 75. Goal to be met by: 05/19/18 Progress towards goal: Progressing Goal #3: Pt to have Full AROM of Left scapula Goal to be met by: 05/19/18 (met following tx) Progress towards goal: Progressing Goal #4: Pt to be independent with Home exercise program. Goal to be met by: 05/19/18 Progress towards goal: Progressing Retirement Goals Goal #1: Pt to increase strength of serratus to 4+/5. Goal to be met by: 06/04/18 Progress towards goal: Progressing Goal #2: Pt's LUE shoulder pain to decreast to 0-2. Goal to be met by: 06/04/18 Progress towards goal: Progressing Goal #3: Pt to increase AROM of LUE to be WFL. Goal to be met by: 06/04/18 Progress towards goal: Progressing Goal #4: Pt to increase functional use of LUE to increase occupational performance. Goal to be met by: 06/04/18 Progress towards goal: Progressing Plan Dates of Business Integration Manager Goals: 06/04/18 Expiration date of current Insurance Approval:: 06/04/18 PLAN: Continue to decrease pain in LUE shoulder, increase strength with isometrics when pain is less than 8/10 to increase functional occupational performance.
--- NOTE | 2018-05-24 11:18 | RS.OPPTDN ---
Subjective Date of Note: 05/24/18 Visit #: 47 Number of visits approved by Insurance: 49 to date Date of Evaluation: 12/02/17 Payer Source: Workman's Comp Treatment Diagnosis: Low back pain Current Subjective/complaints:: Patient reports not feeling well today. States he went out of town to his nephew's wedding and did a lot of driving. States this seems to have aggravated his left arm, shoulder, and lowback pain. *Precautions: No over head lifting due to Long Thoracic Nerve Ingury Pain Assessment - Pain Description Pain Location: lowback Pain Description: Dull, Aching Current Pain Intensity: mod to high Other Comments regarding Pain:: Pain in the range of 7-8/10 when aggravated Interventions - Exercise/Activities/Manual Therapy Exercises/Activities: Assisted stretching of bilateral hamstrings, SKTC, piriformis, ITB, and LTR. Isometric hip add with ball, isometric hip flexion, and isometric LTR. 4# for SAQ and alt hip flexion, 3s/10reps each. Green theraband for resisted hip abd in hook-lying, and green for resisted LTR. Elliptical system trainer for 5 mins. Cable pulleys for scap retraction 20# 3s/10reps , backward walking 50# 10reps, lateral side-stepping 50# 10reps each side. Leg press 150# 40reps at slow pace. Total minutes of Exercise: 43mins Manual Therapy: NA HOME EXERCISE PROGRAM: HS, SKTC, and piriformis stretch. SLR and bridging - Charges Timed Code Treatment Minutes: 43mins Total Treatment Time: 43mins Procedures billed for this date of service:: EX3 Assessment: Patient continues to attend consistently, but has been unable to progress strengthening due to pain level. Short Term Goals Goal #1: Pt to tolerate 45 mins of consistent conditioning activities in the depart. Goal to be met by: 05/24/18 (Revised date) Progress towards Goal:: Met Goal #2: Left knee pain less than 4/10 with standing and walking activities. Goal to be met by: 05/24/18 (Revised date) Progress towards Goal:: Progressing Goal #3: Trunk strength improved to 4+/5. Goal to be met by: 05/24/18 (Revised date) Progress towards Goal:: Progressing Goal #4: Left SLR in supine to 40 degrees. Goal to be met by: 05/24/18 (New goal) Progress towards Goal:: Progressing Usp Goals Goal #1: Pt knows HEP and to continue ex's to maintain functional level at D/C. Goal to be met by: 06/17/18 (Revised date) Progress towards goal: Progressing Goal #2: Score on Oswestry LBP scale improved to 32. Goal to be met by: 06/17/18 (Revised goal and date) Progress towards goal: No Change Goal #3: Tolerate prolonged sit, stand,& amb. to perform ADL's w/ min knee/back pain Goal to be met by: 06/17/18 (Revised date) Progress towards goal: Progressing Goal #4: Lumbar AROM WFL's to perform all selfcare and ADL's w/ min. difficulty. Goal to be met by: 06/17/18 (Revised date and goal) Progress towards goal: Partially Met (Performing most light ADL's.) Plan Dates of Communications Supervisor Goals: 06/17/18 Expiration date of current Insurance Approval:: 06/17/18 PLAN: Continue strengthening activity in attempt to increase patients functional activity level.
--- NOTE | 2018-05-31 13:14 | RS.OTDNOTE ---
Subjective Date of Note: 05/31/18 Visit #: 43 Number of visits approved by Insurance: 46 Date of Evaluation: 05/04/17 Payer Source: Workman's Comp Treatment Diagnosis: Adhesive capsulitis M75.02, Left RC tendinitis M75.102 *Precautions: No over head lifting due to Long Thoracic Nerve Ingury Current Complaints/Gains: Pt continues stating high c/o pain. States 7-8 with also c/o tightness. States pain jania wanted to perform injections but he continues to refuse. States he also has not been back to his Chiropractor in a few wks and feels he needs to save those visits for his flare ups. Pain Assessment - Pain Description Pain Description: Burning, Crushing, Tightness, Radiating, Dull, Chronic Pain Location: Pt reports pain in the left posterior Serratus posterior superior muscle. Pt has tenderness to palpation. Pt has his arm feels like it is heavy. Pt has pain in his head behind the left eye all of the time. Pt has neck, shoulder, and back pain today. Pt reports "tightness and pulling" in his left UE Pain Description: acute, aches, sharp Current Pain Intensity: 3-4 Worst Pain Intensity: 8 Modalities - Treatment Modality: Ultrasound Parameters/Method Applied: 1.5w/cm2 x 10 mins to trapezius and deltoids and along medial aspect of scapula. Patient Position: Sitting - Hot Pack/Cryotherapy Treatment: Hot Pack, Cryotherapy Comments:: HP applied prior to TE with an ice massage performed following with manual therapy Interventions - Exercise/Activities Exercise/Activities/Manual Therapy: Focus of tx on serratus muscle strengthening with no overhead TE. PROM/AROM in supine with 3# renetta bar and 1- 2# hand weights along with isometric ex's in all directions. Manual therapy/ ice massage and myofascial release performed along scapula and trapezius. HOME EXERCISE PROGRAM: Serratus strengthening ex's/handout - Objective Findings Objective Findings:: Winging of left scapula, tender points in serratus, posterior inferior muscle, subscapularis, intercostal tender points tender around the medial border of the left posterior scapula, pain in the tender point medial and posterior to the inferior angle of the left scapula. Pt appears mildly inflammed in the posterior scapula. Pt has increased tenderness to the Left scapula. - Charges Timed Code Treatment Minutes: 48 Total Treatment Time: 61 Procedures billed for this date of service:: HP US MT EX Assessment Patient Education: Education of diagnosis, Body/Joint mechanics, Home Exercise Program, Home Safety, Activity Modification, Education of Plan of Care Patient demonstrates compliance with HEP?: Yes Short Term Goals Goal #1: Pt to increase strength of serratus to 4/5. Goal to be met by: 05/19/18 Progress towards goal: Met Goal #2: To increase Ext. Rot. AROM to 75. Goal to be met by: 05/19/18 Progress towards goal: Met Goal #3: Pt to have Full AROM of Left scapula Goal to be met by: 05/19/18 (met following tx) Progress towards goal: Progressing Goal #4: Pt to be independent with Home exercise program. Goal to be met by: 05/19/18 (PREs) Progress towards goal: Partially Met Multineedle Shirrer Goals Goal #1: Pt to increase strength of serratus to 4+/5. Goal to be met by: 06/04/18 Progress towards goal: Progressing Goal #2: Pt's LUE shoulder pain to decreast to 0-2. Goal to be met by: 06/04/18 Progress towards goal: Progressing Goal #3: Pt to increase AROM of LUE to be WFL. Goal to be met by: 06/04/18 Progress towards goal: Progressing Goal #4: Pt to increase functional use of LUE to increase occupational performance. Goal to be met by: 06/04/18 Progress towards goal: Progressing Plan Dates of [facility] Goals: 06/04/18 Expiration date of current Insurance Approval:: 06/04/18 PLAN: Continue per POC to max fx UE AROM/strength with decreased co pain.
--- NOTE | 2018-05-31 13:24 | RS.OPPTDN ---
Subjective Date of Note: 05/31/18 Visit #: 48 Number of visits approved by Insurance: 49 to date Date of Evaluation: 12/02/17 Payer Source: Workman's Comp Treatment Diagnosis: Low back pain Current Subjective/complaints:: Patient reports having a follow-up with his physician and received orders to continue therapy. *Precautions: No over head lifting due to Long Thoracic Nerve Ingury Pain Assessment - Pain Description Pain Location: lowback and left knee Current Pain Intensity: moderate back pain Interventions - Exercise/Activities/Manual Therapy Exercises/Activities: Assisted stretching of bilateral hamstrings, SKTC, piriformis, ITB, and LTR. Isometric hip add with ball, isometric hip flexion, and isometric LTR. 4# for SAQ and alt hip flexion, 3s/10reps each. Blue theraband for resisted hip abd in hook-lying, and green for resisted LTR. Elliptical system trainer for 5 mins. Cable pulleys for scap retraction 20# 3s/10reps , backward walking 50# 10reps, lateral side-stepping 50# 10reps each side. Lifting 22# box from short stool to waist, 4s/5reps. Leg press 150# 40reps at slow pace. Total minutes of Exercise: 41mins Manual Therapy: NA HOME EXERCISE PROGRAM: HS, SKTC, and piriformis stretch. SLR and bridging - Charges Timed Code Treatment Minutes: 41mins Total Treatment Time: 41mins Procedures billed for this date of service:: EX3 Assessment: Patient performs all activity, including box lifting, without reports of increased pain. Patient demonstrates compliance with HEP?: Yes Short Term Goals Goal #1: Pt to tolerate 45 mins of consistent conditioning activities in the depart. Goal to be met by: 05/24/18 (Revised date) Progress towards Goal:: Met Goal #2: Left knee pain less than 4/10 with standing and walking activities. Goal to be met by: 05/24/18 (Revised date) Progress towards Goal:: Progressing Goal #3: Trunk strength improved to 4+/5. Goal to be met by: 05/24/18 (Revised date) Progress towards Goal:: Progressing Goal #4: Left SLR in supine to 40 degrees. Goal to be met by: 05/24/18 (New goal) Progress towards Goal:: Met Fpc Goals Goal #1: Pt knows HEP and to continue ex's to maintain functional level at D/C. Goal to be met by: 06/17/18 (Revised date) Progress towards goal: Progressing Goal #2: Score on Oswestry LBP scale improved to 32. Goal to be met by: 06/17/18 (Revised goal and date) Goal #3: Tolerate prolonged sit, stand,& amb. to perform ADL's w/ min knee/back pain Goal to be met by: 06/17/18 (Revised date) Progress towards goal: Progressing Goal #4: Lumbar AROM WFL's to perform all selfcare and ADL's w/ min. difficulty. Goal to be met by: 06/17/18 (Revised date and goal) Progress towards goal: Partially Met (Performing most light ADL's.) Plan Dates of [facility] Goals: 06/17/18 Expiration date of current Insurance Approval:: 06/17/18 PLAN: Continue and progress strengthening/conditioning activity, working toward PLOF.
--- NOTE | 2018-06-02 13:15 | RS.OTDNOTE ---
Subjective Date of Note: 06/02/18 Visit #: 44 Number of visits approved by Insurance: 46 Date of Evaluation: 05/04/17 Payer Source: Workman's Comp Treatment Diagnosis: Adhesive capsulitis M75.02, Left RC tendinitis M75.102 *Precautions: No over head lifting due to Long Thoracic Nerve Ingury Current Complaints/Gains: Pt states he has a new order from MD for continued therapy. Spoke with pt concerning OT goals/continuation and diagnostic disability tests at other clinics. Pain continues, Pt states he "guesses he will always hurt." Pain Assessment - Pain Description Pain Description: Burning, Crushing, Tightness, Radiating, Dull, Chronic Pain Location: Pt reports pain in the left posterior Serratus posterior superior muscle. Pt has tenderness to palpation. Pt has his arm feels like it is heavy. Pt has pain in his head behind the left eye all of the time. Pt has neck, shoulder, and back pain today. Pt reports "tightness and pulling" in his left UE Pain Description: acute, aches, sharp Current Pain Intensity: 4 Worst Pain Intensity: 8 Modalities - Hot Pack/Cryotherapy Treatment: Hot Pack Comments:: HP prior to MT/TE Interventions - Exercise/Activities Exercise/Activities/Manual Therapy: Focus of tx on serratus muscle strengthening with limited overhead TE. PROM/AROM in sitting with 3# renetta bar and 1-2# hand weights along with isometric ex's in all directions. Manual therapy/ice massage and myofascial release performed along scapula and trapezius. HOME EXERCISE PROGRAM: Serratus strengthening ex's/handout - Objective Findings Objective Findings:: Winging of left scapula, tender points in serratus, posterior inferior muscle, subscapularis, intercostal tender points tender around the medial border of the left posterior scapula, pain in the tender point medial and posterior to the inferior angle of the left scapula. Pt appears mildly inflammed in the posterior scapula. Pt has increased tenderness to the Left scapula. - Charges Timed Code Treatment Minutes: 35 Total Treatment Time: 51 Procedures billed for this date of service:: HP EX MT Assessment Patient Education: Education of diagnosis, Body/Joint mechanics, Home Exercise Program, Home Safety, Activity Modification, Education of Plan of Care Patient demonstrates compliance with HEP?: Yes Short Term Goals Goal #1: Pt to increase strength of serratus to 4/5. Goal to be met by: 05/19/18 Progress towards goal: Met Goal #2: To increase Ext. Rot. AROM to 75. Goal to be met by: 05/19/18 Progress towards goal: Met Goal #3: Pt to have Full AROM of Left scapula Goal to be met by: 05/19/18 (met following tx) Progress towards goal: Progressing Goal #4: Pt to be independent with Home exercise program. Goal to be met by: 05/19/18 (PREs) Progress towards goal: Partially Met Custodial Goals Goal #1: Pt to increase strength of serratus to 4+/5. Goal to be met by: 06/04/18 Progress towards goal: Progressing Goal #2: Pt's LUE shoulder pain to decreast to 0-2. Goal to be met by: 06/04/18 Progress towards goal: Progressing Goal #3: Pt to increase AROM of LUE to be WFL. Goal to be met by: 06/04/18 Progress towards goal: Progressing Goal #4: Pt to increase functional use of LUE to increase occupational performance. Goal to be met by: 06/04/18 Progress towards goal: Progressing Plan Dates of Custodial Goals: 06/04/18 Expiration date of current Insurance Approval:: 06/04/18 PLAN: Continue per POC x 2 visits on this approval.
--- NOTE | 2018-06-02 15:11 | RS.OPPTDN ---
Subjective Date of Note: 06/02/18 Visit #: 49 Number of visits approved by Insurance: 49 to date Date of Evaluation: 12/02/17 Payer Source: Workman's Comp Treatment Diagnosis: Low back pain Current Subjective/complaints:: Husam states he has an order to continue therapy. States he understands he will need approval from Workman's Compensation and be assessed by the PT. *Precautions: No over head lifting due to Long Thoracic Nerve Ingury Pain Assessment - Pain Description Pain Location: lowback Current Pain Intensity: 5-6/10 Interventions - Exercise/Activities/Manual Therapy Exercises/Activities: Assisted stretching of bilateral hamstrings, SKTC, piriformis, ITB, and LTR. Isometric hip add with ball, isometric hip flexion, and isometric LTR. 4# for SAQ and alt hip flexion, 3s/10reps each. Blue theraband for resisted hip abd in hook-lying, and green for resisted LTR. Cable pulleys for scap retraction 20# 3s/10reps, backward walking 50# 10reps, lateral side-stepping 50# 10reps each side. Wall slides with large therapy ball. Lifting 22# box from short stool to waist, 4s/5reps. Leg press 150# 40reps at slow pace. Total minutes of Exercise: 46mins Manual Therapy: NA HOME EXERCISE PROGRAM: HS, SKTC, and piriformis stretch. SLR and bridging - Objective Findings Observations,measurements,etc.: Increased bilateral hamstring tightness today. - Charges Timed Code Treatment Minutes: 46mins Total Treatment Time: 46mins Procedures billed for this date of service:: EX3 Assessment: Patient has consistently attended therapy and increased strengthening/conditioning was worked on. He has been unable to increase beyond 40 to 45mins of light work and no improvement in pain. Patient Education: Home Exercise Program, Home Safety, Activity Modification Patient demonstrates compliance with HEP?: Yes Short Term Goals Goal #1: Pt to tolerate 45 mins of consistent conditioning activities in the depart. Goal to be met by: 05/24/18 (Revised date) Progress towards Goal:: Met Goal #2: Left knee pain less than 4/10 with standing and walking activities. Goal to be met by: 05/24/18 (Revised date) Progress towards Goal:: Not Met Goal #3: Trunk strength improved to 4+/5. Goal to be met by: 05/24/18 (Revised date) Progress towards Goal:: Progressing Goal #4: Left SLR in supine to 40 degrees. Goal to be met by: 05/24/18 (New goal) Progress towards Goal:: Met Manager Contracting Goals Goal #1: Pt knows HEP and to continue ex's to maintain functional level at D/C. Goal to be met by: 06/17/18 (Revised date) Progress towards goal: Progressing Goal #2: Score on Oswestry LBP scale improved to 32. Goal to be met by: 06/17/18 (Revised goal and date) Progress towards goal: No Change Goal #3: Tolerate prolonged sit, stand,& amb. to perform ADL's w/ min knee/back pain Goal to be met by: 06/17/18 (Revised date) Progress towards goal: Progressing Goal #4: Lumbar AROM WFL's to perform all selfcare and ADL's w/ min. difficulty. Goal to be met by: 06/17/18 (Revised date and goal) Progress towards goal: Partially Met (Performing most light ADL's.) Plan Dates of Care Home Goals: 06/17/18 Expiration date of current Insurance Approval:: 06/17/18 PLAN: Hold at this time for PT to reassess patient and review orders.
--- NOTE | 2018-06-07 13:24 | RS.OTDNOTE ---
Subjective Date of Note: 06/07/18 Visit #: 45 Number of visits approved by Insurance: 46 Date of Evaluation: 05/04/17 Payer Source: Workman's Comp Treatment Diagnosis: Adhesive capsulitis M75.02, Left RC tendinitis M75.102 *Precautions: No over head lifting due to Long Thoracic Nerve Ingury Current Complaints/Gains: Pt continues stating c/o pain. Pt ed on full body massage and benefits. Pain Assessment - Pain Description Pain Description: Burning, Crushing, Tightness, Radiating, Dull, Chronic Pain Location: Pt reports pain in the left posterior Serratus posterior superior muscle. Pt has tenderness to palpation. Pt has his arm feels like it is heavy. Pt has pain in his head behind the left eye all of the time. Pt has neck, shoulder, and back pain today. Pt reports "tightness and pulling" in his left UE Pain Description: acute, aches, sharp Modalities - Treatment Modality: Ultrasound Parameters/Method Applied: 1.5w/cm2 x 12 mins to scapula/trapezius - Hot Pack/Cryotherapy Treatment: Hot Pack Comments:: HP x15 mins Interventions - Exercise/Activities Exercise/Activities/Manual Therapy: Focus of tx on serratus muscle strengthening with limited overhead TE. PROM/AROM in sitting with 3# renetta bar and 1-2# hand weights along with isometric ex's in all directions. Manual therapy and myofascial release performed along scapula and trapezius. HOME EXERCISE PROGRAM: Serratus strengthening ex's/handout - Objective Findings Objective Findings:: Winging of left scapula, tender points in serratus, posterior inferior muscle, subscapularis, intercostal tender points tender around the medial border of the left posterior scapula, pain in the tender point medial and posterior to the inferior angle of the left scapula. Pt appears mildly inflammed in the posterior scapula. Pt has increased tenderness to the Left scapula. - Charges Timed Code Treatment Minutes: 45 Total Treatment Time: 60 Procedures billed for this date of service:: HP US EX MT Assessment Patient Education: Education of diagnosis, Body/Joint mechanics, Home Exercise Program, Home Safety, Activity Modification, Education of Plan of Care Patient demonstrates compliance with HEP?: Yes Short Term Goals Goal #1: Pt to increase strength of serratus to 4/5. Goal to be met by: 05/19/18 Progress towards goal: Met Goal #2: To increase Ext. Rot. AROM to 75. Goal to be met by: 05/19/18 Progress towards goal: Met Goal #3: Pt to have Full AROM of Left scapula Goal to be met by: 05/19/18 (met following tx) Progress towards goal: Progressing Goal #4: Pt to be independent with Home exercise program. Goal to be met by: 05/19/18 (PREs) Progress towards goal: Partially Met Relief Worker Goals Goal #1: Pt to increase strength of serratus to 4+/5. Goal to be met by: 06/04/18 Progress towards goal: Progressing Goal #2: Pt's LUE shoulder pain to decreast to 0-2. Goal to be met by: 06/04/18 Progress towards goal: Progressing Goal #3: Pt to increase AROM of LUE to be WFL. Goal to be met by: 06/04/18 Progress towards goal: Progressing Goal #4: Pt to increase functional use of LUE to increase occupational performance. Goal to be met by: 06/04/18 Progress towards goal: Progressing Plan Dates of Penitentiary Goals: 06/04/18 Expiration date of current Insurance Approval:: 06/04/18 PLAN: 1 tx session left on this approval. Pt brought in continuation orders this date.
== END 2018-06-08 23:59 ==
PROVIDERS: ATTEND Orthopaedic Surgery
DX: M54.5 Low back pain (principal); M25.562 Pain in left knee; M79.602 Pain in left arm; M25.512 Pain in left shoulder; Z98.890 Other specified postprocedural states

== ENCOUNTER 2018-06-18 09:00 | Outpatient (RCR) ==
--- NOTE | 2018-06-14 15:43 | RS.OTCNOTE ---
OT Case Note Date of Note: 06/14/18 Title: Occupational therapy continued treatment and new order for patient. Note: Occupational therapy to continue with new order for 12 additional visits from 06/14/18 through 07/12/18. OT to continue with therapy to address left shoulder pain, left scapula winging, and weakness. Number of visits approved by Insurance: 12 Expiration date of current Insurance Approval:: 06/04/18
--- NOTE | 2018-06-15 11:58 | RS.PTSUM ---
Progress Note/Summary Date of Note: 06/15/18 Date of Evaluation: 12/02/17 Current Complaints/Gains: Mr. Day states he continues to have difficulty getting in/out of his vehicle. States he has difficulty with ADL's and selfcare , but he finds a way to do it. He is now donning/doffing his shoes and socks himself, but it is difficult due to back pain. States left knee may be slightly better, but unsure if it is just because he is cautious to not aggravate the left knee. He continues to have back and LE pain if he rides in a vehicle for too long. He is sleeping in his bed now. He continues to take pain medication and use analgesic patches to manage his pain. Objective Measurements/Presentation: Right SLR 45 degrees, Left SLR 35-40 degrees. Trunk strength 4/5. Left hip 4/5 throughout, Quads and HS 4 to 4+/5 , ankle 4+/5. right hip 4 to 4+/5, knee 4+/5, ankle 4+ to 5/5. He has been performing a variety of strengthening and conditioning activities during his Physical therapy visits. G Codes: NA Source of G Code Score: Na - Short Term Goals Goal #1: Pt to tolerate 60 of consistent conditioning activities in the depart. Goal to be met by: 06/29/18 (Revised goal & date 06/15/18) Goal #2: Left knee pain less than 4/10 with standing and walking activities. Goal to be met by: 06/29/18 ( Revised date 06/15/18) Progress towards Goal:: Not Met Goal #3: Trunk strength improved to 4+/5. Goal to be met by: 06/29/18 (Revised date 06/15/18) Progress towards Goal:: Progressing Goal #4: Pt able to get in/out of vehicle with minimal difficulty. Goal to be met by: 06/29/18 (New goal) - Cotton Program Technician Goals Goal #1: Pt knows HEP and to continue ex's to maintain functional level at D/C. Goal to be met by: 07/30/18 (Revised date 06/15/18) Progress towards goal: Progressing Goal #2: Score on Oswestry LBP scale improved to 32. Goal to be met by: 07/30/18 (Revised date 06/15/18) Goal #3: Tolerate prolonged sit, stand,& amb. to perform ADL's w/ min knee/back pain Goal to be met by: 07/30/18 (Revised date 06/15/18) Progress towards goal: Progressing Goal #4: Lumbar AROM WFL's to perform all selfcare and ADL's w/ min. difficulty. Goal to be met by: 07/30/18 (Revised date 06/15/18) Progress towards goal: Partially Met (Performing most light ADL's.) - Assessment Assessment of Improvement/Progress: Mr. Day shows some improvement in trunk and left hip strength. Reports he is sleeping in his bed now. He continues to have difficulty with performing selfcare and ADL's due to back and LE's pain. For example, he is now donning/doffing socks and shoes independently, but it is difficult due to back pain with ROM. He is tolerating more conditioning activities in the department and demonstrates potential to benefit from further progression of strengthening and conditioning. New order received from his physician to continue therapy. Summary: Patient has made progress towards goals. - Plan Plan: Continue Plan of Care Frequency: 2-3 X week Duration: 4-6 weeks Dates of Cotton Program Technician Goals: 07/30/18 Expiration date of current Insurance Approval:: 07/30/18
--- NOTE | 2018-06-15 12:55 | RS.OPPTDN ---
Subjective Date of Note: 06/15/18 Visit #: 50 Number of visits approved by Insurance: 12 visits approved for 61 total to date Date of Evaluation: 12/02/17 Payer Source: Workman's Comp Treatment Diagnosis: Low back pain Current Subjective/complaints:: Patient reports he is working on increasing his activity level at home, but continues to be limited due to back pain. *Precautions: No over head lifting due to Long Thoracic Nerve Ingury Pain Assessment - Pain Description Pain Location: back, left knee Current Pain Intensity: moderate Interventions - Exercise/Activities/Manual Therapy Exercises/Activities: Assisted stretching of bilateral hamstrings, SKTC, piriformis, ITB, and LTR. Isometric hip add and isometric hip flexion. Elliptical machine 5mins. Cable pulleys for scap retraction 20# 3s/10reps. Wall slides with large therapy ball. Leg press 150# 2s/25reps at slow pace. Total minutes of Exercise: 36mins Manual Therapy: NA HOME EXERCISE PROGRAM: HS, SKTC, and piriformis stretch. SLR and bridging - Charges Timed Code Treatment Minutes: 36mins Total Treatment Time: 36mins Procedures billed for this date of service:: EX2 Assessment: Patient resumes strengthening and conditioning work today, and will continue to increase next session. Patient Education: Body/Joint mechanics, Home Exercise Program Patient demonstrates compliance with HEP?: Yes Short Term Goals Goal #1: Pt to tolerate 60 of consistent conditioning activities in the depart. Goal to be met by: 06/29/18 (Revised goal & date 06/15/18) Goal #2: Left knee pain less than 4/10 with standing and walking activities. Goal to be met by: 06/29/18 ( Revised date 06/15/18) Progress towards Goal:: Not Met Goal #3: Trunk strength improved to 4+/5. Goal to be met by: 06/29/18 (Revised date 06/15/18) Progress towards Goal:: Progressing Goal #4: Pt able to get in/out of vehicle with minimal difficulty. Goal to be met by: 06/29/18 (New goal) Mcfp Goals Goal #1: Pt knows HEP and to continue ex's to maintain functional level at D/C. Goal to be met by: 07/30/18 (Revised date 06/15/18) Progress towards goal: Progressing Goal #2: Score on Oswestry LBP scale improved to 32. Goal to be met by: 07/30/18 (Revised date 06/15/18) Goal #3: Tolerate prolonged sit, stand,& amb. to perform ADL's w/ min knee/back pain Goal to be met by: 07/30/18 (Revised date 06/15/18) Progress towards goal: Progressing Goal #4: Lumbar AROM WFL's to perform all selfcare and ADL's w/ min. difficulty. Goal to be met by: 07/30/18 (Revised date 06/15/18) Progress towards goal: Partially Met (Performing most light ADL's.) Plan Dates of Mcfp Goals: 07/30/18 Expiration date of current Insurance Approval:: 07/30/18 PLAN: Continue strengthening and conditioning activity as ordered by physician.
--- NOTE | 2018-06-15 13:40 | RS.OTDNOTE ---
Subjective Date of Note: 06/15/18 Visit #: 46 Number of visits approved by Insurance: [phone] Date of Evaluation: 05/04/17 Payer Source: Workman's Comp Treatment Diagnosis: Adhesive capsulitis M75.02, Left RC tendinitis M75.102 *Precautions: No over head lifting due to Long Thoracic Nerve Ingury Current Complaints/Gains: pt states he continues trying to "do more" at home. States high degree of pain continues and states, "I guess I will always hurt." States good compliance with active stretching of UE and applying CP. Pain Assessment - Pain Description Pain Description: Dull, Throbbing, Aching, Acute Pain Location: Pt reports pain in the left posterior Serratus posterior superior muscle. Pt has tenderness to palpation. Pt has his arm feels like it is heavy. Pt has pain in his head behind the left eye all of the time. Pt has neck, shoulder, and back pain today. Pt reports "tightness and pulling" in his left UE Pain Description: acute, aches, sharp Current Pain Intensity: 4 Worst Pain Intensity: 6-7 Modalities - Treatment Modality: Ultrasound Parameters/Method Applied: 1.5w/cm2 to anterior scapula and middle deltoid, x12 mins total Patient Position: Sitting - Hot Pack/Cryotherapy Treatment: Hot Pack, Cryotherapy Interventions - Exercise/Activities Exercise/Activities/Manual Therapy: Focus of tx on serratus muscle strengthening with limited overhead TE continued. PROM/AROM and isometric ex's performed in supine with 3# renetta bar and 2# hand weights. Manual therapy and myofascial release performed along scapula and trapezius with pt ed continued for home use of tennis ball. HOME EXERCISE PROGRAM: Serratus strengthening ex's/handout - Objective Findings Objective Findings:: Winging of left scapula, tender points in serratus, posterior inferior muscle, subscapularis, intercostal tender points tender around the medial border of the left posterior scapula, pain in the tender point medial and posterior to the inferior angle of the left scapula. Pt appears mildly inflammed in the posterior scapula. Pt has increased tenderness to the Left scapula. - Charges Timed Code Treatment Minutes: 51 Total Treatment Time: 65 Procedures billed for this date of service:: HP US EX MT Assessment Patient Education: Education of diagnosis, Body/Joint mechanics, Home Exercise Program, Home Safety, Activity Modification, Education of Plan of Care Patient demonstrates compliance with HEP?: Yes Short Term Goals Goal #1: Pt to increase strength of serratus to 4/5. Goal to be met by: 05/19/18 Progress towards goal: Met Goal #2: To increase Ext. Rot. AROM to 75. Goal to be met by: 05/19/18 Progress towards goal: Met Goal #3: Pt to have Full AROM of Left scapula Goal to be met by: 05/19/18 Progress towards goal: Progressing Goal #4: Pt to be independent with Home exercise program. Goal to be met by: 05/19/18 (PREs) Progress towards goal: Partially Met Corrugator Helper Goals Goal #1: Pt to increase strength of serratus to 4+/5. Goal to be met by: 07/12/18 Progress towards goal: Progressing Goal #2: Pt's LUE shoulder pain to decreast to 0-2. Goal to be met by: 07/12/18 Progress towards goal: Progressing Goal #3: Pt to increase AROM of LUE to be WFL. Goal to be met by: 07/12/18 Progress towards goal: Progressing Goal #4: Pt to increase functional use of LUE to increase occupational performance. Goal to be met by: 07/12/18 Progress towards goal: Progressing Plan Dates of Corrugator Helper Goals: 07/12/18 Expiration date of current Insurance Approval:: 07/12/18 PLAN: Continue per POC to max functional UE AROM/strength with decreased c/o pain.
--- NOTE | 2018-06-17 16:27 | RS.CXNS ---
Date of scheduled appointment: 06/17/18 Type: Cancel (Calls to cancel. Does not give reason.)
--- NOTE | 2018-06-18 11:04 | RS.OTDNOTE ---
Subjective Date of Note: 06/18/18 Visit #: 47 Number of visits approved by Insurance: [id number] Date of Evaluation: 05/04/17 Payer Source: Workman's Comp Treatment Diagnosis: Adhesive capsulitis M75.02, Left RC tendinitis M75.102 *Precautions: No over head lifting due to Long Thoracic Nerve Ingury Current Complaints/Gains: No change in pain status. AROM WFL but with pain increase. States c/o cervical pain and decreased ROM. Pain Assessment - Pain Description Pain Description: Dull, Throbbing, Aching, Acute Pain Location: Pt reports pain in the left posterior Serratus posterior superior muscle. Pt has tenderness to palpation. Pt has his arm feels like it is heavy. Pt has pain in his head behind the left eye all of the time. Pt has neck, shoulder, and back pain today. Pt reports "tightness and pulling" in his left UE Pain Description: acute, aches, sharp Current Pain Intensity: 4 Worst Pain Intensity: 8 Modalities - Treatment Modality: Ultrasound Parameters/Method Applied: 1.5w/cm2 x 12 mins Patient Position: Sitting - Hot Pack/Cryotherapy Treatment: Hot Pack Comments:: HP x 10 mins during restorator with mod resist set Interventions - Exercise/Activities Exercise/Activities/Manual Therapy: Focus of tx on serratus muscle strengthening with limited overhead TE continued. PROM/AROM and isometric ex's performed in supine/sitting with 3# renetta bar and 3# hand weights. Manual therapy and myofascial release performed along scapula and trapezius/cervical stretches with pt ed continued for home use of tennis ball. HOME EXERCISE PROGRAM: Serratus strengthening ex's/handout - Objective Findings Objective Findings:: Winging of left scapula, tender points in serratus, posterior inferior muscle, subscapularis, intercostal tender points tender around the medial border of the left posterior scapula, pain in the tender point medial and posterior to the inferior angle of the left scapula. Pt appears mildly inflammed in the posterior scapula. Pt has increased tenderness to the Left scapula. - Charges Timed Code Treatment Minutes: 54 Total Treatment Time: 54 Procedures billed for this date of service:: HP US MT EX Assessment Patient Education: Education of diagnosis, Body/Joint mechanics, Home Exercise Program, Home Safety, Activity Modification, Education of Plan of Care Patient demonstrates compliance with HEP?: Yes Short Term Goals Goal #1: Pt to increase strength of serratus to 4/5. Goal to be met by: 05/19/18 Progress towards goal: Met Goal #2: To increase Ext. Rot. AROM to 75. Goal to be met by: 05/19/18 Progress towards goal: Met Goal #3: Pt to have Full AROM of Left scapula Goal to be met by: 05/19/18 Progress towards goal: Progressing Goal #4: Pt to be independent with Home exercise program. Goal to be met by: 05/19/18 (PREs) Progress towards goal: Partially Met Kiln Setter Goals Goal #1: Pt to increase strength of serratus to 4+/5. Goal to be met by: 07/12/18 Progress towards goal: Progressing Goal #2: Pt's LUE shoulder pain to decreast to 0-2. Goal to be met by: 07/12/18 Progress towards goal: Progressing Goal #3: Pt to increase AROM of LUE to be WFL. Goal to be met by: 07/12/18 Progress towards goal: Progressing Goal #4: Pt to increase functional use of LUE to increase occupational performance. Goal to be met by: 07/12/18 Progress towards goal: Progressing Plan Dates of Kiln Setter Goals: 07/12/18 Expiration date of current Insurance Approval:: 07/12/18 PLAN: Continue per POC to max functional UE AROM
--- NOTE | 2018-06-18 13:02 | RS.OPPTDN ---
Subjective Date of Note: 06/18/18 Visit #: 51 Number of visits approved by Insurance: 61 to date Date of Evaluation: 12/02/17 Payer Source: Workman's Comp Treatment Diagnosis: Low back pain Current Subjective/complaints:: Reports he is having a better day today. *Precautions: No over head lifting due to Long Thoracic Nerve Ingury Pain Assessment - Pain Description Pain Location: lowback, left knee Pain Description: Dull, Aching Current Pain Intensity: moderate Interventions - Exercise/Activities/Manual Therapy Exercises/Activities: Assisted stretching of bilateral hamstrings, SKTC, piriformis, ITB, and LTR. Isometric hip add and isometric hip flexion. Blue theraband for resisted hip abd in hook-lying. 4# SAQ and 4# alt hip flexion. SLR no weight. Elliptical machine 5mins. Cable pulleys for scap retraction 20 # 3s/10reps. Cable pulleys backward walking and lateral side stepping, 50# 15reps each direction. Wall slides with large therapy ball. Total minutes of Exercise: 42mins Manual Therapy: NA HOME EXERCISE PROGRAM: HS, SKTC, and piriformis stretch. SLR and bridging - Charges Timed Code Treatment Minutes: 42mins Total Treatment Time: 42mins Procedures billed for this date of service:: EX3 Assessment: Patient having good and bad days. Patient Education: Home Exercise Program Patient demonstrates compliance with HEP?: Yes Short Term Goals Goal #1: Pt to tolerate 60 of consistent conditioning activities in the depart. Goal to be met by: 06/29/18 (Revised goal & date 06/15/18) Goal #2: Left knee pain less than 4/10 with standing and walking activities. Goal to be met by: 06/29/18 ( Revised date 06/15/18) Progress towards Goal:: Not Met Goal #3: Trunk strength improved to 4+/5. Goal to be met by: 06/29/18 (Revised date 06/15/18) Progress towards Goal:: Progressing Goal #4: Pt able to get in/out of vehicle with minimal difficulty. Goal to be met by: 06/29/18 (New goal) Operational Communication Chief Goals Goal #1: Pt knows HEP and to continue ex's to maintain functional level at D/C. Goal to be met by: 07/30/18 (Revised date 06/15/18) Progress towards goal: Progressing Goal #2: Score on Oswestry LBP scale improved to 32. Goal to be met by: 07/30/18 (Revised date 06/15/18) Goal #3: Tolerate prolonged sit, stand,& amb. to perform ADL's w/ min knee/back pain Goal to be met by: 07/30/18 (Revised date 06/15/18) Progress towards goal: Progressing Goal #4: Lumbar AROM WFL's to perform all selfcare and ADL's w/ min. difficulty. Goal to be met by: 07/30/18 (Revised date 06/15/18) Progress towards goal: Partially Met (Performing most light ADL's.) Plan Dates of Jail Goals: 07/30/18 Expiration date of current Insurance Approval:: 07/30/18 PLAN: Progress with conditioning as tolerated.
--- NOTE | 2018-06-23 14:22 | RS.OTCXNS ---
OT Case Note Date of Scheduled Appointment: 06/23/18 Type: No Show
--- NOTE | 2018-06-23 16:22 | RS.CXNS ---
Date of scheduled appointment: 06/23/18 Type: No Show
--- NOTE | 2018-06-25 13:35 | RS.CXNS ---
Date of scheduled appointment: 06/25/18 Type: No Show
--- NOTE | 2018-06-25 14:40 | RS.OTCXNS ---
OT Case Note Date of Scheduled Appointment: 06/25/18 Type: No Show
--- NOTE | 2018-06-28 08:28 | RS.CXNS ---
Date of scheduled appointment: 06/28/18 Type: No Show (Patient no showed appointment today. This is the 3rd missed appointment in a row. Patient will be taken off schedule per department policy.)
--- NOTE | 2018-06-28 08:29 | RS.OTCXNS ---
OT Case Note Date of Scheduled Appointment: 06/28/18 Type: No Show
== END 2018-07-09 23:59 ==
PROVIDERS: ATTEND Orthopaedic Surgery
DX: M54.5 Low back pain (principal); M25.512 Pain in left shoulder; M25.562 Pain in left knee; M75.02 Adhesive capsulitis of left shoulder; M75.102 Unspecified rotator cuff tear or rupture of left shoulder, not specified as traumatic